=== PATIENT | female | born 1945 | race Caucasian/White ===

== ENCOUNTER → 2016-05-15 | Outpatient (CLI) | payer BC ==
[~2016-05-15] MED LIST: ATEN50TA8 PO; FLNIN NAE; HYDC25 PO; LISI5TAB3 PO; PRLSR20 PO
[2016-05-15 13:08] LABS: BLOOD UREA NITROGEN 19 mg/dl (7-18); BUN/CREATININE RATIO 26.8 (10-20); CARBON DIOXIDE 34 mmol/L (21-32); CHLORIDE 105 mmol/L (98-107); CREATININE 0.71 mg/dl (0.60-1.20); GLUCOSE 94 mg/dl (70-99); POTASSIUM 3.7 mmol/L (3.5-5.1); SODIUM 143 mmol/L (136-145)
[2016-05-15 13:12] LABS: CHOLESTEROL 188 mg/dl (0-200); CHOLESTEROL/HDL RATIO 2.8; HDL CHOLESTEROL 66 mg/dl; LDL CHOLESTEROL CALCULATED 89 mg/dl; TRIGLYCERIDES 166 mg/dl (0-150); VERY LOW DENSITY LIPOPROT CALC 33 mg/dl
== END | disposition home or self-care (01) ==
LOC: C.LABPVFM 08:06
PROVIDERS: ATTEND Nurse Practitioner
DX: E78.5 Hyperlipidemia, unspecified (principal); I10 Essential (primary) hypertension

== ENCOUNTER → 2016-09-22 | Outpatient (CLI) | payer BC ==
[2016-09-22 13:50] LABS: BLOOD UREA NITROGEN 15 mg/dl (7-18); BUN/CREATININE RATIO 21.6 (10-20); CALCIUM 9.3 mg/dl (8.5-10.1); CARBON DIOXIDE 31 mmol/L (21-32); CHLORIDE 103 mmol/L (98-107); CHOLESTEROL 188 mg/dl (0-200); CREATININE 0.69 mg/dl (0.60-1.20); GLUCOSE 103 mg/dl (70-99); POTASSIUM 3.6 mmol/L (3.5-5.1); SODIUM 139 mmol/L (136-145); TRIGLYCERIDES 134 mg/dl (0-150); VERY LOW DENSITY LIPOPROT CALC 27 mg/dl
[2016-09-22 13:53] LABS: CHOLESTEROL/HDL RATIO 2.9; HDL CHOLESTEROL 64 mg/dl; LDL CHOLESTEROL CALCULATED 97 mg/dl
== END | disposition home or self-care (01) ==
LOC: C.LABPVFM 08:32
PROVIDERS: ATTEND Nurse Practitioner
DX: E78.5 Hyperlipidemia, unspecified (principal); I10 Essential (primary) hypertension

== ENCOUNTER → 2016-12-28 | Outpatient (CLI) | payer BC ==
--- NOTE | 2016-12-29 15:36 | MAMMOGRAPHY REPORT ---
BILATERAL DIGITAL SCREENING MAMMOGRAM WITH CAD: 12/28/2016 CLINICAL HISTORY: Routine screening. TECHNIQUE: Current study was also evaluated with a Computer Aided Detection (CAD) system. Bilateral CC and MLO views were obtained. COMPARISON: Comparison is made to exams dated: 11/04/2015 mammogram, 10/22/2014 mammogram, 11/08/2012 m ammogram, 08/26/2009 mammogram, 12/21/2010 mammogram - [facility], and 08/25/2008. BREAST COMPOSITION: There are scattered areas of fibroglandular density in both breasts. FINDINGS: There is a small cluster of calcifications within the left upper outer quadrant, for which spot magnification views are recommended for further evaluation. The remainder of both breasts are stable compared to prior exams, without suspicious masses, calcific ations, or areas of architectural distortion noted. Other scattered bilateral benign-appearing calci fications are not significantly changed. Lobulated 7 mm mass within the left medial breast is stable dating back to at least the 2007 exam. IMPRESSION: ACR BI-RADS CATEGORY 0: INCOMPLETE EVALUATION: NEED ADDITIONAL IMAGING EVALUATION Left upper outer quadrant calcifications, for which additional imaging evaluation is recommended. Th e patient will be called to schedule an appointment. Approximately 10% of breast cancers are not detected with mammography. A negative mammographic report should not delay biopsy if a clinically suggestive mass is present. Milagros Conte M.D. ah/:12/28/2016 16:15:29 Book Retailer: Leia BLUM(R)(M), [facility] letter sent: Addl Imaging 0 BI-RADS Code: ACR BI-RADS Category 0: Incomplete Evaluation: Need Additional Imaging Evaluation
== END | disposition home or self-care (01) ==
LOC: C.MAMM 11:37
PROVIDERS: ATTEND Nurse Practitioner
DX: Z12.31 Encounter for screening mammogram for malignant neoplasm of breast (principal); R92.0 Mammographic microcalcification found on diagnostic imaging of breast

== ENCOUNTER → 2017-01-10 | Outpatient (CLI) | payer BC ==
--- NOTE | 2017-01-10 13:44 | MAMMOGRAPHY REPORT ---
UNILATERAL LEFT DIGITAL DIAGNOSTIC MAMMOGRAM: 01/10/2017 CLINICAL HISTORY: Left calcifications. TECHNIQUE: Spot magnification left CC and ML views were obtained. COMPARISON: Comparison is made to exams dated: 12/28/2016 mammogram, 11/04/2015 mammogram, 10/22/2014 mammogram, 11/08/2012 mammogram, 12/21/2010 mammogram, and 08/26/2009 mammogram - [facility]. BREAST COMPOSITION: There are scattered areas of fibroglandular density in the left breast. FINDINGS: Spot magnification views of the left breast demonstrate a 5.5 mm nodular asymmetry with as sociated coarse heterogeneous microcalcifications in the upper outer posterior left breast. There ar e approximately 5-6 microcalcifications in the grouping that differ in size and shape. Although this could represent a degenerating fibroadenoma, DCIS cannot be completely excluded. Definitive charact erization with a stereotactic guided biopsy is recommended. IMPRESSION: ACR BI-RADS CATEGORY 4: SUSPICIOUS 1. A left breast stereotactic guided biopsy is recommended for a 5 mm grouping of coarse heterogeneo us microcalcifications and associated nodular asymmetry in the upper outer posterior left breast. These results and recommendations were discussed with the patient at the time of the exam. She reluc tantly agreed to the biopsy and tentatively scheduled prior to leaving our department. Approximately 10% of breast cancers are not detected with mammography. A negative mammographic report should not delay biopsy if a clinically suggestive mass is present. Amita Turner M.D. ay/:01/10/2017 09:16:57 Sheeter Operator: Juju BLUM(Alli)(Ted), [facility] letter sent: Abnormal 4/5 BI-RADS Code: ACR BI-RADS Category 4: Suspicious
== END | disposition home or self-care (01) ==
LOC: C.MAMM 08:35
PROVIDERS: ATTEND Nurse Practitioner
DX: R92.0 Mammographic microcalcification found on diagnostic imaging of breast (principal); N64.89 Other specified disorders of breast

== ENCOUNTER → 2017-01-17 | Outpatient (CLI) | payer BC ==
--- NOTE | 2017-01-17 13:25 | Discharge Instructions ---
Discharge Instructions Procedure Procedure Date: Jan 17, 2017. Reason for visit: Left Calcifications. Discharge Discharge Date: Jan 17, 2017. Discharge Diagnosis: post left breast stereotactic guided biopsy Instructions Activity Recommendations: Additional Limitations (see below) Return to School/Work: no limitations Recommended Home Diet: No Limitations Provider Instructions: ACTIVITY RECOMMENDATIONS: * No lifting, pushing, pulling or exercising the affected side for three days. RETURN TO SCHOOL/WORK: * You may return to work/school after the procedure, but do not perform any strenuous activities for 24 to 48 hours. MEDICATIONS: * Tylenol (two 325 mg) every four to six hours if needed for mild pain (if not allergic to Tylenol). DIET: * Resume previous diet. SPECIAL CARE INSTRUCTIONS: * Keep biopsy site dry for 24 hours. May shower after 24 hours, but do not soak (bathe) incision. * May remove Tegaderm (plastic patch) tomorrow AFTER showering. * Leave the steri-strips on for one week. Allow the steri-strips to fall off by themselves. If not off after one week, you may remove them. You may place a Bandaid crosswise over the strips, if desired. * Apply ice 10 minutes on and 10 minutes off as needed. * Wear a bra at bedtime to sleep more comfortably for 2-3 days. * Your referring physician should have the results after approximately 5 to 7 business days. * Call for unusual bleeding, fever, drainage, etc or if you have any questions call [phone] during normal business hours or after hours call Dr Turner, . FOLLOW UP VISIT: Follow-up with Referring Physician as scheduled. Allergies Coded Allergies: No Known Allergies (Unverified , NONE, 05/29/08) Uncoded Allergies: NKDA (Allergy, Mild, 12/05/05) Thomas Juares Recommendations: Call your doctor if: * Temperature above 101 degrees * Pain not relieved by pain medicine ordered * There is increased drainage or redness from any incision * You have any unanswered questions or concerns. Your Doctors Instructions noted above were prepared by provider Amita Turner. Patient Signature Section: Patient Instructions Signature Page Elsie Ace Patient (or Guardian) Signature/Date: I have read and understand the instructions given to me by my caregivers. Caregiver/RN/Doctor Signature/Date: The above-named patient and/or guardian has received patient instructions on this date. + Original Patient Signature Page (only) stays with chart. Please make copy for patient.
--- NOTE | 2017-01-17 15:18 | MAMMOGRAPHY REPORT ---
UNILATERAL LEFT DIGITAL DIAGNOSTIC MAMMOGRAM: 01/17/2017 CLINICAL HISTORY: Status post stereotactic biopsy of a grouping of calcifications and associated nodu lar asymmetry in the lateral left breast. Please refer to report from left breast stereotactic biopsy performed at the same time for full detai l. IMPRESSION: POST PROCEDURE IMAGING FOR MARKER PLACEMENT Please refer to report from left breast stereotactic biopsy performed at the same time for full detai l. Approximately 10% of breast cancers are not detected with mammography. A negative mammographic report should not delay biopsy if a clinically suggestive mass is present. Amita Turner M.D. ay/:01/17/2017 13:32:51 Director Of Home Health Services: iGa BLUM(R)(M), [facility] BI-RADS Code: Post Procedure Imaging For Marker Placement
--- NOTE | 2017-01-18 07:53 | MAMMOGRAPHY REPORT ---
STEREOTACTIC GUIDED BIOPSY LEFT BREAST: 01/17/2017 CLINICAL HISTORY: 71-year-old woman presents for biopsy of a 5.5 mm nodular asymmetry with associated coarse heterogeneous calcification in the approximate 3:00 posterior left breast. COMPARISON: Comparison is made to exams dated: 01/10/2017 mammogram, 12/28/2016 mammogram, 11/04/2015 mammogram, 10/22/2014 mammogram, and 11/08/2012 mammogram - [facility]. PATIENT CONSENT: After explaining the risks, benefits and alternatives of the procedure to the patien t, informed consent was obtained both verbally and in writing. Specific risks include: Bleeding, inf ection, puncture of adjacent structure, pain, nontarget biopsy, sampling error, metal allergy and med ication reaction. PROCEDURE DESCRIPTION: A time-out was performed and the left breast was confirmed as the site of biop sy. The patient was placed prone on the stereotactic biopsy table and the breast was placed in latera lmedial compression. A ehr trainer image was obtained that demonstrated the clustered microcalcifications in question. They are amenable to sterotactic biopsy. Then +15 and -15 stereo pair images were obt ained. The calcifications were targeted utilizing the coordinates obtained by the computer. The skin was prepped with Betadine. 1% Lidocaine with and without epinipherine was administered as local anes thesia. A small skin incision was made. Through the incision, the needle was inserted to the depth d etermined by the computer. 12 samples were obtained using a ioBridgeiva 9-gauge vacuum-assisted biops y device. The specimen radiograph demonstrated several agency service representative microcalcifications, therefore, a metallic marker was placed at the biopsy site. There was no immediate complication. Hemostasis was achieved after several minutes of manual compression. The samples were sent to pathology in an appr opriately labeled container. Postprocedure CC and ML views of the left breast were obtained. A new dumbbell-shaped biopsy marker clip is seen in the 3:00 posterior left breast at the site of the biopsied nodular asymmetry with as sociated coarse heterogeneous calcification. Possible minimal 8mm hematoma at biopsy site. IMPRESSION: STEREOTACTIC GUIDED BIOPSY Status post left breast stereotactic biopsy of a 5.5 mm nodular asymmetry with associated coarse hete rogeneous calcification in the 3:00 posterior left breast, with biopsy marker placed at the site. The patient will receive notification of the biopsy results from her referring physician. Amita Turner M.D. ay/:01/17/2017 16:35:46 Hospital Aide: Gia VERA)(Ted), [facility]
== END | disposition home or self-care (01) ==
LOC: C.MAMM 12:27
PROVIDERS: ATTEND Nurse Practitioner
DX: D24.2 Benign neoplasm of left breast (principal); R92.0 Mammographic microcalcification found on diagnostic imaging of breast

== ENCOUNTER → 2017-09-17 | Outpatient (CLI) | payer BC ==
[2017-09-17 13:57] LABS: BLOOD UREA NITROGEN 13 mg/dl (7-18); CALCIUM 9.5 mg/dl (8.5-10.1); CARBON DIOXIDE 31 mmol/L (21-32); CHOLESTEROL 218 mg/dl (0-200); CREATININE 0.68 mg/dl (0.60-1.20); GLUCOSE 99 mg/dl (70-99); LDL CHOLESTEROL CALCULATED 127 mg/dl; POTASSIUM 4.1 mmol/L (3.5-5.1); SODIUM 139 mmol/L (136-145)
== END | disposition home or self-care (01) ==
LOC: C.LABPVFM 10:08
PROVIDERS: ATTEND Nurse Practitioner
DX: E78.5 Hyperlipidemia, unspecified (principal); I10 Essential (primary) hypertension

== ENCOUNTER 2023-05-04 23:15 | Observation (INO) ==
[2023-05-04] MEDS: dilTIAZem HCl 5 MG/ML 5 ML VIAL IV ONE (23:40)
[2023-05-04] MEDS: ADENOSINE IV SOLN 3 MG/ML 2 ML VIAL IV ONE (23:41)
[2023-05-04] MEDS: dilTIAZem HCl 5 MG/ML 5 ML VIAL IV STA (23:47)
--- NOTE | 2023-05-04 23:53 | Emergency Department Note ---
Impression & Plan Supraventricular tachycardia, Hypomagnesemia, Hypokalemia, Right-sided chest pain Admit to the [facility] ED Provider Note NAME: SOM HURTADO AGE: 77 SEX: Female INFORMANT: Patient ED PROVIDER(S): Mariya Condon DO CHIEF COMPLAINT: Chest pain PLAN: Disposition: Admit to the [facility] MEDICAL DECISION MAKING: This is a 77-year-old female patient underwent double mastectomy 5 days ago and was recovering at home. Today she described increasing chest pain throughout the day till tonight EMS was called and found that she was significantly tachycardic with a heart rate of 180. EMS administered adenosine up to 18 mg with no improvement in her situation. Care/management discussed with: hotel assistant manager, [facility]ist, the patient's family and the patient Triage Nursing notes: Reviewed and agree with them. Vital Signs: reviewed and remarkable for tachycardia and hypertension Additional History obtained from: EMS and her family Differential Diagnosis: Electrolyte abnormality, dehydration, cardiac dysrhythmia, cardiac ischemia Diagnostics, independently interpreted by me: ECG: SVT at a rate of 183 ST segment depression inferiorly and laterally. Repeat ECG: Atrial fibrillation at a rate of 76 ST segment depression laterally concerning for ischemia Repeat ECG: Normal sinus rhythm at a rate of 84 with immature supraventricular complexes. No signs of ischemia. Cardiac Monitoring: A-fib at a rate of 73 Imaging studies: Portable chest x-ray: As per my independent interpretation-no evidence of pulmonary infiltrates or consolidation HPI: 77 year old Female arrives for evaluation of chest pain. Patient describes worsening chest discomfort throughout the day today. She originally thought it was because of the chest sleeve/bra that she is wearing secondary to her recent mastectomy. She admits that she has not eaten much throughout the day today because she just does not feel like it. She does not cook for herself as a result of her 's recently. PAST MEDICAL HISTORY: See Below, PAST SURGICAL HISTORY: See Below, SOCIAL HISTORY: See Below, HOME MEDICATIONS: See list ALLERGIES: See list VITALS: See Below PHYSICAL EXAMINATION: HEENT: Head - normocephalic and atraumatic. Pupils are equal, round, and reactive to light. Extraocular eye muscles are intact, and sclera are anicteric. Nose - moist nasal mucosa without discharge. Mouth - moist buccal mucosa. Oropharynx is nonerythematous and there is no tonsillar exudate or edema noted. Neck: Supple; no JVD, nuchal rigidity, cervical lymphadenopathy, or auscultated bruits. Heart: Tachycardic rate and regular rhythm there is a normal S1 and S2 with no murmurs, clicks, or gallops appreciated. Lungs: Clear to auscultation bilaterally with no wheezes, rales, or rhonchi. Abdomen: Soft, completely nontender, nondistended, with good bowel sounds. There are no palpable pulsatile masses or hepatosplenomegaly. There is no guarding, rigidity, or rebound noted. Extremities: No evidence of cyanosis, clubbing, or edema. There are easily palpable peripheral pulses. Skin: warm and extremely dry with poor turgor and no rashes. Emergency department treatment: monitoring coordinator, IV adenosine, IV Cardizem, IV normal saline bolus, IV potassium, IV magnesium Emergency department course: The patient was evaluated in room B1. An order was placed for continuous cardiac monitoring. The patient was in SVT at a rate of 187. Twelve-lead EKG was obtained. Second IV lock was initiated. The patient was given 12 mg of IV adenosine which slowed the rhythm enough for me to see there was normal sinus rhythm underneath. Patient had laboratory studies drawn. She was bolused with an additional 500 cc of normal saline solution. She was given 20 mg of IV Cardizem. Laboratory studies revealed a low potassium and low magnesium. She was started with replacement of an IV K rider and IV magnesium. Portable chest x-ray was performed and was unremarkable. I kept the patient and her family abreast of the situation. I discussed the case with the [facility] Hospitalist. I have personally spent greater than 75 minutes of critical care time in the direct management of this patient. This includes bedside care, interpretation of diagnostic studies, and testing, discussion with consultants, patient, and family members, and other required patient management activities. This 75 minutes is in excess of all separately billable procedures. Past Med/Surg History Medical History (Updated 05/05/23 @ 08:00 by Mariya Condon DO) Active Meniere's disease, cochlear Allergic rhinitis Hyperlipidemia Hypertension Surgical History (Updated 05/05/23 @ 03:37 by Adelia Moses DO) S/P bilateral mastectomy History of dental surgery [place] teeth removal/another procedure to remove a piece of wisdom tooth Hx of cholecystectomy Family History Mother Hypertension Myocardial infarction Denies family history of Ovarian cancer Prostate cancer Diabetes Breast cancer Colorectal cancer Social History Smoking Status: Former smoker Tobacco Type: Cigarettes Smoking End Date: 1998; Second Hand Exposure: Yes; Do You Dip or Chew Tobacco: No; Tobacco Cessation Education Requested by Patient: No Hx Alcohol Use: No Hx Substance Use: No Preferred Language: Palauan Communication Ability: Effective Visual Impairment: Limited Hearing Ability: Normal Foster Winder Required: No Beliefs That Will Affect Care: None marital status: / Current Living Situation: Alone current occupational status: retired How many Children do You have: 3 How many Children do You have Comment: 1 child . Feels Safe at Home: Yes Safety Concerns: Feels Safe At This Time Childhood Exposure to Second-Hand Smoke: Yes Diet: regular caffeine: Yes (coffee) during the past year weight has: remained stable Dental Care, Regularly: Yes Physical Activity Frequency: Does not Exercise Seatbelt Use: always Sunscreen Use: No Do you think of yourself as: straight/heterosexual Gender Identity: Female Assistive Devices: None Allergies Allergies Allergy/AdvReac Type Severity Reaction Status Date / Time atorvastatin [From Lipitor] AdvReac Intermediate hairloss Verified 05/05/23 01:02 simvastatin [From Zocor] AdvReac Intermediate hairloss Verified 05/05/23 01:02 Home Meds Home Medications Medication Instructions Recorded Confirmed cholecalciferol (vitamin D3) 25 2,000 unit PO DAILY 10/16/19 05/05/23 mcg (1,000 unit) capsule rdfqvile-[id number]-fbyh 8 mg-folic 400 1 tab PO DAILY 05/16/22 05/05/23 mcg-K 50 mcg-lutein 300 mcg tablet (Centrum Silver Women) azelastine 137 mcg (0.1 %) nasal 1 spray intranasal DAILY 05/05/23 05/05/23 spray aerosol hydrochlorothiazide 25 mg tablet 25 mg PO DAILY 05/05/23 05/05/23 lisinopril 5 mg tablet 5 mg PO DAILY 05/05/23 05/05/23 meloxicam 15 mg tablet 15 mg PO DAILY PRN Pain 05/05/23 05/05/23 Previous Rx's Medication Instructions Recorded montelukast 10 mg tablet 10 mg PO HS #90 tabs 09/07/22 fluticasone propionate 50 2 spray intranasal DAILY #48 grams 03/08/23 mcg/actuation nasal spray,suspension albuterol sulfate 90 mcg/actuation 2 puff inhalation QID PRN 03/29/23 aerosol inhaler shortness of breath or wheezing #6.7 grams loratadine 10 mg tablet 10 mg PO DAILY allergy symptoms 03/29/23 #90 tabs atenolol 50 mg tablet 50 mg PO DAILY #90 tabs 05/04/23 Results & Data (ED) Vital Signs Vital Signs - 24 hr 05/04/23 23:21 05/04/23 23:21 05/04/23 23:23 Temperature 37.0 C Temperature Source Oral Pulse Rate 188 H 185 H 185 H Pulse Rate from SpO2 Sensor Respiratory Rate 20 17 Respiratory Effort / Characteristics Non-Labored Spontaneous Respiratory Depth Normal Respiratory Pattern Regular Blood Pressure 148/102 H 130/103 H Blood Pressure Mean 117 112 Blood Pressure Position Lying Pulse Oximetry 97 Oxygen Delivery Method Room Air Sepsis Recent Fever Within 48 Hours No Sepsis New/Unexplained Change in Mental Status N/A Sepsis Action Taken by Nursing No Action Required 05/04/23 23:30 05/04/23 23:37 05/04/23 23:37 Temperature Temperature Source Pulse Rate 187 H 183 H 38 L Pulse Rate from SpO2 Sensor 187 H Respiratory Rate 23 Respiratory Effort / Characteristics Respiratory Depth Respiratory Pattern Blood Pressure 148/102 H Blood Pressure Mean 117 Blood Pressure Position Pulse Oximetry 98 Oxygen Delivery Method Room Air Sepsis Recent Fever Within 48 Hours Sepsis New/Unexplained Change in Mental Status Sepsis Action Taken by Nursing 05/04/23 23:38 05/04/23 23:38 05/04/23 23:40 Temperature Temperature Source Pulse Rate 203 H 203 H 182 H Pulse Rate from SpO2 Sensor 183 H 179 H Respiratory Rate 21 19 Respiratory Effort / Characteristics Respiratory Depth Respiratory Pattern Blood Pressure 129/85 126/83 Blood Pressure Mean 99 97 Blood Pressure Position Pulse Oximetry 95 98 Oxygen Delivery Method Room Air Room Air Sepsis Recent Fever Within 48 Hours Sepsis New/Unexplained Change in Mental Status Sepsis Action Taken by Nursing 05/04/23 23:41 05/04/23 23:52 05/04/23 23:52 Temperature Temperature Source Pulse Rate 121 H 82 Pulse Rate from SpO2 Sensor Respiratory Rate 20 Respiratory Effort / Characteristics Respiratory Depth Respiratory Pattern Blood Pressure Blood Pressure Mean Blood Pressure Position Pulse Oximetry 97 96 Oxygen Delivery Method Room Air Room Air Sepsis Recent Fever Within 48 Hours Sepsis New/Unexplained Change in Mental Status Sepsis Action Taken by Nursing 05/04/23 23:52 05/04/23 23:55 05/04/23 23:55 Temperature Temperature Source Pulse Rate 85 90 74 Pulse Rate from SpO2 Sensor 83 79 Respiratory Rate 18 22 Respiratory Effort / Characteristics Respiratory Depth Respiratory Pattern Blood Pressure 83/50 L 98/63 L Blood Pressure Mean 61 74 Blood Pressure Position Pulse Oximetry 95 97 Oxygen Delivery Method Room Air Room Air Sepsis Recent Fever Within 48 Hours Sepsis New/Unexplained Change in Mental Status Sepsis Action Taken by Nursing 05/05/23 00:00 05/05/23 00:10 05/05/23 00:15 Temperature Temperature Source Pulse Rate 74 89 77 Pulse Rate from SpO2 Sensor 76 92 H 80 Respiratory Rate 22 20 20 Respiratory Effort / Characteristics Respiratory Depth Respiratory Pattern Blood Pressure 105/55 L 96/63 L 105/50 L Blood Pressure Mean 71 74 68 Blood Pressure Position Pulse Oximetry 97 96 96 Oxygen Delivery Method Room Air Room Air Room Air Sepsis Recent Fever Within 48 Hours Sepsis New/Unexplained Change in Mental Status Sepsis Action Taken by Nursing 05/05/23 00:30 05/05/23 00:45 05/05/23 01:15 Temperature Temperature Source Pulse Rate 74 76 70 Pulse Rate from SpO2 Sensor 73 72 70 Respiratory Rate 16 19 22 Respiratory Effort / Characteristics Respiratory Depth Respiratory Pattern Blood Pressure 95/58 L 108/58 L 110/61 Blood Pressure Mean 70 74 77 Blood Pressure Position Pulse Oximetry 96 96 97 Oxygen Delivery Method Room Air Sepsis Recent Fever Within 48 Hours Sepsis New/Unexplained Change in Mental Status Sepsis Action Taken by Nursing 05/05/23 01:38 05/05/23 02:00 05/05/23 02:30 Temperature Temperature Source Pulse Rate 68 67 70 Pulse Rate from SpO2 Sensor 66 67 67 Respiratory Rate 18 16 23 Respiratory Effort / Characteristics Respiratory Depth Respiratory Pattern Blood Pressure Blood Pressure Mean Blood Pressure Position Pulse Oximetry 97 99 96 Oxygen Delivery Method Sepsis Recent Fever Within 48 Hours Sepsis New/Unexplained Change in Mental Status Sepsis Action Taken by Nursing Laboratory Data 05/05/23 04:39 05/05/23 04:39 Lab Results 05/04/23 Range/Units 23:20 WBC 21.33 H (4.8-10.8) K/ul RBC 4.81 (4.20-5.40) M/uL Hgb 15.2 (12.0-16.0) g/dl Hct 44.7 (37.0-47.0) % MCV 92.9 (80.0-100.0) fL MCH 31.6 (25.0-34.0) pg MCHC 34.0 (32.0-36.0) g/dL RDW Std Deviation 44.3 (36.4-46.3) fL RDW Coeff of Areli 13.0 (11.5-14.5) % Plt Count 291 (130-400) K/uL MPV 11.7 (9.4-12.4) fL Immature Gran % (Auto) 0.7 % Neut % (Auto) 83.8 % Lymph % (Auto) 8.0 % [place] % (Auto) 6.9 % Eos % (Auto) 0.1 % Baso % (Auto) 0.5 % Neut # (Auto) 17.89 H (1.40-6.50) K/uL Lymph # (Auto) 1.70 (1.20-3.40) K/uL [place] # (Auto) 1.48 H (0.11-0.59) K/uL Eos # (Auto) 0.02 (0.00-0.50) K/uL Baso # (Auto) 0.10 (0.00-0.20) K/uL Immature Gran # (Auto) 0.14 (0.01-0.20) K/uL Sodium 136 (136-145) mmol/L Potassium 3.2 L (3.5-5.1) mmol/L Chloride 99 (98-107) mmol/L Carbon Dioxide 26 (21-32) mmol/L Anion Gap 11 (3-11) BUN 17 (6-23) mg/dl Creatinine 0.83 (0.6-1.2) mg/dl Est Cr Clr Drug Dosing 56.8 ml/min Est GFR ( Amer) 77.7 ml/min Est GFR (Non-Af Amer) 67.1 ml/min BUN/Creatinine Ratio 20.5 H (10-20) Glucose 179 H (70-99(Fasting)) mg/dl Calcium 9.4 (8.6-10.3) mg/dl Magnesium 1.6 L (1.7-2.4) mg/dl Total Bilirubin 0.6 (0.2-1.0) mg/dl AST 13 (13-39) U/L ALT 8 (7-52) U/L Alkaline Phosphatase 72 (34-104) U/L Troponin I High Sens 12.3 (0-14) pg/ml Total Protein 7.3 (6.0-8.3) gm/dl Albumin 4.2 (3.4-5.0) gm/dl Globulin 3.1 (2.5-4.0) gm/dl Albumin/Globulin Ratio 1.4 (0.9-2) Lipase 42 (11-82) U/L Administered Medications Lactated Ringer's (Lr) 1,000 mls @ 100 mls/hr IV .Q10H TOM Stop: 05/05/23 22:59 Last Admin: 05/05/23 03:26 Dose: 100 mls/hr Documented By: LUZ Discontinued Medications Adenosine (Adenosine Iv Soln 3 Mg/Ml 2 Ml Vial) Confirm Administered Dose 6 mg IV .STK-MED ONE Stop: 05/04/23 23:35 Last Admin: 05/04/23 23:41 Dose: 12 mg Documented By: Adenosine (Adenosine Iv Soln 3 Mg/Ml 2 Ml Vial) 12 mg IV NOW STA Stop: 05/05/23 00:27 Last Admin: 05/05/23 00:28 Dose: Not Given Documented By: Diltiazem HCl (Diltiazem Hcl 5 Mg/Ml 5 Ml Vial) Confirm Administered Dose 25 mg IV .STK-MED ONE Stop: 05/04/23 23:40 Last Increment: 05/04/23 23:40 Dose: 20 mg Documented By: Co-signed By: PRINCESS Diltiazem HCl (Diltiazem Hcl 5 Mg/Ml 5 Ml Vial) 20 mg IV NOW STA Stop: 05/04/23 23:41 Last Admin: 05/04/23 23:47 Dose: Not Given Documented By: Sodium Chloride (Nss) 500 mls @ 999 mls/hr IV .Q31M ONE Stop: 05/05/23 00:56 Last Infusion: 05/05/23 01:12 Dose: Infused Documented By: Admin: 05/05/23 00:30 Dose: 999 mls/hr Documented By: Potassium Chloride (K Luis Alberto / Wtr) 10 meq in 100 mls @ 100 mls/hr IV ONE ONE Stop: 05/05/23 01:25 Last Infusion: 05/05/23 01:32 Dose: Infused Documented By: Admin: 05/05/23 00:30 Dose: 100 mls/hr Documented By: Magnesium Sulfate/Dextrose (Magnesium Sulfate / D5w) 1 gm in 100 mls @ 100 mls/hr IV NOW STA Stop: 05/05/23 01:25 Last Infusion: 05/05/23 01:31 Dose: Infused Documented By: Admin: 05/05/23 00:30 Dose: 100 mls/hr Documented By: Imaging Data Radiologist's Impression: Chest X-Ray 05/04/23 23:40 XR chest 1V portable CLINICAL HISTORY: Chest pain, nonspecific COMPARISON STUDY: Chest radiograph June 25, 2010. FINDINGS: Surgical drains project over the lower chest. There is no pneumothorax or pleural effusion. Patient is mildly rotated. There is no consolidation or evidence for pulmonary edema. Cardiomediastinal silhouette is stable. Skin folds project over the chest. IMPRESSION: No acute cardiopulmonary findings. ACT 112: Negative or not required by law. Electronically signed by: Alonzo Gallegos M.D. 05/05/2023 7:41 AM Discharge Plan Visit Data Chief Complaint: Tachycardia Stated Complaint: SVT ED Provider: Mariya Condon Discharge Problem: Supraventricular tachycardia, Hypomagnesemia, Hypokalemia, Right-sided chest pain Patient Disposition: Admitted As Inpatient Discharge Instructions Interventions: ED Discharge Assessment Last Done: 05/05/23 04:37
[2023-05-04 23:59] LABS: Basophils % (auto) 0.5 %; Eosinophils # (auto) 0.02 K/uL (0.00-0.50); Eosinophils % (auto) 0.1 %; Hematocrit (blood only) 44.7 % (37.0-47.0); Hemoglobin 15.2 g/dl (12.0-16.0); Immature Granulocytes # (auto) 0.14 K/uL (0.01-0.20); Immature Granulocytes % (auto) 0.7 %; Mean Corpuscular Hemoglobin 31.6 pg (25.0-34.0); Mean Corpuscular Volume 92.9 fL (80.0-100.0); Mean Platelet Volume 11.7 fL (9.4-12.4); Monocytes # (auto) 1.48 K/uL (0.11-0.59); Monocytes % (auto) 6.9 %; Neutrophils # (auto) 17.89 K/uL (1.40-6.50); Neutrophils % (auto) 83.8 %; Platelet Count 291 K/uL (130-400); RDW Standard Deviation 44.3 fL (36.4-46.3); Red Blood Count 4.81 M/uL (4.20-5.40); White Blood Count 21.33 K/ul (4.8-10.8)
[2023-05-05 00:05] LABS: Albumin Globulin Ratio 1.4 (0.9-2); Albumin Level 4.2 gm/dl (3.4-5.0); BUN Creatinine Ratio 20.5 (10-20); Bilirubin,Total 0.6 mg/dl (0.2-1.0); Calcium 9.4 mg/dl (8.6-10.3); Creatinine Clr Calc Pharmacy 56.8 ml/min; Est GFR (African American) 77.7 ml/min; Est GFR (Non-African American) 67.1 ml/min; Globulin 3.1 gm/dl (2.5-4.0); Magnesium 1.6 mg/dl (1.7-2.4); Potassium 3.2 mmol/L (3.5-5.1); Total Protein 7.3 gm/dl (6.0-8.3)
[2023-05-05 00:12] LABS: Troponin I High Sensitivity 12.3 pg/ml (0-14)
[2023-05-05] MEDS: ADENOSINE IV SOLN 3 MG/ML 2 ML VIAL IV STA (00:28)
[2023-05-05] MEDS: SODIUM CHLORIDE 0.9% 500 ML IV ONE (00:30)
[2023-05-05] MEDS: MAGNESIUM SULFATE / D5W 1 GM/100 ML BAG IV STA (00:30)
[2023-05-05] MEDS: POTASSIUM CHLORIDE / WTR 10 MEQ/100 ML PLCT IV ONE (00:30)
--- NOTE | 2023-05-05 02:13 | History & Physical Report ---
"Date of Service May 05, 2023 Assessment & Plan (1) Bilateral breast cancer: (2) S/P bilateral mastectomy: (3) SVT (supraventricular tachycardia): (4) Hypertension: Plan Supraventricular Tachycardia | Electrolyte Abnormalities -New onset of SVT, required adenosine pre-hospital and additional adenosine plus Cardizem in ED -HR currently ranging 70-80s after above regimen -Will continue home atenolol and add additional Lopressor 5mg IV q4h for HR >110 -No prior episodes atrial fibrillation/SVT/or arrhythmias -Found to have K of 3.2 and Mag of 1.6, repletion received in ED. -Repeat BMP, mag levels ordered for a.m. Goal of K=4 and Mag=2 -Received 500mL NSS bolus in ED. Will continue with IV hydration. -Suspect that electrolyte abnormalities and poor PO intake contributed to her presentation. Will hold HCTZ. -Cardiology consulted, will defer anticoagulation until cardiology assessment later this morning -Monitor on telemetry Leukocytosis -WBC 22 on arrival -Patient has been afebrile, no urinary or GI infectious symptoms. Incisions from mastectomy do not appear infected. -Suspect white count could be falsely elevated due to hemoconcentration -Will hold antibiotics at this time, repeat CBC ordered for a.m. S/P Bilateral Mastectomy -Incisions appear to be healing appropriately with two drains in place -No obvious sign of infection at this time Admit to PCU VTE Prophylaxis: Will await discussion with cardiology Diet: Heart Healthy Code Status: Full Code History of Present Illness Primary Care Provider: TIANA Giles Elsie Ace is a 77 year-old female with a past medical history of HTN, HLD, vertigo who is s/p bilateral mastectomy (04/27/23) who presented to the ED via ambulance after chest pain. She was found to be in SVT by EMS and was given adenosine. Patient states that she had a double mastectomy two weeks ago, has been feeling sore but otherwise has been recovering well. She noticed some increased pain around her chest/incisions today and did not quite feel like her self/was nauseated prior to EMS arriving. She notes that she has not had much to eat, does not have much of an appetite but this is a longstanding issue as she does not cook much since she became a several years ago. She notes that on Sunday she had only eaten 2 pieces of toast that day. Notes she had two if her drains removed earlier this week and has had continued output in her remaining two drains. Denies shortness of breath, abdominal pain/diarrhea/constipation, dizziness/lightheadedness, fever or urinary frequency or dysuria. ED Course: -500mL NSS bolus -Received adenosine, cardizem and mag sulfate/potassium repletion Allergies Allergy/AdvReac Type Severity Reaction Status Date / Time atorvastatin [From Lipitor] AdvReac Intermediate hairloss Verified 05/05/23 01:02 simvastatin [From Zocor] AdvReac Intermediate hairloss Verified 05/05/23 01:02 Home Medications Medication Instructions Recorded Confirmed Type cholecalciferol (vitamin D3) 25 2,000 unit PO DAILY 10/16/19 05/05/23 History mcg (1,000 unit) capsule snkfusyl-pmiw-ywby 8 mg-folic 400 1 tab PO DAILY 05/16/22 05/05/23 History mcg-K 50 mcg-lutein 300 mcg tablet (Centrum Silver Women) montelukast 10 mg tablet 10 mg PO HS #90 tabs 09/07/22 05/05/23 Rx fluticasone propionate 50 2 spray intranasal DAILY #48 grams 03/08/23 05/05/23 Rx mcg/actuation nasal spray,suspension albuterol sulfate 90 mcg/actuation 2 puff inhalation QID PRN 03/29/23 05/05/23 Rx aerosol inhaler shortness of breath or wheezing #6.7 grams loratadine 10 mg tablet 10 mg PO DAILY allergy symptoms 03/29/23 05/05/23 Rx #90 tabs atenolol 25 mg tablet 25 mg PO BID #60 tabs 05/05/23 Rx azelastine 137 mcg (0.1 %) nasal 1 spray intranasal DAILY 05/05/23 05/05/23 History spray aerosol lisinopril 5 mg tablet 5 mg PO DAILY 05/05/23 05/05/23 History meloxicam 15 mg tablet 15 mg PO DAILY PRN Pain 05/05/23 05/05/23 History potassium chloride 20 mEq 20 meq PO DAILY #30 tabs 05/05/23 Rx tablet,extended release (K-Tab) Past Med/Surg History Medical History Active Meniere's disease, cochlear Allergic rhinitis Hyperlipidemia Hypertension Surgical History S/P bilateral mastectomy History of dental surgery [place] teeth removal/another procedure to remove a piece of wisdom tooth Hx of cholecystectomy Family History Mother Hypertension Myocardial infarction Denies family history of Ovarian cancer Prostate cancer Diabetes Breast cancer Colorectal cancer Social History Smoking Status: Former smoker Tobacco Type: Cigarettes Second Hand Exposure: Yes; Do You Dip or Chew Tobacco: No; Hx Alcohol Use: No Hx Substance Use: No Preferred Language: Hungarian Communication Ability: Effective Visual Impairment: Limited Hearing Ability: Normal Wildlife Manager Required: No Beliefs That Will Affect Care: None marital status: / Current Living Situation: Alone current occupational status: retired How many Children do You have: 3 How many Children do You have Comment: 1 child . Feels Safe at Home: Yes Childhood Exposure to Second-Hand Smoke: Yes Diet: regular caffeine: Yes (coffee) during the past year weight has: remained stable Dental Care, Regularly: Yes Physical Activity Frequency: Does not Exercise Seatbelt Use: always Sunscreen Use: No Do you think of yourself as: straight/heterosexual Gender Identity: Female Assistive Devices: None Review of Systems Review of Systems: As per above Physical Exam Constitutional: WD/WN, vitals as above Eyes: + anicteric sclerae; no conjunctival abn ormality Respiratory: normal respiratory effort, lungs clear to auscultation Cardiovascular: Rate/Rhythm: regular rate and regular rhythm Extremities: no edema Chest (Breasts): Additional Comments: Bilateral mastectomy incisions, healing appropriately without discharge or erythema. Two drains in place with serosanguineous fluid. Gastrointestinal (Abdomen): normal bowel sounds, soft, nontender, no hepatosplenomegaly Musculoskeletal: Moves limbs independently Neurologic: no focal motor deficits Psychiatric: A+Ox3, euthymic affect Results & Data Results & Data Vital Signs (Past 12 Hours) Vital Signs Temp Pulse Resp BP Pulse Ox O2 Del Method 05/05/23 01:15 70 22 110/61 97 05/05/23 00:45 76 19 108/58 L 96 05/05/23 00:30 74 16 95/58 L 96 Room Air 05/05/23 00:15 77 20 105/50 L 96 Room Air 05/05/23 00:10 89 20 96/63 L 96 Room Air 05/05/23 00:00 74 22 105/55 L 97 Room Air 05/04/23 23:55 74 05/04/23 23:55 90 22 98/63 L 97 Room Air 05/04/23 23:52 85 18 83/50 L 95 Room Air 05/04/23 23:52 82 20 96 Room Air 05/04/23 23:52 97 Room Air 05/04/23 23:41 121 H 05/04/23 23:40 182 H 19 126/83 98 Room Air 05/04/23 23:38 203 H 05/04/23 23:38 203 H 21 129/85 95 Room Air 05/04/23 23:37 38 L 05/04/23 23:37 183 H 05/04/23 23:30 187 H 23 148/102 H 98 Room Air 05/04/23 23:23 185 H 17 130/103 H 05/04/23 23:21 185 H 05/04/23 23:21 37.0 C 188 H 20 148/102 H 97 Room Air Supervising Physician Co-Signing Physician Notes Attending addendum: I have physically seen this patient, have supervised the medical residents activities, and agree with the H&P unless as otherwise noted. Assessment and Plan: Supraventricular tachycardia/atrial fibrillation with RVR- Received multiple doses of adenosine in the prehospital and ED setting Also received diltiazem 20 mg IV, normal saline 500 mL, potassium chloride 10 mEq IV and magnesium sulfate 1 mg IV from the ED Heart rate presently in the low 80s and sinus rhythm The patient will be admitted to telemetry for serial cardiac enzymes, serial EKG's, cardiac rhythm monitoring and a 2-D echocardiogram with Dopplers. Potassium of 3.2 and magnesium of 1.6 will be optimized with IV replacement and recheck laboratories in a.m. Continue IV fluids as noted Stop HCTZ for now, in particular until patient's diet can improve Change atenolol from 50 mg every morning to 25 mg p.o. twice daily Lopressor 5 mg IV every 4 hours as needed for heart rate greater than 110 Consult cardiology, and they will decide regarding indications for anticoagulation versus aspirin Status post bilateral mastectomy- Surgery 5 days ago with drains remaining in place Mild leukocytosis may be more related to hemoconcentration, as patient does not look ill Repeat laboratories in a.m. and follow clinical examination Asthma- Continue usual inhalers Resident Activity Tracking Resident Involvement: Resident Care Provided Care Provided: Adult [facility] Medicine"
[2023-05-05] MEDS: LACTATED RINGER'S 1,000 ML IV SCH (03:26)
[2023-05-05] MEDS ORDERED: ACETAMINOPHEN 325 MG TAB PO PRN (04:29)
[2023-05-05] MEDS ORDERED: POLYETHYLENE (MIRALAX) 17 GM PACK PO PRN (04:29)
[2023-05-05] MEDS ORDERED: METOPROLOL TARTRATE 1 MG/ML VIAL IV PRN (04:29)
[2023-05-05 04:58] LABS: Basophils # (auto) 0.04 K/uL (0.00-0.20); Basophils % (auto) 0.2 %; Hematocrit (blood only) 36.5 % (37.0-47.0); Hemoglobin 12.6 g/dl (12.0-16.0); Immature Granulocytes % (auto) 0.6 %; Lymphocytes # (auto) 1.23 K/uL (1.20-3.40); Lymphocytes % (auto) 7.2 %; Mean Corpuscular Hemoglobin 31.6 pg (25.0-34.0); Mean Corpuscular Hgb Conc 34.5 g/dL (32.0-36.0); Mean Corpuscular Volume 91.5 fL (80.0-100.0); Mean Platelet Volume 11.3 fL (9.4-12.4); Monocytes # (auto) 0.81 K/uL (0.11-0.59); Monocytes % (auto) 4.8 %; Neutrophils # (auto) 14.84 K/uL (1.40-6.50); Neutrophils % (auto) 87.2 %; Platelet Count 182 K/uL (130-400); RDW Coefficient of Variation 12.9 % (11.5-14.5); RDW Standard Deviation 42.8 fL (36.4-46.3); Red Blood Count 3.99 M/uL (4.20-5.40); White Blood Count 17.02 K/ul (4.8-10.8)
[2023-05-05 05:17] LABS: BUN Creatinine Ratio 23.7 (10-20); Calcium 8.2 mg/dl (8.6-10.3); Creatinine Clr Calc Pharmacy 72.4 ml/min; Est GFR (Non-African American) 87.2 ml/min; Magnesium 1.9 mg/dl (1.7-2.4); Potassium 3.3 mmol/L (3.5-5.1)
--- NOTE | 2023-05-05 07:42 | XRay Report ---
XR chest 1V portable CLINICAL HISTORY: Chest pain, nonspecific COMPARISON STUDY: Chest radiograph June 25, 2010. FINDINGS: Surgical drains project over the lower chest. There is no pneumothorax or pleural effusion. Patient is mildly rotated. There is no consolidation or evidence for pulmonary edema. Cardiomediasti nal silhouette is stable. Skin folds project over the chest. IMPRESSION: No acute cardiopulmonary findings. ACT 112: Negative or not required by law. Electronically signed by: Alonzo Gallegos M.D. 05/05/2023 7:41 AM
[2023-05-05] MEDS: ATENOLOL 50 MG TABLET PO SCH (08:05)
[2023-05-05] MEDS: lisinopril 5 MG TAB PO SCH (08:06)
--- NOTE | 2023-05-05 08:55 | Electrocardiogram Report ---
Test Reason : Blood Pressure : / mmHG Vent. Rate : 185 BPM Atrial Rate : 185 BPM P-R Int : 124 ms QRS Dur : 078 ms QT Int : 268 ms P-R-T Axes : 024 005 216 degrees QTc Int : 470 ms Supraventricular tachycardia Marked ST abnormality, possible inferior subendocardial injury Marked ST abnormality, possible anterolateral subendocardial injury Abnormal ECG When compared with ECG of 29-MAY-2008 13:39, Supraventricular tachycardia now present HR has increased by [address] depression in multiple leads now present Confirmed by Chapo Damon ([id number]) on 05/05/2023 8:55:02 AM Referred By: REFERRED SELF Confirmed By:Chapo Damon
--- NOTE | 2023-05-05 08:58 | Electrocardiogram Report ---
Test Reason : Blood Pressure : / mmHG Vent. Rate : 076 BPM Atrial Rate : 000 BPM P-R Int : 000 ms QRS Dur : 086 ms QT Int : 408 ms P-R-T Axes : 000 006 107 degrees QTc Int : 459 ms Sinus rhythm with frequent Premature atrial complexes and 3-beat atrial run (mid-tracing) Minimal voltage criteria for LVH, may be normal variant ( Doole product ) ST depression in Anterolateral leads , consider ischemia Abnormal ECG When compared with ECG of 04-MAY-2023 23:21, Supraventricular tachycardia no longer present HR has decreased by 109 bpm Premature atrial complexes now present Confirmed by Chapo Damon ([id number]) on 05/05/2023 8:58:10 AM Referred By: REFERRED SELF Confirmed By:Chapo Damon
--- NOTE | 2023-05-05 08:59 | Electrocardiogram Report ---
Test Reason : Blood Pressure : / mmHG Vent. Rate : 084 BPM Atrial Rate : 084 BPM P-R Int : 168 ms QRS Dur : 084 ms QT Int : 398 ms P-R-T Axes : 076 003 080 degrees QTc Int : 470 ms Sinus rhythm with Premature supraventricular complexes and 3-beat atrial run Left ventricular hypertrophy with repolarization abnormality ( Gomez product ) Nonspecific ST abnormality Anterolateral leads Abnormal ECG When compared with ECG of 04-MAY-2023 23:46, ST depression in Anterolateral leads less pronounced Otherwise no significant change Confirmed by Chapo Damon ([id number]) on 05/05/2023 8:59:14 AM Referred By: REFERRED SELF Confirmed By:Chapo Damon
--- NOTE | 2023-05-05 12:03 | Cardiology Consultation ---
Date of Consultation May 05, 2023 Assessment & Plan (1) SVT (supraventricular tachycardia): (2) Hypomagnesemia: (3) Hypokalemia: (4) Vertigo: (5) Hypertension: Plan 77-year-old woman with no significant prior cardiac history on chronic diuretic (HCTZ) for hypertension, presented with supraventricular tachycardia in the context of hypomagnesemia/hypokalemia. She did not convey any anginal type chest pain symptoms during her tachycardia and troponin was completely normal. ST changes are likely secondary to underlying left ventricular hypertrophy with rate related exaggeration due to extreme tachycardia. Therefore, no further ischemic workup necessary presently. Of note, as long ago as 2005 she had a tendency to atrial ectopy and atrial runs noted at the time of the stress echocardiogram. Suspect that she would be fairly unlikely to develop recurrent SVT in the absence of electrolyte abnormalities. Recommend that she remain off hydrochlorothiazide with monitoring of blood pressure, could increase lisinopril if BP elevated as outpatient, if necessary to add back a diuretic could use triamterene/HCTZ combination a few times a week (rather than daily). Could consider increasing atenolol, but her resting heart rate is in the 60-70 bpm range and she could become bradycardic. Since her SVT is fairly unlikely to recur if her electrolytes remain normal, recommend changing atenolol dosing to 25 mg twice daily rather than 50 mg daily (although traditionally a once a day drug, the 6 to 9-hour half-life of atenolol is such that there can be a breakthrough dysrhythmia during the gabriela prior to the next dose when it is taken only once a day). Also, recommended that she take an additional half of an atenolol dose should she note onset of tachypalpitations. Recommend MCOT monitor upon discharge, I will arrange for this. Since she is still mildly hypokalemic, would discharge on a temporary potassium supplement until she is seen in follow-up. She is asymptomatic and hemodynamically stable with no further recurrence of SVT overnight. If she ambulates without symptoms, could be discharged home later today with medication changes as noted above. I would be glad to see her in outpatient follow-up at [facility] in 1 to 2 months (I will arrange follow-up) History of Present Illness Reason for Consultation: New episode of SVT Requesting Physician: Dayna Jovel DO Attending Physician: Dayna Jovel DO History of Present Illness 68-year-old woman with no cardiac history status post recent bilateral mastectomy (04/27/2023) admitted overnight with tachypalpitations, found to have supraventricular tachycardia at 185 bpm. At recent baseline, patient notes that she has had reduced oral intake, but she denies any prior tachypalpitations and notes no dyspnea exertion, chest pain, or other cardiopulmonary symptoms. No orthostatic lightheadedness, presyncope, or syncope, although she does have a sense of disequilibrium when walking. She received adenosine in the ambulance without change in her SVT. She received additional adenosine in the ER, rhythm appeared more consistent with SVT than atrial fibrillation during transient heart rate slowing (per ER physician). She subsequently received diltiazem and in less than an hour her rhythm returned to sinus. Additional evaluation evaluation notable for hypomagnesemia, hypokalemia, normal troponin. She had an uneventful night with no recurrence of her SVT. Rhythm was sinus with frequent atrial ectopy and short (3 beat) atrial runs which appear asymptomatic. She felt well this morning and was anxious to return home. Allergies Allergy/AdvReac Type Severity Reaction Status Date / Time atorvastatin [From Lipitor] AdvReac Intermediate hairloss Verified 05/05/23 01:02 simvastatin [From Zocor] AdvReac Intermediate hairloss Verified 05/05/23 01:02 Home Medications Medication Instructions Recorded Confirmed Type cholecalciferol (vitamin D3) 25 2,000 unit PO DAILY 10/16/19 05/05/23 History mcg (1,000 unit) capsule [id number] 8 mg-folic 400 1 tab PO DAILY 05/16/22 05/05/23 History mcg-K 50 mcg-lutein 300 mcg tablet ([facility]) montelukast 10 mg tablet 10 mg PO HS #90 tabs 09/07/22 05/05/23 Rx fluticasone propionate 50 2 spray intranasal DAILY #48 grams 03/08/23 05/05/23 Rx mcg/actuation nasal spray,suspension albuterol sulfate 90 mcg/actuation 2 puff inhalation QID PRN 03/29/23 05/05/23 Rx aerosol inhaler shortness of breath or wheezing #6.7 grams loratadine 10 mg tablet 10 mg PO DAILY allergy symptoms 03/29/23 05/05/23 Rx #90 tabs atenolol 50 mg tablet 50 mg PO DAILY #90 tabs 05/04/23 05/05/23 Rx azelastine 137 mcg (0.1 %) nasal 1 spray intranasal DAILY 05/05/23 05/05/23 History spray aerosol hydrochlorothiazide 25 mg tablet 25 mg PO DAILY 05/05/23 05/05/23 History lisinopril 5 mg tablet 5 mg PO DAILY 05/05/23 05/05/23 History meloxicam 15 mg tablet 15 mg PO DAILY PRN Pain 05/05/23 05/05/23 History Patient History Medical History Active Meniere's disease, cochlear Allergic rhinitis Hyperlipidemia Hypertension Surgical History S/P bilateral mastectomy History of dental surgery [place] teeth removal/another procedure to remove a piece of wisdom tooth Hx of cholecystectomy Family History Mother Hypertension Myocardial infarction Denies family history of Ovarian cancer Prostate cancer Diabetes Breast cancer Colorectal cancer Social History Smoking Status: Former smoker Tobacco Type: Cigarettes Smoking End Date: 1998; Second Hand Exposure: Yes; Do You Dip or Chew Tobacco: No; Tobacco Cessation Education Requested by Patient: No Hx Alcohol Use: No Hx Substance Use: No Preferred Language: Bengali Communication Ability: Effective Visual Impairment: Limited Hearing Ability: Normal Pneumatic Systems Operator Required: No Beliefs That Will Affect Care: None marital status: / Current Living Situation: Alone current occupational status: retired How many Children do You have: 3 How many Children do You have Comment: 1 child . Feels Safe at Home: Yes Safety Concerns: Feels Safe At This Time Childhood Exposure to Second-Hand Smoke: Yes Diet: regular caffeine: Yes (coffee) during the past year weight has: remained stable Dental Care, Regularly: Yes Physical Activity Frequency: Does not Exercise Seatbelt Use: always Sunscreen Use: No Do you think of yourself as: straight/heterosexual Gender Identity: Female Assistive Devices: None Physical Exam Physical Exam: Elderly white female in no distress. Normal BMI. Normotensive BP. Pulse 74 bpm and regular with ectopy. Respirations 18 and unlabored. Skin: no ecchymoses or generalized lesions. HEENT: unremarkable. Neck: JVP at the clavicle at 90 degrees, no carotid bruits. Lungs: clear bilaterally. Cardiac: regular rhythm with sporadic ectopy, normal S1-2, 2/6 apical holosystolic murmur rating to the axilla, no diastolic murmur. Abdomen: benign. Extremities: no edema, pulses intact. Neurologic: normal affect and conversation, nonfocal. Results & Data Laboratory Results Troponin 12.3 on admission. WBC 21.33 yesterday, 17.02 today. Normal hemoglobin and platelet count. Potassium 3.2 yesterday 3.3 today. BUN 14, creatinine 0.59. Magnesium 1.6 yesterday 1.9 today. Diagnostic Findings Initial ECG with supraventricular tachycardia 185 bpm with diffuse significant ST depression. Compared to 2008 ECG, SVT now present and heart rate increased by 118 bpm, ST depression now present. Subsequent ECG shows sinus rhythm with frequent PACs and short (3 beat) atrial runs. Chest x-ray unremarkable. Stress echocardiogram 2005 showed normal LV systolic function, mild left ventricular hypertrophy, mild to moderate mitral regurgitation and moderate pulmonary hypertension, no ischemia at 99% maximum predicted heart rate. Of note, patient had frequent atrial ectopy and short atrial runs during her stress test. PG Care Time/CCT Total # of Minutes Spent Total Time Spent with Patient: Total time spent is greater than 50% in coordination of care (as documented) at patient's floor/unit and/or counseling patient: Coding Level of Care Code 88241 INT INP/OBS CARE 3/75MIN Diagnoses SVT (supraventricular tachycardia) I47.10 Hypomagnesemia E83.42 Hypokalemia E87.6 Vertigo R42 Hypertension I10
--- OUTSIDE RECORDS SUMMARY | 2023-05-05 12:07 | External Medical Summary | Summary of Care ---
Author Name Unknown Organization [facility] Address [address] [facility] [place] [address] Phone [phone] Care Team Providers Care Wine Pasteurizer Name Role Phone Hetal Jovel Primary Care Provide r Reason for Visit * Reason Onset Date Comments Information 05/03/2023 Encounter Details Date Type Department Care Team (Late st Contact Info) Description 05/03/2023 Telephone General Surgery, [facility] [address] [place] [address] Micheline Juarez MD [address] [place] [id number] Information Allergies Active Allergy Reactions Criticality Noted Date Comments Atorvastatin Other (Please comment) 02/01/2016 Hair loss; ? Just at higher doses documented as of this encounter (statuses as of 05/03/2023) Medications Medication Sig Dispensed Refills Start Date End Date Status atorvaSTATin (LIPITOR) 10 MG Tablet 1 pill every other day 0 01/17/2016 Active atenolol (TENORMIN) 50 MG Tablet daily 0 01/17/2016 Active lisinopril (PRINIVIL) 5 MG Tablet daily 0 01/17/2016 Active hydrochlorothiazide (HYDRODIURIL) 25 MG Tablet daily 0 01/17/2016 Active Cholecalciferol (VITAMIN D) 2000 UNITS Tablet Take 2,000 Units by mouth daily. 0 Active Meloxicam 15 MG Tablet Take 1 Tablet by mouth daily as needed for Pain. 0 Active Psyllium (METAMUCIL) 28.3 % POWD Take by mouth. 1 spoonful daily in juice 0 Active fluticasone (FLONASE ALLERGY RELIEF) 50 MCG/ACT nasal spray Administer 2 Sprays into nostril 2 times a day. 16 g 11 02/01/2016 Active albuterol (PROAIR HFA) 108 (90 BASE) MCG/ACT inhaler Inhale 2 Puffs by mouth every 4 hours as needed for Cough, Shortness of Breath or Wheezing. 1 Inhaler 3 02/01/2016 Active Ipratropium [place] (ATROVENT) 0.03 % nasal spray Administer 2 Sprays into nostril 3 times a day as needed (runny nose). 30 mL 6 06/05/2016 Active Additional Information Patient not taking.Reported on 04/10/2023 PredniSONE (DELTASONE) 10 MG Tablet Take 1 Tab by mouth daily. 25 Tab 0 07/27/2016 Active Additional Information Patient not taking.Reported on 04/10/2023 Loratadine (CLARITIN) 10 MG Cap Take 1 Capsule by mouth in the morning. 0 Active Azelastine HCl 0.1 % nasal spray SPRAY 2 SPRAYS INTO EACH NOSTRIL TWICE A DAY. 30 mL 2 07/02/2018 Active Multivitamin Adult Oral Tablet Take by mouth. 0 Active Vitamin C 500 MG Oral Tablet Chewable Take 1 Tablet by mouth in the morning. 0 Active HYDROcodone-Acetami nophen 5-325 MG Oral Tablet Take 1 Tablet by mouth every 6 hours as needed for Pain, Moderate. 10 Tablet 0 04/25/2023 Active documented as of this encounter (statuses as of 05/03/2023) Active Problems Problem Noted Date Diagnosed Date Bilateral malignant neoplasm of breast in female, estrogen receptor positive 04/10/2023 Intermittent asthma without complication 017 Meniere disease 12/05/2016 Cough 02/01/2016 Rhinitis, nonallergic 02/01/2016 Hypertension Hyperlipidemia Collagenous colitis Osteoarthrosis History of tobacco use documented as of this encounter (statuses as of 05/03/2023) Immunizations Name Administration Dates Next Due Pneumococcal Conjugate Vacc, 13 Valent (Prevnar) 02/12/2014 Pneumococcal Polysaccharide PPV23 (Pneumovax) Seasonal Influenza, PF, 6 M & above, IM , (FluLaval or Fluzone) 12/05/2016 Seasonal Influenza, Quadrivalent, No Preserve, I M 02/01/2016 documented as of this encounter Social History Tobacco Use Types Packs/Day Years Used Date Smoking Tobacco: Former Cigarettes 0.5 20 0 02/12/1993 - 02/12/2013 Smokeless Tobacco: Never Comments:intermittent smoker "on and off" for many years/no passive smoke Alcohol Use Standard Drinks/Week Comments Yes 0 (1 standard drink = 0.6 oz pur e alcohol) rare Sex and Gender Information Value Date Recorded Sex Assigned at Female 04/11/2023 3:10 PM EST Gender Identity Female 04/11/2023 3:10 PM EST Sexual Orientation Straight 04/11/2023 3: 10 PM EST Job Start Date Occupation Industry Not on file Not on file Not on file documented as of this encounter Miscellaneous Notes * Telephone Encounter - Isabel Carrasco OSA - 05/03/2023 11:15 AM EDT Patient requested records from Dr Micheline Juarez be faxed to Hetal Jovel for her records. Records were faxed and received. documented in this encounter Plan of Treatment Upcoming Encounters Date Type Department Care Team (Late st Contact Info) Description 05/08/2023 10:45 AM EDT Office Visit General Surgery, [facility] [address] [place] [phone] Micheline Juarez MD [address] [place] [id number] 06/01/2023 3:15 PM EDT Office [facility] [place] [address] [facility] [place] [phone] Alex Shelby MD [address] [facility] [place] [address] Health Maintenance Due Date Last Done Comments DXA Scan 1945 Depression Screening 1955 Albumin/Creatinine Ratio 10/26/1961 Hepatitis C Screening 10/26/1961 Zoster Vaccines (1 of 2) 10/26/1993 DTaP,Tdap,and Td Vaccines (2 - Tdap) 02/15/2009 02/15/1999 COVID-19 Vaccine (1 - 2022-24 season) 2022 Influenza Vaccine (FLU shot) (#1) 2022 11/20/2018, 12/06/2017, 12/27/2016, Additional history exists GFR 04/16/2024 04/17/2023 Pneumococcal Vaccine: 65+ Years Completed 02/12/2014, 03/22/2010 GARDASIL-HPV IMMUNIZATION SERIES Aged Out No longer eligible based on patient's age to complete this topic Hepatitis B Aged Out No longer eligi ble based on patient's age to complete this topic MENINGOCOCCAL (MENACTRA/MENVEO) Aged Out No longer eligible based on patient's age to complete this topic documented as of this encounter Medical Devices Not on filedocumented as of this encounter Advance Directives Latest Code Status on File Code Status Date Activated Date Inactivated Comments Full Code 04/25/2023 8:05 AM 04/25/2023 8:42 PM This order reflects the patients wishes and were consensually agreed upon. Question Answer Comments Discussion of Advance Directives occurred with: Patient Care Teams Wine Pasteurizer Relationship Specialty Start Date End Date Hetal Jovel CRNP [address] [place] [phone] PCP - General Nurse Practitioner 12/14/15 documented as of this encounter
--- OUTSIDE RECORDS SUMMARY | 2023-05-05 12:07 | External Medical Summary | Summary of Care ---
Author Name Unknown Organization [facility] Address [address] [facility] [place] [address] Phone [phone] Care Team Providers Care Gas Burner Operator Name Role Phone Hetal Jovel Primary Care Provide r Reason for Visit * Reason Onset Date Comments Advice 04/12/2023 Encounter Details Date Type Department Care Team (Late st Contact Info) Description 04/12/2023 Telephone General Surgery, [facility] [address] [place] [address] Micheline Juarez MD [address] [place] [address] Advice Allergies Active Allergy Reactions Criticality Noted Date Comments Atorvastatin Other (Please comment) 02/01/2016 Hair loss; ? Just at higher doses documented as of this encounter (statuses as of 04/19/2023) Medications Medication Sig Dispensed Refills Start Date [...] Wheezing. 1 Inhaler 3 02/01/2016 Active Ipratropium [place] (ATROVENT) 0.03 % nasal spray Administer 2 [...] A DAY. 30 mL 2 07/02/2018 Active documented as of this encounter (statuses as of 04/19/2023) Active Problems Problem Noted Date Diagnosed Date Bilateral malignant neoplasm of breast in female, estrogen receptor positive 04/10/2023 Intermittent asthma without complication 017 Meniere disease 12/05/2016 Cough 02/01/2016 Rhinitis, nonallergic 02/01/2016 Hypertension Hyperlipidemia Collagenous colitis Osteoarthrosis History of tobacco use documented as of this encounter (statuses as of 04/19/2023) Immunizations Name Administration Dates Next Due Pneumococcal [...] encounter Miscellaneous Notes * Telephone Encounter - Mignon Abreu LPN - 04/17/2023 9:37 AM EST Faxed, will have to wait for after surgery to send notes. * Telephone Encounter - Isabel Carrasco OSA - 04/16/2023 10:11 AM EST [facility] called and is asking for referral, office notes, and surgery notes be faxed after she has her surgery scheduled on 04/25/23. * Telephone Encounter - Mignon Abreu LPN - 04/12/2023 3:25 PM EST Called patients donny, they checked insurance, she can get help, I gave her some lists and Isaid once you choose one let me know and I will send notes and do a referral. * Telephone Encounter - Ayala Brambila OSA - 04/12/2023 2:33 PM EST Patient's grandchild calling to find out how she can get a referral for home care post op for the patient. Please advise. documented in this encounter Plan of Treatment Upcoming Encounters Date Type Department Care Team (Latest Contact Info) Description 04/20/2023 12:15 PM EST Office Visit Hematology/Oncology [facility] [place] [address] [place] [phone] Alex Shelby MD [address] [place] [address] 04/25/2023 8:30 AM EDT [facility] [address] [place] [phone] 04/25/2023 9:29 AM EDT Hospital Encounter [facility], Operating Room [facility] [address] [place] [phone] iMcheline Juarez MD [address] [place] [address] 04/25/2023 9:29 AM EDT - 04/25/2023 1:01 PM EDT Surgery OR [facility], Operating Room [facility] [address] [place] [phone] Micheline Juarez MD [address] [place] [address] BILATERAL MASTECTOMY SIMPLE COMPLETE 05/08/2023 10:45 AM EDT Office Visit General Surgery, [facility] [address] [place] [phone] Micheline Juarez MD [address] [place] [address] Scheduled Procedures Name Priority Associated Diagnoses Date/Ti me MASTECTOMY SIMPLE COMPLETE Bilateral malignant neoplasm of breast in female, estrogen receptor positive, unspecified site of breast (HCC) 04/25/2023 9:29 AM EDT BIOPSY LYMPH NODE DEEP AXILLARY OPEN Bilateral malignant neoplasm of breast in female, estrogen receptor positive, unspecified site of breast (HCC) 04/25/2023 9:29 AM EDT INJECTION PROCEDURE FOR IDENTIFICATION SENTINEL NODE Bilateral malignant neoplasm of breast in female, estrogen receptor positive, unspecified site of breast (HCC) 04/25/2023 9:29 AM EDT Health Maintenance Due Date Last Done Comments [...] Not on filedocumented as of this encounter Care Teams Gas Burner Operator Relationship Specialty Start Date End Date Hetal Jovel CRNP [address] [place] [phone] PCP - General Nurse Practitioner 12/14/15 documented as of this encounter
--- OUTSIDE RECORDS SUMMARY | 2023-05-05 12:07 | External Medical Summary | Summary of Care ---
Author Name Unknown Organization [facility] Address [address] [place] [address] Phone [phone] Care Team Providers Care Retread Builder Name Role Phone Hetal Jovel Primary Care Provide r Reason for Visit * Reason Onset Date Comments Advice 04/28/2023 Encounter Details Date Type Department Care Team (Late st Contact Info) Description 04/28/2023 Telephone General Surgery, [facility] [address] [place] [address] Services, Scheduling [address] [place] [address] Advice Allergies Active Allergy Reactions Criticality Noted Date Comments Atorvastatin Other (Please comment) 02/01/2016 Hair loss; ? Just at higher doses documented as of this encounter (statuses as of 04/30/2023) Medications Medication Sig Dispensed Refills Start Date [...] Wheezing. 1 Inhaler 3 02/01/2016 Active Ipratropium [place] (ATROVENT) 0.03 % nasal spray Administer 2 [...] as of this encounter (statuses as of 04/30/2023) Active Problems Problem Noted Date Diagnosed Date Bilateral malignant neoplasm of breast in female, estrogen receptor positive 04/10/2023 Intermittent asthma without complication 017 Meniere disease 12/05/2016 Cough 02/01/2016 Rhinitis, nonallergic 02/01/2016 Hypertension Hyperlipidemia Collagenous colitis Osteoarthrosis History of tobacco use documented as of this encounter (statuses as of 04/30/2023) Immunizations Name Administration Dates Next Due Pneumococcal [...] Telephone Encounter - Mignon Abreu LPN - 04/30/2023 8:07 AM EDT Called patient and said the drains have to be in at least a week, I said she could get one out in each side and then she will have to wait four days to get the other two out. Transferred her to [facility] to make an appt. * Telephone Encounter - Tung Mullen OSA - 04/28/2023 9:55 AM EDT Patients son called in stating the drainage is under 30 cc it has been at 25cc or less. documented in this encounter Plan of Treatment Upcoming Encounters Date Type Department Care Team (Late st Contact Info) Description 05/03/2023 9:45 AM EDT Nurse Only General [facility] [address] [facility] [place] [address] Nurse Zaki Gen Surg [facility] [address] [facility] [place] [address] 05/08/2023 10:45 AM EDT Office Visit General Surgery, [facility] [address] [place] [address] Micheline Juarez MD [address] [place] [address] 06/01/2023 3:15 PM EDT Office Visit Hematology/Oncology [facility] [address] [facility] [place] [id number] Alex Shelby MD [address] [facility] [place] [address] Health Maintenance Due Date Last Done Comments [...] Advance Directives occurred with: Patient Care Teams Retread Builder Relationship Specialty Start Date End Date Hetal Jovel CRNP [address] [place] [id number] PCP - General Nurse Practitioner 12/14/15 documented as of this encounter
--- OUTSIDE RECORDS SUMMARY | 2023-05-05 12:07 | External Medical Summary | Summary of Care ---
Author Name Unknown Organization [facility] Address [address] [facility] [place] [address] Phone [phone] Care Team Providers Care Director Consumer Affairs Name Role Phone Hetal Jovel Primary Care Provide r Reason for Visit * Auth/Cert Specialty Diagnoses / Procedures Referred By Contac t Referred To Contact Diagnoses Bilateral malignant neoplasm of breast in female, estrogen receptor positive, unspecified site of breast (HCC) Bilateral malignant neoplasm of breast in female, estrogen receptor positive, unspecified site of breast (HCC) [C50.911, Z17.0, C50.912] Procedures MASTECTOMY, SIMPLE, COMPLETE BX LYMPH NODE DEEP AXIL IDENTIFY SENTINEL NODE, RADIOACTIVE TRACER BILATERAL MASTECTOMY SIMPLE COMPLETE BIOPSY LYMPH NODE DEEP AXILLARY OPEN INJECTION PROCEDURE FOR IDENTIFICATION SENTINEL NODE Micheline Juarez MD [address] [place] [id number] [address] [place] [phone] Referral ID Status Reason Start Date Expiration Date Visits Re quested Visits Authorized [id number] Encounter Details Date Type Department Care Team (Latest Contact Info) Description 04/25/2023 7:54 AM EDT - 04/25/2023 4:41 PM EDT Hospital Encounter [facility], Operating [facility] [address] [place] [phone] Micheline Juarez MD [address] [place] [id number] Discharge Disposition: Home - Self Care Allergies Active Allergy Reactions Criticality Noted Date Comments Atorvastatin Other (Please comment) 02/01/2016 Hair loss; ? Just at higher doses documented as of this encounter (statuses as of 04/26/2023) Medications Medication Sig Dispensed Refills Start Date [...] Wheezing. 1 Inhaler 3 02/01/2016 Active Ipratropium [place] (ATROVENT) 0.03 % nasal spray Administer 2 [...] as of this encounter (statuses as of 04/26/2023) Active Problems Problem Noted Date Diagnosed Date Bilateral malignant neoplasm of breast in female, estrogen receptor positive 04/10/2023 Intermittent asthma without complication 017 Meniere disease 12/05/2016 Cough 02/01/2016 Rhinitis, nonallergic 02/01/2016 Hypertension Hyperlipidemia Collagenous colitis Osteoarthrosis History of tobacco use documented as of this encounter (statuses as of 04/26/2023) Immunizations Name Administration Dates Next Due Pneumococcal [...] on file documented as of this encounter Last Filed Vital Signs Vital Sign Reading Time Taken Comments Blood Pressure 122/89 04/25/2023 4:25 PM EDT Pulse 75 04/25/2023 4:25 PM EDT Temperature 36.7 C (98 F) 04/25/2023 3:55 PM EDT Respiratory Rate 19 04/25/2023 4:25 PM EDT Oxygen Saturation 95% 04/25/2023 4:25 PM EDT Inhaled Oxygen Concentration - - Weight 64.4 kg (142 lb) 04/25/2023 8:20 AM EDT Height 168.9 cm (5' 6.5") 04/25/2023 8:20 AM EDT Body Mass Index 22.58 04/25/2023 8:20 AM EDT documented in this encounter Discharge Instructions * Discharge Instr - AVS* Micheline Juarez MD - 04/25/2023 9:22 AM EDT Incision Care: If present, remove any outer dressing(s) in 24 hours. The incision(s) may be sealed with a skin adhesive (Dermabond) or covered with white adhesive tapes known as steri-strips. Either way, there is no need to cover up the incisions again with gauze unless it is more comfortable. The drain sites should be covered again with gauze or bandaids. Shower: You may shower 24 hours after surgery and get the incision(s) or steri-strips wet with soapy water and gently pat them dry. If the steri-strips come off in the shower, do not become concerned. If they are still in place 10 days after surgery, you may remove them. Drain: Place a waterproof bandaid at drain site while in shower. Dry around it and cover with dry bandage daily after shower. It may help to hang the drains on a lanyard while in the shower. DAVID output - keep track over 24 hrs periods. Strip DAVID's daily. Call when drain output is < 30 cc/ 24 hrs for 2 consecutive days. The DAVID drain works under suction (when it is squeezed). As it fills, the suction releases. When this happens, empty the drain and the resqueeze and close to reactivate the suction. Pain Medication: You may be given a prescription for a narcotic pain medication (either Millsap or Percocet). Options for non-constipating pain medications include products that include Ibuprofen or Tylenol. To combat constipation, you may take xiay-ero-oozcuwr laxatives, fiber therapy, or prune juice. Do not use ice. Activity: Rest today. Do not do any heavy lifting (more than 5-10 pounds) or vigorous exercise for 1-2 weeks.After that you may resume normal activities. Do arm exercises (10 reps each time/ a few times per day) as discussed. Diet: You can eat anything you desire. If your throat is sore, try eating soft foods. Physician Appt: If you have not already scheduled your appointment for a post-operative visit, please call [phone] to do so. You may leave a message and we will return your call. Biopsy Results: It normally takes 4-5 working days for the pathology lab to process the biopsy. Call in 1 wk to review biopsy results. documented in this encounter Progress Notes * Micheline Juarez MD - 04/25/2023 3:07 PM EDT [facility] [address] [place] [address] OUTPATIENT SURGERY DISCHARGE SUMMARY NOTE Name: Elsie Ace Location: [facility]/OR Date: 04/25/2023 Time: 3:11 PM Surgery Date: 04/25/2023 Procedure: Procedure(s): BILATERAL MASTECTOMY SIMPLE COMPLETE BIOPSY LYMPH NODE DEEP AXILLARY OPEN INJECTION PROCEDURE FOR IDENTIFICATION SENTINEL NODE Bilateral Bilateral Bilateral Surgeon: Surgeon(s): Micheline Juarez MD Updyke, Jessica Ann, PA-C Discharge Diagnosis: bilateral mastectomies After examination of this patient, I have determined she is ready for discharge to home when the patient meets criteria. Discharge instructions were given to the patient. documented in this encounter H&P Notes * Micheline Juarez MD - 04/25/2023 9:21 AM EDT H&P from 04/25/23 reviewed. No changes to history or physical noted. BP 159/66 | Pulse 55 | Temp 36.1 C (97 F) (Tympanic) | Resp 18 | Ht 1.689 m (5' 6.5") | Wt 64.4 kg (142 lb) | SpO2 99% | BMI 22.58 kg/m | BSA 1.74 m Exam: Cor: S1S2 RRR no murmurs. Lungs: clear bilaterally. For bilateral mastectomies and bilateral sentinel lymph node biopsies today. Consent signed. Postop instructions reviewed with patient. Micheline Juarez M.D. Source Note - Micheline Juarez MD - 04/10/2023 12:49 PM EST [facility] NEW BREAST CANCER CLIN[facility] NOTE Chief Complaint Patient presents with NEW PATIENT B/l breast Ca. REASON FOR CONSULTATION: Bilateral Breast Cancer Clinical Stage 2-3 (T2-T3N0) multicentric right; Stage 1 (T1N0) left HPI: Elsie Ace is a 77 year old female who was referred by TIANA Su for evaluation and discussion of newly diagnosed breast cancer. This was found on self examination when she noticed a sharp pain in the lateral breast. She then noticed the development of a large lump. The lump did decrease in size slightly but a firm area with dimpling persisted. She was seen by her primary care doctor and diagnostic imaging ordered. She has declined mammography in the past. Diagnostic imaging showed: 1) a irregular spiculated 3 cm dominant mass at the site of the palpable lump in the 9:00 right breast with focal area that appeared to extend and involve the skin. There was also segmental dense mammographic asymmetry extending from this mass to the right nipple with a conglomerate measurement of 5.3 cm in the upper outer quadrant. Biopsy returned with an intermediate grade invasive ductal cancer, ER strongly positive, RI 1%, her 2-. 2) there were fine linear and punctate microcalcifications in the upper inner right breast measuring 5.1 cm. Biopsy returned with high-grade ductal carcinoma in situ. Interestingly, this is ER and PRnegative 3) there was no evidence of any right axillary adenopathy 4) the left breast showed a focal asymmetry that corresponded to a 7 mm isoechoic lesion at 10:00. Biopsy returned with a low-grade invasive ductal cancer, ER positive RI negative HER2 negative. She is accompanied by her granddaughter today. Addendum #1 Summary of HER2 FISH: PART A: Results: Negative Interpretation: Average HER2 signals/nucleus: 1.98 Average NIKKY 17 signals/nucleus: 1.64 HER2/NIKKY 17 signal ratio: 1.2 Number of Observers: 1 Results show no evidence of HER2 amplification and a HER2/CEN17 ratio of <2.0 with an average HER2 copy number <4.0 signals per cell. This is a NEGATIVE result. PART B: Results: Negative Interpretation: Average HER2 signals/nucleus: 3.32 Average NIKKY 17 signals/nucleus: 2.52 HER2/NIKKY 17 signal ratio: 1.3 Number of Observers: 1 Results show no evidence of HER2 amplification and a HER2/CEN17 ratio of <2.0 with an average HER2 copy number <4.0 signals per cell. This is a NEGATIVE result. Refer to separate [employer] reports for further details. Addendum at 1115. FINAL DIAGNOSIS A. Breast, left, 10:00, core biopsy: Surgical Pathology Report Page 1 of 4 [facility] Surgical Pathology Report Name: ELSIE ACE : 1945 Case #: [id number] Continued - Invasive ductal carcinoma, grade 1. - Estrogen Receptor: Positive (100%, strong intensity, H score 300). - Progesterone Receptor: Negative (<1% in invasive carcinoma). - HER2/sue Immunohistochemistry: Negative (score 1+). - Ki-67 Proliferation Index: 5% (low). - Maximum linear extent of tumor: 4 mm. 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 - See comment. B. Breast, right, 9:00, core biopsy: - Invasive ductal carcinoma, grade 2. - Estrogen Receptor: Positive (100%, strong intensity, H score 300). - Progesterone Receptor: Positive (1%, weak intensity, H score 1). - HER2/sue Immunohistochemistry: Negative (score 1+). - Ki-67 Proliferation Index: 35% (high). - Maximum linear extent of tumor: 14 mm. - High-grade ductal carcinoma in situ. - See comment. C. Breast, right, upper inner (microcalcifications), core biopsy: - High-grade ductal carcinoma in situ with associated microcalcifications. - Estrogen receptor: Negative (0%, internal controls noted). - Progesterone receptor: Negative (0%, internal controls noted). - Maximum linear extent of DCIS: 3 mm. Comment: Parts A and B will be sent for FISH analysis of HER2/sue. Those results to be documented in an addendum and separate [employer] reports. at 1458. Clinical History 3 image guided core needle biopsies were performed of the breast. 1) left breast ultrasound-guided core needle biopsy was performed of a 7 mm focal non-mass lesion in the 10:00 left breast with possible associated architectural distortion. Rule out fibrocystic change, radial scar, carcinoma. 2) right breast ultrasound-guided core needle biopsy was performed of an irregular heterogenous spiculated 3 cm dominant mass at the site of a palpable lump in the 9:00 right breast. Rule out carcinoma. 3) right breast stereotactic/tomosynthesis guided biopsy was also performed of newly visualized fine linear punctate microcalcifications in the upper inner right breast spanning at least 5.1 x 1.3 x 1.0 cm mammographically. Rule out DCIS, invasive carcinoma. Procedure performed: Ultrasound and stereotactic/tomosynthesis guided breast biopsy x 3. Gross Description A. LEFT 10:00 BREAST BIOPSY Surgical Pathology Report Page 2 of 4 [facility] Surgical Pathology Report Name: ELSIE ACE : 1945 Case #: [id number] Continued The specimen is received in a container labeled 10:00 left breast with the patient name. The specimen consists of multiple pink and yellow cylindrical fragments of soft tissue. The fragments range from 0.1 to 2.4 cm long and average 0.1 cm in diameter. The specimen is submitted entirely in a single cassette as A for levels. B. RIGHT 9:00 BREAST BIOPSY The specimen is received in a container labeled 9:00 right breast with the patient name. The specimen consists of multiple pink, yellow and red cylindrical fragments of soft rubbery tissue. The fragments range from 0.2 to 2.4 cm in length and average 0.1 cm in diameter. The specimen is submitted entirely in a single cassette as B for levels. C. RIGHT BREAST BIOPSY The specimen is received in a container labeled right breast medial calcifications with the patient name. The specimen consists of pink and yellow soft rubbery tissue. In the aggregate this measures 2.5 x 2.0 x 0.7 cm. The specimen is submitted entirely in 2 cassettes C for levels. Specimen B was presumably immediately placed in 10% neutral buffered formalin and fixed for a total of 10 hours. Specimen A was presumably immediately placed in 10% neutral buffered formalin fixed for total of 9-1/2 hours. Specimen C was presumably immediately placed in 10% neutral buffered formalin and fixed for a total of 9 hours. AH Microscopic Description A: Smooth muscle myosin and p40 are negative in the areas of interest supporting invasive carcinoma. Staining around DCIS is noted. B: Smooth muscle myosin and p40 are negative for myoepithelial cells in the areas of interest supporting invasive carcinoma. Some of the smooth muscle myosin staining is compatible with blood vessels. Staining around DCIS is noted. C: Smooth muscle myosin and p40 show myoepithelial cells in the areas of interest confirming DCIS BREAST ROS: No family history of breast or ovarian cancer. Prior to this, had a left US guided breast biopsy which was benign 7 yrs ago. Bumped her breast when moving a TV, felt a sharp pain at the time. Took tylenol for a few days and lump persisted. GYNECOLOGIC HISTORY: LMP: No LMP recorded. Patient is postmenopausal. Menarche at age: 11 Menopause at age: early 38th. Number of children: 3 Patient's age at first live : [age] Did you breast feed any of your children: No Ever take oral contraceptives? Yes, history of use for 15 year(s) Ever take estrogen? No RADIOLOGIC INTERPRETATION: THIS REPORT HAS BEEN AMENDED. SEE BOTTOM OF REPORT FOR ADDENDUM. MULTIPLE ULTRASOUND GUIDED BIOPSIES RIGHT BREAST: 03/28/2023 CLINICAL HISTORY: 77-year-old woman presents for image guided bilateral breast biopsies including ultrasound-guided core needle biopsy of a dominant palpable spiculated 3 cm mass with associated calcification in the 9:00 right breast, ultrasound-guided core needle biopsy of a subtle 7 mm focal non-mass lesion with possible associated architectural distortion in the left 10:00 breast and right breast stereotactic/tomosynthesis guided biopsy of new punctate microcalcifications in a linear distribution in the lower inner right breast. COMPARISON: Comparison is made to exams dated: 03/14/2023 ultrasound, 03/14/2023 mammogram, 01/17/2017stereotactic biopsy, 12/28/2016 mammogram, 11/04/2015 mammogram, and 10/22/2014 mammogram - [facility]. PATIENT CONSENT: The procedures of ultrasound-guided and stereotactic/tomosynthesis guided breast biopsies risks and benefits were discussed with the patient and informed consent was obtained both verbally and in writing. Specific risks include: bleeding, infection, puncture of adjacent structure, nontarget biopsy, sampling error, pain, bruising dizziness, lightheadedness, vasovagal reaction, metal allergy and medication reaction. PROCEDURE DESCRIPTION: A time out was performed both breasts were agreed as the site for biopsy. The ultrasound-guided bilateral breast biopsies were performed first. The skin of the left 10:00 and right 9:00 breast were marked with a marking pen after repeat targeted ultrasound redemonstrated the lesions in question. Samples were first performed of the heterogeneous spiculated vascular mass in the 9:00 right breast, at the site of palpable lump. The skin of the right lateral breast was cleansed with Betadine swabs and sterile drapes were placed. While watching in real-time ultrasound, subcutaneous and intraparenchymal 1% buffered lidocaine, with and without epinephrine, was administered as local anesthesia. Askin incision was made. Through the incision, 5 samples were taken with a 14 gauge Achieve biopsy device. A ribbon shaped metallic marker was placed at the biopsy site. Hemostasis was achieved after manual compression. The patient tolerated the procedure well and there was no immediate complication. The samples were sent to the pathology department in an appropriately labeled container (right 9:00 breast). Then, the small 7.4 mm isoechoic focal non-mass lesion with possible associated architectural distortion in the 10:00 left breast was identified and targeted for biopsy using ultrasound guidance. Theskin of the left breast was cleansed with Betadine swabs and sterile drapes were placed. While watching in real-time ultrasound, subcutaneous and intraparenchymal 1% buffered lidocaine, with and without epinephrine were administered as local anesthesia. Through the incision, 5 samples were taken with a 14 gauge Achieve biopsy device. A ribbon shaped metallic marker was placed at the biopsy site. Hemostasis was achieved after manual compression. The patient tolerated the procedure well and therewas no immediate complication. The samples were sent to the pathology department in an appropriately labeled container (left 10:00 breast). Then, the patient was transferred to the stereotactic biopsy room. She was positioned on the [facility] stereotactic/tomosynthesis biopsy table and the right breast was placed in CC from below positioning. Preliminary tomosynthesis images were performed which ultimately demonstrate the punctate mi crocalcifications in a linear distribution within the targeting window and the calcifications were targeted utilizing computer coordinates. The skin of the inferior right breast was cleansed with Betadine swabs. 1% buffered lidocaine with and without epinephrine was administered as local anesthesia. 8 samples were obtained with a service of the of a 9 gauge vacuum-assisted biopsy device. The specimen radiograph demonstrated numerous punctate microcalcifications scattered throughout the tissue samples which were then placed in formalin and sent to the pathology department in an appropriately labeled container. A Top- Hat shaped metallic biopsy marker was placed at the site of biopsy. The patient tolerated the procedure well and there was no immediate complication. Hemostasis was achieved after a few minutes of manual compression. Steri-Strips and OpSite patches were placed on both breasts. Post procedure CC and ML tomosynthesis images of both breasts were performed. There is a new ribbonshaped metallic biopsy marker and no significant hematoma in the 10:00 middle one third of the leftbreast, aligning with a mammographic focal asymmetry with questionable associated architectural distortion in question. This confirms mammogram-ultrasound correlation of this finding. A new ribbon shaped biopsy marker is seen within a dense spiculated 3 cm mass in the 9:00 posterior right breast. ATop-Hat shaped metallic biopsy marker is seen in the lower inner quadrant of the right breast middle depth at the site of the biopsied calcifications. No right breast postbiopsy hematoma is identified. IMPRESSION: ULTRASOUND GUIDED BIOPSY Status post bilateral breast ultrasound-guided core biopsies and right breast stereotactic/tomosynthesis guided biopsy, as above. Metallic biopsy markers were placed at each site of biopsy in the right 9:00, right 3:00 and left 10:00 breast. The patient will receive notification of the biopsy results from her referring provider. The pathology results will also be available on the [facility] patient portal. Amita Turner M.D. ay/:03/28/2023 15:04:34 Typing Office Worker: RT Stoney(Alli)(Ted), [facility] AMENDMENT: 03/31/2023 Amita Turner M.D. Pathology results from ultrasound-guided core needle biopsy of a 7 mm focal non- mass lesion with associated architectural distortion in the 10:00 left breast yielded: Invasive ductal carcinoma, grade1. Estrogen receptor positive. Progesterone receptor negative. HER2/sue negative. Ki-67 proliferation index: 5% (low). Maximum linear extent of tumor: 4 mm. 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 Pathology results from ultrasound-guided core needle biopsy of an irregular heterogeneous spiculated 3 cm dominant mass at the site of palpable lump in the 9:00 right breast yielded: Invasive ductal carcinoma, grade 2. Estrogen and progesterone receptor positive. HER2/sue negative. Ki-67 proliferation index: 35% (high). Maximum linear extent of tumor: 14 mm. High-grade ductal carcinoma in situ. Pathology results from stereotactic/tomosynthesis guided biopsy of fine linear punctate microcalcifications in the upper inner right breast yielded: High-grade ductal carcinoma in situ with associated microcalcifications. Estrogen and progesterone receptor negative. Maximal linear extent of DCIS: 3mm. The pathology results from each biopsy site are malignant and concordant with the imaging appearance. The biopsies of the right breast prove multicentric disease. Surgical consultation and medical oncology consultation are recommended. Consider whole-body PET/CT given the above results. BILATERAL DIGITAL DIAGNOSTIC MAMMOGRAM TOMOSYNTHESIS WITH SYNTHETIC 2D AND TARGETED BILATERAL ULTRASOUND: 03/14/2023 CLINICAL HISTORY: 77-year-old woman presents for diagnostic evaluation of a palpable right breast lump, pain and skin dimpling. She has a history of recent trauma in which she hit her right breast onthe bed frame which subsequently became very swollen and hurt badly but now there is a persistent lump. Previous benign left breast stereotactic guided biopsy in 2017 and patient discontinued screening mammography after the benign biopsy. TECHNIQUE: Bilateral CC and MLO tomosynthesis images including synthesized 2D images (Intelligent 2D) were obtained. COMPARISON: Comparison is made to exams dated: 01/17/2017 stereotactic biopsy, 01/17/2017 mammogram, 01/10/2017 mammogram, 12/28/2016 mammogram, 11/04/2015 mammogram, and 10/22/2014 mammogram - [facility]. BREAST COMPOSITION: There are scattered areas of fibroglandular density. FINDINGS: A triangular skin sticker denotes the site of palpable lump in the upper outer posterior right breast. At the site of palpable concern in the upper outer posterior right breast approximate 9:00 axis, there is a spiculated and irregular dense mammographic mass with associated calcificationand overlying skin thickening/skin tethering. This dominant mass measures approximately 3.0 x 1.9 x1.8 cm and is suspicious for malignancy. Definitive characterization with ultrasound-guided core needle biopsy is recommended. There is new confluent dense asymmetry in a segmental distribution extending anterior from the spiculated mass to the right nipple and conglomerate measurements are approxim ately 5.3 cm in AP by 1.5 cm in transverse by 1.5 cm in craniocaudal dimension. There are also newly visualized segmental fine linear and punctate microcalcifications in the upper inner right breast anterior through posterior depth, for which additional spot magnification views were performed. Spot magnification right CC and ML views demonstrate fine linear and punctate microcalcifications in a segmental distribution in the upper inner right breast approximate 3:00 axis measuring 5.1 cm inAP by 1.3 cm in transverse by 1.0 cm in craniocaudal dimension. This is suspicious for DCIS and definitive characterization with stereotactic/tomosynthesis guided biopsy of bilingual sales representative fine linearand punctate calcifications is recommended to assess for multicentric disease. There is a 9 mm focal asymmetry with possible associated architectural distortion in the upper inner middle one third of the left breast, for which additional spot compression tomosynthesis views were obtained. A lobulated 15 x 6 mm mass with associated coarse calcification in the lower inner posterior left breast is unchanged on prior mammograms dating back to at least 2014, therefore likely benign given long-term stability. No other left breast mass, suspicious asymmetry, area of architectural distortion or new suspicious microcalcification identified. Stable hourglass shaped metallic biopsy marker in the upper outer posterior left breast denotes the site of previous benign biopsy. Mild arterial calcification is seen in the breast. Spot compression tomosynthesis left CC and MLO views demonstrate a persistent 7 x 7 x 5 mm focal asymmetry with possible very faint microcalcification and associated architectural distortion and further evaluation with ultrasound was performed. Targeted ultrasound was performed in both breasts and the right axilla. First at the site of palpable lump in the 9:00 right breast, 6 cm from the nipple, there is a heterogeneous ill-defined shadowing solid vascular mass measuring approximately 3.3 x 2.0 x 2.8 cm. A portion of this mass extends superficially and likely involves the overlying dermis. The vertical component extending to dermis measures 0.5 x 1.2 x 1.0 cm. There is an ill-defined focal hypoechoic non-mass confluent lesion extending from the mass to the right breast retroareolar region, correlating with the newly visualized segmental confluent dense mammographic asymmetry, possibly representing additional disease. Upon ultrasound of the right axilla, 2 right axillary lymph nodes are identified that maintain normal morphology. Cortical thickness measurements are within the range of normal, less than 3 mm. No right axillary adenopathy identified. Targeted ultrasound of the left breast demonstrates an ill-defined isoechoic focal non-mass lesion in the 10:00 left breast, 5 cm from the nipple, measuring 7 x 4 x 6 mm. This is thought to correlatewith the mammographic focal asymmetry with possible associated architectural distortion and faint microcalcification. Definitive characterization with ultrasound-guided core needle biopsy is recommended. Would recommend biopsying this area and placing a marker clip to ensure mammographic-ultrasoundcorrelation and if the biopsy marker does not align with the mammographic finding, would perform stereotactic/tomosynthesis guided biopsy of the left breast focal asymmetry for definitive characteriza tion. There is a gently lobulated and circumscribed hypoechoic benign-appearing mass in the left 9:00 breast, 7 cm from the nipple, measuring 7 x 2 x 4 mm. 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 IMPRESSION: ACR BI-RADS CATEGORY 5: HIGHLY SUGGESTIVE OF MALIGNANCY, ULTRASOUND ACR BI-RADS CATEGORY 5: HIGHLY SUGGESTIVE OF MALIGNANCY 1. Right breast ultrasound-guided core needle biopsy is recommended for an irregular and spiculated3 cm dominant mass at the site of palpable lump in the 9:00 right breast. 2. A segmental confluent dense mammographic asymmetry extends anteriorly from the mass to the rightnipple, with conglomerate measurements of 5.3 x 1.5 x 1.9 cm in the upper outer quadrant. 3. There are also newly visualized segmental fine linear and punctate microcalcifications in the upper inner right breast measuring 5.1 x 1.3 x 1.0 cm for which right breast stereotactic/tomosynthesis guided biopsy is recommended for definitive characterization of the calcifications, and to assess for the possibility of multicentric disease. 4. Left breast ultrasound-guided core needle biopsy is recommended for a 7 mm focal isoechoic non-mass lesion in the left 10:00 breast on ultrasound, thought to correlate with a mammographic focal asymmetry with possible associated architectural distortion and very faint microcalcification. Correlation with post ultrasound biopsy clip placement is recommended and if the marker does not align withthe mammographic finding, would perform tomosynthesis guided biopsy of this focal asymmetry for definitive characterization. 5. No right axillary adenopathy seen on ultrasound. These results and recommendations were discussed with the patient at the time of the exam. She tentatively scheduled the bilateral breast biopsies prior to leaving the department. I personally viewed and interpreted the mammographic films and concur with the above. FAMILY HISTORY: Family history of breast cancer: None Family history of ovarian cancer: None Family History Problem Relation Age of Onset Allergies Mother chronic rhinitis Asthma Daughter Allergies Daughter multiple medication allergies Asthma Son PAST MEDICAL HISTORY: Past Medical History: Diagnosis Date Chronic rhinitis Collagenous colitis ETD (eustachian tube dysfunction) History of tobacco use Hyperlipidemia Hypertension Osteoarthrosis Active Meniere's disease, cochlear Allergic rhinitis Hyperlipidemia Hypertension PAST SURGICAL HISTORY: Past Surgical History: Procedure Laterality Date DENTAL SURGERY PROCEDURE NEC LAPAROSCOPY; CHOLECYSTECTOMY CURRENT OUTPATIENT PRESCRIPTIONS: Current Outpatient Medications Medication Sig Dispense Refill atenolol (TENORMIN) 50 MG Tablet daily lisinopril (PRINIVIL) 5 MG Tablet daily hydrochlorothiazide (HYDRODIURIL) 25 MG Tablet daily fluticasone (FLONASE ALLERGY RELIEF) 50 MCG/ACT nasal spray Administer 2 Sprays into nostril 2 times a day. 16 g 11 Azelastine HCl 0.1 % nasal spray SPRAY 2 SPRAYS INTO EACH NOSTRIL TWICE A DAY. 30 mL 2 atorvaSTATin (LIPITOR) 10 MG Tablet 1 pill every other day Cholecalciferol (VITAMIN D) 2000 UNITS Tablet Take 2,000 Units by mouth daily. Meloxicam 15 MG Tablet Take 1 Tablet by mouth daily as needed for Pain. Psyllium (METAMUCIL) 28.3 % POWD Take by mouth. 1 spoonful daily in juice (Patient not taking: Reported on 04/10/2023) albuterol (PROAIR HFA) 108 (90 BASE) MCG/ACT inhaler Inhale 2 Puffs by mouth every 4 hours as needed for Cough, Shortness of Breath or Wheezing. 1 Inhaler 3 Ipratropium [place] (ATROVENT) 0.03 % nasal spray Administer 2 Sprays into nostril 3 times a day asneeded (runny nose). (Patient not taking: Reported on 04/10/2023) 30 mL 6 PredniSONE (DELTASONE) 10 MG Tablet Take 1 Tab by mouth daily. (Patient not taking: Reported on 04/10/2023) 25 Tab 0 Loratadine (CLARITIN) 10 MG Cap Take 10 mg by mouth daily. No current facility-administered medications for this visit. ALLERGIES: Allergies as of 04/10/2023 - Reviewed 04/10/2023 Allergen Reaction Noted Lipitor [atorvastatin] Other (Please comment) 02/01/2016 SOCIAL HISTORY: Social History Tobacco Use Smoking status: Former Current packs/day: 0.00 Average packs/day: 0.5 packs/day for 20.0 years (10.0 ttl pk-yrs) Types: Cigarettes Start date: 02/12/1993 Quit date: 02/12/2013 Years since quittin.1 Smokeless tobacco: Never Tobacco comments: intermittent smoker "on and off" for many years/no passive smoke Substance Use Topics Alcohol use: Yes Comment: rare Vaping/E-Cigarette Use Vaping/E-Cigarette Substances Vaping/E-Cigarette Devices REVIEW OF SYSTEMS: ROS: GEN: no weight loss, fever, fatigue HEENT: no changes in vision or hearing, no sinus problems, no sore throat, no hoarseness RESPIRATORY: no cough, wheezing, occasional shortness of breath with activity CARDIOVASCULAR: no exertional chest pain, dyspnea, palpitations GI: no melena, hemetemesis, no vomiting or diarrhea : no dysuria, hematuria, frequency MUSCULOSKELETAL: no change in joint pains, no new arthritis PSYCHIATRIC: no significant anxiety or depression, unchanged sleep pattern HEME: no bleeding tendency, no clotting tendency NEURO: no significant headache, no seizures , no tremors SKIN: no new rashes, no itching PHYSICAL EXAMINATION: Weight 66.1 kg (145 lb 12.8 oz). Constitutional: alert, healthy Head: normocephalic, atraumatic Eyes: conjunctiva non-injected, sclera white Ears: pinna normal shape and color Neck: supple, no adenopathy Lungs: breath sounds are equal and symmetric, wheezes and a few crackles in left lower lobe Heart: regular rate & rhythm and no murmur, gallops or rubs Abdomen: soft, non-tender Back: normal curvature Extremities: no edema Neuro: alert, gait normal, motor normal BREAST EXAMINATION: B/C cup size Right Breast: Right Breast: Masses noted: Yes, large dominant 4 cm mass with tethering of skin / puckering laterally at 10:00 5cm FN. Post XRT edema: No Post XRT erythema: No Other palpable abnormality: No Skin: Skin retraction: Yes, 10:00 5 cm FN Peau d'orange: No Telangectasia: No Scar(s) present: No Other changes: No Right Nipple: Nipple inversion: No Pagets: No Nipple discharge: No Right Lymph Nodes: Arm edema: No Palpable axillary adenopathy: No Palpable supraclavicular adenopathy: No Previous axillary incision: No Left Breast: Left Breast: Masses noted: No Post XRT edema: No Post XRT erythema: No Other palpable abnormality: No Skin: Skin retraction: No Peau d'orange: No Telangectasia: No Scar(s) present: No Other changes: No Left Nipple: Nipple inversion: No Pagets: No Nipple discharge: No Left Lymph Nodes: Arm edema: No Palpable axillary adenopathy: No Palpable supraclavicular adenopathy: No Previous axillary incision: No IMPRESSION: 77-year-old woman with newly diagnosed multicentric right breast cancer and a small stage I left breast cancer. Both tumors are estrogen positive and HER2 negative. The most aggressive of her cancersis in the right lateral breast which measures almost 5.3 cm and has a associated skin retraction. In the inner right breast there is high-grade ductal carcinoma in Situ which is estrogen receptor negative. In the left breast there is a 7 mm low-grade invasive ductal carcinoma. We reviewed genetic counseling and testing and the ramifications this could have for her children as well as on the risk of other malignancies. She is interested in proceeding in a consult was placed. We had a detailed discussion with the patient reviewing her diagnosis and treatment options. She understands that the treatment of breast cancer is a multidisciplinary approach potentially involving surgery, radiation oncology, and medical oncology. We reviewed surgical options for her breast, including breast conservation and mastectomy. We discussed that breast conservation requires both removal of the cancer to a negative margin and treatment with radiotherapy to the remaining breast tissue.We discussed that survival is not improved with more aggressive surgery (i.e. Mastectomy) and that mastectomy also does not eliminate the potential for breast cancer recurrence as a small amount of tissue is left to support the skin. In addition, more aggressive surgery does not eliminate the need for chemotherapy or targeted therapies; the decisions for these treatment choices are based upon thecancer's characteristics. For her right breast, she needs a mastectomy due to the extent of disease. Risks of mastectomy to include bleeding, infection, numbness of the chest wall, wound complicatons with necrosis of the skin, and the need for drain placement were discussed. We reviewed the option of reconstruction and how this effects the operation and recovery. We discussed that there are different choices of reconstruction which can include implants or tissue transfer/ flap procedures. I reviewed that reconstruction is not typically a one stage surgical procedure. Often, a tissue speech and language tutor is placed at the time of mastectomy and then sequentially expanded while the skin is recovering. Following completion of treatment, this speech and language tutor can then be switched to a more permanent reconstruction. She is not interested in reconstruction. For her left side, she is a candidate for either lumpectomy and radiation or mastectomy. Should shechoose breast conservation, I would recommend a preoperative breast MRI in order to ensure that there are no other areas of concern in the left breast. We discussed that radiation therapy would be needed in order to help keep the local recurrence rate low at 10- 15%. We reviewed the use of radiation starting about a month after surgery. We discussed that no drains are placed with a lumpectomy. Wereviewed the use of a JORDAN engineer specialist to help localize the tumor. We also discussed that mastectomy would be an option. This would add about 1- 2 weeks to her recovery. In addition she would then have dennis ns on both sides. We reviewed that the local recurrence rate following mastectomy is less than 5%. At this point she is leaning towards a lumpectomy and radiation on the left breast, but her family would prefer her to have a mastectomy. They are going to discuss this and then will let me know how they would like to proceed. Staging of the axilla with a sentinel node biopsy was reviewed. We discussed identification of the node with both technetium sulfur colloid and blue dye injection. Removal of 1-3 lymph nodes is typical, although there is a potential for removal of greater than 3 nodes also. We discussed there is a small (<5%) chance of a failed sentinel node biopsy where the nodes cannot be found. She would require bilateral sentinel node biopsy. We reviewed that there are instances where radiation therapy is used following mastectomy. Should this be needed, it typically begins 4-6 weeks following surgery or when the speech and language tutor is fully expanded. Lastly, the role of the medical oncologist and possible chemotherapy and/ or adjuvant targeted therapies based on final pathology were reviewed. We discussed the role of gene typing with oncotype DX for risk stratification if she is node negative. Oncology referral was placed. Given the aggressiveness of her right- sided cancer, a PET-CT scan has been recommended by Radiology. This was ordered today. We reviewed how this could change the recommendation for surgery should metastatic disease be found. PLAN: Genetic counseling/testing Right simple mastectomy and sentinel node biopsy Currently she is leaning towards left lumpectomy with JORDAN engineer specialist localization and sentinel node biopsy. She may change her mind to left simple mastectomy and sentinel node biopsy. MRI is only needed if she chooses breast conservation in the left breast JORDAN engineer specialist is only needed if she chooses breast conservation in the left breast PET-CT scan for systemic staging Oncology referral Check EKG, cbc, bmp I spent a total of Greater than 55 mins (exact time 66 mins) on the date of service in preparation,delivery, and documentation of the care provided to Eslie Ace excluding any time spent in the performance of separately billed services. Micheline Juarez M.D. 04/10/2023 12:48 PM documented in this encounter Nursing Notes * Norma Zapata RN - 04/25/2023 4:40 PM EDT Vs stable. Reports pain at 0/10 on pain scale, tolerable. Denies nausea and tolerating PO intake. Dressings and david drains dry and intact. Verbalized understanding of all discharge directions. Patient stable for discharge to home. Transferred via wheelchair to private auto with staff presence to care of courier delivery driver. * Elizabeth Orta RN - 04/25/2023 4:30 PM EDT Visited by Dr Painter. Ok with discharge to home. Will use spirometry at home. SPO2 95% with use. Discharge directions discussed with family bedside including DAVID drain care. * Elizabeth Orta RN - 04/25/2023 4:16 PM EDT Incentive spirometry given and using with good efforts. * Elizabeth Orta RN - 04/25/2023 3:52 PM EDT Patient awake and oriented. Tolerating PO ice chips and coffee without nausea. Denies pain. Vital signs stable. Ready for discharge from PACU 1. * Elizabeth Orta RN - 04/25/2023 2:57 PM EDT Patient received to pacu 1 status post bilateral mastectomy. Patient awake. Denies pain. Denies nausea. Respirations are even and unlabored on simple mask. NSR on monitor. Abdomen soft and non distended. Dressing to bilateral breast is clean, dry and intact Surgical bra in place. 2 DAVID drains to right breast, 2 DAVID drains to left breast. Vital signs stable. * Shilpa Henderson RN - 04/25/2023 8:48 AM EDT [facility]. Dressings dry and intact bilateral breasts. * Shilpa Henderson RN - 04/25/2023 8:28 AM EDT Escorted to [facility] for bilateral sentinel node injections. documented in this encounter OR Notes * OR Surgeon - Micheline Juarez MD - 04/25/2023 2:35 PM EDT [facility] [address] [place] [id number] OPERATIVE REPORT Name: Elsie Ace Date: 04/25/2023 Time: 2:35 PM Location: OR [facility] Service: General Surgery Date of Operation: 04/25/2023 Pre-op Diagnosis: bilateral breast cancer Post-op Diagnosis: same Surgeon: Micheline Juarez MD Assistants: [place] Chawla Anesthesia: General LMA anesthesia Operation: bilateral simple mastectomies and bilateral sentinel lymph node biopsies with injection of lymphazurin blue dye for sln mapping; resection of excess lateral tissue with chilo wing type closure bilaterally Findings: 1) single sln on left side, counts 2069 2) three sentinel nodes on right side - counts 1359, 88, and 290 Case Acuity: Elective Wound Class: Clean Specimen and Disposition: Tissue to Pathology: 1) left breast - short stitch superior, long stitch lateral 2) left sln #1 axillary 3) right breast and excess lateral tissue - short stitch superior, long stitch lateral on breast 4) right sln #1 5) right sln #2 6) right sln #3 Estimated Blood Loss: 20 mL Fluids: 1700 mL Urine Output: 175 mL Drains/Implants: (2 10 flat ) Tacos-Tong drain(s) with closed bulb suction in each side (total 4drains) Complications: none Postoperative Condition: stable Indications and History: 77 yr old woman with large right breast mass. Imaging and biopsy showed large cancer in upper outerright breast, extensive (5.1 cm) of DCIS upper inner right breast, and 7 mm invasive cancer left breast. PET showed no evidence of spread. Consented for bilateral mastectomies and sentinel lymph nodebiopsies. She was noted to have a moderate amount of lateral adiposity and extension of the incision to avoid dog ear was discussed. Description of Operation: Procedure: The patient underwent placement of SCD's and received 2 gm of ancef preoperatively. She also had placement of a villarreal catheter. After the induction of general anesthesia (LMA), her bilateral breasts and axillae were prepped and draped. She had undergone preoperative technetium sulfur colloid injection by radiology into the bilateral periareolar breast. She then underwent injection of lymphazurin blue dye periareolar bilateral (2.5 cc each side) for mapping. Attention was first turnedto the left breast. An elliptical incision encompassing skin, nipple/ areolar complex was made. This was extended in an chilo wing pattern laterally toward the posterior axillary tail. Skin flaps were lifted to the edge of the breast under the clavicle, the medial edge along the sternum, the inframammary crease, and the edge of the breast along the pectoralis muscle. Larger vessels were taken with the ligasure. The breast was then dissected off of the pectoralis, taking fascia. The specimen wasmarked with a short stitch superiorly, long stitch laterally. Flaps were about 3-5 mm in thickness. The axilla was then entered and using both the blue lymphatics and the gamma probe, a hot and blue node was identified. This had counts of 2069. The axilla was further explored and no other areas of radioactivity noted. Background counts were <20. The wound was irrigated and local anesthesia injected in the form of 20 cc of exparel mixed with 20 cc of 0.5% marcaine and 20 cc of injectable saline. A total of 30 cc was used on this side. Two 10 flat JPs were brought through separate stab incisions and laid into the wound. These were secured to the skin with a nylon stitches. The wound was closed with a deep layer of 3-0 vicryl stitches and a running subcuticular 4-0 monocryl suture. Attention was turned to the right breast. An elliptical incision encompassing skin, nipple/ areolarcomplex, the large cancer with lateral puckering and excess tissue in the axilla was made. Skin flaps were lifted to the edge of the breast under the clavicle, the medial edge along the sternum, the inframammary crease, and the edge of the breast along the pectoralis muscle. The breast was then dissected off of the pectoralis, taking fascia.Larger vessels were taken with the ligasure. Flaps were left about 3-5 mm in thickness. The specimen was marked with a short stitch superiorly and a long stitch laterally. The axilla was then entered and using both the blue lymphatics and the gamma probe, a hot and blue node was identified. This had counts of 1359 . The axilla was further explored and two additional smaller nodes identified higher in the axilla. These were both radioactive but not blue. These were excised with the ligasure with counts as above. No further radioactivity was noted and background counts were <10. The wound was irrigated and local anesthesia injected with additional 30 cc of the same mixture. Two 10 flat JPs were brought through separate stab incisions and laid into the wound. These were secured to the skin with nylon stitches. In closing the wound, it was apparent that she would still have a sizable dog ear laterally despite the lateral extent of the incision. Additional tissue was resected here to include excess skin and subcutaneous tissue and this was placed into the specimen container. The wound was closed with a deep layer of 3-0 vicryl stitches and a running subcuticular 4-0 monocryl suture. Dermabond an sterile dressings were applied. She tolerated the procedure well and was taken to recovery in stable condition. The PA was instrumental in retraction during the procedure and closure of one side while the other was started. She helped with closure of both sides as well as serving as a hotel assistant manager. Operation performed with curative intent: Yes Tracer(s) used to identify sentinel nodes in the upfront surgery (non- neoadjuvant) setting: Dye Radioactive tracer Tracer(s) used to identify sentinel nodes in the neoadjuvant setting: N/A All nodes (colored or non-colored) present at the end of a dye-filled lymphatic channel were removed: Yes All significantly radioactive nodes were removed: Yes All palpably suspicious nodes were removed: N/A Biopsy-proven positive nodes marked with clips prior to chemotherapy were identified and removed: N/A Attestation: I understand that section 1842 (b)(7)(D) of the Social Security Act generally prohibits Medicare physician fee schedule payment for the services of [id number] in teaching hospitals when qualified residents are available to furnish such services. I certify that the services for which payment is claimed were medically necessary, and that no qualified resident was available to perform the services. I further understand that these services are subject to post-payment review by the Medicare carrier. documented in this encounter Plan of Treatment Upcoming Encounters Date Type Department Care Team (Late st Contact Info) Description 04/27/2023 9:30 AM EDT Scheduled Telephone [facility] [place] [id number] [address] [facility] [place] [phone] 05/08/2023 10:45 AM EDT Office Visit General Bob [facility] [place] [id number] Micheline Juarez MD [address] [place] [phone] 06/01/2023 3:15 PM EDT Office Visit [facility]ology[facility] [address] [facility] [place] [id number] Alex Shelby MD [address] [facility] [place] [id number] Pending Results Name Type Priority Associated Diagnoses Date /Time SURGICAL PATHOLOGY Pathology Routine Bilateral malignant neoplasm of breast in female, estrogen receptor positive, unspecified site of breast (HCC) 04/25/2023 11:22 AM EDT Scheduled Orders Name Type Priority Associated Diagnoses Orde r Schedule SURGICAL PATHOLOGY Pathology Routine Bilateral malignant neoplasm of breast in female, estrogen receptor positive, unspecified site of breast (HCC) Release Upon Ordering for 1 Occurrences starting 04/25/2023 GLUCOSE METER, POINT OF CARE (COMMUNICATION ORDER) Point of Care Testing Routine Perform Now for 1 Occurrences starting 04/25/2023 until 04/25/2023 Health Maintenance Due Date Last Done Comments DXA Scan 1945 Depression Screening 1955 Albumin/Creatinine Ratio 10/26/1961 Hepatitis C Screening 10/26/1963 Zoster Vaccines (1 of 2) 10/26/1993 DTaP,Tdap,and Td Vaccines (2 - Tdap) 02/15/2009 02/15/1999 COVID-19 Vaccine ( - 2022-24 season) 2022 Influenza Vaccine (FLU [...] Not on filedocumented as of this encounter Procedures Procedure Name Priority Date/Time Associated Diagnosis Comments GLUCOSE METER, POINT OF CARE RASHID 04/25/2023 11:57 AM EDT documented in this encounter Results * GLUCOSE METER, POINT OF CARE (04/25/2023 11:57 AM EDT) Glucose Meter 120 70 - 120 mg/dL 04/25/2023 12:13 PM EDT [facility] Blood Whole blood specimen / Unknown 04/25/2023 11:57 AM EDT 04/25/2023 12:13 PM EDT Micheline Juarez MD LAB POINT OF CARE T EST DOCKED DEVICE UNSOLICITED RESULTS [facility] [place] [address] [place] [address] documented in this encounter Visit Diagnoses Diagnosis Bilateral malignant neoplasm of breast in female, estrogen receptor positive, unspecified site of breast (HCC) documented in this encounter Administered Medications Inactive Administered Medications - up to 3 most recent administrations Medication Order MAR Action Action Date Dose Rate Site Acetaminophen (Tylenol) tab 975 mg 975 mg, Oral, PREOP, First dose on Sun04/25/23 at 0845, Last dose on Sun04/25/23 at 0845, For 1 dose, Maximum 4 g acetaminophen/day. Avoid in patients with severe hepatic impairment or severe active liver disease. Administer 60 minutes prior to OR., Pre-Op Given 04/25/2023 8:16 AM EDT 975 mg ceFAZolin in dextrose (Ancef) ivpb 2 g 2 g, IV Piggyback, PREOP, 1 dose, First dose on Sun04/25/23 at 0845, Administer 60 minutes prior to skin incision, Pre-Op New Bag 04/25/2023 9:43 AM EDT 2 g 100 mL/hr dexAMETHasone Sodium Phosphate (Decadron) 4 MG/ML inj 4 mg 4 mg, IV Push, PRN Nausea, Starting on Sun04/25/23 at 1506, Until Sun04/25/23 at 204, For 1 dose, PROTECT FROM LIGHT, PACU fentaNYL (PF) inj 25 mcg 25 mcg, IV Push, PRN Pain, Severe, Starting on Sun04/25/23 at 1506, Until Sun04/25/23 at 2041, For 6 doses, When given IV Push its recommended that the dose be given over 3 to 5 minutes., PACU isolyte-S pH 7.4 infusion Intravenous, Plasma-LYTE 148, isolyte-S, and isolyte-S pH 7.4 are considered equivalent - including for MAR barcode scanning., CONTINUOUS, Starting on Sun04/25/23 at 0845, Until Sun04/25/23 at 2041, Pre-Op Continue from Pre-Op 04/25/2023 9:45 AM EDT 100 mL/hr New Bag 04/25/2023 9:04 AM EDT 1,000 mL 100 mL/hr Lidocaine-Prilocaine (Emla) 2.5-2.5 % topical cream Topical, ONCE, On Sun04/25/23 at 0915, For 1 dose, See nursing care plan, Pre-Op Given 04/25/2023 8:15 AM EDT 5 g ondansetron (Zofran) inj 4 mg 4 mg, IV Push, PRN Nausea, Starting on Sun04/25/23 at 1506, Until Sun04/25/23 at 2041, For 1 dose, PACU oxygen GAS Inhalation, OXYGEN, First dose on Sun04/25/23 at 1600, Until Discontinued, Device/Managed by: Low Flow Device, Goal SPO2 (%): 94 or greater, Starting Device: Simple Mask, Initial Flow Rate (LPM): 6, Lowest Support: Nasal Cannula: Flow 0-6 LPM. Titrate up/down by 1 LPM., Titration Interval: Q2 minutes and as needed., Notify Provider: For sudden DECREASE in resting SPO2 to less than 85% and when escalating delivery device., PACU I - Oxygen for saturation below 95% as indicated per anesthesia. PACU I - Discontinue oxygen when patient is responsive and oxygen saturation is maintained above 94% on room air or same as preanesthetic level. documented in this encounter Active and Recently Administered Medications Times are shown in EDT. Scheduled Medication Order 04/23/2023 04/24/2023 04/25/2023 Acetaminophen (Tylenol) tab 975 mg (COMPLETED) 975 mg, Oral, PREOP, First dose on Sun04/25/23 at 0845, Last dose on Sun04/25/23 at 0845, For 1 dose, Maximum 4 g acetaminophen/day. Avoid in patients with severe hepatic impairment or severe active liver disease. Administer 60 minutes prior to OR., Pre-Op 0816 (Given - Provid er: Shilpa Henderson RN) ceFAZolin in dextrose (Ancef) ivpb 2 g (COMPLETED) 2 g, IV Piggyback, PREOP, 1 dose, First dose on Sun04/25/23 at 0845, Administer 60 minutes prior to skin incision, Pre-Op 0943 (New Bag - Prov ider: Shilpa Henderson RN) Lidocaine-Prilocaine (Emla) 2.5-2.5 % topical cream (COMPLETED) Topical, ONCE, On Sun04/25/23 at 0915, For 1 dose, See nursing care plan, Pre-Op 0815 (Given - Provid er: Shilpa Henderson RN - Comment: bilateral breasts)0915 (Due) oxygen GAS Inhalation, OXYGEN, First dose on Sun04/25/23 at 1600, Until Discontinued, Device/Managed by: Low Flow Device, Goal SPO2 (%): 94 or greater, Starting Device: Simple Mask, Initial Flow Rate (LPM): 6, Lowest Support: Nasal Cannula: Flow 0-6 LPM. Titrate up/down by 1 LPM., Titration Interval: Q2 minutes and as needed., Notify Provider: For sudden DECREASE in resting SPO2 to less than 85% and when escalating delivery device., PACU I - Oxygen for saturation below 95% as indicated per anesthesia. PACU I - Discontinue oxygen when patient is responsive and oxygen saturation is maintained above 94% on room air or same as preanesthetic level. 1600 (Due) Continuous Medication Order 04/23/2023 04/24/2023 04/25/2023 isolyte-S pH 7.4 infusion Intravenous, Plasma-LYTE 148, isolyte-S, and isolyte-S pH 7.4 are considered equivalent - including for MAR barcode scanning., CONTINUOUS, Starting on Sun04/25/23 at 0845, Until Sun04/25/23 at 2042, Pre-Op 0904 (New Bag - Prov ider: Shilpa Henderson RN)0945 (Continue from Pre-Op - Provider: Gregory Cobos CRNA)1433 (Anes Intra-Op Fluid - Provider: Gregory Cobos CRNA) PRN Medication Order 04/23/2023 04/24/2023 04/25/2023 bupivacaine 20 mL, bupivacaine Liposome 20 mL in sodium chloride 0.9 % 20 mL inj (CANCELED) ONCE PRN INTRA PROCEDURE, Starting on Sun04/25/23 at 1033, Until Sun04/25/23 at 1440, Intra-Op 1136 (Given - Provid er: Micheline Juarez MD - Comment: 30ml left chest & 30ml right chest) bupivacaine HCl (Sensorcaine) 0.5 % (PF) inj (CANCELED) ONCE PRN INTRA PROCEDURE, Starting on Sun04/25/23 at 1352, Until Sun04/25/23 at 1440, Intra-Op 1352 (Given - Provid er: Micheline Juarez MD) dexAMETHasone Sodium Phosphate (Decadron) 4 MG/ML inj 4 mg 4 mg, IV Push, PRN Nausea, Starting on Sun04/25/23 at 1506, Until Sun04/25/23 at 2042, For 1 dose, PROTECT FROM LIGHT, PACU fentaNYL (PF) inj 25 mcg 25 mcg, IV Push, PRN Pain, Severe, Starting on Sun04/25/23 at 1506, Until Sun04/25/23 at 2042, For 6 doses, When given IV Push its recommended that the dose be given over 3 to 5 minutes., PACU Isosulfan Blue (Lymphazurin) 1 % inj (CANCELED) ONCE PRN INTRA PROCEDURE, Starting on Sun04/25/23 at 1032, Until Sun04/25/23 at 1440, Intra-Op 1032 (Given - Provid er: Micheline Juarez MD - Comment: 2.5ml left breast & 2.5ml right breast) ondansetron (Zofran) inj 4 mg 4 mg, IV Push, PRN Nausea, Starting on Sun04/25/23 at 1506, Until Sun04/25/23 at 2042, For 1 dose, PACU sodium chloride IR 0.9 % irrigation (CANCELED) ONCE PRN INTRA PROCEDURE, Starting on Sun04/25/23 at 1032, Until Sun04/25/23 at 1440, Intra-Op 1032 (Given - Provid er: Micheline Juarez MD - Comment: qs - bilateral chest areas) documented in this encounter Advance Directives Latest Code Status on File Code Status Date Activated Date Inactivated Comments Full Code 04/25/2023 8:05 AM 04/25/2023 8:42 PM This order reflects the patients wishes and were consensually agreed upon. Question Answer Comments Discussion of Advance Directives occurred with: Patient Care Teams Director Consumer Affairs Relationship Specialty Start Date End Date Hetal Jovel CRNP [address] [place] [id number] PCP - General Nurse Practitioner 12/14/15 documented as of this encounter
--- OUTSIDE RECORDS SUMMARY | 2023-05-05 12:07 | External Medical Summary | Summary of Care ---
Author Name Unknown Organization [facility] Address [address] [facility] [place] [address] Phone [phone] Care Team Providers Care Robot Programmer Name Role Phone Hetal Jovel Primary Care Provide r Encounter Details Date Type Department Care Team (Late st Contact Info) Description 05/03/2023 9:45 AM EDT Nurse Only General Surgery, [facility] [address] [facility] [place] [address] [place], Nurse [facility] [address] [facility] [place] [address] Allergies Active Allergy Reactions Criticality Noted Date [...] Wheezing. 1 Inhaler 3 02/01/2016 Active Ipratropium [place] (ATROVENT) 0.03 % nasal spray Administer 2 [...] on file documented as of this encounter Nursing Notes * Mignon Abreu LPN - 05/03/2023 10:10 AM EDT Removed drain three on left side 2 on right tolerated well. documented in this encounter Plan of Treatment Upcoming Encounters Date Type Department Care Team (Late st Contact Info) Description 05/08/2023 10:45 AM EDT Office Visit General Surgery, [facility] [address] [place] [address] Micheline Juarez MD [address] [place] [id number] 06/01/2023 3:15 PM EDT Office Visit Hematology/Oncology [facility] [place] [address] [place] [phone] Alex Shelby MD [address] [place] [address] Health Maintenance Due Date Last Done Comments [...] Advance Directives occurred with: Patient Care Teams Robot Programmer Relationship Specialty Start Date End Date Hetal Jovel CRNP [address] [place] [phone] PCP - General Nurse Practitioner 12/14/15 documented as of this encounter
--- OUTSIDE RECORDS SUMMARY | 2023-05-05 12:07 | External Medical Summary | Summary of Care ---
Author Name Unknown Organization [facility] Address [address] [facility] [place] [address] Phone [phone] Care Team Providers Care Grinding Wheel Facer Name Role Phone Hetal Jovel Primary Care Provide r Reason for Visit * Reason Onset Date Comments Referral 04/20/2023 Encounter Details Date Type Department Care Team (Late st Contact Info) Description 04/20/2023 Telephone General Surgery, [facility] [address] [place] [address] Micheline Juarez MD [address] [place] [address] Referral Allergies Active Allergy Reactions Criticality Noted Date Comments Atorvastatin Other (Please comment) 02/01/2016 Hair loss; ? Just at higher doses documented as of this encounter (statuses as of 04/20/2023) Medications Medication Sig Dispensed Refills Start Date [...] Wheezing. 1 Inhaler 3 02/01/2016 Active Ipratropium [place] (ATROVENT) 0.03 % nasal spray Administer 2 [...] by mouth in the morning. 0 Active documented as of this encounter (statuses as of 04/20/2023) Active Problems Problem Noted Date Diagnosed Date Bilateral malignant neoplasm of breast in female, estrogen receptor positive 04/10/2023 Intermittent asthma without complication 017 Meniere disease 12/05/2016 Cough 02/01/2016 Rhinitis, nonallergic 02/01/2016 Hypertension Hyperlipidemia Collagenous colitis Osteoarthrosis History of tobacco use documented as of this encounter (statuses as of 04/20/2023) Immunizations Name Administration Dates Next Due Pneumococcal [...] encounter Miscellaneous Notes * Telephone Encounter - Ayala Brambila OSA - 04/20/2023 9:03 AM EST Has the patient been seen for this problem? (Y/N)?: Y If No, an appt needs to be scheduled before a referral will be placed (exception: proceed with referral request if referral request is for a yearly routine appointment with speciality) Patient Name: Elsie Ace Patient Primary care provider: TIANA Ac Does this need to be an insurance referral (Y/N)?: unknown If Yes, does the insurance referral need to be placed into the [employer] system? Name of preferred specialist: [facility] Type of specialist: home health Location of specialist: [facility] Phone #: [phone] Specialist's Fax #: [phone] Reason for visit: post surgery Date of visit: Previous referral was denied due to staffing at agency. documented in this encounter Plan of Treatment Upcoming Encounters Date Type Department Care Team (Latest Contact Info) Description 04/25/2023 8:30 AM EDT Imaging [facility] 2nd Floor Cardiology, [address] [place] [address] 04/25/2023 9:29 AM EDT Hospital Encounter OR [facility], Operating Room [facility] [address] [place] [phone] Micheline Juarez MD [address] [place] [address] 04/25/2023 9:29 AM EDT - 04/25/2023 1:01 PM EDT Surgery OR [facility], Operating Room [facility] [address] [place] [phone] Micheline Juarez MD [address] [place] [address] BILATERAL MASTECTOMY SIMPLE COMPLETE 05/08/2023 10:45 AM EDT Office Visit General Surgery, [facility] [address] [place] [address] Micheline Juarez MD [address] [place] [address] 06/01/2023 3:15 PM EDT Office Visit Hematology/Oncology [facility] [address] [facility] [place] [phone] Alex Shelby MD [address] [place] [address] Scheduled Procedures Name Priority Associated Diagnoses Date/Ti [...] filedocumented as of this encounter Care Teams Grinding Wheel Facer Relationship Specialty Start Date End Date Hetal Jovel CRNP [address] [place] [id number] PCP - General Nurse Practitioner 12/14/15 documented as of this encounter
--- OUTSIDE RECORDS SUMMARY | 2023-05-05 12:07 | External Medical Summary | Summary of Care ---
Author Name Unknown Organization [facility] Address [address] [place] [address] Phone [phone] Care Team Providers Care Reefer Truck Driver Name Role Phone Hetal Jovel Primary Care Provide r Reason for Visit * Reason Comments Consultation Consultation - Anamaria denton neoplasm of the breast * Evaluate & Treat - Unlimited Visits (Within 10 days (routine)) - Pending Review Specialty Diagnoses / Procedures Referred By Kamilla chavez Referred To Contact Hematology/Oncology / Hematology Oncology Diagnoses Bilateral malignant neoplasm of breast in female, estrogen receptor positive, unspecified site of breast (HCC) Micheline Juarez MD [address] [place] [address] Referral ID Status Reason Start Date Expiration Date Visits Requested Visits Authorized [id number] Pending Review Specialty Services Required 04/10/[phone] Encounter Details Date Type Department Care Team (Late st Contact Info) Description 04/20/2023 12:15 PM EST Office Visit Hematology/Oncology [facility] [address] [place] [address] Alex Shelby MD [address] [place] [phone] 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 1 Inhaler 3 02/01/2016 Active Ipratropium [place] (ATROVENT) 0.03 % nasal spray Administer 2 [...] 0 02/12/1993 - 02/12/2013 Smokeless Tobacco: Never Tobacco Cessation:Counseling Given: Not Answered Comments:intermittent smoker "on and off" for many [...] Sign Reading Time Taken Comments Blood Pressure 159/81 04/20/2023 11:56 AM EST Pulse 69 04/20/2023 11:56 AM EST Temperature 36.8 C (98.2 F) 04/20/2023 11:[address] Respiratory Rate 16 04/20/2023 11:56 AM EST Oxygen Saturation 96% 04/20/2023 11:56 AM EST Inhaled Oxygen Concentration - - Weight 64.9 kg (143 lb) 04/20/2023 11:56 AM EST Height 168.9 cm (5' 6.5") 04/20/2023 11:56 AM ES T Body Mass Index 22.74 04/20/2023 11:56 AM EST documented in this encounter Progress Notes * Alex Shelby MD - 04/20/2023 12:15 PM EST Hematology/Oncology Outpatient Consult Note [facility] [address] [facility] [place] [address] ELSIE ACE MR # [id number] :1945 77-year-old female, REASON FOR CONSULTATION: Consultation for Elsie Ace requested by Dr. Micheline Juarez for evaluation and discussion of treatment options for bilateral breast cancer. Date of consultation:04/20/2023 DIAGNOSIS: Bilateral breast cancer. CURRENT TREATMENT: She is having bilateral mastectomies by Dr. Juarez on 04/25/2023. DIAGNOSTIC WORKUP: She would injury to the right breast and since then she started having pain and swelling/lump in the right breast of about 1 month duration. Bilateral breast mammogram and sonogram on 03/14/2023 at [facility]: 1. Right breast ultrasound-guided core needle biopsy [...] No right axillary adenopathy seen on ultrasound. Left breast 10 o'clock core needle biopsy -invasive ductal carcinoma grade 1, ER strongly positive in 100% malignamt cells, AL negative, [id number] negative by IHC, Ki-67 5%. 4 mm in size. HER2 Dilia negative by FISH. -intermediate grade DCIS with comedonecrosis present Right breast 9 o'clock core needle biopsy: -invasive ductal carcinoma grade 2, ER strongly positive in 100% malignant cells, AL weakly positive in 1% malignant cells, her 2 Dilia negative by IHC, Ki- 67 35%, 1.4 mm, high-grade DCIS present. [id number] by FISH. Right breast upper inner microcalcification core needle biopsy: -high-grade DCIS with microcalcifications, ER negative, AL negative, DCIS is about 3 mm. OTHER IMPORTANT HISTORY: - Hyperlipidemia -hypertension. -DJD, occasionally she takes meloxicam for the symptomatic treatment. -varicose veins. -no previous history of thrombotic complications -S/P cholecystectomy 35 years back -no oophorectomy or hysterectomy in the past INTERVAL HISTORY: She has come the clinic for the follow-up, she says that she is otherwise doing well, no persistentpain at any site, she is varicose veins but no previous history of DVT, no new GI symptoms, intermittent right-sided breast pain, she takes meloxicam for the underlying DJD on p.r.n. basis, no new cardiac or pulmonary symptoms, ambulates well, she lives by herself. REVIEW OF SYSTEMS: GENERAL: No change in weight, no weakness, no fatigue, no fever, sweats or chills. Current weight is around 143 lb. SKIN: No skin rash, no bruising. HEAD: No new headache, no dizziness. EYES: No recent change in the vision, no diplopia, EARS: No earache no tinnitus, NOSE: No epistaxis, No nasal discharge or stuffiness, MOUTH: No sores, no dysphagia, no hoarseness of voice, NECK: No lumps, No swelling in thyroid area. No stiffness. PULMONARY: No cough, No shortness of breath, no hemoptysis, no chest pain, No wheezing. CARDIOVASCULAR: No anginal chest pain, no PND, no orthopnea. No palpitation, no leg edema. No syncope. GASTROINTESTINAL: No abdominal pain, no nausea or vomiting. No diarrhea, No constipation. No blood in stool or black tarry stools. No abdominal distention. UROLOGIC: No burning urination. No hematuria. MUSCULOSKELETAL: Joint pain related underlying DJD but very mild pain HEMATOLOGIC: No anemia, no bleeding disorder, No bruising. NEUROLOGIC: No seizures, no focal weakness, no speech difficulty, No memory disturbances. No tingling or numbness of the extremities. PSYCHIATRIC: No depression. No anxiety. No psychosis. Past Medical History: Diagnosis Date Chronic rhinitis Collagenous colitis ETD (eustachian tube dysfunction) History of tobacco use Hyperlipidemia Hypertension Osteoarthrosis Past Surgical History: Procedure Laterality Date DENTAL SURGERY PROCEDURE NEC LAPAROSCOPY; CHOLECYSTECTOMY Current Outpatient Medications Medication Sig Dispense Refill atorvaSTATin (LIPITOR) 10 MG Tablet 1 pill every other day (Patient not taking: Reported on 04/16/2023) atenolol (TENORMIN) 50 MG Tablet daily lisinopril (PRINIVIL) 5 MG Tablet daily hydrochlorothiazide (HYDRODIURIL) 25 MG Tablet daily Cholecalciferol (VITAMIN D) 2000 UNITS Tablet Take 2,000 Units by mouth daily. Meloxicam 15 MG Tablet Take 1 Tablet by mouth daily as needed for Pain. Psyllium (METAMUCIL) 28.3 % POWD Take by mouth. 1 spoonful daily in juice (Patient not taking: Reported on 04/10/2023) fluticasone (FLONASE ALLERGY RELIEF) 50 MCG/ACT nasal spray Administer 2 Sprays into nostril 2 times a day. 16 g 11 albuterol (PROAIR HFA) 108 (90 BASE) MCG/ACT inhaler Inhale 2 Puffs by mouth every 4 hours as needed for Cough, Shortness of Breath or Wheezing. 1 Inhaler 3 Ipratropium [place] (ATROVENT) 0.03 % nasal spray Administer 2 Sprays into nostril 3 times a day asneeded (runny nose). (Patient not taking: Reported on 04/10/2023) 30 mL 6 PredniSONE (DELTASONE) 10 MG Tablet Take 1 Tab by mouth daily. (Patient not taking: Reported on 04/10/2023) 25 Tab 0 Loratadine (CLARITIN) 10 MG Cap Take 1 Capsule by mouth in the morning. Azelastine HCl 0.1 % nasal spray SPRAY 2 SPRAYS INTO EACH NOSTRIL TWICE A DAY. 30 mL 2 Multivitamin Adult Oral Tablet Take by mouth. Vitamin C 500 MG Oral Tablet Chewable Take 1 Tablet by mouth in the morning. No current facility-administered medications for this visit. Family History Problem Relation Age of Onset Allergies Mother chronic rhinitis Asthma Daughter Allergies Daughter multiple medication allergies Asthma Son Sarcoma Other 2 ALK variant on tumor testing and BRIP1 variant on germline Positive Genetic Testing Other BRIP1 Social History Socioeconomic History Marital status: Spouse name: Not on file Number of children: Not on file Years of education: Not on file Highest education level: Not on file Occupational History Not on file Tobacco Use Smoking status: Former Current packs/day: 0.00 Average packs/day: 0.5 packs/day for 20.0 years (10.0 ttl pk-yrs) Types: Cigarettes Start date: 02/12/1993 Quit date: 02/12/2013 Years since quittin.1 Smokeless tobacco: Never Tobacco comments: intermittent smoker "on and off" for many years/no passive smoke Substance and Sexual Activity Alcohol use: Yes Comment: rare Drug use: No Sexual activity: Not on file Other Topics Concern Not on file Social History Narrative Not on file Social Determinants of Health Financial Resource Strain: Not on file Food Insecurity: Not on file Transportation Needs: Not on file Physical Activity: Not on file Stress: Not on file Social Connections: Not on file Intimate Partner Violence: Not on file Housing Stability: Not on file On Exam: BP 159/81 (BP Site: Left Arm, BP Position: Sitting, BP Cuff Size: Regular) | Pulse 69 | Temp 36.8 C (98.2 F) (Tympanic) | Resp 16 | Ht 1.689 m (5' 6.5") | Wt 64.9 kg (143 lb) | SpO2 96% | BMI 22.74 kg/m | BSA 1.74 m Constitutional: Patient is alert, cooperative and oriented x 3. Well built female, Patient is in noacute distress. HEENT: No icterus, no pallor, Throat and pharynx normal. Sinuses are non-tender. Neck: Supple and without lymphadenopathy or masses. No JVD. No Palpable supraclavicular lymph nodes. Lungs: Clear to auscultation. Bilateral symmetric air entry. No wheezing or rhonchi. Cardiovascular: Normal heart sounds, no murmurs.Regular rate and rhythm. Abdomen: Soft, nontender, no hepatomegaly, no splenomegaly. Bowel sounds are normal. Neurological: No gross focal neurological deficit; walks with a normal gait. Extremities: No finger clubbing, No cyanosis. No leg edema. Skin:: No skin rash. SPINE: No spinal or paraspinal tenderness. LABS: Blood workup done on 04/17/2023: -BUN/Creat: 17/0.7, Calcium 10.0 -WBC 9100, H&H of 13.8/42, Platelet count of [id number] IMAGING: PET-CT scan done on 04/19/2023 at [facility]: -2.9 cm FDG avid right breast mass, no FDG avid right axillary, internal mammary lymphadenopathy -no suspicious FDG uptake noted in the left breast, no FDG avid left axilla lymphadenopathy -no metabolically active disease noted anywhere else in the neck, chest, abdomen or pelvis. ASSESSMENT AND PLAN: 77-year-old female, A case of bilateral breast cancer, Left sided breast cancer is grade 1 hormonal positive, small tumor on the biopsy 4 mm. 7 mm on the imaging study, HER2 Dilia negative Right-sided tumor is larger 1 on the imaging studies, hormonal positive, HER2 Dilia negative, PET-CT scan negative for distant metastatic disease She is having bilateral mastectomies by Dr. Juarez on 04/25/2023. She will also have bilateral sentinel lymph rick biopsy. We talked about role of hormonal treatment that can be considered in her case once the surgery is done Also talked to her about role of radiation treatment that can be considered if she has larger tumor, close margin. Also talked to them about the role of Oncotype DX that can be considered. That can be decided afterreviewing the pathological report. I will be away in 2 weeks of May, planning to see her back in the clinic when I come back. Thanks for the consultation. Dr. Alex Shelby Hem/Onc (This note was completed using the dictation program Fluency Direct. As such, there may be misspellings word substitutions, or other variations that should not change the essence of the clinical content of this encounter note. If there is need for further clarification, please direct questions to the provider listed above.) documented in this encounter Nursing Notes * Noelle Lagos LPN - 04/20/2023 11:56 AM EST Patient identifed by name and birthdate Do you have any concerns about pain management for today's visit? No Living Will or Advance Directive for Health Care as noted on the problem list. [facility] [employer] is a way you can talk to your provider on line through e-mail. Would you like to sign up? I can activate it for you? ALREADY ACTIVE Filed Vitals: 04/20/23 1156 BP: 159/81 Pulse: 69 Resp: 16 Temp: 36.8 C (98.2 F) TempSrc: Tympanic SpO2: 96% Weight: 64.9 kg (143 lb) Height: 1.689 m (5' 6.5") Patient was instructed to not get up on the exam table/exam chair until directed and assisted by their provider; patient is to remain seated in the chair/ wheelchair/ exam table/ exam chair for fall prevention and safety reasons. Patient is aware to have assistance to step down off exam table/exam chair with personnel. Patient voiced full comprehension of instructions. documented in this encounter Plan of Treatment Upcoming Encounters Date Type Department Care Team (Latest Contact Info) Description 04/25/2023 8:30 AM EDT Imaging [facility] 2nd Floor Cardiology, [address] [place] [address] 04/25/2023 9:29 AM EDT Hospital Encounter OR OSS, Operating Room [facility] [address] [place] [address] Micheline Juarez MD [address] [place] [address] 04/25/2023 9:29 AM EDT - 04/25/2023 1:01 PM EDT Surgery OR OSS, Operating Room [facility] [address] [place] [address] Micheline Juarez MD [address] [place] [address] BILATERAL MASTECTOMY SIMPLE COMPLETE 05/08/2023 10:45 AM EDT Office Visit General Surgery, [facility] [address] [place] [address] Micheline Juarez MD [address] [place] [address] 06/01/2023 3:15 PM EDT Office Visit Hematology/Oncology [facility] [address] [facility] [place] [phone] Alex Shelby MD 200 [facility] [place] [address] Scheduled Procedures Name Priority Associated Diagnoses Date/Ti [...] Procedure Name Priority Date/Time Associated Diagnosis Comments PET CT SKULL BASE TO MID-THIGH Routine 04/19/2023 documented in this encounter Results * PET CT SKULL BASE TO MID-THIGH FDG (04/19/2023) Anatomical Region Laterality Modality Body, Chest, Abdomen, Pelvis Oth er Micheline Juarez MD [facility] NUCLEAR MED documented in this encounter Visit Diagnoses Diagnosis 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
--- OUTSIDE RECORDS SUMMARY | 2023-05-05 12:07 | External Medical Summary ---
Author Name Unknown Address Unknown Organization : Laboratory Report Ordering Provider Test Date Status LOIDA GUNN 04/25/2023 11:57:47 Final Observation Date Value Abnormality Reference (Units ) Status Glucose Point of Care 04/25/2023 11:57:47 120 70-120 (mg/dL) Final Performing Location
--- OUTSIDE RECORDS SUMMARY | 2023-05-05 12:07 | External Medical Summary | Summary of Care ---
Author Name Unknown Organization [facility] Address [address] [facility] [place] [address] Phone [phone] Care Team Providers Care Head Teller Name Role Phone Hetal Jovel Primary Care Provide r Reason for Visit * Reason Onset Date Comments Follow Up 04/27/2023 Post op call Encounter Details Date Type Department Care Team (Late st Contact Info) Description 04/27/2023 9:30 AM EDT Scheduled Telephone General Surgery, [facility] 132 [facility] [place] [address] [place], Nurse Gen Surg [facility] 132 [facility] [place] [address] Arrived Allergies Active Allergy Reactions Criticality Noted Date Comments Atorvastatin Other (Please comment) 02/01/2016 Hair loss; ? Just at higher doses documented as of this encounter (statuses as of 04/27/2023) Medications Medication Sig Dispensed Refills Start Date [...] Wheezing. 1 Inhaler 3 02/01/2016 Active Ipratropium [place] (ATROVENT) 0.03 % nasal spray Administer 2 [...] as of this encounter (statuses as of 04/27/2023) Active Problems Problem Noted Date Diagnosed Date Bilateral malignant neoplasm of breast in female, estrogen receptor positive 04/10/2023 Intermittent asthma without complication 017 Meniere disease 12/05/2016 Cough 02/01/2016 Rhinitis, nonallergic 02/01/2016 Hypertension Hyperlipidemia Collagenous colitis Osteoarthrosis History of tobacco use documented as of this encounter (statuses as of 04/27/2023) Immunizations Name Administration Dates Next Due Pneumococcal [...] encounter Miscellaneous Notes * Telephone Encounter - Yesenia Roy MED ASSIST - 04/27/2023 8:47 AM EDT PATIENT IS S/p bilateral simple mastectomies and bilateral sentinel lymph node biopsies with injection of lymphazurin blue dye for sln mapping; resection of excess lateral tissue with chilo wing typeclosure bilaterally on 04/25/[address] Micheline Juarez Pain Level- 1-2 Meds being taken for pain- tylenol Are pain meds effective- helping Incision sites- good Does the patient have a drain- 4 Does the patient have dressings? Are they aware of dressing instructions- yes Appetite- fine Nausea/vomiting- no Bowel movement- ok Activity- walking Complying with activity restrictions- yes Coughing and deep breathing- suggested Questions or concerns- no Post operative follow up scheduled for 05/08/2023 documented in this encounter Plan of Treatment Upcoming Encounters Date Type Department Care Team (Late st Contact Info) Description 05/08/2023 10:45 AM EDT Office Visit General Surgery, [address] [place] [address] Micheline Juarez MD [address] [place] [address] 06/01/2023 3:15 PM EDT Office Visit Hematology/Oncology [facility] 200 [facility] [place] [phone] Alex Shelby MD [address] [facility] [place] [address] Health Maintenance Due Date Last Done Comments [...] Advance Directives occurred with: Patient Care Teams Head Teller Relationship Specialty Start Date End Date Hetal Jovel CRNP [address] [place] [address] 1 [place] [address] PCP - General Nurse Practitioner 12/14/15 documented as of this encounter
--- OUTSIDE RECORDS SUMMARY | 2023-05-05 12:07 | External Medical Summary ---
Author Name Unknown Address Unknown Organization : Laboratory Report Ordering Provider Test Date Status LOIDA GUNN 04/25/2023 15:01:09 Final Observation Date Value Abnormality Reference (Units ) Status Glucose Point of Care 04/25/2023 15:01:09 140 Above high normal 70-120 (mg/dL) Final Performing Location
--- OUTSIDE RECORDS SUMMARY | 2023-05-05 12:08 | External Medical Summary ---
Author Name Unknown Address Unknown Organization K09:[facility] [place] [address] Laboratory Report Ordering Provider Test Date Status LOIDA GUNN 04/17/2023 15:31:22 Final Observation Date Value Abnormality Reference (Units ) Status WBC, Total 04/17/2023 15:31:22 9.15 4.00-10.8 0 (K/uL) Final RBC 04/17/2023 15:31:22 4.39 3.85-5.15 (M/uL) Final Hemoglobin 04/17/2023 15:31:22 13.8 12.0-15.3 (g/dL) Final HCT 04/17/2023 15:31:22 41.9 36.0-45.2 (%) Final MCV 04/17/2023 15:31:22 95.4 81.5-97.5 (fL) Final MCH 04/17/2023 15:31:22 31.4 27.0-34.0 (pg) Final MCHC 04/17/2023 15:31:22 32.9 32.0-36.0 (g/dL) Final RDW 04/17/2023 15:31:22 13.6 11.5-15.5 (%) Final Platelets 04/17/2023 15:31:22 214 140-400 (K /uL) Final MPV 04/17/2023 15:31:22 10.9 6.6-11.1 ( fL) Final Performing Location [facility] [place] [address]
--- OUTSIDE RECORDS SUMMARY | 2023-05-05 12:08 | External Medical Summary | Summary of Care ---
Author Name Unknown Organization [facility] Address [address] [place] [address] Phone [phone] Care Team Providers Care Assistant Professor Surgical Technology Name Role Phone Hetal Jovel Primary Care Provide r Encounter Details Date Type Department Care Team (Late st Contact Info) Description 04/11/2023 Orders Only PATIENT PORTAL DO NOT DELETE THIS DEPT USED BY [place] [id number] Allergies Active Allergy Reactions Criticality Noted Date Comments Atorvastatin Other (Please comment) 02/01/2016 Hair loss; ? Just at higher doses documented as of this encounter (statuses as of 04/11/2023) Medications Medication Sig Dispensed Refills Start Date [...] Wheezing. 1 Inhaler 3 02/01/2016 Active Ipratropium [place] (ATROVENT) 0.03 % nasal spray Administer 2 Sprays into nostril 3 times a day as needed (runny nose). 30 mL 6 06/05/2016 Active Additional Information Patient not taking.Reported on 04/10/2023 PredniSONE (DELTASONE) 10 MG Tablet Take 1 Tab by mouth daily. 25 Tab 0 07/27/2016 Active Additional Information Patient not taking.Reported on 04/10/2023 Loratadine (CLARITIN) 10 MG Cap Take 10 mg by mouth daily. 0 Active Azelastine HCl 0.1 % nasal spray SPRAY 2 SPRAYS INTO EACH NOSTRIL TWICE A DAY. 30 mL 2 07/02/2018 Active documented as of this encounter (statuses as of 04/11/2023) Active Problems Problem Noted Date Diagnosed Date Bilateral malignant neoplasm of breast in female, estrogen receptor positive 04/10/2023 Intermittent asthma without complication 017 Meniere disease 12/05/2016 Cough 02/01/2016 Rhinitis, nonallergic 02/01/2016 Hypertension Hyperlipidemia Collagenous colitis Osteoarthrosis History of tobacco use documented as of this encounter (statuses as of 04/11/2023) Immunizations Name Administration Dates Next Due Pneumococcal [...] Information Value Date Recorded Sex Assigned at Not on file Gender Identity Not on file Sexual Orientation Not on file Job Start Date Occupation Industry Not on file Not on file Not on file documented as of this encounter Plan of Treatment Upcoming Encounters Date Type Department Care Team (Late st Contact Info) Description 04/20/2023 12:15 PM EST Office Visit Hematology/Oncology [employer] [address] [facility] [place] [address] Alex Shelby MD [address] [facility] [place] [address] Scheduled Procedures Name Priority Associated Diagnoses Date/Ti me BIOPSY LYMPH NODE DEEP AXILL NICKO OPEN Bilateral malignant neoplasm of breast in female, estrogen receptor positive, unspecified site of breast (HCC) INJECTION PROCEDURE FOR IDENTIFICATION SENTINEL NODE Bilateral malignant neoplasm of breast in female, estrogen receptor positive, unspecified site of breast (HCC) MASTECTOMY PARTIAL Bilateral malignant neoplasm of breast in female, estrogen receptor positive, unspecified site of breast (HCC) EXCISION OF BREAST LESION RADIOLOGICAL MARKER Bilateral malignant neoplasm of breast in female, estrogen receptor positive, unspecified site of breast (HCC) MASTECTOMY SIMPLE COMPLETE Bilateral malignant neoplasm of breast in female, estrogen receptor positive, unspecified site of breast (HCC) Health Maintenance Due Date Last Done Comments DXA Scan 1945 GFR 1945 Depression Screening 1955 Albumin/Creatinine Ratio 10/26/1961 Hepatitis C Screening 10/26/1961 Zoster Vaccines (1 of 2) 10/26/1993 DTaP,Tdap,and Td Vaccines (2 - Tdap) 02/15/2009 02/15/1999 COVID-19 Vaccine (1 - 2022- season) 2022 Influenza Vaccine (FLU shot) (#1) 2022 11/20/2018, 12/06/2017, 12/27/2016, Additional history exists Pneumococcal Vaccine: 65+ Years Completed 02/12/2014, 03/22/2010 [...] filedocumented as of this encounter Care Teams Assistant Professor Surgical Technology Relationship Specialty Start Date End Date Hetal Jovel CRNP [address] [place] [address] 1 [place], [place] [phone] PCP - General Nurse Practitioner 12/14/15 documented as of this encounter
--- OUTSIDE RECORDS SUMMARY | 2023-05-05 12:08 | External Medical Summary | Summary of Care ---
Author Name Unknown Organization [facility] Address [address] [place] [address] Phone [phone] Care Team Providers Care Airport Ramp Supervisor Name Role Phone Hetal Jovel Primary Care Provide r Reason for Visit * Reason Onset Date Comments Advice 04/17/2023 Encounter Details Date Type Department Care Team (Late st Contact Info) Description 04/17/2023 Telephone General Surgery, [facility] [address] [facility] [place] [address] Services, Scheduling [address] [place] [address] Advice Allergies Active Allergy Reactions Criticality Noted Date Comments Atorvastatin Other (Please comment) 02/01/2016 Hair loss; ? Just at higher doses documented as of this encounter (statuses as of 04/17/2023) Medications Medication Sig Dispensed Refills Start Date [...] Wheezing. 1 Inhaler 3 02/01/2016 Active Ipratropium Sanders (ATROVENT) 0.03 % nasal spray Administer 2 [...] as of this encounter (statuses as of 04/17/2023) Active Problems Problem Noted Date Diagnosed Date Bilateral malignant neoplasm of breast in female, estrogen receptor positive 04/10/2023 Intermittent asthma without complication 017 Meniere disease 12/05/2016 Cough 02/01/2016 Rhinitis, nonallergic 02/01/2016 Hypertension Hyperlipidemia Collagenous colitis Osteoarthrosis History of tobacco use documented as of this encounter (statuses as of 04/17/2023) Immunizations Name Administration Dates Next Due Pneumococcal [...] encounter Miscellaneous Notes * Telephone Encounter - Lorri Ortega OSA - 04/17/2023 3:01 PM EST Pt has surgery with Dr. Juarez on 04/24 and was to have a PET scan completed today at [facility] as [facility] did not have any available prior to surgery, but it was never put on [facility] schedule so pt was unable to get scan. They are very concerned because pt has to have this PET scan prior to surgery and now dont know what to do and state this surgery can not get pushed. Please contact pt donny Sutton at [phone] documented in this encounter Plan of Treatment Upcoming Encounters Date Type Department Care Team (Latest Contact Info) Description 04/20/2023 12:15 PM EST Office Visit Hematology/Oncology [facility] [place] [address] [place] [phone] Alex Shelby MD [address] [place] [address] 04/25/2023 8:30 AM EDT Imaging [facility] 2nd Floor Cardiology, [place] [address] [address] 04/25/2023 9:29 AM EDT Hospital Encounter [facility], Operating Room [facility] [address] [phone] Micheline Juarez MD [address] [place] [address] 04/25/2023 9:29 AM EDT - 04/25/2023 1:01 PM EDT Surgery OR [facility], Operating Room [facility] [address] [place] [phone] Micheline Juarez MD [address] [place] [address] BILATERAL MASTECTOMY SIMPLE COMPLETE 05/08/2023 10:45 AM EDT Office Visit General Surgery, [facility] [address] [place] [address] Micheline Juarez MD [address] [place] [address] Scheduled Procedures Name Priority Associated Diagnoses Date/Ti [...] filedocumented as of this encounter Care Teams Airport Ramp Supervisor Relationship Specialty Start Date End Date Hetal Jovel CRNP [address] [place] [phone] PCP - General Nurse Practitioner 12/14/15 documented as of this encounter
--- OUTSIDE RECORDS SUMMARY | 2023-05-05 12:08 | External Medical Summary | Summary of Care ---
Author Name Unknown Organization [facility] Address [address] [place] [address] Phone [phone] Care Team Providers Care Machining Associate Name Role Phone Hetal Jovel Primary Care Provide r Reason for Visit * Reason Onset Date Comments Genetic Counseling 04/11/2023 Referral Encounter Details Date Type Department Care Team (Late st Contact Info) Description 04/11/2023 Telephone Genetics Hem[facility], [facility] [address] [place] [address] Mirtha Maldonado CHRA Genetic Counseling (Referral) Allergies Active Allergy Reactions Criticality Noted Date Comments Atorvastatin Other (Please comment) 02/01/2016 Hair loss; ? Just at higher doses documented as of this encounter (statuses as of 04/13/2023) Medications Medication Sig Dispensed Refills Start Date [...] Wheezing. 1 Inhaler 3 02/01/2016 Active Ipratropium [place] (ATROVENT) 0.03 % nasal spray Administer 2 [...] as of this encounter (statuses as of 04/13/2023) Active Problems Problem Noted Date Diagnosed Date Bilateral malignant neoplasm of breast in female, estrogen receptor positive 04/10/2023 Intermittent asthma without complication 017 Meniere disease 12/05/2016 Cough 02/01/2016 Rhinitis, nonallergic 02/01/2016 Hypertension Hyperlipidemia Collagenous colitis Osteoarthrosis History of tobacco use documented as of this encounter (statuses as of 04/13/2023) Immunizations Name Administration Dates Next Due Pneumococcal [...] encounter Miscellaneous Notes * Telephone Encounter - Mirtha Maldonado CHRA - 04/13/2023 3:08 PM EST Images from the original note were not included. Family history documented according to patient's cWyzeG message. SUZANNE Clark 04/13/2023 3:08 PM documented in this encounter Plan of Treatment Upcoming Encounters Date Type Department Care Team (Latest Contact Info) Description 04/20/2023 12:15 PM EST Office Visit Hematology/Oncology [facility] [place] [address] [place] [phone] Alex Shelby MD [address] [place] [address] 04/25/2023 8:30 AM EDT [facility] [address] [address] 04/25/2023 9:29 AM EDT Hospital Encounter [facility], Operating Room [facility] [address] [phone] Micheline Juarez MD [address] [address] 04/25/2023 9:29 AM EDT - 04/25/2023 1:01 PM EDT Surgery OR [facility], Operating Room [facility] [address] [phone] Micheline Juarez MD [address] [place] [address] BILATERAL MASTECTOMY SIMPLE COMPLETE 05/08/2023 10:45 AM EDT Office Visit General Surgery, [facility] [address] [place] [address] Micheline Juarez MD [address] [place] [address] Scheduled Procedures Name Priority Associated Diagnoses Date/Ti [...] Tdap) 02/15/2009 02/15/1999 COVID-19 Vaccine ( - season) 2022 Influenza Vaccine (FLU shot) (#1) [...] filedocumented as of this encounter Care Teams Machining Associate Relationship Specialty Start Date End Date Hetal Jovel CRNP [address] [place] [id number] PCP - General Nurse Practitioner 12/14/15 documented as of this encounter
--- OUTSIDE RECORDS SUMMARY | 2023-05-05 12:08 | External Medical Summary | Summary of Care ---
Author Name Unknown Organization [facility] Address [address] [place] [address] Phone [phone] Care Team Providers Care Cross Tie Maker Name Role Phone Hetal Jovel Primary Care Provide r Reason for Referral * Precert (Within 10 days (routine)) - Pending Review Specialty Diagnoses / Procedures Referred By Kamilla t Referred To Contact Radiology Diagnoses Bilateral malignant neoplasm of breast in female, estrogen receptor positive, unspecified site of breast (HCC) Procedures NM BREAST LYMPH GLAND RADIOLOGIST INJECTION Micheline Juarez MD [address] [place] [address] Referral ID Status Reason Start Date Expiration Date V isits Requested Visits Authorized [id number] Pending Review 04/17/2023 999 999 * Evaluate & Treat - Unlimited Visits (Within 10 days (routine)) - Pending Review Specialty Diagnoses / Procedures Referred By Kamilla chavez Referred To Contact Hematology/Oncology / Hematology Oncology Diagnoses Bilateral malignant neoplasm of breast in female, estrogen receptor positive, unspecified site of breast (HCC) Micheline Juarez MD [address] [place] [address] Referral ID Status Reason Start Date Expiration Date Visits Requested Visits Authorized [id number] Pending Review Specialty Services Required 04/10/2023 999 999 Question Answer Referral Priority Within 10 days (routine) Where should this appointment be scheduled? [facility] Reason for Referral Malignant Oncology (Solid Organ Cancer) Comments Bilateral breast cancer * Precert (Within 10 days (routine)) - Pending Review Specialty Diagnoses / Procedures [facility] Referred To Contact Radiology Diagnoses Bilateral malignant neoplasm of breast in female, estrogen receptor positive, unspecified site of breast (HCC) Malignant neoplasm of overlapping sites of right breast in female, estrogen receptor positive (HCC) Procedures PET CT SKULL BASE TO MID-THIGH FDG Micheline Juarez MD [address] [place] [address] Referral ID Status Reason Start Date Expiration Date V isits Requested Visits Authorized [id number] Pending Review 04/17/2023 999 999 * Precert (Within 10 days (routine)) - Pending Review Specialty Diagnoses / Procedures [facility] Referred To Contact Radiology Diagnoses Bilateral malignant neoplasm of breast in female, estrogen receptor positive, unspecified site of breast (HCC) Procedures MRI BREAST BILATERAL W WO CONTRAST Micheline Juarez MD [address] [place] [address] Referral ID Status Reason Start Date Expiration Date V isits Requested Visits Authorized [id number] Pending Review 04/17/2023 999 999 * Evaluate & Treat - Unlimited Visits (Within 10 days (routine)) - Pending Review Specialty Diagnoses / Procedures [facility] Referred To Contact Medical Genetics / Hematology Oncology Diagnoses Bilateral malignant neoplasm of breast in female, estrogen receptor positive, unspecified site of breast (HCC) Micheline Juarez MD [address] [place] [address] Referral ID Status Reason Start Date Expiration Date Visits Requested Visits Authorized [id number] Pending Review Specialty Services Required 04/10/2023 999 999 Question Answer Referral Priority Within 10 days (routine) Where should this appointment be scheduled? [facility] Is this referral request related to one of the following genetics sub-specialties? If unsure of category, use Medical Genetics Ask-A-Doc. Cancer Personal history of cancer? Yes Type of cancer and age at diagnosis: bilateral breast cancer age 77 Family history of cancer? Yes Describe family history of cancer: grandson with BRIP mutation and sarcoma Has patient OR family member had genetic testing previously? Family Member If yes, describe results: BRIP positive Reason for Visit * Reason Comments NEW PATIENT B/l breast Ca. * Evaluate & Treat - Unlimited Visits (Within 10 days (routine)) - Pending Review Specialty Diagnoses / Procedures Referred By Contdes t Referred To Contact General Surgery Diagnoses Malignant neoplasm of unspecified site of right female breast (HCC) Malignant neoplasm of unspecified site of left female breast (HCC) Hetal Jovel CRNP [address] [place] [address] Referral ID Status Reason Start Date Expiration Date Visits Requested Visits Authorized [id number] Pending Review Specialty Services Required 03/30/2023 999 999 Encounter Details Date Type Department Care Team (Latest Contact Info) Description 04/10/2023 8:30 AM EST Office Visit General Surgery, [facility] [address] [place] [address] Micheline Juarez MD [address] [place] [address] Bilateral malignant neoplasm of breast in female, estrogen receptor positive, unspecified site of breast (HCC)*; Preoperative examination; Preoperative cardiovascular examination; Malignant neoplasm of overlapping sites of right breast in female, estrogen receptor positive (HCC) Allergies Active Allergy Reactions Criticality Noted Date [...] Wheezing. 1 Inhaler 3 02/01/2016 Active Ipratropium [place] (ATROVENT) 0.03 % nasal spray Administer 2 [...] Sign Reading Time Taken Comments Blood Pressure - - Pulse - - Temperature - - Respiratory Rate - - Oxygen Saturation - - Inhaled Oxygen Concentration - - Weight 66.1 kg (145 lb 12.8 oz) 04/10/2023 8:24 AM EST Height - - Body Mass Index 23.18 12/05/2016 10:46 AM EDT documented in this encounter Progress Notes * Micheline Juarez MD - 04/10/2023 8:28 AM EST [facility] GENERAL SURGERY NEW BREAST CANCER CLINIC NOTE Chief [...] is a NEGATIVE result. Refer to separate [employer] reports for further details. Addendum at 5787. FINAL DIAGNOSIS A. Breast, left, 10:00, core biopsy: Surgical Pathology Report Page 1 of 4 [facility] Surgical Pathology Report Name: ELSIE ACE : [...] be documented in an addendum and separate [employer] reports. at 7505. Clinical History 3 image guided core needle [...] Surgical Pathology Report Page 2 of 4 [facility] Surgical Pathology Report Name: ELSIE ACE : [...] mammogram, 11/04/2015 mammogram, and 10/22/2014 mammogram - [facility]. PATIENT CONSENT: The procedures of ultrasound-guided and [...] biopsy room. She was positioned on the [facility] stereotactic/tomosynthesis biopsy table and the right breast [...] results will also be available on the [facility] patient portal. Amita Turner M.D. ay/:03/28/2023 15:04:34 Obstetrics Gyn: CHUY Lua)(Ted), [facility] AMENDMENT: 03/31/2023 Amita Turner M.D. Pathology results [...] mammogram, 11/04/2015 mammogram, and 10/22/2014 mammogram - [facility]. BREAST COMPOSITION: There are scattered areas of [...] definitive characterization with stereotactic/tomosynthesis guided biopsy of human resources hr representative fine linearand punctate calcifications is recommended [...] Breath or Wheezing. 1 Inhaler 3 Ipratropium [place] (ATROVENT) 0.03 % nasal spray Administer 2 [...] one stage surgical procedure. Often, a tissue front end java developer is placed at the time of mastectomy and then sequentially expanded while the skin is recovering. Following completion of treatment, this front end java developer can then be switched to a more [...] lumpectomy. Wereviewed the use of a JORDAN digital content marketing manager to help localize the tumor. We also discussed that mastectomy would be an option. This would add about 1- 2 weeks to her recovery. In addition she would then have dennis fish on both sides. We reviewed that the [...] 4-6 weeks following surgery or when the front end java developer is fully expanded. Lastly, the role of [...] is leaning towards left lumpectomy with JORDAN digital content marketing manager localization and sentinel node biopsy. She may change her mind to left simple mastectomy and sentinel node biopsy. MRI is only needed if she chooses breast conservation in the left breast JORDAN digital content marketing manager is only needed if she chooses breast conservation in the left breast PET-CT scan for systemic staging Oncology referral Check EKG, cbc, bmp I spent a total of Greater than 55 mins (exact time 66 mins) on the date of service in preparation,delivery, and documentation of the care provided to Elsie Ace excluding any time spent in the performance of separately billed services. Micheline Juarez M.D. 04/10/2023 12:48 PM documented in this encounter H&P Notes * Micheline Juarez MD - 04/10/2023 12:49 PM EST [facility] NEW BREAST CANCER CLINIC NOTE Chief Complaint [...] is a NEGATIVE result. Refer to separate [employer] reports for further details. Addendum at 1458. FINAL DIAGNOSIS A. Breast, left, 10:00, core biopsy: Surgical Pathology Report Page 1 of [facility] Surgical Pathology Report Name: ELSIE ACE Salvatore : 1945 Case #: [id number] Continued - [...] be documented in an addendum and separate [employer] reports. at 3088. Clinical History 3 image guided core needle [...] Surgical Pathology Report Page 2 of 4 [facility] Surgical Pathology Report Name: ELSIE ACE : [...] to exams dated: 03/14/2023 ultrasound, 03/14/2023 mammogram, 01/17/2017 stereotactic biopsy, 12/28/2016 mammogram, 11/04/2015 mammogram, and 10/22/2014 mammogram - [facility]. PATIENT CONSENT: The procedures of ultrasound-guided and [...] biopsy room. She was positioned on the [facility] stereotactic/tomosynthesis biopsy table and the right breast [...] results will also be available on the [facility] patient portal. Amita Turner M.D. ay/:03/28/2023 15:04:34 Obstetrics Gyn: CHUY Lua)(Ted), [facility] AMENDMENT: 03/31/2023 Amita Turner M.D. Pathology results [...] mammogram, 11/04/2015 mammogram, and 10/22/2014 mammogram - [facility]. BREAST COMPOSITION: There are scattered areas of [...] definitive characterization with stereotactic/tomosynthesis guided biopsy of human resources hr representative fine linearand punctate calcifications is recommended [...] Breath or Wheezing. 1 Inhaler 3 Ipratropium [place] (ATROVENT) 0.03 % nasal spray Administer 2 [...] one stage surgical procedure. Often, a tissue front end java developer is placed at the time of mastectomy and then sequentially expanded while the skin is recovering. Following completion of treatment, this front end java developer can then be switched to a more [...] lumpectomy. Wereviewed the use of a JORDAN digital content marketing manager to help localize the tumor. We also [...] 4-6 weeks following surgery or when the front end java developer is fully expanded. Lastly, the role of [...] is leaning towards left lumpectomy with JORDAN digital content marketing manager localization and sentinel node biopsy. She may change her mind to left simple mastectomy and sentinel node biopsy. MRI is only needed if she chooses breast conservation in the left breast JORDAN digital content marketing manager is only needed if she chooses breast conservation in the left breast PET-CT scan for systemic staging Oncology referral Check EKG, cbc, bmp I spent a total of Greater than 55 mins (exact time 66 mins) on the date of service in preparation,delivery, and documentation of the care provided to Elsie Ace excluding any time spent in the performance of separately billed services. Micheline Juarez M.D. 04/10/2023 12:48 PM documented in this encounter Procedure Notes * Heriberto Chicas DO - 04/10/2023 9:38 AM ESTAssociated Order(s): EKG REASON FOR STUDY: preop;preop CONCLUSIONS: Sinus bradycardia Otherwise normal ECG No previous ECGs available Ventricular Rate: 58 Atrial Rate: 58 RI Interval: 156 QRS Duration: 84 QT/QTc: 460/451 ms P-R-T [place]: 74 : 48 : 79 degrees documented in this encounter Nursing Notes * Mignon Abreu LPN - 04/10/2023 9:51 AM EST Patient scheduled at [facility] for possible mastectomy and lumpectomy with Dr Micheline Juarez. Date of Test: TBS Medications reviewed. EKG obtained Labs: obtained Permit signed. Patient verbalizes understanding of pre- and post op instructions. Written instructions given for review at later date. Mignon Abreu LPN 04/10/2023 * Yesenia Roy MED ASSIST - 04/10/2023 8:28 AM EST Chief Complaint Patient presents with NEW PATIENT B/l breast Ca. Patient presents today for evaluation of B/l breast Ca.. Patient had mammogram done at [facility] on 03/28/2023. BREAST HISTORY: Mass: No Breast Pain: no Nipple discharge: No Previous problems/surgeries: core biopsy, left ultrasound guided 7 years ago. Breast Cancer: no Other Cancers: no GYNECOLOGIC HISTORY: LMP: No LMP recorded. Patient is postmenopausal. Menarche at age: 11 Menopause at age: early 38th. Number of children: 3 Patient's age at first live : 21-24 Did you breast feed any of your children: No Ever take oral contraceptives? Yes, history of use for 15 year(s) Ever take estrogen? No Family History of Breast Cancer: No documented in this encounter Plan of Treatment Upcoming Encounters Date Type Department Care Team (Late st Contact Info) Description 04/20/2023 12:15 PM EST Office Visit Hematology/Oncology [facility] [address] [facility] [address] [place] [phone] Alex Shelby MD [address] [facility] [place] [address] 04/25/2023 Hospital Encounter OR [facility], Operating Room [facility] [address] [place] [address] Micheline Juarez MD [address] [place] [address] 04/25/2023 11:00 AM EDT Imaging [facility] 2nd Floor Cardiology, [place] [address] [place] [address] 05/08/2023 10:45 AM EDT Office Visit General Surgery, [facility] [address] [place] [address] Micheline Juarez MD [address] [place] [address] Scheduled Orders Name Type Priority Associated Diagnoses Order Schedule MRI BREAST BILATERAL W WO CONTRAST Medical Imaging Routine Bilateral malignant neoplasm of breast in female, estrogen receptor positive, unspecified site of breast (HCC) Expected: 04/17/2023 (Approximate), Expires: 05/08/[address] SKULL BASE TO MID-THIGH FDG Medical Imaging Routine Bilateral malignant neoplasm of breast in female, estrogen receptor positive, unspecified site of breast (HCC) Malignant neoplasm of overlapping sites of right breast in female, estrogen receptor positive (HCC) Expected: 04/17/2023 (Approximate), Expires: 05/08/2024 NM BREAST LYMPH GLAND RADIOLOGIST INJECTION Medical Imaging Routine Bilateral malignant neoplasm of breast in female, estrogen receptor positive, unspecified site of breast (HCC) Expected: 04/17/2023, Expires: 05/08/2024 CBC Lab Pre-operative Bilateral malignant neoplasm of breast in female, estrogen receptor positive, unspecified site of breast (HCC) Expected: 04/11/2023 (Approximate), Expires: 06/09/2023 BASIC METABOLIC PANEL Lab Pre-operative Bilateral malignant neoplasm of breast in female, estrogen receptor positive, unspecified site of breast (HCC) Expected: 04/11/2023 (Approximate), Expires: 06/09/2023 US BREAST NEEDLE LOCALIZATION LEFT Medical Imaging Routine Bilateral malignant neoplasm of breast in female, estrogen receptor positive, unspecified site of breast (HCC) Expected: 04/17/2023 (Approximate), Expires: 05/08/2024 Scheduled Procedures Name Priority Associated Diagnoses Date/Ti me MASTECTOMY SIMPLE COMPLETE Bilateral malignant neoplasm of breast in female, estrogen receptor positive, unspecified site of breast (HCC) BIOPSY LYMPH NODE DEEP AXILL NICKO OPEN Bilateral malignant neoplasm of breast in female, estrogen receptor positive, unspecified site of breast (HCC) INJECTION PROCEDURE FOR IDENTIFICATION SENTINEL NODE Bilateral malignant neoplasm of breast in female, estrogen receptor positive, unspecified site of breast (HCC) Scheduled Referrals Name Type Priority Associated Diagnoses Orde r Schedule GENETICS REFERRAL OP Referral Within 10 days (routine) Bilateral malignant neoplasm of breast in female, estrogen receptor positive, unspecified site of breast (HCC) Ordered: 04/10/2023 HEMATOLOGY/ONCOLOGY REFERRAL OP Referral Within 10 days (routine) Bilateral malignant neoplasm of breast in female, estrogen receptor positive, unspecified site of breast (HCC) Ordered: 04/10/2023 Health Maintenance Due Date Last Done Comments DXA Scan 1945 GFR 1945 Depression Screening 1955 Albumin/Creatinine Ratio 10/26/1961 Hepatitis C Screening 10/26/1961 Zoster Vaccines (1 of 2) 10/26/1993 DTaP,Tdap,and Td Vaccines (2 - Tdap) 02/15/2009 02/15/1999 COVID-19 Vaccine (1 - season) 2022 Influenza Vaccine (FLU shot) [...] Procedure Name Priority Date/Time Associated Diagnosis Comments RI ECG ROUTINE ECG W/LEAST 12 LDS I&R ONLY Routine 04/10/2023 9:38 AM EST Preoperative cardiovascular examination documented in this encounter Results * EKG (04/10/2023 9:38 AM EST) 04/10/2023 9:38 AM EST Narrative Procedure Note Heriberto Chicas DO - 04/10/2023 9:38 AM EST REASON FOR STUDY: preop;preop CONCLUSIONS: Sinus bradycardia Otherwise normal ECG No previous ECGs available Ventricular Rate: 58 Atrial Rate: 58 RI Interval: 156 QRS Duration: 84 QT/QTc: 460/451 ms P-R-T [place]: 74 : 48 : 79 degrees Micheline Juarez MD EKG [facility] documented in this encounter Visit Diagnoses Diagnosis Bilateral malignant neoplasm of breast in female, estrogen receptor positive, unspecified site of breast (HCC)- Primary Preoperative examination Preoperative examination, unspecified Preoperative cardiovascular examination Pre-operative cardiovascular examination Malignant neoplasm of overlapping sites of right breast in female, estrogen receptor positive (HCC) documented in this encounter Care Teams Cross Tie Maker Relationship Specialty Start Date End Date Hetal Jovel CRNP [address] [place] [address] PCP - General Nurse Practitioner 12/14/15 documented as of this encounter
--- OUTSIDE RECORDS SUMMARY | 2023-05-05 12:08 | External Medical Summary | Summary of Care ---
Author Name Unknown Organization [facility] Address [address] [place] [address] Phone [phone] Care Team Providers Care Vice President Of Development Name Role Phone Hetal Jovel Primary Care Provide r Reason for Visit * Reason Onset Date Comments Surgery 04/10/2023 Encounter Details Date Type Department Care Team (Late st Contact Info) Description 04/10/2023 Telephone General Surgery, [facility] [address] [place] [address] Services, Scheduling [address] [place] [address] Surgery Allergies Active Allergy Reactions Criticality Noted Date Comments Atorvastatin Other (Please comment) 02/01/2016 Hair loss; ? Just at higher doses documented as of this encounter (statuses as of 04/10/2023) Medications Medication Sig Dispensed Refills Start Date [...] Wheezing. 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 * Telephone Encounter - Mirtha Asencio OSA - 04/10/2023 12:13 PM EST Pt wants to Schedule surgery, pet scan and MRI. Please contact pt to schedule. Pt wants to go wherever is [facility] and [facility]. Pt would like to go to [facility] for this. Ph. [phone] documented in this encounter Plan of Treatment Scheduled Procedures Name Priority Associated Diagnoses Date/Ti [...] filedocumented as of this encounter Care Teams Vice President Of Development Relationship Specialty Start Date End Date Hetal Jovel CRNP [address] [place] [address] PCP - General Nurse Practitioner 12/14/15 documented as of this encounter
--- OUTSIDE RECORDS SUMMARY | 2023-05-05 12:08 | External Medical Summary | Summary of Care ---
Author Name Unknown Organization [facility] Address [address] [facility] [place] [address] Phone [phone] Care Team Providers Care Sessions Clerk Name Role Phone Hetal Jovel Primary Care Provide r Reason for Visit * Reason Onset Date Comments Advice 04/12/2023 Encounter Details Date Type Department Care Team (Late st Contact Info) Description 04/12/2023 Telephone General Surgery, [facility] [address] [place] [address] Micheline Juarez MD [address] [place] [address] Advice Allergies Active Allergy Reactions Criticality Noted Date Comments Atorvastatin Other (Please comment) 02/01/2016 Hair loss; ? Just at higher doses documented as of this encounter (statuses as of 04/16/2023) Medications Medication Sig Dispensed Refills Start Date [...] Wheezing. 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, estrogen receptor positive 04/10/2023 Intermittent asthma without complication 017 Meniere disease 12/05/2016 Cough 02/01/2016 Rhinitis, nonallergic 02/01/2016 Hypertension Hyperlipidemia Collagenous colitis Osteoarthrosis History of tobacco use documented as of this encounter (statuses as of 04/16/2023) Immunizations Name Administration Dates Next Due Pneumococcal [...] Carrasco OSA - 04/16/2023 10:11 AM EST [facility] Home Health called and is asking for referral, office [...] PM EST Office Visit Hematology/Oncology [facility] [place] [address] [place] [address] Alex Shelby MD [address] [place] [address] 04/25/2023 8:30 AM EDT Imaging [facility] [address] [place] [address] 04/25/2023 9:29 AM EDT Hospital Encounter OR [facility], Operating Room [facility] [address] [place] [address] Micheline Juarez MD [address] [place] [address] 04/25/2023 9:29 AM EDT - 04/25/2023 1:01 PM EDT Surgery OR [facility], Operating Room [facility] [address] [place] [phone] Micheline Juarez MD [address] [place] [address] BILATERAL MASTECTOMY SIMPLE COMPLETE 05/08/2023 10:45 AM EDT Office Visit General Surgery, [facility] [address] [place] [address] Micheline Juarez MD [address] [place] [address] Scheduled Procedures Name Priority Associated Diagnoses Date/Ti [...] filedocumented as of this encounter Care Teams Sessions Clerk Relationship Specialty Start Date End Date Hetal Jovel CRNP [address] [place] [address] PCP - General Nurse Practitioner 12/14/15 documented as of this encounter
--- OUTSIDE RECORDS SUMMARY | 2023-05-05 12:08 | External Medical Summary | Summary of Care ---
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 1 Inhaler 3 02/01/2016 Active Ipratropium [place] (ATROVENT) 0.03 % nasal spray Administer 2 [...] 04/20/2023 12:15 PM EST Office Visit Hematology/Oncology [facility] [address] [facility] [place] [phone] Alex Shelby MD 200 [facility] [place] [address] 04/25/2023 8:30 AM EDT [facility] [address] [place] [address] 04/25/2023 9:29 AM EDT Hospital Encounter OR [facility], Operating Room [facility] [address] [place] [phone] Micheline Juarez MD [address] [place] [address] 04/25/2023 9:29 AM EDT - 04/25/2023 1:01 PM EDT Surgery OR [facility], Operating Room [facility] [address] [place] [phone] Micheline Juarez MD [address] [place] [address] BILATERAL MASTECTOMY SIMPLE COMPLETE 05/08/2023 10:45 AM EDT Office Visit General Surgery, [facility] [address] [place] [address] Micheline Juarez MD [address] [place] [address] Pending Results Name Type Priority Associated Diagnoses Date /Time BASIC METABOLIC PANEL Lab Pre-operative Bilateral malignant neoplasm of breast in female, estrogen receptor positive, unspecified site of breast (HCC) 04/17/2023 3:31 PM EST Scheduled Procedures Name Priority Associated Diagnoses Date/Ti [...] Procedure Name Priority Date/Time Associated Diagnosis Comments CBC Pre-operative 04/17/2023 3:31 PM EST Bilateral malignant neoplasm of breast in female, estrogen receptor positive, unspecified site of breast (HCC) documented in this encounter Results * CBC (04/17/2023 3:31 PM EST) WBC 9.15 4.00 - 10.80 K/uL 04/17/2023 3:39 PM EST [facility] 56 RBC 4.39 3.85 - 5.15 M/uL 04/17/2023 3:39 PM EST [facility] 56 HGB 13.8 12.0 - 15.3 g/dL 04/17/2023 3:39 PM EST [facility] 56 HCT 41.9 36.0 - 45.2 % 04/17/2023 3:39 PM EST [facility] 56 MCV 95.4 81.5 - 97.5 fL 04/17/2023 3:39 PM EST [facility] 56 MCH 31.4 27.0 - 34.0 pg 04/17/2023 3:39 PM EST [facility] 56 MCHC 32.9 32.0 - 36.0 g/dL 04/17/2023 3:39 PM EST [facility] 56 RDW 13.6 11.5 - 15.5 % 04/17/2023 3:39 PM EST [facility] 56 PLT 214 140 - 400 K/uL 04/17/2023 3:39 PM [facility] 56 MPV 10.9 6.6 - 11.1 fL 04/17/2023 3:39 PM EST [facility] 56-02 Blood Venous blood specimen / Unknown Venipuncture / Unknown 04/17/2023 3:31 PM EST 04/17/2023 3:31 PM EST Micheline Juarez MD LAB BLOOD ORDERABLE S [facility] [address] [place] [address] documented in this encounter Visit Diagnoses Diagnosis Bilateral malignant neoplasm of breast in female, estrogen receptor positive, unspecified site of breast (HCC) Bilateral malignant neoplasm of breast in female, estrogen receptor positive, unspecified site of breast (HCC) documented in this encounter Care Teams Legal Service Specialist Relationship Specialty Start Date End Date Hetal Jovel CRNP [address] [address] PCP - General Nurse Practitioner 12/14/15 documented as of this encounter
--- OUTSIDE RECORDS SUMMARY | 2023-05-05 12:08 | External Medical Summary | Summary of Care ---
Author Name Unknown Organization [facility] Address [address] [place] [address] Phone [phone] Care Team Providers Care Animal Groomer Name Role Phone Hetal Jovel Primary Care Provide r Reason for Referral * Precert (Within 10 days (routine)) - Pending Review Specialty Diagnoses / Procedures Referred By Kamilla t Referred To Contact Radiology Diagnoses Bilateral malignant neoplasm of breast in female, estrogen receptor positive, unspecified site of breast (HCC) Procedures NM BREAST LYMPH GLAND RADIOLOGIST INJECTION Micheline Juarez MD [address] [place] [address] Referral ID Status Reason Start Date Expiration Date V isits Requested Visits Authorized [id number] Pending Review 04/17/2023 999 999 * Evaluate & Treat - Unlimited Visits (Within 10 days (routine)) - Pending Review Specialty Diagnoses / Procedures Referred By Kamilla chavez Referred To Contact Hematology/Oncology / Hematology Oncology Diagnoses Bilateral malignant neoplasm of breast in female, estrogen receptor positive, unspecified site of breast (HCC) Micheline Juarez MD [address] [place] [address] Referral ID Status Reason Start Date Expiration Date Visits Requested Visits Authorized [id number] Pending Review Specialty Services Required 04/10/2023 999 999 Question Answer Referral Priority Within 10 days (routine) Where should this appointment be scheduled? 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 breast in female, estrogen receptor positive (HCC) Procedures PET CT SKULL BASE TO MID-THIGH FDG Micheline Juarez MD [address] [place] [address] Referral ID Status Reason Start Date Expiration Date V isits Requested Visits Authorized [id number] Pending Review 04/17/2023 999 999 * Precert (Within 10 days (routine)) - Pending Review Specialty Diagnoses / Procedures [facility] Referred To Contact Radiology Diagnoses Bilateral malignant neoplasm of breast in female, estrogen receptor positive, unspecified site of breast (HCC) Procedures MRI BREAST BILATERAL W WO CONTRAST Micheline Juarez MD [address] [place] [address] Referral ID Status Reason Start Date Expiration Date V isits Requested Visits Authorized [id number] Pending Review 04/17/2023 999 999 * Evaluate & Treat - Unlimited Visits (Within 10 days (routine)) - Pending Review Specialty Diagnoses / Procedures [facility] Referred To Contact Medical Genetics / Hematology Oncology Diagnoses Bilateral malignant neoplasm of breast in female, estrogen receptor positive, unspecified site of breast (HCC) Micheline Juarez MD [address] [place] [address] Referral ID Status Reason Start Date Expiration Date Visits Requested Visits Authorized [id number] Pending Review Specialty Services Required 04/10/2023 999 [...] left female breast (HCC) Hetal Jovel CRNP [address] [place] [address] Referral ID Status Reason Start Date Expiration Date Visits Requested Visits Authorized [id number] Pending Review Specialty Services Required 03/30/2023 999 999 Encounter Details Date Type Department Care Team (Latest Contact Info) Description 04/10/2023 8:30 AM EST Office Visit General Surgery, [facility] [address] [place] [address] Micheline Juarez MD [address] [place] [address] Bilateral malignant neoplasm of breast in female, [...] Wheezing. 1 Inhaler 3 02/01/2016 Active Ipratropium [place] (ATROVENT) 0.03 % nasal spray Administer 2 [...] Juarez MD - 04/10/2023 8:28 AM EST [facility] NOTE [...] grade invasive ductal cancer, ER strongly positive, ME 1%, her 2-. 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 She is accompanied by [...] is a NEGATIVE result. Refer to separate [employer] reports for further details. Addendum at 2814. FINAL DIAGNOSIS A. Breast, left, 10:00, core biopsy: Surgical Pathology Report Page 1 of 4 [facility] Surgical Pathology Report Name: ELSIE ACE : [...] be documented in an addendum and separate [employer] reports. at 0711. Clinical History 3 image guided core needle [...] Surgical Pathology Report Page 2 of 4 [facility] Surgical Pathology Report Name: ELSIE ACE : [...] mammogram, 11/04/2015 mammogram, and 10/22/2014 mammogram - [facility]. PATIENT CONSENT: The procedures of ultrasound-guided and [...] biopsy room. She was positioned on the [facility] stereotactic/tomosynthesis biopsy table and the right [...] results will also be available on the [facility] patient portal. Amita Turner M.D. ay/:03/28/2023 15:04:34 Floorperson: CHUY Lua)(Ted), [facility] AMENDMENT: 03/31/2023 Amita Turner M.D. Pathology results [...] mammogram, 11/04/2015 mammogram, and 10/22/2014 mammogram - [facility]. BREAST COMPOSITION: There are scattered areas of [...] definitive characterization with stereotactic/tomosynthesis guided biopsy of technology sales representative fine linearand punctate calcifications is [...] Breath or Wheezing. 1 Inhaler 3 Ipratropium [place] (ATROVENT) 0.03 % nasal spray Administer 2 [...] one stage surgical procedure. Often, a tissue furnace cleaner is placed at the time of mastectomy and then sequentially expanded while the skin is recovering. Following completion of treatment, this furnace cleaner can then be switched to a more [...] lumpectomy. Wereviewed the use of a JORDAN oil scout to help localize the tumor. We also [...] 4-6 weeks following surgery or when the furnace cleaner is fully expanded. Lastly, the role of [...] is leaning towards left lumpectomy with JORDAN oil scout localization and sentinel node biopsy. She may change her mind to left simple mastectomy and sentinel node biopsy. MRI is only needed if she chooses breast conservation in the left breast JORDAN oil scout is only needed if she chooses breast [...] Juarez MD - 04/10/2023 12:49 PM EST [facility] NOTE Chief Complaint [...] grade invasive ductal cancer, ER strongly positive, ME 1%, her 2-. 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 She is accompanied by [...] is a NEGATIVE result. Refer to separate [employer] reports for further details. Addendum at 1458. FINAL DIAGNOSIS A. Breast, left, 10:00, core biopsy: Surgical Pathology Report Page 1 of [facility] Surgical Pathology Report Name: ELSIE ACE Salvatore [...] an addendum and separate [employer] reports. at 6360. Clinical History 3 image guided core needle [...] Surgical Pathology Report Page 2 of 4 [facility] Surgical Pathology Report Name: ELSIE ACE : [...] mammogram, 11/04/2015 mammogram, and 10/22/2014 mammogram - [facility]. PATIENT CONSENT: The procedures of ultrasound-guided and [...] biopsy room. She was positioned on the [facility] stereotactic/tomosynthesis biopsy table and the right [...] results will also be available on the [facility] patient portal. Amita Turner M.D. ay/:03/28/2023 15:04:34 Floorperson: CHUY Lua)(M), [facility] AMENDMENT: 03/31/2023 Amita Turner M.D. Pathology results [...] mammogram, 11/04/2015 mammogram, and 10/22/2014 mammogram - [facility]. BREAST COMPOSITION: There are scattered areas of [...] definitive characterization with stereotactic/tomosynthesis guided biopsy of technology sales representative fine linearand punctate calcifications is [...] Breath or Wheezing. 1 Inhaler 3 Ipratropium [place] (ATROVENT) 0.03 % nasal spray Administer 2 [...] one stage surgical procedure. Often, a tissue furnace cleaner is placed at the time of mastectomy and then sequentially expanded while the skin is recovering. Following completion of treatment, this furnace cleaner can then be switched to a more [...] lumpectomy. Wereviewed the use of a JORDAN oil scout to help localize the tumor. We also discussed that mastectomy would be an option. This would add about 1- 2 weeks to her recovery. In addition she would then have drai ns on both sides. We reviewed that [...] 4-6 weeks following surgery or when the furnace cleaner is fully expanded. Lastly, the role of [...] is leaning towards left lumpectomy with JORDAN oil scout localization and sentinel node biopsy. She may change her mind to left simple mastectomy and sentinel node biopsy. MRI is only needed if she chooses breast conservation in the left breast JORDAN oil scout is only needed if she chooses breast [...] available Ventricular Rate: 58 Atrial Rate: 58 ME Interval: 156 QRS Duration: 84 QT/QTc: 460/451 ms P-R-T [place]: 74 : 48 : 79 degrees documented in this encounter Nursing Notes * Mignon Abreu LPN - 04/10/2023 9:51 AM EST Patient scheduled at [facility] for possible mastectomy and lumpectomy with Dr [...] breast Ca.. Patient had mammogram done at [facility] on 03/28/2023. BREAST [...] in this encounter Plan of Treatment Scheduled Orders Name Type Priority Associated Diagnoses [...] Procedure Name Priority Date/Time Associated Diagnosis Comments ME ECG ROUTINE ECG W/LEAST 12 LDS I&R ONLY Routine 04/10/2023 9:38 AM EST Preoperative cardiovascular examination documented in this encounter Results * EKG (04/10/2023 9:38 AM EST) 04/10/2023 9:38 AM EST Narrative Procedure Note Heriberto Chicas DO - 04/10/2023 9:38 AM EST REASON FOR STUDY: preop;preop CONCLUSIONS: Sinus bradycardia Otherwise normal ECG No previous ECGs available Ventricular Rate: 58 Atrial Rate: 58 ME Interval: 156 QRS Duration: 84 QT/QTc: 460/451 ms P-R-T [place]: 74 : 48 : 79 degrees Micheline Juarez MD EKG [facility] CARDIOLOGY documented in this encounter Visit Diagnoses Diagnosis Bilateral malignant neoplasm of breast in female, estrogen receptor positive, unspecified site of breast (HCC)- Primary Preoperative examination Preoperative examination, unspecified Preoperative cardiovascular examination Pre-operative cardiovascular examination Malignant neoplasm of overlapping sites of right breast in female, estrogen receptor positive (HCC) documented in this encounter Care Teams Animal Groomer Relationship Specialty Start Date End Date Hetal Jovel CRNP [address] [place] [address] PCP - General Nurse Practitioner 12/14/15 documented as of this encounter
--- OUTSIDE RECORDS SUMMARY | 2023-05-05 12:08 | External Medical Summary | Summary of Care ---
Author Name Unknown Organization [facility] Address [address] [place] [address] Phone [phone] Care Team Providers Care Metal Trimmer Name Role Phone Hetal Jovel Primary Care Provide r Reason for Visit * Reason Onset Date Comments Genetic Counseling 04/11/2023 Referral Encounter Details Date Type Department Care Team (Late st Contact Info) Description 04/11/2023 Telephone Genetics [facility], [facility] [address] [place] [address] Mirtha Maldonado CHRA Genetic Counseling [...] Wheezing. 1 Inhaler 3 02/01/2016 Active Ipratropium [place] (ATROVENT) 0.03 % nasal spray Administer 2 [...] PM EST Office Visit Hematology/Oncology [facility] [place] [place] [address] [facility] [place] [phone] Alex Shelby MD [address] [facility] [place] [address] Scheduled Procedures Name Priority Associated Diagnoses Date/Ti [...] filedocumented as of this encounter Care Teams Metal Trimmer Relationship Specialty Start Date End Date Hetal Jovel CRNP [address] [place] [address] PCP - General Nurse Practitioner 12/14/15 documented as of this encounter
--- OUTSIDE RECORDS SUMMARY | 2023-05-05 12:08 | External Medical Summary | Summary of Care ---
Author Name Unknown Organization [facility] Address [address] [facility] [place] [address] Phone [phone] Care Team Providers Care Track Subway Repair Supervisor Name Role Phone Hetal Jovel Primary Care Provide r Reason for Visit * Reason Onset Date Comments Advice 04/18/2023 Encounter Details Date Type Department Care Team (Late st Contact Info) Description 04/18/2023 Telephone General Surgery, [facility] [address] [place] [phone] Micheline Juarez MD [address] [place] [address] Advice Allergies Active Allergy Reactions Criticality Noted Date Comments Atorvastatin Other (Please comment) 02/01/2016 Hair loss; ? Just at higher doses documented as of this encounter (statuses as of 04/18/2023) Medications Medication Sig Dispensed Refills Start Date [...] Wheezing. 1 Inhaler 3 02/01/2016 Active Ipratropium [place] (ATROVENT) 0.03 % nasal spray Administer 2 [...] as of this encounter (statuses as of 04/18/2023) Active Problems Problem Noted Date Diagnosed Date Bilateral malignant neoplasm of breast in female, estrogen receptor positive 04/10/2023 Intermittent asthma without complication 017 Meniere disease 12/05/2016 Cough 02/01/2016 Rhinitis, nonallergic 02/01/2016 Hypertension Hyperlipidemia Collagenous colitis Osteoarthrosis History of tobacco use documented as of this encounter (statuses as of 04/18/2023) Immunizations Name Administration Dates Next Due Pneumococcal [...] Telephone Encounter - Isabel Carrasco OSA - 04/18/2023 1:13 PM EST Authorization obtained and given to granddaughter. * Telephone Encounter - Ayala Brambila OSA - 04/18/2023 9:46 AM EST Patient wants to schedule a PET scan for tomorrow and granddaughter needs to speak to someone RASHID regarding authorization for it. documented in this encounter Plan of Treatment Upcoming Encounters Date Type Department Care Team (Latest Contact Info) Description 04/20/2023 12:15 PM EST Office Visit Hematology/Oncology [facility] [place] [place] [address] [place] [phone] Alex Shelby MD [address] [place] [address] 04/25/2023 8:30 AM EDT Imaging [facility] 2nd Floor Cardiology, [place] 132 [facility] [place] [address] 04/25/2023 9:29 AM EDT Hospital Encounter OR [facility], Operating Room [facility] [address] [place] [phone] Micheline Juarez MD [address] [place] [address] 04/25/2023 9:29 AM EDT - 04/25/2023 1:01 PM EDT Surgery OR [facility], Operating Room [facility] [address] [place] [phone] Micheline Juarez MD [address] [place] [address] BILATERAL MASTECTOMY SIMPLE COMPLETE 05/08/2023 10:45 AM EDT Office Visit General Surgery, [facility] [address] [place] [address] Micheline Juarez MD [address] [place] [address] Scheduled Procedures Name Priority Associated Diagnoses Date/Ti [...] (2 - Tdap) 02/15/2009 02/15/1999 COVID-19 Vaccine (2022-24 season) 2022 Influenza Vaccine (FLU shot) (#1) [...] filedocumented as of this encounter Care Teams Track Subway Repair Supervisor Relationship Specialty Start Date End Date Hetal Jovel CRNP [address] [place] [address] PCP - General Nurse Practitioner 12/14/15 documented as of this encounter
--- OUTSIDE RECORDS SUMMARY | 2023-05-05 12:08 | External Medical Summary | Summary of Care ---
Author Name Unknown Organization [facility] Address [address] [facility] [place] [address] Phone [phone] Care Team Providers Care Rn Case Manager Name Role Phone Hetal Jovel Primary Care Provide r Reason for Visit * Reason Onset Date Comments Advice 04/12/2023 Encounter Details Date Type Department Care Team (Late st Contact Info) Description 04/12/2023 Telephone General Surgery, [facility] [address] [place] [address] Micheline Juarez MD [address] [place] [address] Advice Allergies Active Allergy Reactions Criticality Noted [...] Wheezing. 1 Inhaler 3 02/01/2016 Active Ipratropium [place] (ATROVENT) 0.03 % nasal spray Administer 2 [...] Carrasco OSA - 04/16/2023 10:11 AM EST [facility] called and is asking for referral, office notes, and surgery notes be faxed after she has her surgery scheduled on 04/25/23. * Telephone Encounter - Mignon Abreu LPN - 04/12/2023 3:25 PM EST [facility], they checked insurance, she can get help, [...] 04/20/2023 12:15 PM EST Office Visit Hematology/Oncology [facility] 200 [facility] [place] [phone] Alex Shelby MD 200 [facility] [place] [address] 04/25/2023 8:30 AM EDT Imaging [facility] [address] [place] [address] 04/25/2023 9:29 AM EDT Hospital Encounter OR [facility], Operating Room [facility] [address] [place] [phone] Micheline Juarez MD [address] [place] [address] 04/25/2023 9:29 AM EDT - 04/25/2023 1:01 PM EDT Surgery OR [facility], Operating Room [facility] [address] [place] [phone] Micheline Juarez MD [address] [place] [address] BILATERAL MASTECTOMY SIMPLE COMPLETE 05/08/2023 10:45 AM EDT Office Visit General Surgery, [facility] [address] [place] [address] Micheline Juarez MD [address] [place] [address] Scheduled Procedures Name Priority Associated Diagnoses Date/Ti [...] filedocumented as of this encounter Care Teams Rn Case Manager Relationship Specialty Start Date End Date Hetal Jovel CRNP [address] [place] [address] PCP - General Nurse Practitioner 12/14/15 documented as of this encounter
--- OUTSIDE RECORDS SUMMARY | 2023-05-05 12:08 | External Medical Summary | Summary of Care ---
Author Name Unknown Organization [facility] Address [address] [place] [address] Phone [phone] Care Team Providers Care Vice President [employer] Name Role Phone Hetal Jovel Primary Care Provide r Reason for Referral * Evaluate & Treat - Unlimited Visits (Within 10 days (routine)) - Pending Review Specialty Diagnoses / Procedures Referred By Kamilla chavez Referred To Contact General Surgery Diagnoses Malignant neoplasm of unspecified site of right female breast (HCC) Malignant neoplasm of unspecified site of left female breast (HCC) Hetal Jovel CRNP [address] [place] [address] Referral ID Status Reason Start Date Expiration Date Visits Requested Visits Authorized [id number] Pending Review Specialty Services Required 03/30/2023 999 999 Question Answer Referral Priority Within 10 days (routine) Where should this appointment be scheduled? [facility] What condition is the patient being seen for? General Surgery Conditions What condition is the patient being seen for? All other conditions Comments Malignant neoplasm of both breast Encounter Details Date Type Department Care Team (Late st Contact Info) Description 03/30/2023 Orders Only [facility] [place] [address] [place] [address] Ext *DO NOT REMOVE THIS DEPARTMENT* [place] [id number] Request, External Referral Malignant neoplasm of unspecified site of right female breast (HCC)*; Malignant neoplasm of unspecified site of left female breast (HCC) Allergies Active Allergy Reactions Criticality Noted Date Comments Atorvastatin Other (Please comment) 02/01/2016 Hair loss; ? Just at higher doses documented as of this encounter (statuses as of 03/30/2023) Medications Medication Sig Dispensed Refills Start Date [...] 0 Active Meloxicam 15 MG Tablet Take 15 mg by mouth daily as needed for Pain. [...] Wheezing. 1 Inhaler 3 02/01/2016 Active Ipratropium [place] (ATROVENT) 0.03 % nasal spray Administer 2 Sprays into nostril 3 times a day as needed (runny nose). 30 mL 6 06/05/2016 Active PredniSONE (DELTASONE) 10 MG Tablet Take 1 Tab by mouth daily. 25 Tab 0 07/27/2016 Active Loratadine (CLARITIN) 10 MG Cap Take 10 mg by mouth daily. 0 Active Azelastine HCl 0.1 % nasal spray SPRAY 2 SPRAYS INTO EACH NOSTRIL TWICE A DAY. 30 mL 2 07/02/2018 Active documented as of this encounter (statuses as of 03/30/2023) Active Problems Problem Noted Date Diagnosed Date Intermittent asthma without complication 017 Meniere disease 12/05/2016 Cough 02/01/2016 Rhinitis, nonallergic 02/01/2016 Hypertension Hyperlipidemia Collagenous colitis Osteoarthrosis History of tobacco use documented as of this encounter (statuses as of 03/30/2023) Immunizations Name Administration Dates Next Due Pneumococcal Conjugate Vacc, 13 Valent (Prevnar) 02/12/2014 Pneumococcal Polysaccharide PPV23 (Pneumovax) Seasonal Influenza, PF, 6 M & above, IM , (FluLaval or Fluzone) 12/05/2016 Seasonal Influenza, Quadrivalent, No Preserve, I M 02/01/2016 documented as of this encounter Social History Tobacco Use Types Packs/Day Years Used Date Smoking Tobacco: Former Cigarettes 0.5 20 Q uit: 02/12/2013 Smokeless Tobacco: Never Comments:intermittent smoker "on and off" for many years/no passive smoke Alcohol Use Standard Drinks/Week Comments Yes 0 (1 standard drink = 0.6 oz pur e alcohol) rare Sex and Gender Information Value Date Recorded Sex Assigned at Not on file Gender Identity Not on file Sexual Orientation Not on file documented as of this encounter Plan of Treatment Scheduled Referrals Name Type Priority Associated Diagnoses Orde r Schedule SURGERY REFERRAL OP Referral Within 10 da ys (routine) Malignant neoplasm of unspecified site of right female breast (HCC) Malignant neoplasm of unspecified site of left female breast (HCC) Ordered: 03/30/2023 Health Maintenance Due Date Last Done Comments DXA Scan 1943 GFR 1943 Depression Screening 1955 Albumin/Creatinine Ratio 10/26/1961 Hepatitis C Screening 10/26/1961 DTaP,Tdap,and Td Vaccines (1 - Tdap) 10/26/1962 Zoster Vaccines (1 of 2) 10/26/1993 COVID-19 Vaccine ( - 2022-2 4 season) 2022 Influenza Vaccine (FLU shot) (#1) 2022 12/05/2016, 02/01/2016 Pneumococcal Vaccine: 65+ Years Completed 02/12/2014, 03/22/2010 GARDASIL-HPV IMMUNIZATION SERIES Aged Out No longer eligible b ased on patient's age to complete this topic Hepatitis B Aged Out No longer eligi ble based on patient's age to complete this topic MENINGOCOCCAL (MENACTRA/MENVEO) Aged Out No longer eligible b ased on patient's age to complete this topic documented as of this encounter Medical Devices Not on filedocumented as of this encounter Visit Diagnoses Diagnosis Malignant neoplasm of unspecified site of right female breast (HCC)- Primary Malignant neoplasm of unspecified site of left female breast (HCC) documented in this encounter Care Teams Vice President [employer] Relationship Specialty Start Date End Date Hetal Jovel CRNP [address] [place] [address] PCP - General Nurse Practitioner 12/14/15 documented as of this encounter
--- OUTSIDE RECORDS SUMMARY | 2023-05-05 12:08 | External Medical Summary ---
Author Name Unknown Address Unknown Organization K09:[facility] [place] [address] Laboratory Report Ordering Provider Test Date Status LOIDA GUNN 04/17/2023 15:31:22 Final Observation Date Value Abnormality Reference (Units ) Status BUN 04/17/2023 15:31:22 17 6-20 (mg/dL) Final Creatinine 04/17/2023 15:31:22 0.7 0.5-1.0 (mg/dL) Final Glomerular filtration rate/1.73 sq M.predicted [Volume Rate/Area] in Serum, Plasma or Blood by Creatinine-based formula (CKD-EPI) 04/17/2023 15:31:22 88 >=60 (mL/min) Final eGFR is calculated based on the CKD-EPI 2020 equation SODIUM 04/17/2023 15:31:22 142 135-146 (m mol/L) Final Potassium 04/17/2023 15:31:22 3.9 3.5-5.1 (m mol/L) Final Cl 04/17/2023 15:31:22 101 98-107 (mm ol/L) Final CO2 04/17/2023 15:31:22 30 22-32 (mmo l/L) Final Anion gap 04/17/2023 15:31:22 11 7-15 (mmol /L) Final Glucose 04/17/2023 15:31:22 99 70-120 (mg /dL) Final Calcium 04/17/2023 15:31:22 10.0 8.4-10.2 ( mg/dL) Final Performing Location [facility] [place] [address]
--- OUTSIDE RECORDS SUMMARY | 2023-05-05 12:08 | External Medical Summary | Summary of Care ---
Author Name Unknown Organization [facility] Address [address] [place] [address] Phone [phone] Care Team Providers Care Novelty Worker Name Role Phone Hetal Jovel Primary Care Provide r Reason for Visit * Reason Onset Date Comments NEW PATIENT 04/11/2023 WILLIAM SEEN SOONER Encounter Details Date Type Department Care Team (Late st Contact Info) Description 04/11/2023 Telephone Hematology/Oncology [facility] [address] [place] [phone] Alex Shelby MD [address] [place] [address] NEW PATIENT (WILLIAM SEEN SOONER) Allergies Active Allergy Reactions Criticality Noted Date [...] Wheezing. 1 Inhaler 3 02/01/2016 Active Ipratropium [place] (ATROVENT) 0.03 % nasal spray Administer 2 [...] encounter Miscellaneous Notes * Telephone Encounter - Noelle Lagos LPN - 04/11/2023 9:57 AM EST Called and spoke with Elsie; agreed for scheduling with Dr. Alex Shelby 04/19 at 12:15pm documented in this encounter Plan of Treatment Upcoming Encounters Date Type Department Care Team (Late st Contact Info) Description 04/20/2023 12:15 PM EST Office Visit Hematology/Oncology [facility] [place] [address] [facility] [place] [phone] Alex Shelby MD [address] [place] [address] Scheduled Procedures Name Priority Associated Diagnoses Date/Ti [...] Tdap) 02/15/2009 02/15/1999 COVID-19 Vaccine (1 - 3-24 season) 2022 Influenza Vaccine (FLU shot) (#1) [...] filedocumented as of this encounter Care Teams Novelty Worker Relationship Specialty Start Date End Date Hetal Jovel CRNP [address] [place] [address] PCP - General Nurse Practitioner 12/14/15 documented as of this encounter
--- OUTSIDE RECORDS SUMMARY | 2023-05-05 12:08 | External Medical Summary | Summary of Care ---
Author Name Unknown Organization [facility] Address [address] [place] [address] Phone [phone] Care Team Providers Care Manager Game Name Role Phone Hetal Jovel Primary Care Provide r Reason for Visit * Reason Onset Date Comments Surgery 04/10/2023 Encounter Details Date Type Department Care Team (Late st Contact Info) Description 04/10/2023 Telephone General Surgery, [facility] [address] [place] [address] Services, Scheduling [address] [place] [address] Surgery Allergies Active Allergy Reactions Criticality Noted [...] Wheezing. 1 Inhaler 3 02/01/2016 Active Ipratropium [place] (ATROVENT) 0.03 % nasal spray Administer 2 [...] Telephone Encounter - Isabel Carrasco OSA - 04/11/2023 12:44 PM EST Scheduled on 04/25/23. * Telephone Encounter - Isabel Carrasco OSA - 04/10/2023 12:38 PM EST Calling patient on for a definite answer on whether its bilateral mastectomies or lumpectomy. * Telephone Encounter - Mirtha Asencio OSA - 04/10/2023 12:13 PM EST Pt wants to Schedule surgery, pet scan and MRI. Please contact pt to schedule. Pt wants to go wherever is sooner [facility] and [facility]. Pt would like to go to [facility] for this. Ph. [phone] documented in this encounter Plan of Treatment Upcoming Encounters Date Type Department Care Team (Late st Contact Info) Description 04/20/2023 12:15 PM EST Office Visit Hematology/Oncology [facility] [place] [address] [facility] [place] [phone] Alex Shelby MD [address] [facility] [place] [address] 04/25/2023 Hospital Encounter OR [facility], Operating Room [facility] [address] [place] [phone] Micheline Juarez MD [address] [place] [address] 04/25/2023 11:00 AM EDT [facility] [address] [place] [address] 05/08/2023 10:45 AM EDT Office Visit General Surgery, [facility] [address] [place] [address] Micheline Juarez MD [address] [facility] [place] [address] Scheduled Procedures Name Priority Associated Diagnoses Date/Ti [...] filedocumented as of this encounter Care Teams Manager Game Relationship Specialty Start Date End Date Hetal Jovel CRNP [address] [place] [address] PCP - General Nurse Practitioner 12/14/15 documented as of this encounter
--- OUTSIDE RECORDS SUMMARY | 2023-05-05 12:08 | External Medical Summary | Summary of Care ---
Author Name Unknown Organization [facility] Address [address] [place] [address] Phone [phone] Care Team Providers Care Apartment Maintenance Name Role Phone Hetal Jovel Primary Care Provide r Encounter Details Date Type Department Care Team (Late st Contact Info) Description 04/10/2023 Telephone General Surgery, [facility] [address] [place] [address] Services, Scheduling [address] [place] [address] Allergies Active Allergy Reactions Criticality Noted Date [...] Wheezing. 1 Inhaler 3 02/01/2016 Active Ipratropium [place] (ATROVENT) 0.03 % nasal spray Administer 2 [...] Encounter - Isabel Carrasco OSA - 04/10/2023 12:22 PM EST Refaxed the order to [facility]. * Telephone Encounter - Mignon Abreu LPN - 04/10/2023 11:20 AM EST Olivia, can you help with this * Telephone Encounter - Mirtha Asencio OSA - 04/10/2023 11:00 AM EST [facility] calling in stating insurance needs a pre auth which they are having that [employer] of, but they need the Pet scan order diagnosis updated. Diagnosis code - C50.811, added to order. Fax number [phone] documented in this encounter Plan of Treatment [...] filedocumented as of this encounter Care Teams Apartment Maintenance Relationship Specialty Start Date End Date Hetal Jovel CRNP [address] [place] [address] PCP - General Nurse Practitioner 12/14/15 documented as of this encounter
--- OUTSIDE RECORDS SUMMARY | 2023-05-05 12:08 | External Medical Summary | Summary of Care ---
Author Name Unknown Organization [facility] Address [address] [place] [address] Phone [phone] Care Team Providers Care Take Up Operator Name Role Phone Hetal Jovel Primary Care Provide r Reason for Visit * Reason Onset Date Comments Advice 04/17/2023 Encounter Details Date Type Department Care Team (Late st Contact Info) Description 04/17/2023 Telephone General Surgery, [facility] [address] [place] [address] Services, Scheduling [address] [place] [address] Advice Allergies Active Allergy Reactions Criticality Noted [...] Wheezing. 1 Inhaler 3 02/01/2016 Active Ipratropium [place] (ATROVENT) 0.03 % nasal spray Administer 2 [...] Encounter - Isabel Carrasco OSA - 04/18/2023 1:14 PM EST PET Scan is scheduled at [facility] on 04/19/2023. Authorization from the insurance was provided to granddaughter. * Telephone Encounter - Lorri Ortega OSA - 04/17/2023 3:01 PM EST Pt has surgery with Dr. Juarez on 04/24 and was to have a PET scan completed today at [facility] as [facility] did not have any available prior to surgery, but it was never put on [facility] schedule so pt was unable to get scan. They are very concerned because pt has to have this PET scan prior to surgery and now dont know what to do and state this surgery can not get pushed. Please contact pt donny Sutton at [phone] documented in this encounter Plan of Treatment Upcoming Encounters Date Type Department Care Team (Latest Contact Info) Description 04/20/2023 12:15 PM EST Office Visit Hematology/Oncology [facility] [address] [place] [phone] Alex Shelby MD 200 [facility] [place] [address] 04/25/2023 8:30 AM EDT Imaging [facility]nd [facility] [address] [place] [address] 04/25/2023 9:29 AM EDT Hospital Encounter OR [facility], Operating Room [facility] [address] [place] [phone] Micheline Juarez MD [address] [place] [address] 04/25/2023 9:29 AM EDT - 04/25/2023 1:01 PM EDT Surgery OR [facility], Operating Room [facility] [address] [place] [phone] Micheline Juarez MD [address] [place] [address] BILATERAL MASTECTOMY SIMPLE COMPLETE 05/08/2023 10:45 AM EDT Office Visit General Surgery, [facility] [address] [place] [address] Micheline Juarez MD [address] [place] [address] Scheduled Procedures Name Priority Associated Diagnoses Date/Ti [...] filedocumented as of this encounter Care Teams Take Up Operator Relationship Specialty Start Date End Date Hetal Jovel CRNP [address] [place] [address] PCP - General Nurse Practitioner 12/14/15 documented as of this encounter
--- OUTSIDE RECORDS SUMMARY | 2023-05-05 12:08 | External Medical Summary | Summary of Care ---
Author Name Unknown Organization [facility] Address [address] [facility] [place] [address] Phone [phone] Care Team Providers Care Control Engineer Name Role Phone Hetal Jovel Primary Care Provide r Reason for Visit * Reason Onset Date Comments Advice 04/12/2023 Encounter Details Date Type Department Care Team (Late st Contact Info) Description 04/12/2023 Telephone General Surgery, [facility] [address] [place] [address] Micheline Juarez MD [address] [place] [address] Advice Allergies Active Allergy Reactions Criticality Noted Date Comments Atorvastatin Other (Please comment) 02/01/2016 Hair loss; ? Just at higher doses documented as of this encounter (statuses as of 04/12/2023) Medications Medication Sig Dispensed Refills Start Date [...] Wheezing. 1 Inhaler 3 02/01/2016 Active Ipratropium [place] (ATROVENT) 0.03 % nasal spray Administer 2 [...] as of this encounter (statuses as of 04/12/2023) Active Problems Problem Noted Date Diagnosed Date Bilateral malignant neoplasm of breast in female, estrogen receptor positive 04/10/2023 Intermittent asthma without complication 017 Meniere disease 12/05/2016 Cough 02/01/2016 Rhinitis, nonallergic 02/01/2016 Hypertension Hyperlipidemia Collagenous colitis Osteoarthrosis History of tobacco use documented as of this encounter (statuses as of 04/12/2023) Immunizations Name Administration Dates Next Due Pneumococcal [...] PM EST Office Visit Hematology/Oncology [facility] [address] [place] [phone] Alex Shelby MD [address] [place] [address] 04/25/2023 8:30 AM EDT Imaging [facility] 132 [facility] [place] [address] 04/25/2023 9:29 AM EDT Hospital Encounter OR [facility], Operating Room [facility] [address] [facility] [place] [phone] Micheline Juarez MD [address] [place] [address] 04/25/2023 9:29 AM EDT - 04/25/2023 1:01 PM EDT Surgery OR [facility], Operating Room [facility] [address] [place] [phone] Micheline Juarez MD [address] [place] [address] BILATERAL MASTECTOMY SIMPLE COMPLETE 05/08/2023 10:45 AM EDT Office Visit General Surgery, [facility] [address] [place] [address] Micheline Juarez MD [address] [place] [address] Scheduled Procedures Name Priority Associated Diagnoses Date/Ti [...] filedocumented as of this encounter Care Teams Control Engineer Relationship Specialty Start Date End Date Hetal Jovel CRNP [address] [place] [address] PCP - General Nurse Practitioner 12/14/15 documented as of this encounter
[2023-05-05] MEDS: POTASSIUM CHLORIDE CRTAB 20 MEQ TABCR PO STA (13:01)
[2023-05-05] MEDS: MAGNESIUM SULFATE / D5W 1 GM/100 ML BAG IV SCH (13:01)
[2023-05-05 16:07] LABS: Albumin Globulin Ratio 1.3 (0.9-2); Albumin Level 3.3 gm/dl (3.4-5.0); BUN Creatinine Ratio 20.8 (10-20); Bilirubin,Total 0.6 mg/dl (0.2-1.0); Calcium 8.2 mg/dl (8.6-10.3); Creatinine Clr Calc Pharmacy 80.6 ml/min; Est GFR (African American) 104.7 ml/min; Est GFR (Non-African American) 90.3 ml/min; Globulin 2.6 gm/dl (2.5-4.0); Potassium 3.7 mmol/L (3.5-5.1); Total Protein 5.9 gm/dl (6.0-8.3)
--- NOTE | 2023-05-05 16:57 | Discharge Summary ---
"Date of Service May 05, 2023 Admission HPI Per Admitting Provider Elsie Ace is a 77 year-old female with a past medical history of HTN, HLD, vertigo who is s/p bilateral mastectomy (04/27/23) who presented to the ED via ambulance after chest pain. She was found to be in SVT by EMS and was given adenosine. Patient states that she had a double mastectomy two weeks ago, has been feeling sore but otherwise has been recovering well. She noticed some increased pain around her chest/incisions today and did not quite feel like her self/was nauseated prior to EMS arriving. She notes that she has not had much to eat, does not have much of an appetite but this is a longstanding issue as she does not cook much since she became a several years ago. She notes that on Sunday she had only eaten 2 pieces of toast that day. Notes she had two if her drains removed earlier this week and has had continued output in her remaining two drains. Denies shortness of breath, abdominal pain/diarrhea/constipation, dizziness/lightheadedness, fever or urinary frequency or dysuria. ED Course: -500mL NSS bolus -Received adenosine, cardizem and mag sulfate/potassium repletion Admission Exam Per Admitting Provider Constitutional: WD/WN, vitals as above Eyes: + anicteric sclerae; no conjunctival abn ormality Respiratory: normal respiratory effort, lungs clear to auscultation Cardiovascular: Rate/Rhythm: regular rate and regular rhythm Extremities: no edema Chest (Breasts): Additional Comments: Bilateral mastectomy incisions, healing appropriately without discharge or erythema. Two drains in place with serosanguineous fluid. Gastrointestinal (Abdomen): normal bowel sounds, soft, nontender, no hepatosplenomegaly Musculoskeletal: Moves limbs independently Neurologic: no focal motor deficits Psychiatric: A+Ox3, euthymic affect Principal Diagnosis SVT Discharge Exam Constitutional: well-appearing, no acute distress HEENT: NCAT, no conjunctival injection CV: regular rhythm, no murmur appreciated, extremities well-perfused, no LE edema Resp: CTABL, no wheezes/rales/rhonchi appreciated, no increased work of breathing GI: soft, nondistended, nontender, BS normoactive MSK: no gross deformities appreciated Skin: warm, dry, no rash appreciated Neuro: alert, oriented, no focal neurologic deficit appreciated Discharge Data Allergies Allergy/AdvReac Type Severity Reaction Status Date / Time atorvastatin [From Lipitor] AdvReac Intermediate hairloss Verified 05/05/23 01:02 simvastatin [From Zocor] AdvReac Intermediate hairloss Verified 05/05/23 01:02 Consultations 05/05/23 02:00 ED Decision to Admit Stat 05/05/23 04:29 Consult Cardiology Routine Hospital Course (1) Bilateral breast cancer: (2) S/P bilateral mastectomy: (3) SVT (supraventricular tachycardia): (4) Hypertension: Plan Supraventricular Tachycardia | Electrolyte Abnormalities -New onset of SVT, required adenosine pre-hospital and additional adenosine plus Cardizem in ED -Remained RRR throughout the day -Remote history of atrial atopy during stress test in 2005 -Found to have K of 3.2 and Mag of 1.6, repletion received in ED. Electrolytes repleted appropriately -Suspect that electrolyte abnormalities and poor PO intake contributed to her presentation. HCTZ held. -Cardiology consulted: recommend atenolol dosing be split to 25mg BID, KCl supplement 20mEq daily, Stop HCTZ, wear youth nutritional monitor (MCOT) - their office will coordinate, follow up with cardiology in ~1 month Leukocytosis -WBC 22 on arrival -Patient has been afebrile, no urinary or GI infectious symptoms. Incisions from mastectomy do not appear infected. -Suspect white count could be falsely elevated due to hemoconcentration -WBC trended downward with IV hydration S/P Bilateral Mastectomy -Incisions appear to be healing appropriately with two drains in place -No obvious sign of infection at this time Total Time Total Time Spent Total Time Spent (In Minutes): see attending documentation Discharge Plan Discharge Items Patient Disposition: Home - Self-Care Reason For Visit: SVT Discharge Diagnosis: SVT Activity: Resume your previous activity Non-emergency contact: Primary Care Provider and Deputy [employer] Of [employer] Call non-emergency contact if: you have any medication questions and your symptoms worsen Follow-up/Referrals: Hetal Jovel CRNP [Primary Care Provider] - Diet: Regular Addtl Attending Provider Instructions: You were admitted to the hospital for supraventricular tachycardia (fast heart rate). You were treated with medications to slow down your heart and to correct yo-ur electrolytes. While you were here you were seen by cardiology who recommended that you wear an outpatient heart monitor. Their office will arrange this for you. Cardiology also recommended some changes to your medications. See below for details. You will also need to obtain blood work early next week to be sure that your electrolytes remain stable. A discharge summary will be sent to your primary care physician to ensure continuity of care. Please bring this discharge summary with you to your next office appointment so that your provider can review it at that time. Follow-up appointments: Make a follow-up appointment with your PCP within the next week. It is very important that you follow up with them shortly after discharge from the hospital) . [facility] will reach out to you to schedule a follow up appointment. If you do not hear from them by the end of next week their office can be reached at . Keep all your follow-up appointments as already scheduled. If you cannot make an appointment, notify your provider. Medications: Your medication list has been reviewed and reconciled upon discharge to ensure accuracy and continuity of care. An updated list of all your medications is included with your hospital discharge paperwork. Please review this list closely, and make note of any changes. You should STOP taking hydrochlorothiazide A new prescription for atenolol was sent to the pharmacy, you will now take 25mg twice daily instead of the 50mg once daily you were on previously We sent a new medication called potassium chloride to your pharmacy. Take potassium chloride (20mEq) one tablet daily. If you have any issues filling these prescriptions, please call [phone] and ask to leave a message for Dr. Zion Knapp. Take your medications as instructed; do not skip a dose of your medicines. Make sure all of your doctors know every medicine you are taking (including [id number] medicines, vitamins, and supplements). Call your primary care provider before taking any new medicines (including [id number] medicines, vitamins, and supplements), because some of these may interact with your current medications, or may make your symptoms worse. Tell your primary care provider if you cannot afford your medications. CONTACT YOUR PRIMARY CARE PROVIDER if you experience any of the following: Palpitations Shortness of breath Difficulty following your treatment plan, or difficulty taking medications CALL 911 OR GO TO THE EMERGENCY DEPARTMENT if you experience any of the following: Sudden, severe abdominal pain or nausea/vomiting Severe chest pain, or chest pain that radiates (moves) to your jaw or arm Sudden, severe shortness of breath or difficulty breathing Thank you for allowing us to participate in your care. Pending Studies at Discharge: No Stand-Alone Forms: My [facility] Medications and DC Order Prescriptions: New potassium chloride [K-Tab] 20 mEq tablet extended release 20 meq PO DAILY Qty: 30 0RF atenolol 25 mg tablet 25 mg PO BID Qty: 60 0RF Continued montelukast 10 mg tablet 10 mg PO HS Qty: 90 3RF loratadine 10 mg tablet 10 mg PO DAILY Qty: 90 3RF albuterol sulfate 90 mcg/actuation HFA aerosol inhaler 2 puff inhalation QID PRN (Reason: shortness of breath or wheezing) Qty: 6.7 4RF Centrum Silver Women 8 mg iron-400 mcg-300 mcg tablet 1 tab PO DAILY cholecalciferol (vitamin D3) 25 mcg (1,000 unit) capsule 2,000 unit PO DAILY fluticasone propionate 50 mcg/actuation spray,suspension 2 spray intranasal DAILY Qty: 48 3RF meloxicam 15 mg tablet 15 mg PO DAILY PRN (Reason: Pain) lisinopril 5 mg tablet 5 mg PO DAILY Rx Instructions: TAKE 1 TABLET DAILY. azelastine 137 mcg (0.1 %) aerosol,spray 1 spray INTNAS DAILY Rx Instructions: administer into each nostril at bedtime Discontinued atenolol 50 mg tablet 50 mg PO DAILY Qty: 90 3RF hydrochlorothiazide 25 mg tablet 25 mg PO DAILY Rx Instructions: TAKE 1 TABLET BY MOUTH ONCE DAILY Discharge Orders: Discharge Order (Routine); Ordered 05/05/23 Ordered By: Zion Knapp Admission Data Admit Date/Time: 05/05/23 02:52 Attending Provider: Dayna Jovel Admit Provider: Adelia Moses Primary Care Provider: Hetal Jovel Other Providers: Vishal Lewis; Chapo Damon Other Interventions: Discharge Summary Assessment (RN) Last Done: 05/05/23 15:34 Supervising Physician Co-Signing Physician Notes I personally examined the patient and verified taylor points of history and exam, discussed case, and agree with decision making and plan documented by Dr. Carvis. Patient with improvement of symptoms, feeling well, interested in discharge today. Patient evaluated by cardiology, recommend discontinuation of HCTZ, patient advised to monitor blood pressures at home. Atenolol dosing was changed, she is recommended to 25 mg twice daily. Patient will take KCl 20 mEq, repeat BMP in 3 days. Patient will follow-up with PCP and cardiology following discharge. Resident Activity Tracking Resident Involvement: Resident Care Provided Care Provided: Adult [facility]"
--- NOTE | 2023-05-05 19:53 | Billing Data ---
Date of Service May 05, 2023 Coding Level of Care Code 66473 INT INP/OBS CARE
[2023-05-05] MEDS ORDERED: MONTELUKAST SODIUM 10 MG TABLET PO SCH (21:00)
== END 2023-05-05 17:30 | disposition home or self-care (01) ==
LOC: ED 23:15 → SUATTDRO 05-05 02:52 → INTOOBSV 05-05 02:52 → 4W 05-05 02:52

== ENCOUNTER 2023-07-30 00:40 | Inpatient (IN) ==
[2023-07-30] MEDS: SODIUM CHLORIDE 0.9% 1,000 ML IV SCH (00:58)
[2023-07-30 01:08] LABS: Basophils # (auto) 0.08 K/uL (0.00-0.20); Basophils % (auto) 0.7 %; Eosinophils # (auto) 0.08 K/uL (0.00-0.50); Eosinophils % (auto) 0.7 %; Hematocrit (blood only) 41.3 % (37.0-47.0); Hemoglobin 13.6 g/dl (12.0-16.0); Immature Granulocytes # (auto) 0.04 K/uL (0.01-0.20); Immature Granulocytes % (auto) 0.4 %; Lymphocytes # (auto) 1.93 K/uL (1.20-3.40); Lymphocytes % (auto) 17.1 %; Mean Corpuscular Hemoglobin 30.8 pg (25.0-34.0); Mean Corpuscular Hgb Conc 32.9 g/dL (32.0-36.0); Mean Corpuscular Volume 93.4 fL (80.0-100.0); Monocytes # (auto) 0.72 K/uL (0.11-0.59); Monocytes % (auto) 6.4 %; Neutrophils # (auto) 8.44 K/uL (1.40-6.50); Neutrophils % (auto) 74.7 %; Platelet Count 205 K/uL (130-400); RDW Coefficient of Variation 12.9 % (11.5-14.5); Red Blood Count 4.42 M/uL (4.20-5.40); White Blood Count 11.29 K/ul (4.8-10.8)
[2023-07-30 01:23] LABS: Albumin Globulin Ratio 1.3 (0.9-2); Albumin Level 4.2 gm/dl (3.4-5.0); BUN Creatinine Ratio 22.4 (10-20); Bilirubin,Total 0.6 mg/dl (0.2-1.0); Calcium 9.5 mg/dl (8.6-10.3); Creatinine Clr Calc Pharmacy 56.2 ml/min; Est GFR (African American) 86.5 ml/min; Est GFR (Non-African American) 74.6 ml/min; Globulin 3.3 gm/dl (2.5-4.0); Magnesium 1.7 mg/dl (1.7-2.4); Potassium 3.5 mmol/L (3.5-5.1); Total Protein 7.5 gm/dl (6.0-8.3)
[2023-07-30 01:29] LABS: Troponin I High Sensitivity 16.7 pg/ml (0-14)
[2023-07-30 01:38] LABS: Thyroid Stimulating Hormone 1.998 uIu/ml (0.300-4.500)
--- NOTE | 2023-07-30 05:27 | Emergency Department Note ---
Impression & Plan Chest pain, Dysrhythmia, SVT (supraventricular tachycardia), Hypoxia ED Provider Note ED Provider Note NAME: SOM HURTADO AGE:77 SEX: Female : 1945 ARRIVES VIA: EMS INFORMANT: Patient ED PROVIDER(s): Som Connelly DO CHIEF COMPLAINT: Chest pain, palpitations HPI: This is a 77-year-old female brought in by EMS due to onset of chest pain and concern for palpitations and recurrent SVT this evening. EMS reports on arrival patient with a heart rate in the 190s. I did attempt to give adenosine 6 mg with brief break to a normal sinus rhythm but resumption of an elevated rate. They then tried adenosine 12 mg with similar result. At that point they contacted medical command. I did advise them to try 50 mg of IV Cardizem. By arrival here patient with a heart rate in the 130s which eventually settled down into the 80s and a normal sinus rhythm. Patient reported feeling improved with no further chest discomfort. She denied any difficulty breathing, nausea or vomiting, dizziness, or fevers. Patient states she did have a similar episode several weeks ago. She has had outpatient follow-up with cardiology stating she saw Dr. Damon in the office. She states she did not have much to eat or drink today as she was very busy. No recent change in caffeine or alcohol consumption. PAST MEDICAL HISTORY:See Below PAST SURGICAL HISTORY:See Below FAMILY HISTORY:See Below SOCIAL HISTORY:See Below HOME MEDICATIONS:See Below ALLERGIES:See Below VITALS:See Below PHYSICAL EXAMINATION: GENERAL: alert, well appearing, well nourished, no distress, non-toxic EYE EXAM: normal conjunctiva, PERRL and EOM's grossly intact OROPHARYNX: no exudate, no erythema, lips, buccal mucosa, and tongue normal and mucous membranes are moist NECK: supple, no nuchal rigidity, no adenopathy, non-tender LUNGS: Clear to auscultation. Normal chest wall mechanics, no w/r/r HEART: no murmurs, S1 normal and S2 normal ABDOMEN: abdomen soft, non-tender, normo-active bowel sounds, no masses, no rebound or guarding. SKIN: no rashes, petechiae, orbruising UPPER EXTREMITIES: upper extremities are grossly normal. FROM, nml pulses b/l. LOWER EXTREMITIES: No pitting edema. FROM, nml pulses b/l. NEURO EXAM: Normal sensorium, cranial nerves II-XII grossly intact, normal speech, no facial droop,nogross weakness of arms, no gross weakness of legs. Gross sensation intact. No ataxia. Vital Signs: reviewed and remarkable Differential Diagnosis: Dysrhythmia, PVCs, PACs, electrolyte abnormality, thyroid storm, ACS, PE, dehydration, anxiety, medication ADR, occult infection, as well as others were considered MEDICAL DECISION MAKING: This is a 77-year-old female presents emergency department via EMS due to concern for chest pain, palpitations, and she was found to be in rapid SVT. After adenosine failed prehospital, she was given Cardizem 15 mg IV bolus after discussion via medical command with myself. Her symptoms had resolved by time of evaluation here. She was otherwise afebrile and hemodynamically stable. Labs drawn and sent, IV established, EKG and chest ray performed bedside interpreted me and patient monitored on telemetry. She was given gentle IV fluid rehydration. Patient monitored for several hours and had no new or evolving symptoms, then patient had recurrence just before 6 AM with 4 number and episodes of SVT with heart rate up into the 190s. She was again given IV Cardizem with improvement and resolution of her symptoms. As a precaution she was sent for CT angiography of the chest due to history of malignancy as well as mild hypoxia noted by staff. Patient is a former smoker although denies any history of COPD. Magnesium low normal and she was given additional IV magnesium. Patient's troponin noted to be elevated although I suspect this is secondary to demand during her SVT. Given recurrence here and unclear etiology, case discussed with hospitalist team for additional evaluation and management. Consultation(s): 0732: Discussed with Dr. Parra, [facility] hospitalist team, for additional evaluation and management. ER Treatment Provided: See below 0559: Patient with recurrent episode of SVT. Vagal maneuvers tried at bedside under my direction without any success. Patient began to try and break on her own but would have recurrent SVT up into the 190s. She complained of feeling chest discomfort again as well as a sense of racing heart and also complained of a headache. After several intermittent episodes of SVT she was given Cardizem IV 15 mg which had helped with her first episode earlier tonight. Patient broke to a heart rate in the 80s. Diagnostics Interpreted By Me: -ECG: Normal sinus at 88, normal axis, normal intervals, PACs noted, no acute ST/T wave changes -Cardiac Monitoring: An order was placed for continuous cardiac monitoring. The monitor shows a rate of 87 with normal sinus rhythm. -Laboratory studies: As stated above and show below. -Imaging studies: X-ray Chest: A single view study of the chest was reviewed and was negative for cardiomegaly, focal infiltrate, effusion, pulmonary edema, or wide mediastinum. Triage Nursing Note Reviewed Prior/Outside Records Reviewed -office visit from Dr. Damon reviewed Past Med/Surg History Problem List Hypoxia (Acute) SVT (supraventricular tachycardia) (Acute) Dysrhythmia (Acute) Chest pain (Acute) Supraventricular tachycardia (04/2023) S/P bilateral mastectomy Bilateral breast cancer Abnormal findings on diagnostic imaging of breast Breast lump on right side at 9 o'clock position Left ankle strain Breast lump in female Left arm pain Dyspnea on exertion Myalgia due to statin Pulmonary nodule Sciatic leg pain Active Meniere's disease, cochlear (Acute) Allergic rhinitis (Chronic) Hyperlipidemia (Chronic) Hypertension (Chronic) Medical History Right-sided chest pain Hypokalemia Hypomagnesemia Vertigo Surgical History History of dental surgery Finley teeth removal/another procedure to remove a piece of wisdom tooth Hx of cholecystectomy Family History Mother Hypertension Myocardial infarction Denies family history of Ovarian cancer Prostate cancer Diabetes Breast cancer Colorectal cancer Social History Smoking Status: Former smoker Tobacco Type: Cigarettes Second Hand Exposure: Yes; Do You Dip or Chew Tobacco: No; Hx Alcohol Use: No Hx Substance Use: No Preferred Language: Belarusian Communication Ability: Effective Visual Impairment: Limited Hearing Ability: Normal Environmental Health And Safety Intern Required: No Beliefs That Will Affect Care: None marital status: / Current Living Situation: Alone current occupational status: retired How many Children do You have: 3 How many Children do You have Comment: 1 child . Feels Safe at Home: Yes Childhood Exposure to Second-Hand Smoke: Yes Diet: regular caffeine: Yes (coffee) during the past year weight has: remained stable Dental Care, Regularly: Yes Physical Activity Frequency: Does not Exercise Seatbelt Use: always Sunscreen Use: No Do you think of yourself as: straight/heterosexual Gender Identity: Female Assistive Devices: None Allergies Allergies Allergy/AdvReac Type Severity Reaction Status Date / Time atorvastatin [From Lipitor] AdvReac Intermediate hairloss Verified 07/25/23 10:23 simvastatin [From Zocor] AdvReac Intermediate hairloss Verified 07/25/23 10:23 Home Meds Home Medications Medication Instructions Recorded Confirmed cholecalciferol (vitamin D3) 25 2,000 unit PO DAILY 10/16/19 07/30/23 mcg (1,000 unit) capsule [id number] 8 mg-folic 400 1 tab PO DAILY 05/16/22 07/30/23 mcg-K 50 mcg-lutein 300 mcg tablet (Centrum Silver Women) azelastine 137 mcg (0.1 %) nasal 1 spray intranasal DAILY 05/05/23 07/30/23 spray aerosol meloxicam 15 mg tablet 15 mg PO DAILY PRN Pain 05/05/23 07/30/23 loratadine 10 mg tablet 10 mg PO DAILY 07/30/23 07/30/23 Previous Rx's Medication Instructions Recorded fluticasone propionate 50 2 spray intranasal DAILY #48 grams 03/08/23 mcg/actuation nasal spray,suspension albuterol sulfate 90 mcg/actuation 2 puff inhalation QID PRN 03/29/23 aerosol inhaler shortness of breath or wheezing #6.7 grams anastrozole 1 mg tablet 1 mg PO DAILY #90 tabs 07/13/23 atenolol 25 mg tablet 25 mg PO BID #180 tabs 07/13/23 lisinopril 5 mg tablet 5 mg PO DAILY #90 tabs 07/13/23 montelukast 10 mg tablet 10 mg PO HS #90 tabs 07/13/23 Results & Data (ED) Vital Signs Vital Signs - 24 hr 07/30/23 00:40 07/30/23 00:40 07/30/23 00:44 Temperature Source Oral Pulse Rate 91 H 101 H Pulse Rate [Apical] Pulse Rate from SpO2 Sensor Respiratory Rate 22 Respiratory Effort / Characteristics Non-Labored Respiratory Depth Normal Respiratory Pattern Regular Blood Pressure 147/63 H Blood Pressure [Right Arm] Blood Pressure Mean 91 Blood Pressure Mean [Right Arm] Pulse Oximetry 94 94 Oxygen Delivery Method Room Air Room Air Oxygen Flow Rate Sepsis Recent Fever Within 48 Hours No Sepsis New/Unexplained Change in Mental Status N/A Sepsis Action Taken by Nursing No Action Required Oxygen Flow Rate - Titration Pulse Oximetry Post Tiitration 07/30/23 01:00 07/30/23 01:10 07/30/23 01:30 Temperature Source Pulse Rate Pulse Rate [Apical] 86 83 Pulse Rate from SpO2 Sensor Respiratory Rate 20 16 Respiratory Effort / Characteristics Non-Labored Non-Labored Respiratory Depth Normal Normal Respiratory Pattern Regular Regular Blood Pressure Blood Pressure [Right Arm] 155/64 H 155/73 H Blood Pressure Mean Blood Pressure Mean [Right Arm] 94 100 Pulse Oximetry 93 88 L 97 Oxygen Delivery Method Room Air Room Air Nasal Cannula Nasal Cannula Oxygen Flow Rate 0 2 Sepsis Recent Fever Within 48 Hours Sepsis New/Unexplained Change in Mental Status Sepsis Action Taken by Nursing Oxygen Flow Rate - Titration 2 Pulse Oximetry Post Tiitration 95 07/30/23 02:00 07/30/23 03:00 07/30/23 04:03 Temperature Source Pulse Rate 83 67 Pulse Rate [Apical] 82 Pulse Rate from SpO2 Sensor Respiratory Rate 18 16 14 Respiratory Effort / Characteristics Non-Labored Respiratory Depth Normal Respiratory Pattern Regular Blood Pressure 158/82 H 169/84 H Blood Pressure [Right Arm] 149/71 H Blood Pressure Mean 107 112 Blood Pressure Mean [Right Arm] 97 Pulse Oximetry 98 92 93 Oxygen Delivery Method Nasal Cannula Oxygen Flow Rate 2 Sepsis Recent Fever Within 48 Hours Sepsis New/Unexplained Change in Mental Status Sepsis Action Taken by Nursing Oxygen Flow Rate - Titration Pulse Oximetry Post Tiitration 07/30/23 04:51 07/30/23 04:53 07/30/23 05:03 Temperature Source Pulse Rate 72 72 72 Pulse Rate [Apical] Pulse Rate from SpO2 Sensor Respiratory Rate 20 18 Respiratory Effort / Characteristics Respiratory Depth Respiratory Pattern Blood Pressure 184/62 H Blood Pressure [Right Arm] Blood Pressure Mean 102 Blood Pressure Mean [Right Arm] Pulse Oximetry 92 93 Oxygen Delivery Method Oxygen Flow Rate Sepsis Recent Fever Within 48 Hours Sepsis New/Unexplained Change in Mental Status Sepsis Action Taken by Nursing Oxygen Flow Rate - Titration Pulse Oximetry Post Tiitration 07/30/23 05:51 07/30/23 06:18 07/30/23 06:30 Temperature Source Pulse Rate 90 92 H 80 Pulse Rate [Apical] Pulse Rate from SpO2 Sensor Respiratory Rate 19 28 H 22 Respiratory Effort / Characteristics Respiratory Depth Respiratory Pattern Blood Pressure 151/71 H 143/94 H Blood Pressure [Right Arm] Blood Pressure Mean 97 110 Blood Pressure Mean [Right Arm] Pulse Oximetry 97 82 L 94 Oxygen Delivery Method Nasal Cannula Oxygen Flow Rate 2 Sepsis Recent Fever Within 48 Hours Sepsis New/Unexplained Change in Mental Status Sepsis Action Taken by Nursing Oxygen Flow Rate - Titration Pulse Oximetry Post Tiitration 07/30/23 07:00 07/30/23 07:18 07/30/23 07:25 Temperature Source Pulse Rate 64 69 Pulse Rate [Apical] Pulse Rate from SpO2 Sensor 63 70 Respiratory Rate 15 18 Respiratory Effort / Characteristics Respiratory Depth Respiratory Pattern Blood Pressure 179/77 H Blood Pressure [Right Arm] Blood Pressure Mean 113 Blood Pressure Mean [Right Arm] Pulse Oximetry 99 100 Oxygen Delivery Method Oxygen Flow Rate Sepsis Recent Fever Within 48 Hours Sepsis New/Unexplained Change in Mental Status Sepsis Action Taken by Nursing Oxygen Flow Rate - Titration Pulse Oximetry Post Tiitration 07/30/23 07:33 07/30/23 07:38 07/30/23 07:39 Temperature Source Pulse Rate 71 Pulse Rate [Apical] Pulse Rate from SpO2 Sensor 68 Respiratory Rate 18 Respiratory Effort / Characteristics Respiratory Depth Respiratory Pattern Blood Pressure Blood Pressure [Right Arm] Blood Pressure Mean Blood Pressure Mean [Right Arm] Pulse Oximetry 92 87 L 95 Oxygen Delivery Method Room Air Room Air Nasal Cannula Oxygen Flow Rate 2 Sepsis Recent Fever Within 48 Hours Sepsis New/Unexplained Change in Mental Status Sepsis Action Taken by Nursing Oxygen Flow Rate - Titration Pulse Oximetry Post Tiitration Laboratory Data 07/30/23 00:45 07/30/23 00:45 Lab Results 07/30/23 07/30/23 07/30/23 Range/Units 00:45 05:40 06:44 WBC 11.29 H (4.8-10.8) K/ul RBC 4.42 (4.20-5.40) M/uL Hgb 13.6 (12.0-16.0) g/dl Hct 41.3 (37.0-47.0) % MCV 93.4 (80.0-100.0) fL MCH 30.8 (25.0-34.0) pg MCHC 32.9 (32.0-36.0) g/dL RDW Std Deviation 44.0 (36.4-46.3) fL RDW Coeff of Areli 12.9 (11.5-14.5) % Plt Count 205 (130-400) K/uL MPV 11.0 (9.4-12.4) fL Immature Gran % (Auto) 0.4 % Neut % (Auto) 74.7 % Lymph % (Auto) 17.1 % Evangeline % (Auto) 6.4 % Eos % (Auto) 0.7 % Baso % (Auto) 0.7 % Neut # (Auto) 8.44 H (1.40-6.50) K/uL Lymph # (Auto) 1.93 (1.20-3.40) K/uL Evangeline # (Auto) 0.72 H (0.11-0.59) K/uL Eos # (Auto) 0.08 (0.00-0.50) K/uL Baso # (Auto) 0.08 (0.00-0.20) K/uL Immature Gran # (Auto) 0.04 (0.01-0.20) K/uL Sodium 142 (136-145) mmol/L Potassium 3.5 (3.5-5.1) mmol/L Chloride 104 (98-107) mmol/L Carbon Dioxide 28 (21-32) mmol/L Anion Gap 10 (3-11) BUN 17 (6-23) mg/dl Creatinine 0.76 (0.6-1.2) mg/dl Est Cr Clr Drug Dosing 56.2 ml/min Est GFR ( Amer) 86.5 ml/min Est GFR (Non-Af Amer) 74.6 ml/min BUN/Creatinine Ratio 22.4 H (10-20) Glucose 205 H (70-99(Fasting)) mg/dl POC Glucose 107 H (70-99) mg/dl Calcium 9.5 (8.6-10.3) mg/dl Magnesium 1.7 (1.7-2.4) mg/dl Total Bilirubin 0.6 (0.2-1.0) mg/dl AST 32 (13-39) U/L ALT 26 (7-52) U/L Alkaline Phosphatase 68 (34-104) U/L Troponin I High Sens 16.7 H 74.4 H* D (0-14) pg/ml Total Protein 7.5 (6.0-8.3) gm/dl Albumin 4.2 (3.4-5.0) gm/dl Globulin 3.3 (2.5-4.0) gm/dl Albumin/Globulin Ratio 1.3 (0.9-2) Lipase 41 (11-82) U/L TSH 1.998 (0.300-4.500) uIu/ml Urine Color Yellow Urine Appearance Clear (Clear) Urine pH 7.5 (4.5-7.5) Ur Specific [place] 1.009 (1.000-1.030) Urine Protein Negative (Negative) Urine Glucose (UA) Negative (Negative) Urine Ketones Negative (Negative) Urine Blood Negative (Negative) Urine Nitrite Negative (Negative) Urine Bilirubin Negative (Negative) Urine Urobilinogen Negative (Negative) Ur Leukocyte Esterase Negative (Negative) Administered Medications Sodium Chloride (Nss) 1,000 mls @ 125 mls/hr IV .Q8H TOM Stop: 08/29/23 00:59 Last Admin: 07/30/23 00:58 Dose: 125 mls/hr Documented By: [place] Discontinued Medications Diltiazem HCl (Diltiazem Hcl 5 Mg/Ml 5 Ml Vial) Confirm Administered Dose 25 mg IV .STK-MED ONE Stop: 07/30/23 05:46 Last Admin: 07/30/23 06:42 Dose: Not Given Documented By: JARRELL Diltiazem HCl (Diltiazem Hcl 5 Mg/Ml 5 Ml Vial) 15 mg IV NOW STA Stop: 07/30/23 06:40 Last Admin: 07/30/23 05:46 Dose: 15 mg Documented By: JARRELL Co-signed By: [place] Magnesium Sulfate/Dextrose (Magnesium Sulfate / D5w) 1 gm in 100 mls @ 100 mls/hr IV NOW STA Stop: 07/30/23 06:27 Last Infusion: 07/30/23 07:35 Dose: Infused Documented By: Admin: 07/30/23 05:50 Dose: 100 mls/hr Documented By: JARRELL Ioversol (Optiray 320 125ml) 125 ml IV ONCE ONE Stop: 07/30/23 06:09 Last Admin: 07/30/23 06:09 Dose: 118 ml Documented By: [facility] Imaging Data Radiologist's Impression: Chest X-Ray 07/30/23 00:54 XR chest 1V portable CLINICAL HISTORY: chest pain TECHNIQUE: Single frontal radiograph of the chest was obtained. Comparison: Comparison is made to chest radiograph 05/05/2023 FINDINGS: No lines and tubes are seen. Calcified aortic knob is seen. Mild bronchial wall thickening is seen. No evidence of pleural effusion or pneumothorax. IMPRESSION: No acute abnormalities. Chronic appearing bronchial wall thickening may reflect infectious/inflammatory airways disease. ACT 112: Negative or not required by law. Electronically signed by: Jose Elias Walker M.D. 07/30/2023 7:06 AM Chest CTA 07/30/23 05:41 CT angio chest PE protocol CLINICAL HISTORY: PE TECHNIQUE: Multidetector row helical CT of the chest was performed with angiographic protocol. Coronal and sagittal reformations were obtained. Coronal and sagittal MIPS were obtained from the axial data set and were submitted for review. Automated dose lowering techniques and/or adjustment according to patient size were utilized for this exam. CT DOSE: 395.58 mGy.cm Comparison: Comparison is made to chest radiograph 07/30/2023 FINDINGS: Lungs and pleura: Emphysema is seen. Bronchial wall thickening with mucous plugging and tree-in-bud nodularity. There is a 9 mm nodule right middle lobe (series 4 image 96). Heart and pericardium: Cardiomegaly is seen with biatrial enlargement. Vessels: No evidence of pulmonary embolism. Mediastinum and eric: Subcentimeter lymph nodes are seen. Chest wall and lower neck: Small thyroid nodules are noted which do not require follow-up by ACR criteria. Abdomen: Right renal cyst is seen. Bones: Degenerative changes in the thoracic spine. IMPRESSION: 1. No pulmonary embolus. 2. Emphysema is seen. Bronchial wall thickening and tree-in-bud nodularity are seen compatible with infectious/inflammatory process. 3. 9 mm nodule in the right middle lobe. According to Fleischner criteria, no follow-up is required in low risk patients, in high-risk patients, a 12 month follow-up CT can be optionally performed. ACT 112: Negative or not required by law. Electronically signed by: Jose Elias Walker M.D. 07/30/2023 6:55 AM Discharge Plan Visit Data Chief Complaint: Chest Pain Stated Complaint: SVT ED Provider: Som Connelly Discharge Problem: Chest pain, Dysrhythmia, SVT (supraventricular tachycardia), Hypoxia Discharge Instructions Interventions: ED Discharge Assessment Last Done: 07/30/23 02:23 Forms Stand Alone Forms: My [facility] Prescriptions Prescriptions: No Action albuterol sulfate 90 mcg/actuation HFA aerosol inhaler 2 puff inhalation QID PRN (Reason: shortness of breath or wheezing) Qty: 6.7 4RF lisinopril 5 mg tablet 5 mg PO DAILY Qty: 90 3RF Rx Instructions: TAKE 1 TABLET DAILY. atenolol 25 mg tablet 25 mg PO BID Qty: 180 3RF montelukast 10 mg tablet 10 mg PO HS Qty: 90 3RF anastrozole 1 mg tablet 1 mg PO DAILY Qty: 90 3RF Centrum Silver Women 8 mg iron-400 mcg-300 mcg tablet 1 tab PO DAILY cholecalciferol (vitamin D3) 25 mcg (1,000 unit) capsule 2,000 unit PO DAILY fluticasone propionate 50 mcg/actuation spray,suspension 2 spray intranasal DAILY Qty: 48 3RF meloxicam 15 mg tablet 15 mg PO DAILY PRN (Reason: Pain) azelastine 137 mcg (0.1 %) aerosol,spray 1 spray INTNAS DAILY Rx Instructions: administer into each nostril at bedtime loratadine 10 mg tablet 10 mg PO DAILY Referrals Referrals: Hetal Jovel CRNP [Primary Care Provider] -
[2023-07-30] MEDS: dilTIAZem HCl 5 MG/ML 5 ML VIAL IV STA (05:46)
[2023-07-30] MEDS: MAGNESIUM SULFATE / D5W 1 GM/100 ML BAG IV STA (05:50)
[2023-07-30 05:54] LABS: Appearance Urine Clear (Clear); Bilirubin Urine Negative (Negative); Blood Urine Negative (Negative); Color Urine Yellow; Glucose Urine UA Negative (Negative); Ketones Urine Negative (Negative); Leukocyte Esterase Urine Negative (Negative); Nitrite Urine Negative (Negative); Protein Urine Negative (Negative); Specific Gravity Urine 1.009 (1.000-1.030); Urobilinogen Urine Negative (Negative); pH Urine 7.5 (4.5-7.5)
[2023-07-30] MEDS: OPTIRAY 320 125ml IV ONE (06:09)
[2023-07-30] MEDS: dilTIAZem HCl 5 MG/ML 5 ML VIAL IV ONE (06:42)
--- NOTE | 2023-07-30 06:56 | CT Scan Report ---
CT angio chest PE protocol CLINICAL HISTORY: PE TECHNIQUE: Multidetector row helical CT of the chest was performed with angiographic protocol. Reilly l and sagittal reformations were obtained. Coronal and sagittal MIPS were obtained from the axial lolis a set and were submitted for review. Automated dose lowering techniques and/or adjustment according to patient size were utilized for this exam. CT DOSE: 395.58 mGy.cm Comparison: Comparison is made to chest radiograph 07/30/2023 FINDINGS: Lungs and pleura: Emphysema is seen. Bronchial wall thickening with mucous plugging and tree-in-bud n odularity. There is a 9 mm nodule right middle lobe (series 4 image 96). Heart and pericardium: Cardiomegaly is seen with biatrial enlargement. Vessels: No evidence of pulmonary embolism. Mediastinum and eric: Subcentimeter lymph nodes are seen. Chest wall and lower neck: Small thyroid nodules are noted which do not require follow-up by CITLALY encarnacion. Abdomen: Right renal cyst is seen. Bones: Degenerative changes in the thoracic spine. IMPRESSION: 1. No pulmonary embolus. 2. Emphysema is seen. Bronchial wall thickening and tree-in-bud nodularity are seen compatible with infectious/inflammatory process. 3. 9 mm nodule in the right middle lobe. According to Fleischner criteria, no follow-up is required in low risk patients, in high-risk patients, a 12 month follow-up CT can be optionally performed. ACT 112: Negative or not required by law. Electronically signed by: Jose Elias Walker M.D. 07/30/2023 6:55 AM
--- NOTE | 2023-07-30 07:07 | XRay Report ---
XR chest 1V portable CLINICAL HISTORY: chest pain TECHNIQUE: Single frontal radiograph of the chest was obtained. Comparison: Comparison is made to chest radiograph 05/05/2023 FINDINGS: No lines and tubes are seen. Calcified aortic knob is seen. Mild bronchial wall thickening is seen. N o evidence of pleural effusion or pneumothorax. IMPRESSION: No acute abnormalities. Chronic appearing bronchial wall thickening may reflect infectious/inflammato ry airways disease. ACT 112: Negative or not required by law. Electronically signed by: Jose Elias Walker M.D. 07/30/2023 7:06 AM
--- NOTE | 2023-07-30 07:49 | History & Physical Report ---
Date of Service July 30, 2023 Assessment & Plan (1) SVT (supraventricular tachycardia): Plan: 77 y/o woman presents with episodes of SVT in 190s-200. had associated chest pain and dyspnea during the SVT which resolved when SVT was terminated. Had some mild hypoxia in the ED which has resolved has history of SVT in the past and on atenolol adenosine was ineffective but rhythm was able to be terminated by diltiazem in ED, had several episodes overnight and early this morning TSH wnl, UA neg EKG tracings reviewed personally 1 - sinus with pac's probable LVH 2 - SVT rate [address] abnormalities 3- sinus with pac's probable LVH, ST changes resolved -start toprol XL at equivalent dose for now -consult cardiology -HS-troponin elevation reflects demand ischemia from the arrhythmia, no evidence of ACS -admit to PCU (2) Chest pain: Plan: mild high-sensitivity troponin related to demand ischemia from SVT, mildly elevated at 74, 83 Chest pain related to the SVT, resolves when not in SVT. dynamic ST changes present during SVT resolved on follow-up EKG unlikely acute coronary syndrome no chest pain currently (3) Pulmonary nodule: Plan: "Emphysema is seen. Bronchial wall thickening with mucous plugging and tree-in-bud nodularity. There is a 9 mm nodule right middle lobe history of smoking and of breast cancer in the past" -follow up CT imaging recommended in 12 mo possible pulmonary infection based on imaging but has no specific symptoms upper respiratory infection. Does have generalized weakness and has been in more SVTs.. Emphysema and mucus plugging -bronchodilators, mucinex -flutter valve -check resp biofire and procal --> These are negative. mild leukocytosis may be reactive. Doubt pneumonia. Ordered a.m. CBC - course of oral doxycycline for possible bronchitis (4) Hypertension: Plan: Home meds atenolol and lisinopril Plan headachehas some migrainous character. Treating with a dose of IV ketorolac and Zofran history of breast cancer and recent bilateral mastectomy, did not require chemo or radiation therapy. continue anastrozole History of Present Illness Chief Complaint: weakness, chest pain, palpitations Primary Care Provider: TIANA Giles 77 y/o woman with history of SVT followed by Dr. Damon came to the ED with weakness, chest pain, palpitations was found to be in SVT with rate 190s- low 200s. Adenosine 6 mg, 12 mg ineffective, terminated after IV diltiazem to rhythm of sinus with pac's. Early this AM was in and out of SVT a few more times, terminated with diltiazem. Chest pain and dyspnea symptoms were reproduced when she was in SVT and resolved when in sinus rhythm. HS-trop trended up to 79 CTA chest - no PE, emphysema, some mucus plugging and tree-in-bud suspicious for infection, small pulmonary nodule which will require CT follow up for me she is a pretty vague historian cannot really tell me much about what specifically brought her in except that she is feeling very poor and weak for a few days. She denies any current chest pain or shortness of breath. She denies cough and URI symptoms. No sick contacts. No fevers. Current issue is she has severe left frontal headache and her neck feels tense she did not get any sleep last night. Later she had some nausea. No abdominal pain vomiting diarrhea. No dysuria urinary urgency or frequency. Hx former smoking and breast cancer Has been on atenolol as an outpatient Allergies Allergy/AdvReac Type Severity Reaction Status Date / Time atorvastatin [From Lipitor] AdvReac Intermediate hairloss Verified 07/25/23 10:23 simvastatin [From Zocor] AdvReac Intermediate hairloss Verified 07/25/23 10:23 Home Medications Medication Instructions Recorded Confirmed Type cholecalciferol (vitamin D3) 25 2,000 unit PO DAILY 10/16/19 07/30/23 History mcg (1,000 unit) capsule [id number] 8 mg-folic 400 1 tab PO DAILY 05/16/22 07/30/23 History mcg-K 50 mcg-lutein 300 mcg tablet (Centrum [place]) fluticasone propionate 50 2 spray intranasal DAILY #48 grams 03/08/23 07/30/23 Rx mcg/actuation nasal spray,suspension albuterol sulfate 90 mcg/actuation 2 puff inhalation QID PRN 03/29/23 07/30/23 Rx aerosol inhaler shortness of breath or wheezing #6.7 grams azelastine 137 mcg (0.1 %) nasal 1 spray intranasal DAILY 05/05/23 07/30/23 History spray aerosol meloxicam 15 mg tablet 15 mg PO DAILY PRN Pain 05/05/23 07/30/23 History anastrozole 1 mg tablet 1 mg PO DAILY #90 tabs 07/13/23 07/30/23 Rx atenolol 25 mg tablet 25 mg PO BID #180 tabs 07/13/23 07/30/23 Rx lisinopril 5 mg tablet 5 mg PO DAILY #90 tabs 07/13/23 07/30/23 Rx montelukast 10 mg tablet 10 mg PO HS #90 tabs 07/13/23 07/30/23 Rx loratadine 10 mg tablet 10 mg PO DAILY 07/30/23 07/30/23 History Past Med/Surg History Problem List Hypoxia (Acute) SVT (supraventricular tachycardia) (Acute) Dysrhythmia (Acute) Chest pain (Acute) Supraventricular tachycardia (04/2023) S/P bilateral mastectomy Bilateral breast cancer Abnormal findings on diagnostic imaging of breast Breast lump on right side at 9 o'clock position Left ankle strain Breast lump in female Left arm pain Dyspnea on exertion Myalgia due to statin Pulmonary nodule Sciatic leg pain Active Meniere's disease, cochlear (Acute) Allergic rhinitis (Chronic) Hyperlipidemia (Chronic) Hypertension (Chronic) Medical History Right-sided chest pain Hypokalemia Hypomagnesemia Vertigo Surgical History History of dental surgery [place] teeth removal/another procedure to remove a piece of wisdom tooth Hx of cholecystectomy Family History Mother Hypertension Myocardial infarction Denies family history of Ovarian cancer Prostate cancer Diabetes Breast cancer Colorectal cancer Social History Smoking Status: Former smoker Tobacco Type: Cigarettes Second Hand Exposure: No; Do You Dip or Chew Tobacco: No; Tobacco Cessation Education Requested by Patient: No Hx Alcohol Use: No Hx Substance Use: No Preferred Language: Icelandic Communication Ability: Effective Visual Impairment: Limited Hearing Ability: Normal Public Speaking Coach Required: No Beliefs That Will Affect Care: None marital status: / Current Living Situation: Alone current occupational status: retired How many Children do You have: 3 How many Children do You have Comment: 1 child . Other Information That Helps Us Care for You: No Feels Safe at Home: Yes Safety Concerns: Feels Safe At This Time Childhood Exposure to Second-Hand Smoke: Yes Diet: regular caffeine: Yes (coffee) during the past year weight has: remained stable Dental Care, Regularly: Yes Physical Activity Frequency: Does not Exercise Seatbelt Use: always Sunscreen Use: No Do you think of yourself as: straight/heterosexual Gender Identity: Female Assistive Devices: Glasses and Hearing Aid - Right Physical Exam Physical Exam: PHYSICAL EXAMINATION Last 24h vital signs reviewed, see documentation in flowsheet General: Sleeping in ED on gurney but aroused easily HEENT: Normocephalic, atraumatic, pupils round and equal, sclerae anicteric, no conjunctival injection, moist mucus membranes Lungs: Normal respiratory effort. Clear to auscultation bilaterally. No RRW Heart: Regular rate and rhythm, no murmurs. No JVD Abdomen: Soft, nontender, nondistended. Bowel sounds present. no suprapubic tenderness Extremities: Warm, dry, well-perfused. No extremity edema. Neuro: Alert and oriented x 4 but vague historian, face symmetric, moves 4 extremities well Psych: Normal affect and behavior Results & Data Results & Data Vital Signs (Past 12 Hours) Vital Signs Pulse Pulse Resp BP BP Pulse Ox O2 Del Method 07/30/23 07:33 71 18 92 Room Air 07/30/23 07:25 179/77 H 07/30/23 07:18 69 18 100 07/30/23 07:00 64 15 99 07/30/23 06:30 80 22 94 Nasal Cannula 07/30/23 06:18 92 H 28 H 143/94 H 82 L 07/30/23 05:51 90 19 151/71 H 97 07/30/23 05:03 72 18 184/62 H 93 07/30/23 04:53 72 07/30/23 04:51 72 20 92 07/30/23 04:03 67 14 169/84 H 93 07/30/23 03:00 83 16 158/82 H 92 07/30/23 02:00 82 18 149/71 H 98 Nasal Cannula 07/30/23 01:30 83 16 155/73 H 97 Nasal Cannula 07/30/23 01:10 88 L Room Air, Nasal Cannula 07/30/23 01:00 86 20 155/64 H 93 Room Air 07/30/23 00:44 101 H 07/30/23 00:40 94 Room Air 07/30/23 00:40 91 H 22 147/63 H 94 Room Air O2 Flow Rate 07/30/23 07:33 07/30/23 07:25 07/30/23 07:18 07/30/23 07:00 07/30/23 06:30 2 07/30/23 06:18 07/30/23 05:51 07/30/23 05:03 07/30/23 04:53 07/30/23 04:51 07/30/23 04:03 07/30/23 03:00 07/30/23 02:00 2 07/30/23 01:30 2 07/30/23 01:10 0 07/30/23 01:00 07/30/23 00:44 07/30/23 00:40 07/30/23 00:40 Laboratory Results 07/30/23 07/30/23 07/30/23 Range/Units 12:05 08:33 06:44 WBC 7.49 (4.8-10.8) K/ul RBC 3.78 L (4.20-5.40) M/uL Hgb 11.5 L (12.0-16.0) g/dl Hct 34.8 L (37.0-47.0) % MCV 92.1 (80.0-100.0) fL MCH 30.4 (25.0-34.0) pg MCHC 33.0 (32.0-36.0) g/dL RDW Std Deviation 43.6 (36.4-46.3) fL RDW Coeff of Areli 13.1 (11.5-14.5) % Plt Count 154 (130-400) K/uL MPV 11.3 (9.4-12.4) fL Immature Gran % (Auto) % Neut % (Auto) % Lymph % (Auto) % Gulf % (Auto) % Eos % (Auto) % Baso % (Auto) % Neut # (Auto) (1.40-6.50) K/uL Lymph # (Auto) (1.20-3.40) K/uL [place] # (Auto) (0.11-0.59) K/uL Eos # (Auto) (0.00-0.50) K/uL Baso # (Auto) (0.00-0.20) K/uL Immature Gran # (Auto) (0.01-0.20) K/uL Sodium 141 (136-145) mmol/L Potassium 3.6 (3.5-5.1) mmol/L Chloride 107 (98-107) mmol/L Carbon Dioxide 30 (21-32) mmol/L Anion Gap 4 (3-11) BUN 11 (6-23) mg/dl Creatinine 0.55 L (0.6-1.2) mg/dl Est Cr Clr Drug Dosing 77.6 ml/min Est GFR ( Amer) 103.4 ml/min Est GFR (Non-Af Amer) 89.2 ml/min BUN/Creatinine Ratio 20.0 (10-20) Glucose 104 H (70-99(Fasting)) mg/dl POC Glucose 107 H (70-99) mg/dl Calcium 8.9 (8.6-10.3) mg/dl Magnesium (1.7-2.4) mg/dl Total Bilirubin (0.2-1.0) mg/dl AST (13-39) U/L ALT (7-52) U/L Alkaline Phosphatase (34-104) U/L Troponin I High Sens 83.2 H* (0-14) pg/ml Total Protein (6.0-8.3) gm/dl Albumin (3.4-5.0) gm/dl Globulin (2.5-4.0) gm/dl Albumin/Globulin Ratio (0.9-2) Lipase (11-82) U/L Procalcitonin < 0.02 (0-0.5) ng/ml TSH (0.300-4.500) uIu/ml Urine Color Urine Appearance (Clear) Urine pH (4.5-7.5) Ur Specific [place] (1.000-1.030) Urine Protein (Negative) Urine Glucose (UA) (Negative) Urine Ketones (Negative) Urine Blood (Negative) Urine Nitrite (Negative) Urine Bilirubin (Negative) Urine Urobilinogen (Negative) Ur Leukocyte Esterase (Negative) Adenovirus (PCR) Not Detected (NotDetected) B. pertussis DNA (PCR) Not Detected (NotDetected) B.parapertussis DNA PCR Not Detected (NotDetected) C. pneumoniae DNA (PCR) Not Detected (NotDetected) Coronavirus OC43 (PCR) Not Detected (NotDetected) Coronavirus HKU1 (PCR) Not Detected (NotDetected) Coronavirus 229E (PCR) Not Detected (NotDetected) SARS-CoV-2 (PCR) Not Detected (NotDetected) Coronavirus NL63 (PCR) Not Detected (NotDetected) Human Metapneumovir PCR Not Detected (NotDetected) Influenza Type A (PCR) Not Detected (NotDetected) Influenza Type B (PCR) Not Detected (NotDetected) M. pneumoniae (PCR) Not Detected (NotDetected) Parainfluenza 1 (PCR) Not Detected (NotDetected) Parainfluenza 2 (PCR) Not Detected (NotDetected) Parainfluenza 3 (PCR) Not Detected (NotDetected) Parainfluenza 4 (PCR) Not Detected (NotDetected) RSV (PCR) Not Detected (NotDetected) Entero/Rhino (PCR) Not Detected (NotDetected) 07/30/23 07/30/23 Range/Units 05:40 00:45 WBC 11.29 H (4.8-10.8) K/ul RBC 4.42 (4.20-5.40) M/uL Hgb 13.6 (12.0-16.0) g/dl Hct 41.3 (37.0-47.0) % MCV 93.4 (80.0-100.0) fL MCH 30.8 (25.0-34.0) pg MCHC 32.9 (32.0-36.0) g/dL RDW Std Deviation 44.0 (36.4-46.3) fL RDW Coeff of Areli 12.9 (11.5-14.5) % Plt Count 205 (130-400) K/uL MPV 11.0 (9.4-12.4) fL Immature Gran % (Auto) 0.4 % Neut % (Auto) 74.7 % Lymph % (Auto) 17.1 % [place] % (Auto) 6.4 % Eos % (Auto) 0.7 % Baso % (Auto) 0.7 % Neut # (Auto) 8.44 H (1.40-6.50) K/uL Lymph # (Auto) 1.93 (1.20-3.40) K/uL [place] # (Auto) 0.72 H (0.11-0.59) K/uL Eos # (Auto) 0.08 (0.00-0.50) K/uL Baso # (Auto) 0.08 (0.00-0.20) K/uL Immature Gran # (Auto) 0.04 (0.01-0.20) K/uL Sodium 142 (136-145) mmol/L Potassium 3.5 (3.5-5.1) mmol/L Chloride 104 (98-107) mmol/L Carbon Dioxide 28 (21-32) mmol/L Anion Gap 10 (3-11) BUN 17 (6-23) mg/dl Creatinine 0.76 (0.6-1.2) mg/dl Est Cr Clr Drug Dosing 56.2 ml/min Est GFR ( Amer) 86.5 ml/min Est GFR (Non-Af Amer) 74.6 ml/min BUN/Creatinine Ratio 22.4 H (10-20) Glucose 205 H (70-99(Fasting)) mg/dl POC Glucose (70-99) mg/dl Calcium 9.5 (8.6-10.3) mg/dl Magnesium 1.7 (1.7-2.4) mg/dl Total Bilirubin 0.6 (0.2-1.0) mg/dl AST 32 (13-39) U/L ALT 26 (7-52) U/L Alkaline Phosphatase 68 (34-104) U/L Troponin I High Sens 74.4 H* D 16.7 H (0-14) pg/ml Total Protein 7.5 (6.0-8.3) gm/dl Albumin 4.2 (3.4-5.0) gm/dl Globulin 3.3 (2.5-4.0) gm/dl Albumin/Globulin Ratio 1.3 (0.9-2) Lipase 41 (11-82) U/L Procalcitonin (0-0.5) ng/ml TSH 1.998 (0.300-4.500) uIu/ml Urine Color Yellow Urine Appearance Clear (Clear) Urine pH 7.5 (4.5-7.5) Ur Specific [place] 1.009 (1.000-1.030) Urine Protein Negative (Negative) Urine Glucose (UA) Negative (Negative) Urine Ketones Negative (Negative) Urine Blood Negative (Negative) Urine Nitrite Negative (Negative) Urine Bilirubin Negative (Negative) Urine Urobilinogen Negative (Negative) Ur Leukocyte Esterase Negative (Negative) Adenovirus (PCR) (NotDetected) B. pertussis DNA (PCR) (NotDetected) B.parapertussis DNA PCR (NotDetected) C. pneumoniae DNA (PCR) (NotDetected) Coronavirus OC43 (PCR) (NotDetected) Coronavirus HKU1 (PCR) (NotDetected) Coronavirus 229E (PCR) (NotDetected) SARS-CoV-2 (PCR) (NotDetected) Coronavirus NL63 (PCR) (NotDetected) Human Metapneumovir PCR (NotDetected) Influenza Type A (PCR) (NotDetected) Influenza Type B (PCR) (NotDetected) M. pneumoniae (PCR) (NotDetected) Parainfluenza 1 (PCR) (NotDetected) Parainfluenza 2 (PCR) (NotDetected) Parainfluenza 3 (PCR) (NotDetected) Parainfluenza 4 (PCR) (NotDetected) RSV (PCR) (NotDetected) Entero/Rhino (PCR) (NotDetected) Diagnostic Findings Chest X-Ray 07/30/23 00:54 XR chest 1V portable CLINICAL HISTORY: chest pain TECHNIQUE: Single frontal radiograph of the chest was obtained. Comparison: Comparison is made to chest radiograph 05/05/2023 FINDINGS: No lines and tubes are seen. Calcified aortic knob is seen. Mild bronchial wall thickening is seen. No evidence of pleural effusion or pneumothorax. IMPRESSION: No acute abnormalities. Chronic appearing bronchial wall thickening may reflect infectious/inflammatory airways disease. ACT 112: Negative or not required by law. Electronically signed by: Jose Elias Walker M.D. 07/30/2023 7:06 AM Chest CTA 07/30/23 05:41 CT angio chest PE protocol CLINICAL HISTORY: PE TECHNIQUE: Multidetector row helical CT of the chest was performed with angiographic protocol. Coronal and sagittal reformations were obtained. Coronal and sagittal MIPS were obtained from the axial data set and were submitted for review. Automated dose lowering techniques and/or adjustment according to patient size were utilized for this exam. CT DOSE: 395.58 mGy.cm Comparison: Comparison is made to chest radiograph 07/30/2023 FINDINGS: Lungs and pleura: Emphysema is seen. Bronchial wall thickening with mucous plugging and tree-in-bud nodularity. There is a 9 mm nodule right middle lobe (series 4 image 96). Heart and pericardium: Cardiomegaly is seen with biatrial enlargement. Vessels: No evidence of pulmonary embolism. Mediastinum and eric: Subcentimeter lymph nodes are seen. Chest wall and lower neck: Small thyroid nodules are noted which do not require follow-up by ACR criteria. Abdomen: Right renal cyst is seen. Bones: Degenerative changes in the thoracic spine. IMPRESSION: 1. No pulmonary embolus. 2. Emphysema is seen. Bronchial wall thickening and tree-in-bud nodularity are seen compatible with infectious/inflammatory process. 3. 9 mm nodule in the right middle lobe. According to Fleischner criteria, no follow-up is required in low risk patients, in high-risk patients, a 12 month follow-up CT can be optionally performed. ACT 112: Negative or not required by law. Electronically signed by: Jose Elias Walker M.D. 07/30/2023 6:55 AM PG Care Time/CCT Total # of Minutes Spent Total Time Spent with Patient: Total time spent is greater than 50% in coordination of care (as documented) at patient's floor/unit and/or counseling patient: Coding Level of Care Code 21105 INT INP/OBS CARE 2/55MIN Diagnoses SVT (supraventricular tachycardia) I47.10 Chest pain R07.9 Pulmonary nodule R91.1 Primary hypertension I10 Hypertension type: primary hypertension (4) Hypertension Hypertension type: primary hypertension Qualified Code(s): I10 - Essential (primary) hypertension
[2023-07-30 09:22] LABS: Hematocrit (blood only) 34.8 % (37.0-47.0); Hemoglobin 11.5 g/dl (12.0-16.0); Mean Corpuscular Hemoglobin 30.4 pg (25.0-34.0); Mean Corpuscular Volume 92.1 fL (80.0-100.0); Mean Platelet Volume 11.3 fL (9.4-12.4); Platelet Count 154 K/uL (130-400); RDW Coefficient of Variation 13.1 % (11.5-14.5); RDW Standard Deviation 43.6 fL (36.4-46.3); Red Blood Count 3.78 M/uL (4.20-5.40); White Blood Count 7.49 K/ul (4.8-10.8)
[2023-07-30 09:39] LABS: Calcium 8.9 mg/dl (8.6-10.3); Creatinine Clr Calc Pharmacy 77.6 ml/min; Est GFR (African American) 103.4 ml/min; Est GFR (Non-African American) 89.2 ml/min; Potassium 3.6 mmol/L (3.5-5.1)
[2023-07-30 09:52] LABS: Troponin I High Sensitivity 83.2 pg/ml (0-14)
[2023-07-30] MEDS ORDERED: ONDANSETRON INJ 2 MG/ML 2 ML VIAL IV PRN ×2 (11:42→14:51)
[2023-07-30] MEDS: KETOROLAC TROMETHAMINE 15 MG/ML VIAL IV ONE (11:43)
[2023-07-30] MEDS: ONDANSETRON INJ 2 MG/ML 2 ML VIAL ONE (11:44)
[2023-07-30] MEDS: ADENOSINE IV SOLN 3 MG/ML 2 ML VIAL IV ONE (11:45)
[2023-07-30] MEDS: ASPIRIN CHEW 324 MG ONE (11:45)
[2023-07-30] MEDS: DOXYCYCLINE HYCLATE 100 MG CAP PO SCH (11:46)
[2023-07-30 13:22] LABS: Adenovirus PCR Not Detected (NotDetected); Bordetella parapertussis PCR Not Detected (NotDetected); Bordetella pertussis PCR Not Detected (NotDetected); Chlamydia pneumoniae PCR Not Detected (NotDetected); Coronavirus 229E PCR Not Detected (NotDetected); Coronavirus CoV-2 (COVID19)PCR Not Detected (NotDetected); Coronavirus HKU1 PCR Not Detected (NotDetected); Coronavirus NL63 PCR Not Detected (NotDetected); Coronavirus OC43PCR Not Detected (NotDetected); Human Metapneumovirus PCR Not Detected (NotDetected); Influenza A PCR Not Detected (NotDetected); Influenza B PCR Not Detected (NotDetected); Mycoplasma pneumoniae PCR Not Detected (NotDetected); Parainfluenza Virus 1 PCR Not Detected (NotDetected); Parainfluenza Virus 2 PCR Not Detected (NotDetected); Parainfluenza Virus 3 PCR Not Detected (NotDetected); Parainfluenza Virus 4 PCR Not Detected (NotDetected); Respiratory Syncytial VirusPCR Not Detected (NotDetected); Rhinovirus/Enterovirus PCR Not Detected (NotDetected)
[2023-07-30] MEDS: ENOXAPARIN INJ 40 MG/0.4 ML SYR SQ SCH (14:21)
[2023-07-30] MEDS ORDERED: ALUMINUM/MAGNESIUM SUSP 30 ML UDC PO PRN (14:51)
[2023-07-30] MEDS ORDERED: POLYETHYLENE (MIRALAX) 17 GM PACK PO PRN (14:51)
[2023-07-30] MEDS ORDERED: MELOXICAM 7.5 MG TAB PO PRN (14:51)
[2023-07-30] MEDS ORDERED: ALBUTEROL HFA 8 GM INHALER INH PRN (14:51)
[2023-07-30] MEDS ORDERED: MAGNESIUM HYDROXIDE SUSP 30 ML UDC PO PRN (14:51)
--- NOTE | 2023-07-30 17:08 | Electrocardiogram Report ---
Test Reason : Blood Pressure : / mmHG Vent. Rate : 098 BPM Atrial Rate : 098 BPM P-R Int : 176 ms QRS Dur : 084 ms QT Int : 384 ms P-R-T Axes : 085 044 106 degrees QTc Int : 490 ms Sinus rhythm with Premature supraventricular complexes Left ventricular hypertrophy with repolarization abnormality Prolonged QT Abnormal ECG When compared with ECG of 04-MAY-2023 23:58, T wave inversion now evident in Lateral leads Confirmed by Gonzalo German ([id number]) on 07/30/2023 5:08:03 PM Referred By: REFERRED SELF Confirmed By:Gonzalo German
--- NOTE | 2023-07-30 17:10 | Electrocardiogram Report ---
Test Reason : Blood Pressure : / mmHG Vent. Rate : 180 BPM Atrial Rate : 192 BPM P-R Int : 136 ms QRS Dur : 072 ms QT Int : 234 ms P-R-T Axes : 075 025 242 degrees QTc Int : 405 ms Supraventricular tachycardia Minimal voltage criteria for LVH, may be normal variant Marked ST abnormality, possible inferior subendocardial injury Marked ST abnormality, possible anterolateral subendocardial injury Abnormal ECG When compared with ECG of 30-JUL-2023 00:44, (unconfirmed) Significant changes have occurred Confirmed by Gonzalo German ([id number]) on 07/30/2023 5:10:15 PM Referred By: REFERRED SELF Confirmed By:Gonzalo German
--- NOTE | 2023-07-30 17:12 | Electrocardiogram Report ---
Test Reason : Blood Pressure : / mmHG Vent. Rate : 088 BPM Atrial Rate : 088 BPM P-R Int : 158 ms QRS Dur : 086 ms QT Int : 330 ms P-R-T Axes : 087 001 094 degrees QTc Int : 399 ms Sinus rhythm with Premature supraventricular complexes Minimal voltage criteria for LVH, may be normal variant ST depression, consider subendocardial injury Nonspecific T wave abnormality Abnormal ECG When compared with ECG of 30-JUL-2023 05:46, (unconfirmed) Significant changes have occurred Confirmed by Gonzalo German ([id number]) on 07/30/2023 5:11:30 PM Referred By: REFERRED SELF Confirmed By:Gonzalo German
[2023-07-30] MEDS: METOPROLOL SUCC 50MG EXT REL TAB PO SCH (17:31)
[2023-07-30] MEDS: ACETAMINOPHEN 325 MG TAB PO PRN (17:31)
[2023-07-30] MEDS: FLUTICASONE PROPIONATE NA SPR 16 GM BTL SCH (17:32)
[2023-07-30] MEDS: LORATADINE 10 MG TAB PO SCH (17:32)
[2023-07-30] MEDS: AZELASTINE HCL 0.1% NASAL 200 SPRAYS/27,400 MCG BTL SCH (17:33)
[2023-07-30] MEDS: SUMAtriptan succinate 25 MG TAB PO ONE (18:41)
--- NOTE | 2023-07-30 18:55 | Communication Note ---
Date of Service: July 30, 2023 Son reports she is a little confused which is not her baseline. Still with L frontal headache. Remains awake and Ox4 Reviewed MAR and no sedating meds given by ED or myself (zofran was never given). She was awake all night. No strong evidence of any infection. TSH was wnl. No minicog in clinic notes. TSH was wnl. ordered B12 for AM. AM BMP CBC. treat possible migraine with sumatriptan 25 mg, had some improvement after toradol. Consider neuroimaging if not improved.
[2023-07-30] MEDS ORDERED: MANNITOL 25% 12.5 GM/50 ML VIAL IV STA (20:53)
[2023-07-30] MEDS ORDERED: 1.2 MICRON FILTER 1 EACH IV ONE (20:53)
[2023-07-30] MEDS ORDERED: DEXAMETHASONE SOD INJ 4 MG/ML VIAL IV STA (20:53)
[2023-07-30] MEDS ORDERED: MONTELUKAST SODIUM 10 MG TABLET PO SCH (21:00)
[2023-07-30] MEDS ORDERED: guaiFENesin 600 MG TABCR PO SCH (21:00)
[2023-07-30] MEDS ORDERED: STAT IV/IM STA ×2 (21:05→21:20)
[2023-07-30] MEDS: dexAMETHasone 8 MG in SYRINGE 0 ML IV STA (21:18)
[2023-07-30] MEDS: PROTAMINE SULFATE 25 MG in DEXTROSE 5% 50 ML IV STA (21:22)
--- NOTE | 2023-07-30 21:22 | CT Scan Report ---
Exam(s): CT HEAD Without Contrast EXAM: CT Head Without Intravenous Contrast CLINICAL HISTORY: headache, confusion. TECHNIQUE: Axial computed tomography images of the head/brain without intravenous contrast. CTDI is 35 mGy and DLP is 624 mGy-cm. Automated exposure control was utilized for the study. A dose lowering technique was utilized adhering to the principles of ALARA. COMPARISON: No relevant prior studies available. FINDINGS: Limitations: There is motion artifact, which degrades image quality on multiple image slices. Brain: There is an abnormal intraparenchymal hematoma involving the left temporal lobe, measuring 5.6 x 4 x 2.5 cm 29.3 ml. There is mass effect on the temporal lobe with complete effacement of the regional sulci. Subarachnoid hemorrhage is also noted involving cerebral sulci surrounding the hematoma. No appreciable significant white matter disease. Ventricles: There is intraventricular hemorrhage noted in the posterior horn of the left lateral ventricle. No ventriculomegaly. Bones/joints: Unremarkable. No acute fracture. Soft tissues: Unremarkable. Sinuses: Unremarkable as visualized. No acute sinusitis. Mastoid air cells: Unremarkable as visualized. No mastoid effusion. IMPRESSION: 1. There is an abnormal intraparenchymal hematoma involving the left temporal lobe, measuring 5.6 x 4 x 2.5 cm (volume 29.3 ml). There is mass effect on the temporal lobe with complete effacement of the regional sulci. 2. There is intraventricular hemorrhage noted in the posterior horn of the left lateral ventricle. No ventriculomegaly. No midline shift. Subtle subarachnoid hemorrhage is also identified in the right temporal region. Communications: Call Doctor Intracranial Hemorrhage Electronically signed by: Regino Hobbs MD 07/30/23 21:21 PM
[2023-07-30] MEDS: LABETALOL HCL IV 5 MG/ML 20ML IV STA ×2 (21:29→21:34)
[2023-07-30] MEDS: SODIUM CHLORIDE 3 % 50 ML IV ONE (21:29)
[2023-07-30] MEDS: SODIUM CHLORIDE 3% 500 ML BAG IV ONE (21:30)
[2023-07-30] MEDS: LABETALOL HCL IV 5 MG/ML 20ML IV ONE (21:30)
[2023-07-30] MEDS ORDERED: STAT IV Infusion **Titration per Protocol STA (21:39)
--- NOTE | 2023-07-30 21:52 | Communication Note ---
Date of Service: July 30, 2023 Patient complaining of a left frontal COOK, some somnolence and confusion noted by family at bedside. Patient did receive Lovenox 40mg SQ at 14:[address] of the Head ordered: 1. There is an abnormal intraparenchymal hematoma involving the left temporal lobe, measuring 5.6 x 4 x 2.5 cm (volume 29.3 ml). There is mass effect on the temporal lobe with complete effacement of the regional sulci. 2. There is intraventricular hemorrhage noted in the posterior horn of the left lateral ventricle. No ventriculomegaly. No midline shift. Subtle subarachnoid hemorrhage is also identified in the right temporal region. Patient was made aware of the findings. Discussed transfer to tertiary care facility with Neurosurgical capabilities and Neuro ICU. Patient is in agreement with transfer if necessary. Confirmed Code Status as FULL. Discussed need for possible intubation for airway protection or in the event of decompensation prior to transfer. Patient is in agreement with intubation if necessary. Neurologic exam thus far with PERRL, MS 5/5 in UE/LE, no facial droop, speech clear, mild dysmetria noted on left. Patient's son, Karan Ace ([phone]) updated on change of status Left message with patient's daughter - Chelsea Carlson ([phone]) Patient transferred to MICU. Thus far has been given: Dexamethasone 8mg IV Protamine 25mg IV Labetalol 10mg IV x 2 doses 3% Saline at 50mL Nicardipine drip Patient to be transferred to [facility] service of Dr. Erickson. Transfer via [facility] Patient's son at bedside prior to transfer
[2023-07-30] MEDS: niCARdipine 25 MG in SODIUM CHLORIDE 0.9% 240 ML IV SCH (21:53)
--- NOTE | 2023-07-30 21:57 | Critical Care Consultation ---
Date of Consultation July 30, 2023 Assessment & Plan (1) Intraparenchymal hematoma of brain: 77-year-old female with past medical history of SVT, who was admitted with SVT which was converted with diltiazem. She was admitted to PCU earlier today and began to have complaints of headache earlier this evening. She underwent CT head which showed an intraparenchymal hematoma, subtle subarachnoid hemorrhage, and intraventricular hemorrhage with no midline shift. She was emergently transferred to the ICU for further management and has been accepted to [facility] with neurosurgical services. CT imaging does show mass effect of the temporal lobe and she was given 8 mg dexamethasone, and hypertonic saline 3% bolus. She received Lovenox at 1400, and was given protamine for reversal. Patient also noted to be hypertensive throughout the day and currently with systolic blood pressure in the 190s which she received 20 mg of labetalol, and is now requiring nicardipine drip. Hemodynamically she is stable, and is currently sinus rhythm on monitor without recent episode of SVT. Will proceed with close monitoring and further medical management in the ICU while awaiting transfer to tertiary center. CRITICAL CARE TIME - I have personally spent 63 minutes of critical care time in the direct dionicio gement of this patient. This is a life/limb threatening event. This includes time spent evaluating patient, direct bedside care, chart review, placing orders, interpretation of diagnostic studies, discussion with consultants, patient, and family members, as well as other required patient management activities. This time is exclusive of all separately billable procedures, and teaching time and separate from and in addition to any other critical care service time. (2) Intraventricular hemorrhage: (3) SVT (supraventricular tachycardia): (4) Hyperlipidemia: (5) Hypertension: Supervising Physician Co-Signing Physician Notes I was made aware this patient via telephone. Actively working on emergent transfer to tertiary care center and blood pressure control. History of Present Illness Attending Physician: Elvis Delgado MD History of Present Illness Patient is a 77-year-old female with past medical history of SVT who presented to the emergency department earlier today with SVT heart rate in the low 190s, and received adenosine which was ineffective. Ultimately converted on diltiazem, and underwent CTA chest which was negative for PE, did show emphysema and mucous plugging suspicious for infection. Patient reported feeling weak over the past few days. She was admitted to PCU for further management. This evening patient began to have headache, and was taken for CT head which revealed Intraparenchymal hematoma involving left temporal lobe, 5.6 x 4 x 2.5 cm with mass effect on the temporal lobe and complete effacement of the regional sulcus I. Intraventricular hemorrhage noted in the posterior horn of the left lateral ventricle, no midline shift, subtle subarachnoid hemorrhage. Patient now transferred to ICU for continued medical management pending transfer to [facility] for neurosurgical services. Upon evaluation the patient is showing some mild expressive aphasia and confusion. She currently denies any headache, dizziness, changes in vision, weakness or numbness. She is currently sitting up in bed at 30 degree angle. She does not appear to have any dysarthria, facial droop, or asymmetrical movements. Pupils are equal and reactive. She denies recent illness or fevers, cough or congestion, chest pain or palpitations, shortness of breath, abdominal pain, nausea or vomiting or diarrhea, swelling in hands or feet, changes in gait. Patient does report a fall about a week ago. She denies hitting her head at that time. Allergies Allergy/AdvReac Type Severity Reaction Status Date / Time atorvastatin [From Lipitor] AdvReac Intermediate hairloss Verified 07/25/23 10:23 simvastatin [From Zocor] AdvReac Intermediate hairloss Verified 07/25/23 10:23 Home Medications Medication Instructions Recorded Confirmed Type cholecalciferol (vitamin D3) 25 2,000 unit PO DAILY 10/16/19 07/30/23 History mcg (1,000 unit) capsule [id number] 8 mg-folic 400 1 tab PO DAILY 05/16/22 07/30/23 History mcg-K 50 mcg-lutein [facility] fluticasone propionate 50 2 spray intranasal DAILY #48 grams 03/08/23 07/30/23 Rx mcg/actuation nasal spray,suspension albuterol sulfate 90 mcg/actuation 2 puff inhalation QID PRN 03/29/23 07/30/23 Rx aerosol inhaler shortness of breath or wheezing #6.7 grams azelastine 137 mcg (0.1 %) nasal 1 spray intranasal DAILY 05/05/23 07/30/23 History spray aerosol meloxicam 15 mg tablet 15 mg PO DAILY PRN Pain 05/05/23 07/30/23 History anastrozole 1 mg tablet 1 mg PO DAILY #90 tabs 07/13/23 07/30/23 Rx atenolol 25 mg tablet 25 mg PO BID #180 tabs 07/13/23 07/30/23 Rx lisinopril 5 mg tablet 5 mg PO DAILY #90 tabs 07/13/23 07/30/23 Rx montelukast 10 mg tablet 10 mg PO HS #90 tabs 07/13/23 07/30/23 Rx loratadine 10 mg tablet 10 mg PO DAILY 07/30/23 07/30/23 History Patient History Medical History Right-sided chest pain Hypokalemia Hypomagnesemia Vertigo Surgical History History of dental surgery [place] teeth removal/another procedure to remove a piece of wisdom tooth Hx of cholecystectomy Family History Mother Hypertension Myocardial infarction Denies family history of Ovarian cancer Prostate cancer Diabetes Breast cancer Colorectal cancer Social History Smoking Status: Former smoker Tobacco Type: Cigarettes Second Hand Exposure: No; Do You Dip or Chew Tobacco: No; Tobacco Cessation Education Requested by Patient: No Hx Alcohol Use: No Hx Substance Use: No Preferred Language: Moroccan Communication Ability: Effective Visual Impairment: Limited Hearing Ability: Normal Study Lead Required: No Beliefs That Will Affect Care: None marital status: / Current Living Situation: Alone current occupational status: retired How many Children do You have: 3 How many Children do You have Comment: 1 child . Other Information That Helps Us Care for You: No Feels Safe at Home: Yes Safety Concerns: Feels Safe At This Time Childhood Exposure to Second-Hand Smoke: Yes Diet: regular caffeine: Yes (coffee) during the past year weight has: remained stable Dental Care, Regularly: Yes Physical Activity Frequency: Does not Exercise Seatbelt Use: always Sunscreen Use: No Do you think of yourself as: straight/heterosexual Gender Identity: Female Assistive Devices: Glasses and Hearing Aid - Right Review of Systems Review of Systems: All systems reviewed & are unremarkable except as noted in HPI & below Physical Exam Constitutional: cooperative and comfortable Eyes: PERRL, conjunctivae normal, anicteric sclerae Neck: trachea midline, no thyromegaly Respiratory: normal respiratory effort, lungs clear to auscultation Cardiovascular: RRR, no murmur, no edema Heart Sounds: normal S1 and normal S2; no murmur Gastrointestinal (Abdomen): normal bowel sounds, soft, nontender, no hepatospl enomegaly Musculoskeletal: no cyanosis or clubbing, extremities motor strength 5/5 Skin: no rashes, warm and dry Neurologic: PERRL, EOMI, accommodation nl, no face palsy, no dysarthria Appears to have mild expressive aphasia with some words upon conversation Psychiatric: Orientation: oriented to person, oriented to time and cooperative; + not oriented to place Results & Data Results & Data Vital Signs (Past 12 Hours) Vital Signs Temp Pulse Pulse Pulse Resp BP BP 07/30/23 21:34 83 182/82 H 07/30/23 21:29 191/75 H 07/30/23 19:24 36.5 C 80 18 191/75 H 07/30/23 17:01 81 07/30/23 15:30 36.8 C 82 16 171/74 H 07/30/23 15:00 78 07/30/23 14:23 76 20 186/96 H 07/30/23 11:26 184/83 H 07/30/23 11:12 72 18 07/30/23 11:00 76 20 07/30/23 10:42 80 24 07/30/23 10:12 75 19 07/30/23 10:12 85 18 184/96 H 07/30/23 10:11 80 184/83 H 07/30/23 10:00 77 19 Pulse Ox O2 Del Method 07/30/23 21:34 07/30/23 21:29 07/30/23 19:24 95 Room Air 07/30/23 17:01 07/30/23 15:30 92 Room Air 07/30/23 15:00 07/30/23 14:23 92 Room Air 07/30/23 11:26 07/30/23 11:12 07/30/23 11:00 07/30/23 10:42 07/30/23 10:12 07/30/23 10:12 92 Room Air 07/30/23 10:11 07/30/23 10:00 Coding Level of Care Code 88160 CRITICAL CARE 1ST 30-74M Diagnoses Intraparenchymal hematoma of brain S06.33AA Intraventricular hemorrhage I61.5 SVT (supraventricular tachycardia) I47.10 Hyperlipidemia E78.5 Primary hypertension I10 Hypertension type: primary hypertension (5) Hypertension Hypertension type: primary hypertension Qualified Code(s): I10 - Essential (primary) hypertension
[2023-07-30] MEDS ORDERED: LABETALOL HCL IV 5 MG/ML 20ML IV PRN (21:58)
[2023-07-30] MEDS ORDERED: LORazepam 1 MG in SYRINGE 0.5 ML IV PRN (21:58)
[2023-07-31] MEDS ORDERED: ICU Protocol for HYPERglycemia SCH
== END 2023-07-30 23:59 | disposition short-term general hospital (02) | DRG 308 ==
LOC: EDINP 00:40 → ED 00:40 → SUATTDRO 11:43 → 2S 15:13 → 1E 21:13

== ENCOUNTER 2024-02-13 04:37 | Observation (INO) ==
[2024-02-13 05:49] LABS: Basophils # (auto) 0.05 K/uL (0.00-0.20); Basophils % (auto) 0.5 %; Eosinophils # (auto) 0.04 K/uL (0.00-0.50); Eosinophils % (auto) 0.4 %; Hematocrit (blood only) 42.4 % (37.0-47.0); Hemoglobin 14.3 g/dl (12.0-16.0); Immature Granulocytes # (auto) 0.03 K/uL (0.01-0.20); Immature Granulocytes % (auto) 0.3 %; Lymphocytes # (auto) 1.28 K/uL (1.20-3.40); Mean Corpuscular Hemoglobin 30.8 pg (25.0-34.0); Mean Corpuscular Hgb Conc 33.7 g/dL (32.0-36.0); Mean Corpuscular Volume 91.2 fL (80.0-100.0); Monocytes # (auto) 1.05 K/uL (0.11-0.59); Monocytes % (auto) 10.7 %; Neutrophils # (auto) 7.39 K/uL (1.40-6.50); Neutrophils % (auto) 75.1 %; Platelet Count 191 K/uL (130-400); RDW Coefficient of Variation 12.7 % (11.5-14.5); RDW Standard Deviation 42.3 fL (36.4-46.3); Red Blood Count 4.65 M/uL (4.20-5.40); White Blood Count 9.84 K/ul (4.8-10.8)
[2024-02-13 05:54] LABS: Albumin Globulin Ratio 1.2 (0.9-2); Albumin Level 4.1 gm/dl (3.4-5.0); BUN Creatinine Ratio 27.3 (10-20); Bilirubin,Total 0.8 mg/dl (0.2-1.0); Calcium 9.1 mg/dl (8.6-10.3); Creatinine Clr Calc Pharmacy 67.6 ml/min; Globulin 3.4 gm/dl (2.5-4.0); Potassium 3.8 mmol/L (3.5-5.1); Total Protein 7.5 gm/dl (6.0-8.3)
[2024-02-13 06:00] LABS: Troponin I High Sensitivity 16.2 pg/ml (0-14)
[2024-02-13 06:05] LABS: Magnesium 1.7 mg/dl (1.7-2.4); Phosphorus 3.6 mg/dl (2.5-4.9)
[2024-02-13 06:21] LABS: Thyroid Stimulating Hormone 1.531 uIu/ml (0.300-4.500)
--- NOTE | 2024-02-13 06:30 | Emergency Department Note ---
Impression & Plan Chest pain, Atrial fibrillation with rapid ventricular response, Acute dyspnea admit to the [facility] ED Provider Note NAME: SOM HURTADO AGE: 78 SEX: Female INFORMANT: Patient ED PROVIDER(S): Mariya Condon DO CHIEF COMPLAINT: shortness of breath PLAN: Disposition: admitted to the [facility] MEDICAL DECISION MAKING: This is an 78-year-old female patient who presents to the emergency department with shortness of breath and weakness. While she was being assessed by nursing staff, she had an episode of significant chest pain and A-fib with RVR with rates in the 160-170s. Her original EKG was normal sinus rhythm. Patient does have an elevated troponin. Other laboratory studies revealed no leukocytosis or anemia. Glucose was 117. Magnesium and phosphorus were normal. D-dimer was negative. TSH was normal. Chest x-ray was unremarkable. I discussed the case with the [facility] and they will evaluate for further inpatient care. Care/management discussed with: nursing program manager and [facility] Triage Nursing notes: reviewed and agree with them. Vital Signs: reviewed and unremarkable Chronic Medical/Social Conditions affecting care: Intracranial hemorrhage-summer 2023; previous episodes of SVT Prior/ Outside/ External records reviewed: Previous inpatient visit 2023 Differential Diagnosis: Cardiac dysrhythmia, cardiac ischemia, electrolyte abnormality Diagnostics, independently interpreted by me: ECG: normal sinus rhythm at a rate of [address] segment elevation or signs of ischemia. There is no ectopy. Repeat ECG: A-fib with RVR at a rate of 106. There is no ST segment elevation or signs of ischemia. There is no ectopy. Cardiac Monitoring: Normal sinus rhythm at a rate of 78 Imaging studies: portable chest x-ray: No acute pulmonary infiltrates or consolidation. HPI: 78 year old Female arrives for evaluation of Shortness of breath. Patient states she was feeling in her usual state of health but awoke from sleep with generalized weakness and developed shortness of breath. She describes a general sense of feeling unwell. She states that she knew she needed to seek care. PAST MEDICAL HISTORY: See Below, PAST SURGICAL HISTORY: See Below, SOCIAL HISTORY: Patient lives with her son, HOME MEDICATIONS: See list ALLERGIES: See list VITALS: See Below PHYSICAL EXAMINATION: HEENT: Head - normocephalic and atraumatic. Pupils are equal, round, and reactive to light. Extraocular eye muscles are intact, and sclera are anicteric. Nose - moist nasal mucosa without discharge. Mouth - moist buccal mucosa. Oropharynx is nonerythematous and there is no tonsillar exudate or edema noted. Neck: Supple; no JVD, nuchal rigidity, cervical lymphadenopathy, or auscultated bruits. Heart: Tachycardic rate and irregularly irregular rhythm Lungs: Clear to auscultation bilaterally with no wheezes, rales, or rhonchi. Abdomen: Soft, completely nontender, nondistended, with good bowel sounds. There are no palpable pulsatile masses or hepatosplenomegaly. There is no guarding, rigidity, or rebound noted. Extremities: No evidence of cyanosis, clubbing, or edema. There are easily palpable peripheral pulses. Skin: warm and dry with good turgor and no rashes. Emergency Department course: The patient was evaluated in room B-9. A complete history and physical was performed. Nursing staff had already obtained an EKG and initiated an IV lock and drawn labs. As I was entering the room, the patient was complaining of chest pain and was in atrial fibrillation with a rapid ventricular response. Nursing staff were obtaining a second EKG. An order was placed for continuous cardiac monitoring. Her A-fib with RVR broke into a normal sinus rhythm at a rate of 78. Portable chest x-ray was performed. This was unremarkable. Patient's chest pain has subsided. I discussed the case with the [facility] Hospitalist and they will evaluate for further inpatient care. 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 Hypoxia (Acute) SVT (supraventricular tachycardia) (Acute) Dysrhythmia (Acute) Chest pain (Acute) Supraventricular tachycardia (04/2023) S/P bilateral mastectomy Bilateral breast cancer Abnormal findings on diagnostic imaging of breast Breast lump on right side at 9 o'clock position Left ankle strain Breast lump in female Left arm pain Dyspnea on exertion Myalgia due to statin Pulmonary nodule Sciatic leg pain Active Meniere's disease, cochlear (Acute) Allergic rhinitis (Chronic) Hyperlipidemia (Chronic) Hypertension (Chronic) Medical History Right-sided chest pain Hypokalemia Hypomagnesemia Vertigo Surgical History History of dental surgery Hx of cholecystectomy Family History Mother Hypertension Myocardial infarction Denies family history of Ovarian cancer Prostate cancer Diabetes Breast cancer Colorectal cancer Social History Smoking Status: Former smoker Tobacco Type: Cigarettes Age Started Using Tobacco: 18; Age Quit Using Tobacco: 28; packs per day: 0.25; Second Hand Exposure: No; Do You Dip or Chew Tobacco: No; Hx Alcohol Use: No Hx Substance Use: No Preferred Language: Chinese Communication Ability: Effective Visual Impairment: Limited Hearing Ability: Normal [employer] Required: No Beliefs That Will Affect Care: None marital status: / Current Living Situation: Family current occupational status: retired How many Children do You have: 3 How many Children do You have Comment: 1 child . Feels Safe at Home: Yes Childhood Exposure to Second-Hand Smoke: Yes Diet: regular caffeine: Yes (coffee) during the past year weight has: remained stable Dental Care, Regularly: Yes Physical Activity Frequency: Does not Exercise Seatbelt Use: always Sunscreen Use: No Do you think of yourself as: straight/heterosexual Gender Identity: Female Assistive Devices: Glasses Allergies Allergies Allergy/AdvReac Type Severity Reaction Status Date / Time atorvastatin [From Lipitor] AdvReac Intermediate hairloss Verified 02/11/24 11:16 simvastatin [From Zocor] AdvReac Intermediate hairloss Verified 02/11/24 11:16 Home Meds Previous Rx's Medication Instructions Recorded albuterol sulfate 90 mcg/actuation 2 puff inhalation QID PRN 03/29/23 aerosol inhaler shortness of breath or wheezing #6.7 grams anastrozole 1 mg tablet 1 mg PO DAILY #30 tabs 09/14/23 atenolol 25 mg tablet 25 mg PO BID #60 tabs 09/14/23 cholecalciferol (vitamin D3) 25 2,000 unit PO DAILY #30 caps 09/14/23 mcg (1,000 unit) capsule lisinopril 5 mg tablet 5 mg PO DAILY #30 tabs 09/14/23 montelukast 10 mg tablet 10 mg PO HS #30 tabs 09/14/23 [id number] 8 mg-folic 400 1 tab PO DAILY #30 tabs 09/14/23 mcg-K 50 mcg-lutein 300 mcg tablet (Centrum Silver Women) azelastine 137 mcg (0.1 %) nasal 1 spray intranasal DAILY #30 mL 12/14/23 spray fluticasone propionate 50 2 spray intranasal DAILY PRN nasal 12/14/23 mcg/actuation nasal congestion #16 grams spray,suspension amlodipine 5 mg tablet 5 mg PO DAILY #30 tabs 01/28/24 loratadine 10 mg tablet 10 mg PO DAILY #30 tabs 01/28/24 meloxicam 15 mg tablet 15 mg PO DAILY PRN Pain #30 tabs 01/28/24 Results & Data (ED) Vital Signs Vital Signs - 24 hr 02/13/24 04:39 02/13/24 04:47 02/13/24 04:53 Temperature 36.8 C Temperature Source Oral Pulse Rate 92 H 94 H Pulse Rate from SpO2 Sensor Respiratory Rate 20 Respiratory Effort / Characteristics Non-Labored Spontaneous Respiratory Depth Normal Respiratory Pattern Blood Pressure 154/74 H Blood Pressure Mean 100 Pulse Oximetry 91 91 Oxygen Delivery Method Room Air Room Air Oxygen Flow Rate Sepsis Recent Fever Within 48 Hours No Sepsis New/Unexplained Change in Mental Status N/A Sepsis Action Taken by Nursing No Action Required Oxygen Flow Rate - Titration Pulse Oximetry Post Tiitration 02/13/24 05:20 02/13/24 05:24 02/13/24 05:25 Temperature Temperature Source Pulse Rate 174 H Pulse Rate from SpO2 Sensor Respiratory Rate Respiratory Effort / Characteristics Respiratory Depth Respiratory Pattern Blood Pressure Blood Pressure Mean Pulse Oximetry 84 L 86 L Oxygen Delivery Method Room Air Room Air Oxygen Flow Rate Sepsis Recent Fever Within 48 Hours Sepsis New/Unexplained Change in Mental Status Sepsis Action Taken by Nursing Oxygen Flow Rate - Titration 2 Pulse Oximetry Post Tiitration 99 02/13/24 05:26 02/13/24 05:30 02/13/24 05:47 Temperature Temperature Source Pulse Rate 105 H 91 H Pulse Rate from SpO2 Sensor Respiratory Rate 21 Respiratory Effort / Characteristics Respiratory Depth Respiratory Pattern Blood Pressure 151/91 H Blood Pressure Mean 114 Pulse Oximetry 97 99 Oxygen Delivery Method Nasal Cannula Nasal Cannula Oxygen Flow Rate 2 2 Sepsis Recent Fever Within 48 Hours Sepsis New/Unexplained Change in Mental Status Sepsis Action Taken by Nursing Oxygen Flow Rate - Titration Pulse Oximetry Post Tiitration 02/13/24 06:06 02/13/24 06:12 02/13/24 06:21 Temperature Temperature Source Pulse Rate 87 86 85 Pulse Rate from SpO2 Sensor 85 85 85 Respiratory Rate 24 12 Respiratory Effort / Characteristics Respiratory Depth Respiratory Pattern Blood Pressure Blood Pressure Mean Pulse Oximetry 100 99 100 Oxygen Delivery Method Oxygen Flow Rate Sepsis Recent Fever Within 48 Hours Sepsis New/Unexplained Change in Mental Status Sepsis Action Taken by Nursing Oxygen Flow Rate - Titration Pulse Oximetry Post Tiitration 02/13/24 06:33 02/13/24 07:06 02/13/24 07:12 Temperature Temperature Source Pulse Rate 86 85 82 Pulse Rate from SpO2 Sensor 90 84 85 Respiratory Rate 20 17 Respiratory Effort / Characteristics Respiratory Depth Respiratory Pattern Blood Pressure Blood Pressure Mean Pulse Oximetry 98 99 98 Oxygen Delivery Method Oxygen Flow Rate Sepsis Recent Fever Within 48 Hours Sepsis New/Unexplained Change in Mental Status Sepsis Action Taken by Nursing Oxygen Flow Rate - Titration Pulse Oximetry Post Tiitration 02/13/24 07:24 02/13/24 07:30 02/13/24 07:42 Temperature Temperature Source Pulse Rate 87 80 87 Pulse Rate from SpO2 Sensor 87 81 81 Respiratory Rate 21 Respiratory Effort / Characteristics Respiratory Depth Respiratory Pattern Blood Pressure Blood Pressure Mean Pulse Oximetry 98 97 98 Oxygen Delivery Method Oxygen Flow Rate Sepsis Recent Fever Within 48 Hours Sepsis New/Unexplained Change in Mental Status Sepsis Action Taken by Nursing Oxygen Flow Rate - Titration Pulse Oximetry Post Tiitration 02/13/24 07:51 02/13/24 07:57 02/13/24 08:03 Temperature Temperature Source Pulse Rate 83 81 Pulse Rate from SpO2 Sensor 83 81 Respiratory Rate 17 15 20 Respiratory Effort / Characteristics Non-Labored Respiratory Depth Normal Respiratory Pattern Regular Blood Pressure Blood Pressure Mean Pulse Oximetry 98 98 Oxygen Delivery Method Oxygen Flow Rate Sepsis Recent Fever Within 48 Hours Sepsis New/Unexplained Change in Mental Status Sepsis Action Taken by Nursing Oxygen Flow Rate - Titration Pulse Oximetry Post Tiitration Laboratory Data 02/13/24 04:42 02/13/24 04:42 Lab Results 02/13/24 02/13/24 Range/Units 04:42 05:39 WBC 9.84 (4.8-10.8) K/ul RBC 4.65 (4.20-5.40) M/uL Hgb 14.3 (12.0-16.0) g/dl Hct 42.4 (37.0-47.0) % MCV 91.2 (80.0-100.0) fL MCH 30.8 (25.0-34.0) pg MCHC 33.7 (32.0-36.0) g/dL RDW Std Deviation 42.3 (36.4-46.3) fL RDW Coeff of Areli 12.7 (11.5-14.5) % Plt Count 191 (130-400) K/uL MPV 12.0 (9.4-12.4) fL Immature Gran % (Auto) 0.3 % Neut % (Auto) 75.1 % Lymph % (Auto) 13.0 % Pine % (Auto) 10.7 % Eos % (Auto) 0.4 % Baso % (Auto) 0.5 % Neut # (Auto) 7.39 H (1.40-6.50) K/uL Lymph # (Auto) 1.28 (1.20-3.40) K/uL Pine # (Auto) 1.05 H (0.11-0.59) K/uL Eos # (Auto) 0.04 (0.00-0.50) K/uL Baso # (Auto) 0.05 (0.00-0.20) K/uL Immature Gran # (Auto) 0.03 (0.01-0.20) K/uL D-Dimer 460 (0-500) ug/L FEU Sodium 139 (136-145) mmol/L Potassium 3.8 (3.5-5.1) mmol/L Chloride 102 (98-107) mmol/L Carbon Dioxide 29 (21-32) mmol/L Anion Gap 8 (3-11) BUN 15 (6-23) mg/dl Creatinine 0.55 L (0.6-1.2) mg/dl Est Cr Clr Drug Dosing 67.6 ml/min eGFR 92.60 BUN/Creatinine Ratio 27.3 H (10-20) Glucose 117 H (70-99(Fasting)) mg/dl Calcium 9.1 (8.6-10.3) mg/dl Phosphorus 3.6 (2.5-4.9) mg/dl Magnesium 1.7 (1.7-2.4) mg/dl Total Bilirubin 0.8 (0.2-1.0) mg/dl AST 12 L (13-39) U/L ALT 13 (7-52) U/L Alkaline Phosphatase 66 (34-104) U/L Troponin I High Sens 16.2 H (0-14) pg/ml Total Protein 7.5 (6.0-8.3) gm/dl Albumin 4.1 (3.4-5.0) gm/dl Globulin 3.4 (2.5-4.0) gm/dl Albumin/Globulin Ratio 1.2 (0.9-2) Lipase 19 (11-82) U/L TSH 1.531 (0.300-4.500) uIu/ml Administered Medications Anastrozole (Anastrozole 1 Mg Tab) 1 mg PO DAILY TOM Stop: 03/14/24 10:27 Last Admin: 02/13/24 13:36 Dose: 1 mg Documented By: ALEKSANDER Co-signed By: KATHI Atenolol (Atenolol 25 Mg Tablet) 25 mg PO BID [facility] Stop: 03/14/24 10:27 Last Admin: 02/13/24 12:26 Dose: 25 mg Documented By: ALEKSANDER Azelastine HCl (Azelastine Hcl 0.1% Nasal 200 Sprays/27,400 Mcg Btl) 1 sprays JESSICA DAILY TOM Stop: 03/14/24 10:27 Last Admin: 02/13/24 12:25 Dose: Not Given Documented By: ALEKSANDER Diltiazem HCl (Diltiazem Hcl 30 Mg Tab) 30 mg PO Q6H TOM Stop: 03/14/24 10:29 Last Admin: 02/13/24 16:14 Dose: 30 mg Documented By: Admin: 02/13/24 12:25 Dose: 30 mg Documented By: ALEKSANDER Enoxaparin Sodium (Enoxaparin Inj 60 Mg/0.6 Ml Syr) 50 mg SQ Q12 TOM Stop: 03/14/24 10:44 Last Admin: 02/13/24 12:25 Dose: 50 mg Documented By: ALEKSANDER Loratadine (Loratadine 10 Mg Tab) 10 mg PO DAILY [facility] Stop: 03/14/24 10:27 Last Admin: 02/13/24 12:25 Dose: 10 mg Documented By: ALEKSANDER Multivitamins/Minerals (Cerovite Adv Formula Tab) 1 tab PO DAILY TOM Stop: 03/14/24 10:27 Last Admin: 02/13/24 12:26 Dose: 1 tab Documented By: ALEKSANDER Vitamin D (Cholecalciferol 25 Mcg (1000 Units) Tab) 50 mcg PO DAILY TOM Stop: 03/14/24 10:27 Last Admin: 02/13/24 12:25 Dose: 50 mcg Documented By: ALEKSANDER Imaging Data Radiologist's Impression: Chest X-Ray 02/13/24 05:33 EXAM: XR chest 1V portable CLINICAL HISTORY: SOB, cough and congestion, tachycardia. TECHNIQUE: An X-ray image of the chest was obtained in 1 view: AP projection. COMPARISON: X-ray dated 07/30/2023. FINDINGS: Pulmonary Parenchyma: Bilateral prominent broncho vascular markings and interstitial linings. No evidence of consolidation, collapse, or focal opacities. No pulmonary nodules are identified. No evidence of pleural effusion or pleural thickening. Heart and Mediastinum: Heart size and shape are normal. No mediastinal widening or masses. No hilar or mediastinal lymphadenopathy. Bony Thorax: Bony thorax appears intact without fractures or deformities. Soft Tissues: Soft tissues overlying the chest wall are unremarkable. IMPRESSION: 1. Bilateral prominent broncho vascular markings and interstitial linings. 2. Findings are unchanged since the prior study dated 07/30/2023. 3. No acute cardiopulmonary abnormalities are identified. Electronically signed by Jeanne Mendes 02-13-2024 06:56 AM Discharge Plan Visit Data Chief Complaint: Shortness of Breath/Dyspnea Stated Complaint: SHORTNESS OF BREATH, CONGESTION ED Provider: Mariya Condon Discharge Problem: Chest pain, Atrial fibrillation with rapid ventricular response, Acute dyspnea Patient Disposition: Admitted As Inpatient Discharge Instructions Interventions: ED Discharge Assessment Last Done: 02/13/24 10:28 Discharge Problem: Chest pain Qualifiers: Chest pain type: unspecified Qualified Code(s): R07.9 - Chest pain, unspecified
--- NOTE | 2024-02-13 06:57 | XRay Report ---
EXAM: XR chest 1V portable CLINICAL HISTORY: SOB, cough and congestion, tachycardia. TECHNIQUE: An X-ray image of the chest was obtained in 1 view: AP projection. COMPARISON: X-ray dated 07/30/2023. FINDINGS: Pulmonary Parenchyma: Bilateral prominent broncho vascular markings and interstitial linings. No evidence of consolidation, collapse, or focal opacities. No pulmonary nodules are identified. No evidence of pleural effusion or pleural thickening. Heart and Mediastinum: Heart size and shape are normal. No mediastinal widening or masses. No hilar or mediastinal lymphadenopathy. Bony Thorax: Bony thorax appears intact without fractures or deformities. Soft Tissues: Soft tissues overlying the chest wall are unremarkable. IMPRESSION: 1. Bilateral prominent broncho vascular markings and interstitial linings. 2. Findings are unchanged since the prior study dated 07/30/2023. 3. No acute cardiopulmonary abnormalities are identified. Electronically signed by Jeanne Mendes 02-13-2024 06:56 AM
[2024-02-13 06:58] LABS: D Dimer 460 ug/L FEU (0-500)
--- NOTE | 2024-02-13 08:21 | History & Physical Report ---
Date of Service February 13, 2024 Assessment & Plan (1) Atrial fibrillation with rapid ventricular response: Plan: Currently in normal sinus rhythm with PACs. Will continue a atenolol and switch the amlodipine to diltiazem. Telemetry. Cardiac echo pending. Check free T3 and free T4 levels (2) Chest pain: Plan: Chest discomfort occurs with palpitations. Currently she is pain-free. Telemetry. Troponin is minimally elevated. No acute ST segment changes to suggest acute coronary syndrome. 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 Fortunately no significant residual deficits. Will give Lovenox for now but I believe ongoing systemic anticoagulation risks outweigh any benefits long-term (4) SVT (supraventricular tachycardia): Plan: History of SVT in the past. She takes a atenolol chronically Plan Telemetry. Switch amlodipine to diltiazem. Continue atenolol for now. Lovenox subcu every 12 hours while hospitalized. Await cardiac echo results. Hopefully home within the next day or 2 History of Present Illness Chief Complaint: Palpitations, chest discomfort Primary Care Provider: TIANA Giles 78-year-old white female who noticed palpitations, shortness of breath, and chest discomfort today. She had no diaphoresis back pain or arm pain. She came to the ED for evaluation. She has normal sinus rhythm but episodes of what appears to be atrial fibrillation with rapid ventricular rate. Previous EKGs reveal premature atrial contractions. She is currently asymptomatic at the time of my examination. She denies any evidence of DVT or previous PE. She did however have a [employer] hemorrhagic stroke earlier this year fortunately with very little residual. Troponin is minimally elevated. EKG reveals no acute ST segment elevation to suggest acute coronary syndrome. She is admitted for further evaluation and treatment Allergies Allergy/AdvReac Type Severity Reaction Status Date / Time atorvastatin [From Lipitor] AdvReac Intermediate hairloss Verified 02/11/24 11:16 simvastatin [From Zocor] AdvReac Intermediate hairloss Verified 02/11/24 11:16 Home Medications Medication Instructions Recorded Confirmed Type albuterol sulfate 90 mcg/actuation 2 puff inhalation QID PRN 03/29/23 02/11/24 Rx aerosol inhaler shortness of breath or wheezing #6.7 grams anastrozole 1 mg tablet 1 mg PO DAILY #30 tabs 08/02/24 12/30/24 Rx atenolol 25 mg tablet 25 mg PO BID #60 tabs 09/14/23 02/11/24 Rx cholecalciferol (vitamin D3) 25 2,000 unit PO DAILY #30 caps 09/14/23 02/11/24 Rx mcg (1,000 unit) capsule lisinopril 5 mg tablet 5 mg PO DAILY #30 tabs 09/14/23 02/11/24 Rx montelukast 10 mg tablet 10 mg PO HS #30 tabs 09/14/23 02/11/24 Rx pechsudl-ggsx-jtag 8 mg-folic 400 1 tab PO DAILY #30 tabs 09/14/23 02/11/24 Rx mcg-K 50 mcg-lutein 300 mcg tablet (Centrum Silver Women) azelastine 137 mcg (0.1 %) nasal 1 spray intranasal DAILY #30 mL 12/14/23 02/11/24 Rx spray fluticasone propionate 50 2 spray intranasal DAILY PRN nasal 12/14/23 02/11/24 Rx mcg/actuation nasal congestion #16 grams spray,suspension amlodipine 5 mg tablet 5 mg PO DAILY #30 tabs 01/28/24 02/11/24 Rx loratadine 10 mg tablet 10 mg PO DAILY #30 tabs 01/28/24 02/11/24 Rx meloxicam 15 mg tablet 15 mg PO DAILY PRN Pain #30 tabs 01/28/24 02/11/24 Rx benzonatate 200 mg capsule 200 mg PO TID PRN cough #30 caps 02/11/24 02/11/24 Rx 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 Hypoxia (Acute) SVT (supraventricular tachycardia) (Acute) Dysrhythmia (Acute) Chest pain (Acute) Supraventricular tachycardia (04/2023) S/P bilateral mastectomy Bilateral breast cancer Abnormal findings on diagnostic imaging of breast Breast lump on right side at 9 o'clock position Left ankle strain Breast lump in female Left arm pain Dyspnea on exertion Myalgia due to statin Pulmonary nodule Sciatic leg pain Active Meniere's disease, cochlear (Acute) Allergic rhinitis (Chronic) Hyperlipidemia (Chronic) Hypertension (Chronic) Medical History Right-sided chest pain Hypokalemia Hypomagnesemia Vertigo Surgical History History of dental surgery Hx of cholecystectomy Family History Mother Hypertension Myocardial infarction Denies family history of Ovarian cancer Prostate cancer Diabetes Breast cancer Colorectal cancer Social History Smoking Status: Former smoker Tobacco Type: Cigarettes Age Started Using Tobacco: 18; Age Quit Using Tobacco: 28; packs per day: 0.25; Second Hand Exposure: No; Do You Dip or Chew Tobacco: No; Hx Alcohol Use: No Hx Substance Use: No Preferred Language: Vietnamese Communication Ability: Effective Visual Impairment: Limited Hearing Ability: Normal Clinical Data Abstractor Required: No Beliefs That Will Affect Care: None marital status: / Current Living Situation: Alone current occupational status: retired How many Children do You have: 3 How many Children do You have Comment: 1 child . Feels Safe at Home: Yes Childhood Exposure to Second-Hand Smoke: Yes Diet: regular caffeine: Yes (coffee) during the past year weight has: remained stable Dental Care, Regularly: Yes Physical Activity Frequency: Does not Exercise Seatbelt Use: always Sunscreen Use: No Do you think of yourself as: straight/heterosexual Gender Identity: Female Assistive Devices: Glasses and Hearing Aid - Right Review of Systems 2 Review of Systems: Constitutionalno fever or chills ENTno blurred vision, no double vision, no epistaxis, no sore throat Respiratoryno cough, no wheezing, no shortness of breath Cardiacno syncope. She does have palpitations and chest discomfort when she has rapid heartbeat Sandy nausea, vomiting, diarrhea, melena, hematochezia GUno urinary retention, no urinary incontinence, no dysuria, no hematuria Musculoskeletalno joint pain, no muscle tenderness Skinno bruising, no rashes, no pruritus Neurono isolated weakness, no paresthesia, no weakness Psychno depression, no anxiety Physical Exam 2 Physical Exam: General-alert and oriented x3, no fever, no chills HEENT-head atraumatic and normocephalic, pupils equal and reactive to light, extraocular muscles intact Neck-no lymphadenopathy or thyromegaly, trachea midline Chest-clear to auscultation. No rales, wheezing or rhonchi Cardiac-mildly tachycardic irregular rate and rhythm. Normal S1 and S2 Abdomen-normal bowel sounds, no hepatosplenomegaly Extremities-no cyanosis, clubbing, or edema Neuro-cranial nerves II through XII intact, motor and sensory function within normal limits, strength symmetrical, no focal deficits Psych-normal affect, normal mood Results & Data Results & Data Vital Signs (Past 12 Hours) Vital Signs Temp Pulse Resp BP Pulse Ox O2 Del Method O2 Flow Rate 02/13/24 07:57 15 02/13/24 05:47 99 Nasal Cannula 2 02/13/24 05:30 91 H 21 151/91 H 97 Nasal Cannula 2 02/13/24 05:26 105 H 02/13/24 05:25 86 L Room Air 02/13/24 05:24 174 H 02/13/24 05:20 84 L Room Air 02/13/24 04:53 94 H 02/13/24 04:47 91 Room Air 02/13/24 04:39 36.8 C 92 H 20 154/74 H 91 Room Air Laboratory Results 02/13/24 04:42 02/13/24 04:42 Code Status & VTE Plan Code Status Full code PG Care Time/CCT Total # of Minutes Spent Total Time Spent with Patient: Total time spent is greater than 50% in coordination of care (as documented) at patient's floor/unit and/or counseling patient: Coding Level of Care Code 58038 INT INP/OBS CARE 3/75MIN Diagnoses Atrial fibrillation with rapid ventricular response I48.91 Chest pain R07.9 Chest pain type: unspecified Left temporal lobe hemorrhage I61.1 SVT (supraventricular tachycardia) I47.10 (2) Chest pain Chest pain type: unspecified Qualified Code(s): R07.9 - Chest pain, unspecified
[2024-02-13] MEDS ORDERED: ACETAMINOPHEN 325 MG TAB PO PRN (10:28)
[2024-02-13] MEDS ORDERED: ENOXAPARIN 1 MG/KG SC SCH (10:28)
[2024-02-13] MEDS ORDERED: ONDANSETRON INJ 2 MG/ML 2 ML VIAL IV PRN (10:28)
[2024-02-13] MEDS: AZELASTINE HCL 0.1% NASAL 200 SPRAYS/27,400 MCG BTL NAE SCH (12:25)
[2024-02-13] MEDS: dilTIAZem HCL 30 MG TAB PO SCH (12:25)
[2024-02-13] MEDS: LORATADINE 10 MG TAB PO SCH (12:25)
[2024-02-13] MEDS: CHOLECALCIFEROL 25 MCG (1000 UNITS) TAB PO SCH (12:25)
[2024-02-13] MEDS: ENOXAPARIN INJ 60 MG/0.6 ML SYR SQ SCH (12:25)
[2024-02-13] MEDS: ATENOLOL 25 MG TABLET PO SCH (12:26)
[2024-02-13] MEDS: CEROVITE ADV FORMULA TAB PO SCH (12:26)
[2024-02-13] MEDS: ANASTROZOLE 1 MG TAB PO SCH (13:36)
[2024-02-13] MEDS: guaiFENesin/CODEINE 100MG/10MG 5ML UDC PO PRN (16:56)
[2024-02-13] MEDS: MONTELUKAST SODIUM 10 MG TABLET PO SCH (21:30)
--- NOTE | 2024-02-13 22:59 | Electrocardiogram Report ---
Test Reason : Blood Pressure : */* mmHG Vent. Rate : 94 BPM Atrial Rate : 94 BPM P-R Int : 138 ms QRS Dur : 80 ms QT Int : 388 ms P-R-T Axes : 86 44 72 degrees QTcB Int : 485 ms Sinus rhythm with PACs Minimal voltage criteria for LVH, may be normal variant Nonspecific T wave abnormality Prolonged QT When compared with ECG of 30-Jul-2023 05:47, QT has lengthened Confirmed by El Gee ([id number]) on 02/13/2024 10:59:14 PM Referred By: REFERRED SELF Confirmed By: El Gee
--- NOTE | 2024-02-14 09:29 | XCELERA ---
[id number]
--- NOTE | 2024-02-14 12:36 | Electrocardiogram Report ---
Test Reason : Blood Pressure : */* mmHG Vent. Rate : 106 BPM Atrial Rate : * BPM P-R Int : * ms QRS Dur : 80 ms QT Int : 366 ms P-R-T Axes : * 31 38 degrees QTcB Int : 486 ms Sinus tachycardia with frequent Premature atrial complexes Minimal voltage criteria for LVH, may be normal variant Nonspecific ST and T wave abnormality Abnormal ECG When compared with ECG of 13-Feb-2024 04:52, No significant change Confirmed by Gonzalo German ([id number]) on 02/14/2024 12:36:20 PM Referred By: REFERRED SELF Confirmed By: Gonzalo German
--- NOTE | 2024-02-14 13:16 | Hospitalist Progress Note ---
Date of Service February 14, 2024 Assessment & Plan (1) Acute bronchitis: Plan: patient with ongoing hypoxia & O2 requirement today repeat cxr without obvious infiltrates she has cough/congestion and wheezes on examination clinical picture most c/w acute bronchitis surprisingly, despite known sick contacts, her COVID/flu/RSV yesterday was negative, and a repeat full [employer] this afternoon was fully negative either way will Rx for bronchitis with dexamethasone, bronchodilators, mucinex, and will also give small dose of lasix re-eval tomorrow consider chest CT if no improvement with the above (2) Atrial fibrillation with rapid ventricular response: Plan: at time of ER presentation was felt to be in rapid a.fib however, all EKGs obtained since admission have shown NSR with considerable PACs did have a very brief episode of SVT -- has had such in the past (well- documented in her record) cont telemetry can stop diltiazem continue atenolol 25mg BID (3) Chest pain: Plan: suspect 2nd to #1 can't rule out SVT giving her palpitations no evidence of ACS can stop lovenox injections (4) Left temporal lobe hemorrhage: Plan: 07/2023 required hospitalization at [facility] but did NOT require surgical intervention no aneurysm found on CTA head/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) MRI brain from 12/2023 showed continued evolution of the left temporal lobe d/c lovenox that was ordered at time of admission (5) SVT (supraventricular tachycardia): Plan: History of SVT - 04/2023 Likely had self-terminating brief episode last night NO a.fib or flutter seen cont atenolol 25mg BID stop lovenox stop diltiazem Plan prior h/o breast cancer HTN - cont atenolol, stop the diltiazem; add back amlodipine if BP control still needed left message for daughter, Chelsea Ba, 02/14/24 on her voicemail will need PT eval Admission and Anticipated Discharge Date Admission Date: February 13, 2024 Subjective tele since admission - 1 episode of SVT, NO a.fib or a.flutter patient requiring NC O2 since admission I attempted to remove her O2 during my visit - sats promptly dropped to <88% in room air patient was coughing during my visit she reports poor appetite for a couple of days she reports cough for about a day but worse this afternoon states several family members were sick with URIs (grandchildren) over the holiday denies any recent edema of legs Review of Systems Review of Systems: gen - no fevers or chills cv - no chest pain today pulm - cough, sputum production Physical Exam Physical Exam: gen - coughing, but no distress neck - mild JVD mouth - MMM heart - RRR, extra beats, s1 s2, no murmur lungs - decreased BS bases, mild crackles bases, mild exp wheezes b/l abd - soft NT ND BS+ ext - no edema, pulses 2+ b/l Results & Data Results & Data Vital Signs (Past 12 Hours) Vital Signs Temp Pulse Pulse Resp BP Pulse Ox O2 Del Method 02/14/24 11:31 36.8 C 61 19 148/51 H 95 Nasal Cannula 02/14/24 08:34 Nasal Cannula 02/14/24 07:27 81 02/14/24 07:24 36.7 C 96 H 19 148/65 H 94 Nasal Cannula 02/14/24 04:30 37.0 C 73 18 147/77 H 94 Nasal Cannula O2 Flow Rate 02/14/24 11:31 2 02/14/24 08:34 2 02/14/24 07:27 02/14/24 07:24 2 02/14/24 04:30 2 Laboratory Results Laboratory Results - last 24 hr 02/14/24 13:35 Adenovirus (PCR) Not Detected B. pertussis DNA (PCR) Not Detected B.parapertussis DNA PCR Not Detected C. pneumoniae DNA (PCR) Not Detected Coronavirus OC43 (PCR) Not Detected Coronavirus HKU1 (PCR) Not Detected Coronavirus 229E (PCR) Not Detected SARS-CoV-2 (PCR) Not Detected Coronavirus NL63 (PCR) Not Detected Human Metapneumovir PCR Not Detected Influenza Type A (PCR) Not Detected Influenza Type B (PCR) Not Detected M. pneumoniae (PCR) Not Detected Parainfluenza 1 (PCR) Not Detected Parainfluenza 2 (PCR) Not Detected Parainfluenza 3 (PCR) Not Detected Parainfluenza 4 (PCR) Not Detected RSV (PCR) Not Detected Entero/Rhino (PCR) Not Detected Diagnostic Findings Chest X-Ray 02/14/24 13:15 XR chest 2V PA/lateral CLINICAL HISTORY: b/l rales, resp illness; ?pneumonia TECHNIQUE: 2 views of the chest were obtained. Comparison: Comparison is made to chest radiograph 02/13/2024 FINDINGS: No lines and tubes are seen. The cardiomediastinal silhouette is normal. The lungs are clear. No evidence of pleural effusion or pneumothorax. IMPRESSION: No acute abnormalities and in particular no radiographic evidence of pneumonia. ACT 112: Negative or not required by law. Electronically signed by: Jose Elias Walker M.D. 02/14/2024 2:55 PM PG Care Time/CCT Total # of Minutes Spent Total Time Spent with Patient: Total time spent is greater than 50% in coordination of care (as documented) at patient's floor/unit and/or counseling patient: Coding Level of Care Code 71425 SUB INP/OBS CARE 2/35MIN Diagnoses Acute bronchitis J20.9 Atrial fibrillation with rapid ventricular response I48.91 Chest pain R07.9 Chest pain type: unspecified Left temporal lobe hemorrhage I61.1 SVT (supraventricular tachycardia) I47.10 (3) Chest pain Chest pain type: unspecified Qualified Code(s): R07.9 - Chest pain, unspecified
[2024-02-14] MEDS: guaiFENesin 600 MG TABCR PO SCH (13:33)
[2024-02-14] MEDS: ALBUTEROL HFA 8 GM INHALER INH SCH (14:09)
--- NOTE | 2024-02-14 14:10 | Electrocardiogram Report ---
Test Reason : Blood Pressure : */* mmHG Vent. Rate : 78 BPM Atrial Rate : 78 BPM P-R Int : 152 ms QRS Dur : 84 ms QT Int : 406 ms P-R-T Axes : 81 -11 82 degrees QTcB Int : 462 ms Sinus rhythm with Premature atrial complexes Nonspecific T wave abnormality Prolonged QT Abnormal ECG When compared with ECG of 13-Feb-2024 05:26, (unconfirmed) Sinus rhythm has replaced Atrial fibrillation ST no longer depressed in Inferior leads Confirmed by Gonzalo German ([id number]) on 02/14/2024 2:09:34 PM Referred By: REFERRED SELF Confirmed By: Gonzalo German
[2024-02-14 14:42] LABS: Adenovirus PCR Not Detected (NotDetected); Bordetella parapertussis PCR Not Detected (NotDetected); Bordetella pertussis PCR Not Detected (NotDetected); Chlamydia pneumoniae PCR Not Detected (NotDetected); Coronavirus 229E PCR Not Detected (NotDetected); Coronavirus CoV-2 (COVID19)PCR Not Detected (NotDetected); Coronavirus HKU1 PCR Not Detected (NotDetected); Coronavirus NL63 PCR Not Detected (NotDetected); Coronavirus OC43PCR Not Detected (NotDetected); Human Metapneumovirus PCR Not Detected (NotDetected); Influenza A PCR Not Detected (NotDetected); Influenza B PCR Not Detected (NotDetected); Mycoplasma pneumoniae PCR Not Detected (NotDetected); Parainfluenza Virus 1 PCR Not Detected (NotDetected); Parainfluenza Virus 2 PCR Not Detected (NotDetected); Parainfluenza Virus 3 PCR Not Detected (NotDetected); Parainfluenza Virus 4 PCR Not Detected (NotDetected); Respiratory Syncytial VirusPCR Not Detected (NotDetected); Rhinovirus/Enterovirus PCR Not Detected (NotDetected)
--- NOTE | 2024-02-14 14:57 | XRay Report ---
XR chest 2V PA/lateral CLINICAL HISTORY: b/l rales, resp illness; ?pneumonia TECHNIQUE: 2 views of the chest were obtained. Comparison: Comparison is made to chest radiograph 02/13/2024 FINDINGS: No lines and tubes are seen. The cardiomediastinal silhouette is normal. The lungs are clear. No evid ence of pleural effusion or pneumothorax. IMPRESSION: No acute abnormalities and in particular no radiographic evidence of pneumonia. ACT 112: Negative or not required by law. Electronically signed by: Jose Elias Walker M.D. 02/14/2024 2:55 PM
[2024-02-14] MEDS: FUROSEMIDE 20 MG TAB PO ONE (16:30)
[2024-02-14] MEDS: dexAMETHasone 6 MG in SYRINGE 0 ML IV SCH (16:31)
[2024-02-15 07:52] LABS: BUN Creatinine Ratio 47.9 (10-20); C Reactive Protein 14.92 mg/dl (0-0.5); Calcium 8.7 mg/dl (8.6-10.3); Creatinine Clr Calc Pharmacy 81.8 ml/min; Potassium 4.5 mmol/L (3.5-5.1)
[2024-02-15] MEDS: FUROSEMIDE 20 MG TAB PO ONE (08:47)
--- NOTE | 2024-02-15 15:30 | CT Scan Report ---
CT OF THE CHEST WITHOUT IV CONTRAST CLINICAL HISTORY: b/l basilar rales, coughing; ?Pneumonia vs other? COMPARISON STUDY: Chest CT July 20, 2023. Chest radiograph February 14, 2024. CT DOSE: 227.88 mGy.cm TECHNIQUE: Axial images of the chest were obtained without IV contrast. Images were reviewed in the axial, sagittal, and coronal planes. IV contrast was not administered for this examination. Automat ed exposure control was utilized for the study. A dose lowering technique was utilized adhering to t he principles of ALARA. FINDINGS: No enlarged axillary, mediastinal or hilar lymph nodes are present. Size of the heart is n ormal. There is moderate coronary artery calcification. No pericardial effusion is present. There is no pneumothorax or pleural effusion. Moderate emphysema is noted. Diffuse bronchial wall thickening w ith multifocal mucus plugging is present. Multifocal tree-in-bud nodules within the lungs have mildly progressed when compared to prior CT. Several well-defined nodules within the lungs are similar to p rior CT. The largest is a right middle lobe nodule on image 150 measuring 9 mm. A 1.6 cm airspace opa city within the anterior segment of the right upper lobe on image 131 has developed since prior CT. N o cavitary lesions are present. Water attenuation bilateral renal lesions favor cysts. Biliary ductal dilatation is partially imaged. This was shown on prior CT. IMPRESSION: 1. Diffuse bronchial wall thickening with multifocal mucus plugging and tree-in-bud nodules which hav e increased since prior exam. The findings favor an infectious process. An atypical mycobacterial inf ection is within the differential. 2. 1.6 cm airspace opacity within the right upper lobe which has developed since prior exam. This fav ors a small focus of pneumonia. A chest CT in 3 months months to ensure resolution is recommended. 3. Multiple well-defined solid-appearing pulmonary nodules measuring up to 9 mm which are similar to prior CT. These should be assessed on follow-up exams to ensure continued stability. 4. Emphysema. ACT 112: Negative or not required by law. Electronically signed by: Alonzo Gallegos M.D. 02/15/2024 3:28 PM
[2024-02-15] MEDS: levoFLOXacin 750 MG TAB PO SCH (17:04)
[2024-02-15] MEDS: SODIUM CHLOR 7% 4 ML NEB NEB SCH (19:24)
--- NOTE | 2024-02-15 21:12 | Hospitalist Progress Note ---
Date of Service February 15, 2024 Assessment & Plan (1) Pneumonia: Plan: RUL opacity on CT chest today tree-in-bud opacities seen b/l as well all concerning for some form of infectious process resp BioFire negative radiology commented that atypical mycobacterial process (e.g. IRINA) is possible send bacterial sputum cx send AFB sputum cx add levaquin 750mg daily cont steroids cont bronchodilators will ask pulmonary to see in consult tomorrow for any additional recs of note - aspiration is in differential given the tree-in-bud opacities but she has had no swallowing issues while here (2) Mucus plugging of bronchi: Plan: change albuterol MDI to xopenex nebs add saline nebs BID cont mucinex cont flutter valve consider chest physiotherapy (3) Acute bronchitis: Plan: cough/congestion/wheezes since admission CT chest with diffuse bronchial inflammation - this is c/w bronchitis surprisingly, despite known sick contacts, her COVID/flu/RSV yesterday was negative, and a repeat full BioFire was also fully negative either way will Rx for bronchitis with dexamethasone, bronchodilators, mucinex, and will also give small dose of lasix again today (did such yesterday) - although decompensated CHF unlikely changing her albuterol MDI to xopenex nebs with saline nebs pulm consul tomorrow - see #1 above (4) Atrial fibrillation with rapid ventricular response: Plan: at time of ER presentation was felt to be in rapid a.fib however, all EKGs obtained since admission have shown NSR with considerable PACs did have a very brief episode of SVT AM of hospital day #1 -- has had such in the past (well-documented in her record) cont telemetry continue atenolol 25mg BID (5) Chest pain: Plan: suspect 2nd to #1, #2, #3 can't rule out SVT giving her palpitations no evidence of ACS (6) Left temporal lobe hemorrhage: Plan: 07/2023 required hospitalization at [facility] but did NOT require surgical interven tion no aneurysm found on CTA head/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) MRI brain from 12/2023 showed continued evolution of the left temporal lobe (7) SVT (supraventricular tachycardia): Plan: History of SVT - 04/2023 Likely had self-terminating brief episode of SVT hospital day #1 NO a.fib or flutter seen since admission cont atenolol 25mg BID prior lovenox and diltiazem stopped Plan prior h/o breast cancer HTN - cont atenolol; add back amlodipine if BP control still needed left message for daughter, Chelsea Ba, 02/14/24 on her voicemail updated pt's significant other at bedside today will ask PT to see to ensure patient is fit for d/c home Admission and Anticipated Discharge Date Admission Date: February 13, 2024 Subjective no SVT or afib seen on tele overnight patient continues with cough, but she feels better, and o2 has been weaned off stable sats today in room air asks when she can go home appetite a little better saw her a 2nd time today - this was late in the day after CT chest was done discussed CT in detail with her her significant other was present during the 2nd visit Review of Systems Review of Systems: gen - no fevers or chills cv - no chest pain or chest tightness pulm - no sputum GI - no N/V Physical Exam Physical Exam: gen - coughing, but looks better overall today, no distress neck - JVD resolved mouth - MMM heart - RRR, extra beats, s1 s2, no murmur lungs - decreased BS bases, mild crackles bases, mild exp wheezes b/l have improved from prior abd - soft NT ND BS+ ext - no edema, pulses 2+ b/l psych - a/o, but slightly confused at times Results & Data Results & Data Vital Signs (Past 12 Hours) Vital Signs Temp Pulse Pulse Resp BP BP Pulse Ox 02/15/24 19:40 36.5 C 78 18 128/73 94 02/15/24 19:24 86 19 90 02/15/24 15:41 36.3 C L 88 19 137/71 81 L 02/15/24 15:16 69 18 92 02/15/24 12:13 36.6 C 80 16 113/67 91 02/15/24 10:33 80 18 96 02/15/24 09:42 O2 Del Method O2 Flow Rate 02/15/24 19:40 Room Air 02/15/24 19:24 Room Air 02/15/24 15:41 Room Air 02/15/24 15:16 Nasal Cannula 02/15/24 12:13 Nasal Cannula 2 02/15/24 10:33 Nasal Cannula 2 02/15/24 09:42 Room Air Laboratory Results Laboratory Results - last 24 hr 02/15/24 06:50 Sodium 139 Potassium 4.5 Chloride 101 Carbon Dioxide 34 H Anion Gap 4 BUN 23 Creatinine 0.48 L Est Cr Clr Drug Dosing 81.8 eGFR 95.69 BUN/Creatinine Ratio 47.9 H Glucose 135 H Calcium 8.7 C-Reactive Protein 14.92 H Diagnostic Findings Chest CT 02/15/24 12:49 CT OF THE CHEST WITHOUT IV CONTRAST CLINICAL HISTORY: b/l basilar rales, coughing; ?Pneumonia vs other? COMPARISON STUDY: Chest CT July 20, 2023. Chest radiograph February 14, 2024. CT DOSE: 227.88 mGy.cm TECHNIQUE: Axial images of the chest were obtained without IV contrast. Images were reviewed in the axial, sagittal, and coronal planes. IV contrast was not administered for this examination. Automated exposure control was utilized for the study. A dose lowering technique was utilized adhering to the principles of ALARA. FINDINGS: No enlarged axillary, mediastinal or hilar lymph nodes are present. Size of the heart is normal. There is moderate coronary artery calcification. No pericardial effusion is present. There is no pneumothorax or pleural effusion. Moderate emphysema is noted. Diffuse bronchial wall thickening with multifocal mucus plugging is present. Multifocal tree-in-bud nodules within the lungs have mildly progressed when compared to prior CT. Several well-defined nodules within the lungs are similar to prior CT. The largest is a right middle lobe nodule on image 150 measuring 9 mm. A 1.6 cm airspace opacity within the anterior segment of the right upper lobe on image 131 has developed since prior CT. No cavitary lesions are present. Water attenuation bilateral renal lesions favor cysts. Biliary ductal dilatation is partially imaged. This was shown on prior CT. IMPRESSION: 1. Diffuse bronchial wall thickening with multifocal mucus plugging and tree-in-bud nodules which have increased since prior exam. The findings favor an infectious process. An atypical mycobacterial infection is within the differential. 2. 1.6 cm airspace opacity within the right upper lobe which has developed since prior exam. This favors a small focus of pneumonia. A chest CT in 3 months months to ensure resolution is recommended. 3. Multiple well-defined solid-appearing pulmonary nodules measuring up to 9 mm which are similar to prior CT. These should be assessed on follow-up exams to ensure continued stability. 4. Emphysema. ACT 112: Negative or not required by law. Electronically signed by: Alonzo Gallegos M.D. 02/15/2024 3:28 PM PG Care Time/CCT Total # of Minutes Spent Total Time Spent with Patient: Total time spent is greater than 50% in coordination of care (as documented) at patient's floor/unit and/or counseling patient: Coding Level of Care Code 78687 SUB INP/OBS CARE 3/50MIN Diagnoses Pneumonia J18.9 Mucus plugging of bronchi T17.500A Acute bronchitis J20.9 Atrial fibrillation with rapid ventricular response I48.91 Chest pain R07.9 Chest pain type: unspecified Left temporal lobe hemorrhage I61.1 SVT (supraventricular tachycardia) I47.10 (5) Chest pain Chest pain type: unspecified Qualified Code(s): R07.9 - Chest pain, unspecified
[2024-02-15] MEDS: LEVALBUTEROL 1.25 MG/3 ML NEB NEB SCH (23:41)
[2024-02-16 08:21] LABS: BUN Creatinine Ratio 44.3 (10-20); C Reactive Protein 5.81 mg/dl (0-0.5); Calcium 9.3 mg/dl (8.6-10.3); Creatinine Clr Calc Pharmacy 63.2 ml/min; Potassium 4.3 mmol/L (3.5-5.1)
[2024-02-16 10:52] VITALS: TEMP 98.1
--- NOTE | 2024-02-16 11:03 | Pulmonary Consultation ---
Date of Consultation February 16, 2024 Assessment & Plan (1) Multifocal pneumonia: (2) Abnormal chest CT: (3) Multiple pulmonary nodules: (4) Acute bronchitis: (5) COPD with emphysema: Plan CT chest 02/15/2024 personally reviewed: Centrilobular emphysema appreciated bilaterally Right upper lobe anterior segment 1.6 cm nodularity, 9 mm right middle lobe lateral segment pulmonary nodule (unchanged 08/05) Tree-in-bud opacities appreciated bilaterally No significant mediastinal lymphadenopathy -- Multilobar pneumonia Respiratory BioFire negative for everything on 02/14/2024 -- COPD with emphysema and bronchitis Not on any maintenance inhaler at home Recommend Stiolto or Anoro on discharge -- Pulmonary nodules Right middle lobe 9 mm Unchanged 08/05 --Current smoker Advised to quit Plan: Nebulized Brovana and budesonide while in the hospital, on discharge recommend Anoro or Stiolto Recommend to continue with antibiotics I think the tree-in-bud opacities are likely secondary to bronchitis and infection Continue with Mucinex and flutter valve Follow-up AFB Would recommend to have repeat CAT scan of the chest in 8-12 weeks to follow-up on the right upper lobe opacity which I think is likely consolidative process, if it is persistent on the repeat CAT scan of the chest then bronchoscopy will be thought of Case was discussed with primary team Please note the above document was generated using voice recognition software. It may contain grammatical, syntax or spelling errors.Any formal questions or concerns about the content, text or information contained within the body of this dictation should be directly addressed to the provider for clarification. History of Present Illness Attending Physician: Elvis Delgado MD History of Present Illness 78-year-old female was admitted to the hospital for chest discomfort and palpitation Past medical history: SVT, left temporal hemorrhage 07/2023, history of breast cancer Pulmonary consulted for abnormal chest CT At the time of examination patient was saturating 93-94% on room air She was not any respiratory distress. Heart rate was in the 60s. She says that she has cough and is able to bring up the phlegm without any issues Denies any hemoptysis At her baseline she is able to do her day-to-day activities without any significant shortness of breath On moderate-severe exertion when she gets short of breath mostly huffing and puffing. Denies any personal or family history of any autoimmune disease like lupus, sarcoid, Sjogren's, rheumatoid No Raynaud's. No hot tubs at home Does not have any attic at home Social history: Approximately 85-ycjf-arfy smoking history currently smokes couple of cigarettes on a social basis Allergies Allergy/AdvReac Type Severity Reaction Status Date / Time atorvastatin [From Lipitor] AdvReac Intermediate hairloss Verified 02/11/24 11:16 simvastatin [From Zocor] AdvReac Intermediate hairloss Verified 02/11/24 11:16 Home Medications Medication Instructions Recorded Confirmed Type albuterol sulfate 90 mcg/actuation 2 puff inhalation QID PRN 03/29/23 02/13/24 Rx aerosol inhaler shortness of breath or wheezing #6.7 grams anastrozole 1 mg tablet 1 mg PO DAILY #30 tabs 09/14/23 02/13/24 Rx atenolol 25 mg tablet 25 mg PO BID #60 tabs 09/14/23 02/13/24 Rx cholecalciferol (vitamin D3) 25 2,000 unit PO DAILY #30 caps 09/14/23 02/13/24 Rx mcg (1,000 unit) capsule lisinopril 5 mg tablet 5 mg PO DAILY #30 tabs 09/14/23 02/13/24 Rx montelukast 10 mg tablet 10 mg PO HS #30 tabs 09/14/23 02/13/24 Rx cbgikful-yqiq-ghnh 8 mg-folic 400 1 tab PO DAILY #30 tabs 09/14/23 02/13/24 Rx mcg-K 50 mcg-lutein 300 mcg tablet (Centrum [place] [facility]) azelastine 137 mcg (0.1 %) nasal 1 spray intranasal DAILY #30 mL 12/14/23 02/13/24 Rx spray fluticasone propionate 50 2 spray intranasal DAILY PRN nasal 12/14/23 02/13/24 Rx mcg/actuation nasal congestion #16 grams spray,suspension amlodipine 5 mg tablet 5 mg PO DAILY #30 tabs 01/28/24 02/13/24 Rx loratadine 10 mg tablet 10 mg PO DAILY #30 tabs 01/28/24 02/13/24 Rx meloxicam 15 mg tablet 15 mg PO DAILY PRN Pain #30 tabs 01/28/24 02/13/24 Rx Patient History Medical History Right-sided chest pain Hypokalemia Hypomagnesemia Vertigo Surgical History History of dental surgery Hx of cholecystectomy Family History Mother Hypertension Myocardial infarction Denies family history of Ovarian cancer Prostate cancer Diabetes Breast cancer Colorectal cancer Social History Smoking Status: Former smoker Tobacco Type: Cigarettes Age Started Using Tobacco: 18; Age Quit Using Tobacco: 28; packs per day: 0.25; Second Hand Exposure: No; Do You Dip or Chew Tobacco: No; Hx Alcohol Use: No Hx Substance Use: No Preferred Language: Bhutanese Communication Ability: Effective Visual Impairment: Limited Hearing Ability: Normal [employer] Required: No Beliefs That Will Affect Care: None marital status: / Current Living Situation: Family current occupational status: retired How many Children do You have: 3 How many Children do You have Comment: 1 child . Feels Safe at Home: Yes Childhood Exposure to Second-Hand Smoke: Yes Diet: regular caffeine: Yes (coffee) during the past year weight has: remained stable Dental Care, Regularly: Yes Physical Activity Frequency: Does not Exercise Seatbelt Use: always Sunscreen Use: No Do you think of yourself as: straight/heterosexual Gender Identity: Female Assistive Devices: None Review of Systems 2 Review of Systems: All systems reviewed & are unremarkable except as noted in HPI & below Physical Exam 2 Physical Exam: Constitutional: No acute distress HEENT: EOMI, PERRLA Respiratory system: Decreased air entry bilaterally, no wheeze, no cough, mild crackles bilateral lower lobes more on the right side CVS: S1-S2 positive, no murmurs or gallops Abdomen: Soft, nontender, nondistended, positive bowel sounds x4 Extremities: +2 pulses bilaterally radialis/ dorsalis pedis, no cyanosis, no edema, no clubbing Neuro: Awake alert oriented x3 Psych: Normal mood and affect G/U: No [place] Skin: no rashes, warm and dry Lymphatic: no cervical or axillary lymphadenopathy Results & Data Results & Data Vital Signs (Past 12 Hours) Vital Signs Temp Pulse Resp BP Pulse Ox O2 Del Method O2 Flow Rate 02/16/24 10:50 36.7 C 79 18 149/68 H 94 Room Air 02/16/24 07:00 36.8 C 76 18 151/74 H 92 Nebulizer 02/16/24 03:30 149/79 H 02/16/24 02:58 36.8 C 78 18 144/88 H 94 Room Air 02/15/24 23:41 77 20 97 Nasal Cannula 2 Laboratory Results 02/13/24 04:42 02/16/24 06:54 PG Care Time/CCT Total # of Minutes Spent Total Time Spent with Patient: Total time spent is greater than 50% in coordination of care (as documented) at patient's floor/unit and/or counseling patient: Coding Level of Care Code 50539 INT INP/OBS CARE 3/75MIN Diagnoses Multifocal pneumonia J18.[address] R93.89 Multiple pulmonary nodules R91.8 Acute bronchitis J20.9 COPD with emphysema J43.9
[2024-02-16 14:40] VITALS: RESP 16
[2024-02-16 14:46] VITALS: O2SAT 91
[2024-02-16 15:49] VITALS: BP 128/73; PULSE 86
--- NOTE | 2024-02-16 15:55 | Discharge Summary ---
Discharge Summary Date of Service date of admission - February 13, 2024 date of discharge - February 16, 2024 Principal Dx & Hospital Course #1 = Principal Diagnosis (1) Pneumonia: patient had multiple pulmonary symptoms including cough, congestion, wheezing, c hest tightness, etc. although chest x-ray was negative for infiltrates, CT chest obtained showed tree-in-bud opacities b/l as well as an infiltrate in the RUL these findings were all concerning for some form of infectious process - probably bacterial Respiratory BioFire panel was negative radiology commented that atypical mycobacterial process (e.g. IRINA) was possible based on the CT findings thus AFB smear/culture was dispatched bacterial sputum cx remained negative while here treated with Levaquin 750mg daily also treated with IV steroids (for bronchitis component) and bronchodilators of note - aspiration is in differential given the tree-in-bud opacities but she had no swallowing issues while here prior to discharge I asked Dr Hemal Kelly from [facility] to see in cons ult he advised - * finish course of Levaquin (will complete 5 more days) * add Anoro Ellipta for probable underlying COPD * repeat CT chest in 2-3 months to ensure radiographic resolution of her infilt rates * finish prednisone course (6 more days at home) * f/u pulmonology for PFTs, etc. (2) Mucus plugging of bronchi: used combination of bronchodilators with saline nebs BID while here added mucinex added flutter valve cough/congestion/wheezing improved with the above sent home on albuterol MDI prn can take OTC mucinex at home if desired (3) Acute bronchitis: patient had cough/congestion/wheezes since admission CT chest with diffuse bronchial inflammation c/w bronchitis also with nodular infiltrates & RUL infiltrate (see above) surprisingly, despite known sick contacts, her COVID/flu/RSV swab was negative, and a repeat full BioFire resp panel was also fully negative Rx her bronchitis with dexamethasone, bronchodilators, mucinex, and small doses of diuretics (although decompensated CHF highly unlikely) seen by Dr Kelly from pulmonology - see #1 above bronchitis improved nicely while here with the above measures O2 was weaned off, and on day of discharge she passed her 2-step ambulatory o2 test (4) Atrial fibrillation with rapid ventricular response: at time of ER presentation was felt to be in rapid a.fib however, all EKGs obtained since admission have shown NSR with considerable PACs (NO Atrial Fib) did have a very brief episode of SVT AM of hospital day #1 -- has had such in the past (well-documented in her record) follows with Dr Ramon Damon - [facility] Card[facility] - for h/o SVT continue atenolol 25mg BID (5) Chest pain: suspect 2nd to #1, #2, #3 can't rule out SVT giving her palpitations no evidence of ACS while here troponin scantly elevated at 16 (normal <14) troponin elevation likely from #1 above (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 required hospitalization at [facility] but did NOT require surgical intervention no aneurysm found on CTA head/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) MRI brain from 12/2023 showed continued evolution of the left temporal lobe since her brain event she has had cognitive impairment (7) SVT (supraventricular tachycardia): History of SVT - 04/2023 Likely had self-terminating brief episode of SVT hospital day #1 NO a.fib or flutter seen since admission cont atenolol 25mg BID Plan prior h/o breast cancer HTN - cont atenolol; cont amlodipine; HOLD lisinopril Notes For Next Care Provider needs repeat CT chest 2-3 months needs f/u [facility] post-discharge Medication Changes From Visit prednisone course levaquin course tessalon prn albuterol prn Anoro Ellipta 1 puff daily HOLD lisinopril Admission HPI Per Admitting Provider 78-year-old white female who noticed palpitations, shortness of breath, and chest discomfort today. She had no diaphoresis back pain or arm pain. She came to the ED for evaluation. She has normal sinus rhythm but episodes of what appears to be atrial fibrillation with rapid ventricular rate. Previous EKGs reveal premature atrial contractions. She is currently asymptomatic at the time of my examination. She denies any evidence of DVT or previous PE. 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 Troponin is minimally elevated. EKG reveals no acute ST segment elevation to suggest acute coronary syndrome. She is admitted for further evaluation and treatment Discharge Exam gen - looks well, no distress neck - no JVD mouth - MMM heart - RRR, extra beats, s1 s2, no murmur lungs - decreased BS bases but improving airation; mild crackles bases, minimal exp wheezes b/l --> improved from prior abd - soft NT ND BS+ ext - no edema, pulses 2+ b/l psych - a/o, but slightly confused at times (baseline) Discharge Plan Discharge Items Patient Disposition: Home - Self-Care Reason For Visit: PALPITATIONS,CHEST PAIN Discharge Diagnosis: 1. acute bronchitis 2. right lung upper lobe pneumonia 3. SVT (supraventricular tachycardia) 4. history of intracerebral hemorrhage 5. history of breast cancer 6. palpitations - likely due to #3 7. shortness of breath - improved; due to #1, #2 8. pulmonary nodules on CT scan; repeat scan recommended in 2-3 months to ensure stability 9. COPD Activity: As commented below Activity Comment: gradually increase activities over the next 5-7 days Non-emergency contact: Primary Care Provider and [employer] Call non-emergency contact if: you have any medication questions, your symptoms worsen and you have a fever Follow-up/Referrals: Hetal Jovel CRNP [Primary Care Provider] - (within 5-7 days ) Hemal Kelly MD, FCCP [Physician] - (4-6 weeks with pulmonology ) Diet: Regular Addtl Attending Provider Instructions: Mrs Ace, Yariel were hospitalized due to bronchitis & pneumonia. We confirmed your infection on CT scan of the lungs. You improved with steroids, breathing treatments, antibiotics, and supportive care. You needed some oxygen early in the stay and this was weaned off on 02/15/24. A walking oxygen test on day of discharge showed that you do not need any oxygen at home. Dr Hemal Kelly from [facility] saw you in consult and agreed with the diagnosis of bronchitis and pneumonia. He recommended a repeat scan of your lungs in 2-3 months, a course of steroids & antibiotics, starting a daily inhaler called "Anoro" for your lungs, and follow-up in the pulmonary clinic. Finally, when you first came to the hospital, there was concern that you were in atrial fibrillation, an irregular heart rhythm. However, we did not see any definitive atrial fibrillation. You did have a brief episode of "SVT" and you have had this rhythm numerous times in the past (you see Dr Damon for this). Recommendations - 1. prednisone course - start this upon return home today. It is a 6-day taper. This is for your bronchitis. 2. antibiotics - levofloxacin 750mg once daily for 5 days, first dose tomorrow on 02/17/24. Most common side effect -- diarrhea. 3. Anoro inhaler - 1 puff daily. You can start this TODAY upon return home. 4. albuterol inhaler - 2 puffs every 4 hours as needed for cough/wheeze/shortness of breath (you should already have this at home). 5. benzonatate 100mg every 8 hours as needed for cough. 6. qidd-ggp-gjbxgev Mucinex up to 1200mg twice daily as needed for cough/congestion. 7. I would try to NOT take any meloxicam (which is used for arthritis pain) while you are finishing your prednisone course. 8. consider an hxex-uiy-[id number] probiotic supplement and take for 1 week. This may help prevent diarrhea from your antibiotics. 9. see [facility] -- we will help set up an appointment for you. 10. see your family doctor within 5-7 days for recheck. Return to [facility] if - * you have worsening shortness of breath * you have chest pains * you develop severe diarrhea (3 or more loose stools in a 24-hour period) * any other concerns It was our pleasure to care for you! -Dr Delgado Pending Studies at Discharge: Yes Studies:: cultures from your sputum Stand-Alone Forms: My [facility], Smoking Cessation Medications and DC Order Prescriptions: New prednisone 10 mg tablet 10 mg PO DIRECTED Qty: 15 0RF Rx Instructions: start 02/16/24, take with food. 4 tabs PO day 1; 3 tabs PO days 2/3; 2 tabs PO days 4/5; 1 tab PO day 6 then stop. Anoro Ellipta 62.5-25 mcg/actuation blister with device 1 inh inhalation DAILY Qty: 60 2RF benzonatate 100 mg capsule 100 mg PO TID PRN (Reason: cough) Qty: 20 0RF Continued albuterol sulfate 90 mcg/actuation HFA aerosol inhaler 2 puff inhalation QID PRN (Reason: shortness of breath or wheezing) Qty: 6.7 4RF anastrozole 1 mg tablet 1 mg PO DAILY Qty: 30 5RF atenolol 25 mg tablet 25 mg PO BID Qty: 60 5RF cholecalciferol (vitamin D3) 25 mcg (1,000 unit) capsule 2,000 unit PO DAILY Qty: 30 5RF montelukast 10 mg tablet 10 mg PO HS Qty: 30 5RF Centrum Silver Women 8 mg iron-400 mcg-50 mcg tablet 1 tab PO DAILY Qty: 30 5RF fluticasone propionate 50 mcg/actuation spray,suspension 2 spray intranasal DAILY PRN (Reason: nasal congestion) Qty: 16 11RF azelastine 137 mcg (0.1 %) spray,non-aerosol 1 spray INTNAS DAILY Qty: 30 7RF Rx Instructions: administer into each nostril at bedtime amlodipine 5 mg tablet 5 mg PO DAILY Qty: 30 11RF loratadine 10 mg tablet 10 mg PO DAILY Qty: 30 11RF meloxicam 15 mg tablet 15 mg PO DAILY PRN (Reason: Pain) Qty: 30 11RF Held lisinopril 5 mg tablet 5 mg PO DAILY Qty: 30 5RF Hold Instructions: hold for now Rx Instructions: TAKE 1 TABLET DAILY. Discharge Orders: Discharge Order (Routine); Ordered 02/16/24 Ordered By: Elvis Delgado Admission Data Admit Date/Time: 02/13/24 08:07 Attending Provider: Elvis Delgado Admit Provider: Mariya Condon Primary Care Provider: Hetal Jovel Other Providers: Hemal Kelly Other Interventions: Discharge Summary Assessment (RN) Last Done: 02/16/24 15:47 Hospital Stay Data Consultations [facility] - Hemal Kelly MD Procedures Performed 2-step O2 test - NO Oxygen needed for home use Echocardiogram - EF 55-60%; normal LV wall motion; mild LVH; mild mitral regurgitation Diagnostic Imagining Performed Chest X-Ray 02/13/24 05:33 EXAM: XR chest 1V portable CLINICAL HISTORY: SOB, cough and congestion, tachycardia. TECHNIQUE: An X-ray image of the chest was obtained in 1 view: AP projection. COMPARISON: X-ray dated 07/30/2023. FINDINGS: Pulmonary Parenchyma: Bilateral prominent broncho vascular markings and interstitial linings. No evidence of consolidation, collapse, or focal opacities. No pulmonary nodules are identified. No evidence of pleural effusion or pleural thickening. Heart and Mediastinum: Heart size and shape are normal. No mediastinal widening or masses. No hilar or mediastinal lymphadenopathy. Bony Thorax: Bony thorax appears intact without fractures or deformities. Soft Tissues: Soft tissues overlying the chest wall are unremarkable. IMPRESSION: 1. Bilateral prominent broncho vascular markings and interstitial linings. 2. Findings are unchanged since the prior study dated 07/30/2023. 3. No acute cardiopulmonary abnormalities are identified. Electronically signed by Jeanne Mendes 02-13-2024 06:56 AM Chest X-Ray 02/14/24 13:15 XR chest 2V PA/lateral CLINICAL HISTORY: b/l rales, resp illness; ?pneumonia TECHNIQUE: 2 views of the chest were obtained. Comparison: Comparison is made to chest radiograph 02/13/2024 FINDINGS: No lines and tubes are seen. The cardiomediastinal silhouette is normal. The lungs are clear. No evidence of pleural effusion or pneumothorax. IMPRESSION: No acute abnormalities and in particular no radiographic evidence of pneumonia. ACT 112: Negative or not required by law. Electronically signed by: Jose Elias Walker M.D. 02/14/2024 2:[address] 02/15/24 12:49 CT OF THE CHEST WITHOUT IV CONTRAST CLINICAL HISTORY: b/l basilar rales, coughing; ?Pneumonia vs other? COMPARISON STUDY: Chest CT July 20, 2023. Chest radiograph February 14, 2024. CT DOSE: 227.88 mGy.cm TECHNIQUE: Axial images of the chest were obtained without IV contrast. Images were reviewed in the axial, sagittal, and coronal planes. IV contrast was not administered for this examination. Automated exposure control was utilized for the study. A dose lowering technique was utilized adhering to the principles of ALARA. FINDINGS: No enlarged axillary, mediastinal or hilar lymph nodes are present. Size of the heart is normal. There is moderate coronary artery calcification. No pericardial effusion is present. There is no pneumothorax or pleural effusion. Moderate emphysema is noted. Diffuse bronchial wall thickening with multifocal mucus plugging is present. Multifocal tree-in-bud nodules within the lungs have mildly progressed when compared to prior CT. Several well-defined nodules within the lungs are similar to prior CT. The largest is a right middle lobe nodule on image 150 measuring 9 mm. A 1.6 cm airspace opacity within the anterior segment of the right upper lobe on image 131 has developed since prior CT. No cavitary lesions are present. Water attenuation bilateral renal lesions favor cysts. Biliary ductal dilatation is partially imaged. This was shown on prior CT. IMPRESSION: 1. Diffuse bronchial wall thickening with multifocal mucus plugging and tree-in-bud nodules which have increased since prior exam. The findings favor an infectious process. An atypical mycobacterial infection is within the differential. 2. 1.6 cm airspace opacity within the right upper lobe which has developed since prior exam. This favors a small focus of pneumonia. A chest CT in 3 months months to ensure resolution is recommended. 3. Multiple well-defined solid-appearing pulmonary nodules measuring up to 9 mm which are similar to prior CT. These should be assessed on follow-up exams to ensure continued stability. 4. Emphysema. ACT 112: Negative or not required by law. Electronically signed by: Alonzo Gallegos M.D. 02/15/2024 3:28 PM Pending Results Patient Have Any Pending Studies at Discharge: Yes Discharge Instructions Given to Patient (Per Discharging Provider) Mrs Ace, Yariel were hospitalized due to bronchitis & pneumonia. We confirmed your infection on CT scan of the lungs. You improved with steroids, breathing treatments, antibiotics, and supportive care. You needed some oxygen early in the stay and this was weaned off on 02/15/24. A walking oxygen test on day of discharge showed that you do not need any oxygen at home. Dr Hemal Kelly from [facility] saw you in consult and agreed with the diagnosis of bronchitis and pneumonia. He recommended a repeat scan of your lungs in 2-3 months, a course of steroids & antibiotics, starting a daily inhaler called "Anoro" for your lungs, and follow-up in the pulmonary clinic. Finally, when you first came to the hospital, there was concern that you were in atrial fibrillation, an irregular heart rhythm. However, we did not see any definitive atrial fibrillation. You did have a brief episode of "SVT" and you have had this rhythm numerous times in the past (you see Dr Damon for this). Recommendations - 1. prednisone course - start this upon return home today. It is a 6-day taper. This is for your bronchitis. 2. antibiotics - levofloxacin 750mg once daily for 5 days, first dose tomorrow on 02/17/24. Most common side effect -- diarrhea. 3. Anoro inhaler - 1 puff daily. You can start this TODAY upon return home. 4. albuterol inhaler - 2 puffs every 4 hours as needed for cough/wheeze/shortness of breath (you should already have this at home). 5. benzonatate 100mg every 8 hours as needed for cough. 6. bztw-pmp-kttirdy Mucinex up to 1200mg twice daily as needed for cough/congestion. 7. I would try to NOT take any meloxicam (which is used for arthritis pain) while you are finishing your prednisone course. 8. consider an [id number]-[id number] probiotic supplement and take for 1 week. This may help prevent diarrhea from your antibiotics. 9. see [facility] -- we will help set up an appointment for you. 10. see your family doctor within 5-7 days for recheck. Return to [facility] if - * you have worsening shortness of breath * you have chest pains * you develop severe diarrhea (3 or more loose stools in a 24-hour period) * any other concerns It was our pleasure to care for you! -Dr Delgado Total Time Total Time Spent Total Time Spent (In Minutes): 50 Coding Level of Care Code 37149 INP/OBS DISCH >30 MIN Diagnoses Pneumonia J18.9 Mucus plugging of bronchi T17.500A Acute bronchitis J20.9 Atrial fibrillation with rapid ventricular response I48.91 Chest pain R07.9 Chest pain type: unspecified Left temporal lobe hemorrhage I61.1 SVT (supraventricular tachycardia) I47.10
[2024-02-16] MEDS ORDERED: BUDESONIDE 0.5 MG/2 ML VIAL (PULMICORT) NEB SCH (19:00)
[2024-02-16] MEDS ORDERED: FORMOTEROL 20 MCG/2 ML VIAL NEB SCH (19:00)
== END 2024-02-16 17:27 | disposition home or self-care (01) | DRG 202 ==
LOC: SUATTDRO → ED 04:37 → EDINP 08:07 → SUATTDRO 08:07 → INTOOBSV 08:07 → 2S 10:28
DX: I10 Essential (primary) hypertension; R06.02 Shortness of breath; J44.0 Chronic obstructive pulmonary disease with (acute) lower respiratory infection; E85.4 Organ-limited amyloidosis; Z87.891 Personal history of nicotine dependence; R00.2 Palpitations; J18.9 Pneumonia, unspecified organism; R91.1 Solitary pulmonary nodule; T17.590A Other foreign object in bronchus causing asphyxiation, initial encounter; Z79.899 Other long term (current) drug therapy; Z85.3 Personal history of malignant neoplasm of breast; I48.91 Unspecified atrial fibrillation; Z88.8 Allergy status to other drugs, medicaments and biological substances; J20.9 Acute bronchitis, unspecified; I68.0 Cerebral amyloid angiopathy; R91.8 Other nonspecific abnormal finding of lung field; Z86.73 Personal history of transient ischemic attack (TIA), and cerebral infarction without residual deficits; I47.10 Supraventricular tachycardia, unspecified

== ENCOUNTER 2024-04-07 08:42 | Inpatient (IN) ==
--- NOTE | 2024-04-07 09:13 | Emergency Department Note ---
Impression & Plan Hypoxia, Influenza A, COPD (chronic obstructive pulmonary disease) ED Provider Note NAME: SOM HURTADO AGE: 78 SEX: F : 1945 ARRIVES VIA: Ambulance INFORMANT: Patient ED PROVIDER(S): Yonatan Conroy MD CHIEF COMPLAINT: shortness of breath PLAN: Disposition: Admit MEDICAL DECISION MAKING: The patient is a pleasant 78-year-old woman with a past medical history of COPD, hypertension, hyperlipidemia, history of breast cancer on anastrozole who presents to the emergency department via EMS for evaluation of shortness of breath with cough and congestion over the past 5 days or so. Patient reports that she coughs forcefully at times bringing up sputum and gagging on this. She denies any vomiting. She denies diarrhea. She denies any fevers. Denies any known sick contacts. She reports she has had poor appetite at baseline which has worsened. On evaluation the patient is no distress, afebrile with heart rate in the 70s and vital signs otherwise stable. She has wheezes and rhonchi of bilateral mid to lower lung lion with normal respiratory effort. O2 saturation was in the mid-low 80s and so placed on 3 L nasal cannula. EKG without overt acute ischemia. CXR negative for acute cardiopulmonary process per my personal preliminary review/interpretation. WBC 4.6K with out neutrophilia or left shift. Lymphopenia is present of 0.47. Chemistry without metabolic acidosis. BUNs/creatinine is 28 consistent with patient's clinically dry appearance. Magnesium 1.6 with IV repletion provided. LFTs unremarkable. High-sensitivity troponin 7.7, within normal limits. Lipase is normal. Procalcitonin is not elevated. Respiratory BioFire was positive for influenza A (H3). Tamiflu ordered. Additional treatment with IV fluid hydration, guaifenesin, Solu-Medrol and DuoNeb provided. Given the patient's hypoxia in the setting of patient's history of COPD and influenza patient agrees with plan for admission for further management. Case was discussed [place]. Thompson, [facility] who will evaluate the patient for admission. Further management per admitting team. Triage Nursing notes reviewed and agree them. Prior/external medical records reviewed Vital Signs: reviewed Differential diagnosis: Reactive airway disease, pneumonia, pneumothorax, COPD, CHF, infections, cardiac ischemia, pulmonary embolism, musculoskeletal, gastrointestinal, as well as other pathologies. ER treatment provided: See below. Diagnostics interpreted by me: ECG: Normal sinus rhythm, 78 bpm, no ectopy, no overt ST elevation or depression, QTc 437, QRS 74. Cardiac Monitoring: An order for continuous cardiac monitoring was placed and demonstrated normal sinus rhythm, 78 bpm, no ectopy. Laboratory studies: See below Imaging studies: See below Consultation(s): Dr. Thompson, [facility] HPI: The patient is a pleasant 78-year-old woman with a past medical history of COPD, hypertension, hyperlipidemia, history of breast cancer on anastrozole who presents to the emergency department via EMS for evaluation of shortness of breath with cough and congestion over the past 5 days or so. Patient reports that she coughs forcefully at times bringing up sputum and gagging on this. She denies any vomiting. She denies diarrhea. She denies any fevers. Denies any known sick contacts. She reports she has had poor appetite and general which has worsened. ROS: See above HPI for pertinent positives & negatives. A total of 10 systems reviewed and were otherwise negative. VITALS:See Below PHYSICAL EXAMINATION: GENERAL: Awake, alert, fatigued-appearing, in no distress HENT: Normocephalic, atraumatic. Oropharynx with dry mucous membranes and otherwise unremarkable. EYES: Normal conjunctiva. Sclera non-icteric. NECK: Supple. No nuchal rigidity. FROM. No JVD. RESPIRATORY: Wheezes of bilateral mid to lower lung lion with normal respiratory effort. CARDIAC: Regular rate, normal rhythm. Extremities warm and well perfused. Pulses equal. ABDOMEN: Soft, non-distended. No tenderness to palpation. No rebound or guarding. No masses. MUSCULOSKELETAL: Chest examination reveals no tenderness. The back is symmetrical on inspection without obvious abnormality. There is no CVA tenderness to palpation. No joint edema. LOWER EXTREMITIES: Calves are equal size bilaterally and non-tender. No edema. No discoloration. NEURO: Normal sensorium. No sensory or motor deficits noted. SKIN: No rash or jaundice noted. Yonatan Conroy MD Past Med/Surg History Problem List (Updated 04/07/24 @ 20:59 by Yonatan Conroy MD) Acute hypoxic respiratory failure COPD exacerbation COPD (chronic obstructive pulmonary disease) (Acute) Influenza A (Acute) Hypoxia (Acute) COPD with emphysema Multiple pulmonary nodules Abnormal chest CT Multifocal pneumonia Atrial fibrillation with rapid ventricular response (Acute) Cognitive communication deficit Anemia Poor appetite Weight loss Intraparenchymal hematoma of brain Dysrhythmia (Acute) Chest pain (Acute) Supraventricular tachycardia (04/2023) S/P bilateral mastectomy Bilateral breast cancer Breast lump on right side at 9 o'clock position Left ankle strain Breast lump in female Dyspnea on exertion Myalgia due to statin Pulmonary nodule Sciatic leg pain Active Meniere's disease, cochlear (Acute) Allergic rhinitis (Chronic) Hyperlipidemia (Chronic) Hypertension (Chronic) Medical History SVT (supraventricular tachycardia) Right-sided chest pain Hypokalemia Hypomagnesemia Vertigo Surgical History History of dental surgery Hx of cholecystectomy Family History Mother Hypertension Myocardial infarction Denies family history of Ovarian cancer Prostate cancer Diabetes Breast cancer Colorectal cancer Social History Smoking Status: Former smoker Tobacco Type: Cigarettes Age Started Using Tobacco: 18; Age Quit Using Tobacco: 28; packs per day: 0.25; Second Hand Exposure: No; Do You Dip or Chew Tobacco: No; Hx Alcohol Use: No Hx Substance Use: No Preferred Language: Belarusian Communication Ability: Effective Visual Impairment: Limited Hearing Ability: Normal Education Analyst Required: No Beliefs That Will Affect Care: None marital status: / Current Living Situation: Family current occupational status: retired How many Children do You have: 3 How many Children do You have Comment: 1 child . Other Information That Helps Us Care for You: No Feels Safe at Home: Yes Safety Concerns: Feels Safe At This Time Childhood Exposure to Second-Hand Smoke: Yes Diet: regular caffeine: Yes (coffee) during the past year weight has: remained stable Dental Care, Regularly: Yes Physical Activity Frequency: Does not Exercise Seatbelt Use: always Sunscreen Use: No Do you think of yourself as: straight/heterosexual Gender Identity: Female Assistive Devices: Glasses Allergies Allergies Allergy/AdvReac Type Severity Reaction Status Date / Time atorvastatin [From Lipitor] AdvReac Intermediate hairloss Verified 04/01/24 10:50 simvastatin [From Zocor] AdvReac Intermediate hairloss Verified 04/01/24 10:50 Home Meds Home Medications Medication Instructions Recorded Confirmed alendronate 70 mg tablet 70 mg PO WK 04/07/24 04/07/24 amlodipine 5 mg tablet 5 mg PO QAM 04/07/24 04/07/24 anastrozole 1 mg tablet 1 mg PO QAM 04/07/24 04/07/24 cholecalciferol (vitamin D3) 50 50 mcg PO HS 04/07/24 04/07/24 mcg (2,000 unit) capsule lisinopril 5 mg tablet 5 mg PO QAM 04/07/24 04/07/24 loratadine 10 mg tablet 10 mg PO QAM 04/07/24 04/07/24 meloxicam 15 mg tablet 15 mg PO QAM Pain 04/07/24 04/07/24 al-pydx-xqmw-iron 8 mg-folic acid 1 tab PO HS 04/07/24 04/07/24 400 mcg-vit K1 50 mcg-lutein tablet ([facility]) Previous Rx's Medication Instructions Recorded albuterol sulfate 90 mcg/actuation 2 puff inhalation QID PRN 03/29/23 aerosol inhaler shortness of breath or wheezing #6.7 grams azelastine 137 mcg (0.1 %) nasal 1 spray intranasal DAILY #30 mL 12/14/23 spray fluticasone propionate 50 2 spray intranasal DAILY PRN nasal 12/14/23 mcg/actuation nasal congestion #16 grams spray,suspension benzonatate 100 mg capsule 100 mg PO TID PRN cough #20 caps 02/16/24 umeclidinium 62.5 mcg-vilanterol 1 inh inhalation DAILY #60 ea 02/16/24 25 mcg/actuation powdr for inhalation (Anoro Ellipta) atenolol 25 mg tablet 25 mg PO BID #60 tabs 02/29/24 montelukast 10 mg tablet 10 mg PO HS #30 tabs 03/24/24 Results & Data (ED) Vital Signs Vital Signs - 24 hr 04/07/24 08:48 04/07/24 08:55 04/07/24 09:04 Temperature Temperature Source Pulse Rate 90 79 Pulse Rate [Apical] Pulse Rate from SpO2 Sensor 72 Pulse Rhythm Pulse Rhythm [Apical] Pulse Strength Pulse Strength [Apical] Respiratory Rate 21 Respiratory Effort / Characteristics Respiratory Depth Respiratory Pattern Blood Pressure 101/53 L 106/52 L Blood Pressure [Left Arm] Blood Pressure Mean 69 84 Blood Pressure Mean [Left Arm] Blood Pressure Position Blood Pressure Position [Left Arm] Pulse Oximetry 81 L Oxygen Delivery Method Room Air Oxygen Flow Rate Sepsis Recent Fever Within 48 Hours Sepsis New/Unexplained Change in Mental Status Sepsis Action Taken by Nursing Oxygen Flow Rate - Titration Pulse Oximetry Post Tiitration 04/07/24 09:15 04/07/24 09:16 04/07/24 09:16 Temperature 36.9 C Temperature Source Oral Pulse Rate 81 88 88 Pulse Rate [Apical] Pulse Rate from SpO2 Sensor 79 Pulse Rhythm Regular Regular Pulse Rhythm [Apical] Pulse Strength Normal Pulse Strength [Apical] Respiratory Rate 26 H 20 20 Respiratory Effort / Characteristics Non-Labored Spontaneous Respiratory Depth Normal Respiratory Pattern Regular Blood Pressure 101/53 L Blood Pressure [Left Arm] Blood Pressure Mean 69 Blood Pressure Mean [Left Arm] Blood Pressure Position Semi-fowlers Blood Pressure Position [Left Arm] Pulse Oximetry 95 93 93 Oxygen Delivery Method Nasal Cannula Nasal Cannula Nasal Cannula Oxygen Flow Rate 3 3 3 Sepsis Recent Fever Within 48 Hours No Sepsis New/Unexplained Change in Mental Status No Sepsis Action Taken by Nursing No Action Required Oxygen Flow Rate - Titration Pulse Oximetry Post Tiitration 04/07/24 09:16 04/07/24 09:16 04/07/24 09:16 Temperature 36.9 C Temperature Source Oral Pulse Rate Pulse Rate [Apical] 88 Pulse Rate from SpO2 Sensor Pulse Rhythm Pulse Rhythm [Apical] Regular Pulse Strength Pulse Strength [Apical] Normal Respiratory Rate 20 Respiratory Effort / Characteristics Non-Labored Spontaneous Non-Labored Spontaneous Respiratory Depth Normal Normal Respiratory Pattern Regular Regular Blood Pressure Blood Pressure [Left Arm] 101/53 L Blood Pressure Mean Blood Pressure Mean [Left Arm] 69 Blood Pressure Position Blood Pressure Position [Left Arm] Semi-fowlers Pulse Oximetry 82 L 93 Oxygen Delivery Method Nasal Cannula Nasal Cannula Nasal Cannula Oxygen Flow Rate 3 0 3 Sepsis Recent Fever Within 48 Hours Sepsis New/Unexplained Change in Mental Status Sepsis Action Taken by Nursing Oxygen Flow Rate - Titration 3 Pulse Oximetry Post Tiitration 93 04/07/24 10:00 Temperature Temperature Source Pulse Rate 87 Pulse Rate [Apical] Pulse Rate from SpO2 Sensor 77 Pulse Rhythm Pulse Rhythm [Apical] Pulse Strength Pulse Strength [Apical] Respiratory Rate 22 Respiratory Effort / Characteristics Respiratory Depth Respiratory Pattern Blood Pressure 119/57 L Blood Pressure [Left Arm] Blood Pressure Mean 77 Blood Pressure Mean [Left Arm] Blood Pressure Position Blood Pressure Position [Left Arm] Pulse Oximetry 96 Oxygen Delivery Method Nasal Cannula Oxygen Flow Rate 3 Sepsis Recent Fever Within 48 Hours Sepsis New/Unexplained Change in Mental Status Sepsis Action Taken by Nursing Oxygen Flow Rate - Titration Pulse Oximetry Post Tiitration Laboratory Data 04/07/24 08:55 04/07/24 08:55 Lab Results 04/07/24 Range/Units 08:55 WBC 4.66 L (4.8-10.8) K/ul RBC 4.19 L (4.20-5.40) M/uL Hgb 12.5 (12.0-16.0) g/dl Hct 37.9 (37.0-47.0) % MCV 90.5 (80.0-100.0) fL MCH 29.8 (25.0-34.0) pg MCHC 33.0 (32.0-36.0) g/dL RDW Std Deviation 47.0 H (36.4-46.3) fL RDW Coeff of Areli 14.1 (11.5-14.5) % Plt Count 143 (130-400) K/uL MPV 11.4 (9.4-12.4) fL Immature Gran % (Auto) 0.4 % Neut % (Auto) 75.4 % Lymph % (Auto) 10.1 % [place] % (Auto) 13.9 % Eos % (Auto) 0.0 % Baso % (Auto) 0.2 % Neut # (Auto) 3.51 (1.40-6.50) K/uL Lymph # (Auto) 0.47 L (1.20-3.40) K/uL [place] # (Auto) 0.65 H (0.11-0.59) K/uL Eos # (Auto) 0.00 (0.00-0.50) K/uL Baso # (Auto) 0.01 (0.00-0.20) K/uL Immature Gran # (Auto) 0.02 (0.01-0.20) K/uL PT 11.6 (9.0-12.0) Seconds INR 1.1 (0.9-1.1) Sodium 136 (136-145) mmol/L Potassium 3.5 (3.5-5.1) mmol/L Chloride 101 (98-107) mmol/L Carbon Dioxide 27 (21-32) mmol/L Anion Gap 8 (3-11) BUN 21 (6-23) mg/dl Creatinine 0.73 (0.6-1.2) mg/dl Est Cr Clr Drug Dosing 54.7 ml/min eGFR 83.08 BUN/Creatinine Ratio 28.8 H (10-20) Glucose 138 H (70-99(Fasting)) mg/dl Calcium 8.8 (8.6-10.3) mg/dl Magnesium 1.6 L (1.7-2.4) mg/dl Total Bilirubin 0.5 (0.2-1.0) mg/dl AST 24 (13-39) U/L ALT 14 (7-52) U/L Alkaline Phosphatase 58 (34-104) U/L Troponin I High Sens 10.7 (0-14) pg/ml Total Protein 6.7 (6.0-8.3) gm/dl Albumin 3.7 (3.4-5.0) gm/dl Globulin 3.0 (2.5-4.0) gm/dl Albumin/Globulin Ratio 1.2 (0.9-2) Lipase 49 (11-82) U/L Procalcitonin 0.10 (0-0.5) ng/ml Adenovirus (PCR) Not Detected (NotDetected) B. pertussis DNA (PCR) Not Detected (NotDetected) B.parapertussis DNA PCR Not Detected (NotDetected) C. pneumoniae DNA (PCR) Not Detected (NotDetected) Coronavirus OC43 (PCR) Not Detected (NotDetected) Coronavirus HKU1 (PCR) Not Detected (NotDetected) Coronavirus 229E (PCR) Not Detected (NotDetected) SARS-CoV-2 (PCR) Not Detected (NotDetected) Coronavirus NL63 (PCR) Not Detected (NotDetected) Human Metapneumovir PCR Not Detected (NotDetected) Influenza A (H3) PCR DETECTED A (NotDetected) Influenza Type B (PCR) Not Detected (NotDetected) M. pneumoniae (PCR) Not Detected (NotDetected) Parainfluenza 1 (PCR) Not Detected (NotDetected) Parainfluenza 2 (PCR) Not Detected (NotDetected) Parainfluenza 3 (PCR) Not Detected (NotDetected) Parainfluenza 4 (PCR) Not Detected (NotDetected) RSV (PCR) Not Detected (NotDetected) Entero/Rhino (PCR) Not Detected (NotDetected) Administered Medications Albuterol (Albut/Ipratrop 3mg/0.5mg Neb 3 Ml Vial) 3 ml INH Q6R TOM Stop: 05/07/24 12:59 Last Admin: 04/07/24 19:40 Dose: 3 ml Documented By: Admin: 04/07/24 13:42 Dose: 3 ml Documented By: SNS Discontinued Medications Albuterol (Albut/Ipratrop 3mg/0.5mg Neb 3 Ml Vial) 3 ml NEB NOW STA; Protocol Stop: 04/07/24 09:06 Last Admin: 04/07/24 09:27 Dose: 3 ml Documented By: Guaifenesin (Guaifenesin 600 Mg Tabcr) 600 mg PO NOW STA Stop: 04/07/24 09:06 Last Admin: 04/07/24 09:28 Dose: 600 mg Documented By: Sodium Chloride (Nss) 1,000 mls @ 999 mls/hr IV .Q1H1M ONE Stop: 04/07/24 10:07 Last Infusion: 04/07/24 12:28 Dose: Infused Documented By: Admin: 04/07/24 09:28 Dose: 999 mls/hr Documented By: Magnesium Sulfate/Dextrose (Magnesium Sulfate / D5w) 1 gm in 100 mls @ 100 mls/hr IV NOW STA Stop: 04/07/24 11:33 Last Infusion: 04/07/24 12:28 Dose: Infused Documented By: Admin: 04/07/24 11:17 Dose: 100 mls/hr Documented By: Methylprednisolone (Methylprednisolone 125 Mg/2 Ml Vial) 125 mg IV NOW STA Stop: 04/07/24 09:06 Last Admin: 04/07/24 09:27 Dose: 125 mg Documented By: Oseltamivir Phosphate (Oseltamivir Phosphate 75 Mg Cap) 75 mg PO NOW STA Stop: 04/07/24 10:34 Last Admin: 04/07/24 11:17 Dose: 75 mg Documented By: MSG Imaging Data Radiologist's Impression: Chest X-Ray 04/07/24 08:47 XR chest 1V portable CLINICAL HISTORY: Chest pain, nonspecific COMPARISON STUDY: 02/13/2024 FINDINGS: Stable mild cardiomegaly without pulmonary vascular congestion. No effusion, consolidation, or pneumothorax. IMPRESSION: No acute findings. ACT 112: Negative or not required by law. Electronically signed by: Tomasz Bernardo M.D. 04/07/2024 10:33 AM Discharge Plan Visit Data Chief Complaint: Shortness of Breath/Dyspnea Stated Complaint: SOB ED Provider: Yonatan Conroy Discharge Problem: Hypoxia, Influenza A, COPD (chronic obstructive pulmonary disease) Patient Disposition: Admitted As Inpatient Discharge Instructions Interventions: ED Discharge Assessment Last Done: 04/07/24 12:41 Discharge Problem: COPD (chronic obstructive pulmonary disease) Qualifiers: COPD type: COPD with acute exacerbation Qualified Code(s): J44.1 - Chronic obstructive pulmonary disease with (acute) exacerbation
[2024-04-07 09:27] LABS: Basophils # (auto) 0.01 K/uL (0.00-0.20); Basophils % (auto) 0.2 %; Hematocrit (blood only) 37.9 % (37.0-47.0); Hemoglobin 12.5 g/dl (12.0-16.0); Immature Granulocytes # (auto) 0.02 K/uL (0.01-0.20); Immature Granulocytes % (auto) 0.4 %; Lymphocytes # (auto) 0.47 K/uL (1.20-3.40); Lymphocytes % (auto) 10.1 %; Mean Corpuscular Hemoglobin 29.8 pg (25.0-34.0); Mean Corpuscular Volume 90.5 fL (80.0-100.0); Mean Platelet Volume 11.4 fL (9.4-12.4); Monocytes # (auto) 0.65 K/uL (0.11-0.59); Monocytes % (auto) 13.9 %; Neutrophils # (auto) 3.51 K/uL (1.40-6.50); Neutrophils % (auto) 75.4 %; Platelet Count 143 K/uL (130-400); RDW Coefficient of Variation 14.1 % (11.5-14.5); Red Blood Count 4.19 M/uL (4.20-5.40); White Blood Count 4.66 K/ul (4.8-10.8)
[2024-04-07] MEDS: methylPREDNISolone 125 MG/2 ML VIAL IV STA (09:27)
[2024-04-07] MEDS: ALBUT/IPRATROP 3MG/0.5MG NEB 3 ML VIAL NEB STA (09:27)
[2024-04-07] MEDS: SODIUM CHLORIDE 0.9% 1,000 ML IV ONE (09:28)
[2024-04-07] MEDS: guaiFENesin 600 MG TABCR PO STA (09:28)
[2024-04-07 09:41] LABS: Albumin Globulin Ratio 1.2 (0.9-2); Albumin Level 3.7 gm/dl (3.4-5.0); BUN Creatinine Ratio 28.8 (10-20); Bilirubin,Total 0.5 mg/dl (0.2-1.0); Calcium 8.8 mg/dl (8.6-10.3); Creatinine Clr Calc Pharmacy 54.7 ml/min; Magnesium 1.6 mg/dl (1.7-2.4); Potassium 3.5 mmol/L (3.5-5.1); Total Protein 6.7 gm/dl (6.0-8.3)
[2024-04-07 09:46] LABS: Troponin I High Sensitivity 10.7 pg/ml (0-14)
[2024-04-07 09:49] LABS: INR 1.1 (0.9-1.1); Prothrombin Time 11.6 Seconds (9.0-12.0)
[2024-04-07 10:29] LABS: Adenovirus PCR Not Detected (NotDetected); Bordetella parapertussis PCR Not Detected (NotDetected); Bordetella pertussis PCR Not Detected (NotDetected); Chlamydia pneumoniae PCR Not Detected (NotDetected); Coronavirus 229E PCR Not Detected (NotDetected); Coronavirus CoV-2 (COVID19)PCR Not Detected (NotDetected); Coronavirus HKU1 PCR Not Detected (NotDetected); Coronavirus NL63 PCR Not Detected (NotDetected); Coronavirus OC43PCR Not Detected (NotDetected); Human Metapneumovirus PCR Not Detected (NotDetected); Influenza A (H3) PCR DETECTED (NotDetected); Influenza B PCR Not Detected (NotDetected); Mycoplasma pneumoniae PCR Not Detected (NotDetected); Parainfluenza Virus 1 PCR Not Detected (NotDetected); Parainfluenza Virus 2 PCR Not Detected (NotDetected); Parainfluenza Virus 3 PCR Not Detected (NotDetected); Parainfluenza Virus 4 PCR Not Detected (NotDetected); Respiratory Syncytial VirusPCR Not Detected (NotDetected); Rhinovirus/Enterovirus PCR Not Detected (NotDetected)
--- NOTE | 2024-04-07 10:34 | XRay Report ---
XR chest 1V portable CLINICAL HISTORY: Chest pain, nonspecific COMPARISON STUDY: 02/13/2024 FINDINGS: Stable mild cardiomegaly without pulmonary vascular congestion. No effusion, consolidation, or pneumothorax. IMPRESSION: No acute findings. ACT 112: Negative or not required by law. Electronically signed by: Tomasz Bernardo M.D. 04/07/2024 10:33 AM
--- NOTE | 2024-04-07 10:48 | History & Physical Report ---
Date of Service April 07, 2024 Assessment & Plan (1) Influenza A: (2) COPD exacerbation: (3) Acute hypoxic respiratory failure: Plan Elsie is an 78-year-old female with PMH of COPD, multifocal pneumonia, atrial fibrillation, HLD, and HTN. She presented on 04/07 for SOB/dyspnea and dry cough that began on the evening of Wednesday 04/05. Patient reports that her cough has been dry, and she has not been coughing anything up. However, she developed SOB at rest on the morning of admission, which was new for her. #Influenza A Influenza A (+) on arrival Droplet isolation precautions Supportive care Tamiflu 75 mg p.o. BID #COPD exacerbation DuoNeb 3 mL Q6R Incentive spirometry, flutter valve Prednisone 40 mg p.o. daily #Acute hypoxic respiratory failure Patient's SpO2 dropping into the 80-89% range on RA Not on supplemental oxygen at baseline Suspect this is secondary to acute influenza; lower suspicion for PE/DVT on arrival Non-tachycardic, patient denies pleuritic CP/hemoptysis, and LEs without signs of erythema/swelling Given clear source (influenza), will defer D-dimer/chest CTA on admission Titrate supplemental oxygen as needed to maintain SpO2 89-92% Continuous pulse oximetry #History of hemorrhagic stroke Intraventricular hemorrhage noted on CT on 07/30/2023 requiring transfer to [facility] Will defer chemical DVT PPx at this time #Former tobacco cigarette smoker Noted; quit 20 years ago Disposition: Admit to [facility] telemetry Full code Regular diet VTE PPx: SCDs; will defer chemical DVT PPx given patient's history of he morrhagic stroke in July History of Present Illness Chief Complaint: SOB/dyspnea, cough Primary Care Provider: TIANA Giles lEsie is an 78-year-old female with PMH of COPD, multifocal pneumonia, atrial fibrillation, HLD, and HTN. She presented on 04/07 for SOB/dyspnea and dry cough that began on the evening of Wednesday 04/05. Patient reports that her cough has been dry, and she has not been coughing anything up. However, she developed SOB at rest on the morning of admission, which was new for her. Patient lives with her son (Karan) who is at the bedside and provides additional history. Patient has had gradual memory decline ever since her hemorrhagic stroke in July 2023; son believes this is the reason that she is not currently on blood thinners. The patient does not use supplemental oxygen at baseline or CPAP at night. She denies any sick contacts. Recent [place] hospitalization in early February for pneumonia. Additionally, son endorses decreased appetite, and she has been having some rib pain due to coughing. She denies prior history of DVT/PE. Patient's son reports that she took all of her regular morning medicines today; no recent change in medications. Patient is a former tobacco cigarette smoker, but quit 20 years ago. She denies any recent falls, injuries to the head or neck, or ambulatory assist devices at home. SpO2 96% on 3L NC on admission; vitals otherwise stable. ED course: Magnesium sulfate 1 g IV Methylprednisolone 125 mg IV DuoNeb 3 mL Guaifenesin 600 mg p.o. NSS 1000 mL IV Tamiflu 75 mg p.o. ROS: Patient endorses cold intolerance, dry cough, and SOB at rest (which is new for her). Patient denies fever, chills, night-sweats, dizziness, lightheadedness, headache, chest pain, chest palpitations, pleuritic CP, productive cough, hemoptysis, abdominal pain, N/V/D, changes in urinary bowel habits, burning with urination, blood in the urine or stool, or numbness or tingling in the legs. Allergies Allergy/AdvReac Type Severity Reaction Status Date / Time atorvastatin [From Lipitor] AdvReac Intermediate hairloss Verified 04/01/24 10:50 simvastatin [From Zocor] AdvReac Intermediate hairloss Verified 04/01/24 10:50 Home Medications Medication Instructions Recorded Confirmed Type albuterol sulfate 90 mcg/actuation 2 puff inhalation QID PRN 03/29/23 04/07/24 Rx aerosol inhaler shortness of breath or wheezing #6.7 grams azelastine 137 mcg (0.1 %) nasal 1 spray intranasal DAILY #30 mL 12/14/23 04/07/24 Rx spray fluticasone propionate 50 2 spray intranasal DAILY PRN nasal 12/14/23 04/07/24 Rx mcg/actuation nasal congestion #16 grams spray,suspension benzonatate 100 mg capsule 100 mg PO TID PRN cough #20 caps 02/16/24 04/07/24 Rx umeclidinium 62.5 mcg-vilanterol 1 inh inhalation DAILY #60 ea 02/16/24 04/07/24 Rx 25 mcg/actuation powdr for inhalation (Anoro Ellipta) atenolol 25 mg tablet 25 mg PO BID #60 tabs 02/29/24 04/07/24 Rx montelukast 10 mg tablet 10 mg PO HS #30 tabs 03/24/24 04/07/24 Rx alendronate 70 mg tablet 70 mg PO WK 04/07/24 04/07/24 History amlodipine 5 mg tablet 5 mg PO QAM 04/07/24 04/07/24 History anastrozole 1 mg tablet 1 mg PO QAM 04/07/24 04/07/24 History cholecalciferol (vitamin D3) 50 50 mcg PO HS 04/07/24 04/07/24 History mcg (2,000 unit) capsule lisinopril 5 mg tablet 5 mg PO QAM 04/07/24 04/07/24 History loratadine 10 mg tablet 10 mg PO QAM 04/07/24 04/07/24 History meloxicam 15 mg tablet 15 mg PO QAM Pain 04/07/24 04/07/24 History ss-sgum-ofgi-iron 8 mg-folic acid 1 tab PO HS 04/07/24 04/07/24 History 400 mcg-vit K1 50 mcg-lutein tablet ([facility]) Past Med/Surg History Problem List (Updated 04/07/24 @ 11:46 by Jefferson Carrero PA-C) Acute hypoxic respiratory failure COPD exacerbation COPD (chronic obstructive pulmonary disease) (Acute) Influenza A (Acute) Hypoxia (Acute) COPD with emphysema Multiple pulmonary nodules Abnormal chest CT Multifocal pneumonia Atrial fibrillation with rapid ventricular response (Acute) Cognitive communication deficit Anemia Poor appetite Weight loss Intraparenchymal hematoma of brain Dysrhythmia (Acute) Chest pain (Acute) Supraventricular tachycardia (04/2023) S/P bilateral mastectomy Bilateral breast cancer Breast lump on right side at 9 o'clock position Left ankle strain Breast lump in female Dyspnea on exertion Myalgia due to statin Pulmonary nodule Sciatic leg pain Active Meniere's disease, cochlear (Acute) Allergic rhinitis (Chronic) Hyperlipidemia (Chronic) Hypertension (Chronic) Medical History SVT (supraventricular tachycardia) Right-sided chest pain Hypokalemia Hypomagnesemia Vertigo Surgical History History of dental surgery Hx of cholecystectomy Family History Mother Hypertension Myocardial infarction Denies family history of Ovarian cancer Prostate cancer Diabetes Breast cancer Colorectal cancer Social History Smoking Status: Former smoker Tobacco Type: Cigarettes Age Started Using Tobacco: 18; Age Quit Using Tobacco: 28; packs per day: 0.25; Second Hand Exposure: No; Do You Dip or Chew Tobacco: No; Hx Alcohol Use: No Hx Substance Use: No Preferred Language: Kazakh Communication Ability: Effective Visual Impairment: Limited Hearing Ability: Normal Family Living Educator Required: No Beliefs That Will Affect Care: None marital status: / Current Living Situation: Family current occupational status: retired How many Children do You have: 3 How many Children do You have Comment: 1 child . Feels Safe at Home: Yes Childhood Exposure to Second-Hand Smoke: Yes Diet: regular caffeine: Yes (coffee) during the past year weight has: remained stable Dental Care, Regularly: Yes Physical Activity Frequency: Does not Exercise Seatbelt Use: always Sunscreen Use: No Do you think of yourself as: straight/heterosexual Gender Identity: Female Assistive Devices: None Review of Systems Review of Systems: See HPI above Physical Exam Physical Exam: General: no acute distress; son at bedside; non-toxic appearing; frail appearing; cooperative; SpO2 96% on 3L NC HEENT: normocephalic, atraumatic; no scleral icterus; PERRLA; vision and hearing intact Neck: supple; no lymphadenopathy; trachea midline Skin: warm, dry without signs of tenting; no cyanosis; no rashes, bruising, lesions, or erythema noted CV: chest wall NTP; RRR; S1/S2 normal; no murmurs/rubs/gallops; pulses intact and symmetric at radial, DP, and PT Lungs: no acute respiratory distress; symmetrical chest wall expansion; bibasilar crackles auscultated in the lower lung lion bilaterally (R > L) ABD: Soft, NTP; BS present; no rebound/guarding; no distention MSK: no tics or fasciculations; no edema noted in the LEs b/l, nonerythematous Neuro: A&Ox3; normal mood and affect; fluent speech; no focal deficits; sensation grossly intact in the LEs b/l Trialed patient on room air, and patient's SpO2 dropped to 88% Results & Data Results & Data Vital Signs (Past 12 Hours) Vital Signs Temp Pulse Pulse Resp BP BP Pulse Ox 04/07/24 10:00 87 22 119/57 L 96 04/07/24 09:16 36.9 C 88 20 101/53 L 93 04/07/24 09:16 82 L 04/07/24 09:16 04/07/24 09:16 88 20 93 04/07/24 09:16 36.9 C 88 20 101/53 L 93 04/07/24 09:15 81 26 H 95 04/07/24 09:04 106/52 L 04/07/24 08:55 79 04/07/24 08:48 90 21 101/53 L 81 L O2 Del Method O2 Flow Rate 04/07/24 10:00 Nasal Cannula 3 04/07/24 09:16 Nasal Cannula 3 04/07/24 09:16 Nasal Cannula 0 04/07/24 09:16 Nasal Cannula 3 04/07/24 09:16 Nasal Cannula 3 04/07/24 09:16 Nasal Cannula 3 04/07/24 09:15 Nasal Cannula 3 04/07/24 09:04 04/07/24 08:55 04/07/24 08:48 Room Air Laboratory Results Abnormal lab results 04/07/24 Range/Units 08:55 WBC 4.66 L (4.8-10.8) K/ul RBC 4.19 L (4.20-5.40) M/uL RDW Std Deviation 47.0 H (36.4-46.3) fL Lymph # (Auto) 0.47 L (1.20-3.40) K/uL Davison # (Auto) 0.65 H (0.11-0.59) K/uL BUN/Creatinine Ratio 28.8 H (10-20) Glucose 138 H (70-99(Fasting)) mg/dl Magnesium 1.6 L (1.7-2.4) mg/dl Influenza A (H3) PCR DETECTED A (NotDetected) Diagnostic Findings Chest X-Ray 04/07/24 08:47 XR chest 1V portable CLINICAL HISTORY: Chest pain, nonspecific COMPARISON STUDY: 02/13/2024 FINDINGS: Stable mild cardiomegaly without pulmonary vascular congestion. No effusion, consolidation, or pneumothorax. IMPRESSION: No acute findings. ACT 112: Negative or not required by law. Electronically signed by: Tomasz Bernardo M.D. 04/07/2024 10:33 AM ECG Additional Comments: ECG revealed NSR at 78 bpm; QTc 437 Code Status & VTE Plan Code Status Full code (discussed with both the patient and patient's son at bedside; patient's daughter is her medical POA/proxy in an emergency situation) Supervising Physician Co-Signing Physician Notes I have personally seen, evaluated and examined the patient. I have also pers onally discussed the management of the patient with the resident physician/SAVANNAH and I agree with the exam findings documented in the history and physical examination and the documented assessment and plan unless otherwise stated below. Brief Exam: In general very pleasant 78-year-old female she is alert and oriented at the time of my exam. Accompanied by her son at the time my exam. She is resting comfortably on 3 L of oxygen nasal cannula. HEENT: Normocephalic atraumatic. Heart: Regular rate at this time no appreciable murmur. Lungs: Coarse bilaterally with bilateral expiratory wheezing. No rales. No rhonchi. Abdomen: Flat soft and nontender positive bowel sounds. Extremities: Intact no clubbing cyanosis or edema. Neurologically: She is alert and oriented with no focal deficit. Assessment/plan: As described above. Pulmonary toilet including corticosteroids, Tamiflu, nebulizers treatments. Droplet isolation. With the hypoxemic respiratory failure we do anticipate at least 2 midnight stays. Please refer to orders for further planning. PG Care Time/CCT Total # of Minutes Spent Total Time Spent with Patient: Total time spent is greater than 50% in coordination of care (as documented) at patient's floor/unit and/or counseling patient: C[place] [address] INT INP/OBS CARE 3/75MIN Patient Type Established Medical Decision Making High Complexity Diagnoses Influenza A J10.1 COPD exacerbation J44.1 Acute hypoxic respiratory failure J96.01
[2024-04-07] MEDS: OSELTAMIVIR PHOSPHATE 75 MG CAP PO STA (11:17)
[2024-04-07] MEDS: MAGNESIUM SULFATE / D5W 1 GM/100 ML BAG IV STA (11:17)
[2024-04-07] MEDS ORDERED: BENZONATATE 100 MG CAPSULE PO PRN (12:40)
[2024-04-07] MEDS ORDERED: FLUTICASONE PROPIONATE NA SPR 16 GM BTL PRN (12:40)
[2024-04-07] MEDS ORDERED: ACETAMINOPHEN 325 MG TAB PO PRN (12:40)
[2024-04-07] MEDS: ALBUT/IPRATROP 3MG/0.5MG NEB 3 ML VIAL INH SCH (13:42)
--- NOTE | 2024-04-07 15:41 | Electrocardiogram Report ---
Test Reason : Blood Pressure : */* mmHG Vent. Rate : 78 BPM Atrial Rate : 78 BPM P-R Int : 148 ms QRS Dur : 74 ms QT Int : 384 ms P-R-T Axes : 91 16 89 degrees QTcB Int : 437 ms Poor data quality, interpretation may be adversely affected Normal sinus rhythm Normal ECG When compared with ECG of 14-Feb-2024 05:27, Premature atrial complexes are no longer Present Nonspecific T wave abnormality, improved in Lateral leads Confirmed by Gonzalo German ([id number]) on 04/07/2024 3:41:13 PM Referred By: Confirmed By: Gonzalo German
[2024-04-07] MEDS: AZELASTINE HCL 0.1% NASAL 200 SPRAYS/27,400 MCG BTL SCH (21:21)
[2024-04-07] MEDS: OSELTAMIVIR PHOSPHATE SUSP 30 MG/5 ML UDP PO SCH (21:30)
[2024-04-07] MEDS: MONTELUKAST SODIUM 10 MG TABLET PO SCH (21:30)
[2024-04-07] MEDS: ATENOLOL 25 MG TABLET PO SCH (21:30)
[2024-04-08 03:48] LABS: Hematocrit (blood only) 33.4 % (37.0-47.0); Hemoglobin 11.2 g/dl (12.0-16.0); Lymphocytes # (auto) 0.37 K/uL (1.20-3.40); Lymphocytes % (auto) 19.1 %; Mean Corpuscular Hemoglobin 29.9 pg (25.0-34.0); Mean Corpuscular Hgb Conc 33.5 g/dL (32.0-36.0); Mean Corpuscular Volume 89.3 fL (80.0-100.0); Monocytes # (auto) 0.33 K/uL (0.11-0.59); Neutrophils # (auto) 1.24 K/uL (1.40-6.50); Neutrophils % (auto) 63.9 %; Platelet Count 123 K/uL (130-400); RDW Coefficient of Variation 13.8 % (11.5-14.5); RDW Standard Deviation 45.1 fL (36.4-46.3); Red Blood Count 3.74 M/uL (4.20-5.40); White Blood Count 1.94 K/ul (4.8-10.8)
[2024-04-08 04:24] LABS: BUN Creatinine Ratio 38.1 (10-20); Calcium 8.1 mg/dl (8.6-10.3); Creatinine Clr Calc Pharmacy 63.4 ml/min; Magnesium 1.9 mg/dl (1.7-2.4); Potassium 4.2 mmol/L (3.5-5.1)
[2024-04-08] MEDS: predniSONE 20 MG TAB PO SCH (08:24)
[2024-04-08] MEDS: amLODIPine BESYLATE 5 MG TAB PO SCH (08:25)
[2024-04-08] MEDS: LORATADINE 10 MG TAB PO SCH (08:27)
[2024-04-08] MEDS: lisinopril 5 MG TAB PO SCH (08:27)
[2024-04-08] MEDS: ANASTROZOLE 1 MG TAB PO SCH (08:34)
[2024-04-08] MEDS: UMECLIDINIUM/VILANTEROL 62.5/25MCG 7 PUFFS/INHALER INH SCH (08:38)
[2024-04-08] MEDS: OSELTAMIVIR PHOSPHATE 75 MG CAP PO SCH (20:15)
--- NOTE | 2024-04-08 21:18 | Hospitalist Progress Note ---
Date of Service April 08, 2024 Assessment & Plan (1) Influenza A: (2) COPD exacerbation: (3) Acute hypoxic respiratory failure: Plan Elsie is an 78-year-old female with PMH of COPD, multifocal pneumonia, atrial fibrillation, HLD, and HTN. She presented on 04/07 for SOB/dyspnea and dry cough that began on the evening of Wednesday 04/05. Patient reports that her cough has been dry, and she has not been coughing anything up. However, she developed SOB at rest on the morning of admission, which was new for her. #Influenza A Influenza A (+) on arrival Continue Tamiflu 75 mg PO BID through 04/12/24 Pancytopenia noted on CBC with neutrophil predominance, suspect secondary to viral infection. Monitor CBC with differential in AM #COPD exacerbation DuoNeb 3 mL Q6R Incentive spirometry, flutter valve Prednisone 40 mg p.o. daily #Acute hypoxic respiratory failure Patient's SpO2 dropping into the mid-80% range on RA. Not on supplemental oxygen at baseline Suspect this is secondary to acute influenza Titrate supplemental oxygen as needed to maintain SpO2 89-92% Continuous pulse oximetry #History of hemorrhagic stroke Intraventricular hemorrhage noted on CT on 07/30/2023 requiring transfer to [facility] Will defer chemical DVT PPx at this time #Former tobacco cigarette smoker Noted; quit 20 years ago VTE PPx: SCDs; will defer chemical DVT PPx given patient's history of hemorrhagic stroke in July Dispo: Continued inpatient stay for medical management, try to wean off O2 Updated son at bedside Admission and Anticipated Discharge Date Admission Date: April 07, 2024 Subjective Patient seen and evaluated at bedside in ED with her son present. She reports feeling better today and is eager to return home. She remains hypoxic when not on supplemental O2 with SpO2 dropping to the 80s. She has an intermittently productive cough. She denies shortness of breath, difficulty breathing, chest pain, body aches, nausea, diarrhea, or urinary symptoms. We discussed further inpatient stay for treatment and to wean off O2 hopefully before discharge, she is understanding and agreeable. No additional complaints or concerns at this time. Physical Exam Physical Exam: General: No acute distress, nondiaphoretic, frail appearing female. Cardiac: Regular rate and rhythm without murmurs gallops or rubs. Pulm: Bibasilar rhonchi with expiratory wheeze noted bilaterally. No respiratory distress. 95% on 2L NC. SpO2 drops to mid-80s on RA. Abdominal: Soft, nontender, nondistended. Bowel sounds present. Neuro: A&O x3 with periods of confusion (baseline per son). No focal neurological deficits. Results & Data Results & Data Vital Signs (Past 12 Hours) Vital Signs Temp Pulse Pulse Resp BP BP Pulse Ox 04/08/24 20:48 98.1 F 72 20 119/63 95 04/08/24 20:32 78 18 96 04/08/24 19:50 72 119/63 04/08/24 18:41 70 04/08/24 18:05 04/08/24 17:45 97.9 F 89 18 113/62 94 04/08/24 17:15 79 21 04/08/24 16:33 91 H 24 04/08/24 16:30 103/65 04/08/24 16:27 85 31 H 94 04/08/24 16:00 128/51 L 04/08/24 16:00 85 25 H 93 04/08/24 15:30 86 21 91 04/08/24 15:03 101 H 20 04/08/24 15:00 120/55 L 04/08/24 14:48 88 24 91 04/08/24 14:30 122/57 L 04/08/24 14:30 122/57 L 04/08/24 14:30 122/57 L 04/08/24 14:30 68 22 98 04/08/24 14:09 118/75 04/08/24 14:09 69 18 96 04/08/24 14:03 68 25 H 95 04/08/24 14:00 04/08/24 13:33 76 20 04/08/24 13:06 66 21 04/08/24 13:00 136/66 04/08/24 12:54 62 24 04/08/24 12:33 59 L 26 H 98 04/08/24 12:31 121/64 04/08/24 12:27 59 L 27 H 97 04/08/24 12:06 63 24 97 04/08/24 12:00 125/62 04/08/24 11:45 65 19 96 04/08/24 11:30 65 24 78 L 04/08/24 11:30 117/58 L 04/08/24 11:30 117/58 L 04/08/24 11:24 65 26 H 04/08/24 11:00 120/65 04/08/24 10:30 113/63 04/08/24 10:21 71 19 04/08/24 10:18 66 20 04/08/24 09:36 68 23 Pulse Ox O2 Del Method O2 Del Method O2 Flow Rate O2 Flow Rate 04/08/24 20:48 Nasal Cannula 2 04/08/24 20:32 Room Air 04/08/24 19:50 04/08/24 18:41 04/08/24 18:05 Nasal Cannula 3 04/08/24 17:45 Nasal Cannula 2 04/08/24 17:15 04/08/24 16:33 04/08/24 16:30 04/08/24 16:27 04/08/24 16:00 04/08/24 16:00 04/08/24 15:30 04/08/24 15:03 04/08/24 15:00 04/08/24 14:48 04/08/24 14:30 04/08/24 14:30 04/08/24 14:30 04/08/24 14:30 04/08/24 14:09 04/08/24 14:09 04/08/24 14:03 04/08/24 14:00 96 Nasal Cannula 2 04/08/24 13:33 04/08/24 13:06 04/08/24 13:00 04/08/24 12:54 04/08/24 12:33 04/08/24 12:31 04/08/24 12:27 04/08/24 12:06 04/08/24 12:00 04/08/24 11:45 04/08/24 11:30 04/08/24 11:30 04/08/24 11:30 04/08/24 11:24 04/08/24 11:00 04/08/24 10:30 04/08/24 10:21 04/08/24 10:18 04/08/24 09:36 Laboratory Results Reviewed CBC with differential Reviewed BMP, mag PG Care Time/CCT Total # of Minutes Spent Total Time Spent with Patient: Total time spent is greater than 50% in coordination of care (as documented) at patient's floor/unit and/or counseling patient: Coding Level of Care Code 09073 SUB INP/OBS CARE MIN Diagnoses Influenza A J10.1 COPD exacerbation J44.1 Acute hypoxic respiratory failure J96.01
[2024-04-09 07:32] LABS: Hematocrit (blood only) 33.4 % (37.0-47.0); Hemoglobin 11.3 g/dl (12.0-16.0); Mean Corpuscular Hgb Conc 33.8 g/dL (32.0-36.0); Mean Corpuscular Volume 91.5 fL (80.0-100.0); Mean Platelet Volume 11.7 fL (9.4-12.4); Platelet Count 143 K/uL (130-400); RDW Coefficient of Variation 13.9 % (11.5-14.5); RDW Standard Deviation 47.1 fL (36.4-46.3); Red Blood Count 3.65 M/uL (4.20-5.40)
[2024-04-09 07:56] VITALS: TEMP 98.1
[2024-04-09 08:01] LABS: Immature Granulocytes # (auto) 0.01 K/uL (0.01-0.20); Immature Granulocytes % (auto) 0.3 %; Lymphocytes # (auto) 1.28 K/uL (1.20-3.40); Lymphocytes % (auto) 34.6 %; Monocytes # (auto) 0.56 K/uL (0.11-0.59); Monocytes % (auto) 15.1 %; Neutrophils # (auto) 1.85 K/uL (1.40-6.50)
[2024-04-09 11:41] VITALS: BP 139/75
[2024-04-09 13:44] VITALS: RESP 20
[2024-04-09 15:58] VITALS: PULSE 63; O2SAT 92
--- NOTE | 2024-04-09 19:32 | Discharge Summary ---
Discharge Summary Date of Service April 09, 2024 Principal Dx & Hospital Course #1 = Principal Diagnosis (1) Influenza A: (2) COPD exacerbation: (3) Acute hypoxic respiratory failure: Plan Elsie is an 78-year-old female with PMH of COPD, multifocal pneumonia, atrial fibrillation, HLD, and HTN. She presented on 04/07 for SOB/dyspnea and dry cough that began on the evening of Wednesday 04/05. Patient reports that her cough has been dry, and she has not been coughing anything up. However, she developed SOB at rest on the morning of admission, which was new for her. She tested positive for Influenza A on admission. #Influenza A Continue Tamiflu 75 mg PO BID through 04/12/24 AM Pancytopenia improved, suspect secondary to viral suppression PT/OT recommended return home #COPD exacerbation Continue prednisone 40 mg p.o. daily x 3 additional days on discharge Continue incentive spirometry #Acute hypoxic respiratory failure Patient's SpO2 dropping into the mid-80% range on RA. Not on supplemental oxygen at baseline Suspect this is secondary to acute influenza 2-step completed prior to discharge and patient needs 2 L at rest and 3 L with ambulation/activity #History of hemorrhagic stroke Intraventricular hemorrhage noted on CT on 07/30/2023 requiring transfer to [facility] Deferred chemical DVT prophylaxis and utilized SCDs #Former tobacco cigarette smoker Noted; quit 20 years ago Dispo: Discharged home 04/09 Notes For Next Care Provider Monitor need for continued supplemental O2 Medication Changes From Visit Tamiflu BID and prednisone 40 mg daily x 3 days Admission HPI Per Admitting Provider Elsie is an 78-year-old female with PMH of COPD, multifocal pneumonia, atrial fibrillation, HLD, and HTN. She presented on 04/07 for SOB/dyspnea and dry cough that began on the evening of Wednesday 04/05. Patient reports that her cough has been dry, and she has not been coughing anything up. However, she developed SOB at rest on the morning of admission, which was new for her. Patient lives with her son (Karan) who is at the bedside and provides additional history. Patient has had gradual memory decline ever since her hemorrhagic stroke in July 2023; son believes this is the reason that she is not currently on blood thinners. The patient does not use supplemental oxygen at baseline or CPAP at night. She denies any sick contacts. Recent [place] hospitalization in early February for pneumonia. Additionally, son endorses decreased appetite, and she has been having some rib pain due to coughing. She denies prior history of DVT/PE. Patient's son reports that she took all of her regular morning medicines today; no recent change in medications. Patient is a former tobacco cigarette smoker, but quit 20 years ago. She denies any recent falls, injuries to the head or neck, or ambulatory assist devices at home. SpO2 96% on 3L NC on admission; vitals otherwise stable. ED course: Magnesium sulfate 1 g IV Methylprednisolone 125 mg IV DuoNeb 3 mL Guaifenesin 600 mg p.o. NSS 1000 mL IV Tamiflu 75 mg p.o. ROS: Patient endorses cold intolerance, dry cough, and SOB at rest (which is new for her). Patient denies fever, chills, night-sweats, dizziness, lightheadedness, headache, chest pain, chest palpitations, pleuritic CP, productive cough, hemoptysis, abdominal pain, N/V/D, changes in urinary bowel habits, burning with urination, blood in the urine or stool, or numbness or tingling in the legs. Discharge Exam General: No acute distress, nondiaphoretic, frail appearing female. Cardiac: Regular rate and rhythm without murmurs gallops or rubs. Pulm: Faint bibasilar rhonchi with mild expiratory wheeze noted bilaterally. No respiratory distress. 94% on 2L NC. SpO2 drops to mid-80s on RA. Abdominal: Soft, nontender, nondistended. Bowel sounds present. Neuro: A&O x3 with periods of confusion (baseline per son). No focal neurological deficits. Discharge Plan Discharge Items Patient Disposition: Home - Self-Care Reason For Visit: INFLUENZA A, HYPOXIA Discharge Diagnosis: Influenza A COPD exacerbation Hypoxia Activity: Per Instructions section Non-emergency contact: Primary Care Provider Call non-emergency contact if: you have any medication questions and your symptoms worsen Follow-up/Referrals: Hetal Jovel CRNP [Primary Care Provider] - 04/17/24 10:30 am Diet: Regular Addtl Attending Provider Instructions: Elsie, You were admitted to the hospital with influenza A ("the flu"), COPD exacerbation, and hypoxia (low oxygen levels). This explains your symptoms of cough and shortness of breath that you experienced before coming to the hospital. You were evaluated by the PT/OT teams who felt that you are safe to return home from the hospital. You were also evaluated by the respiratory therapy team who recommends continued supplemental oxygen at home. Upon discharge from the hospital: * Take Tamiflu twice daily until 04/12/2024 morning's dose. You should take 1 dose tonight (04/09). This is to lessen the severity of your flu symptoms and shorten the duration of your flu symptoms. * Take prednisone (oral steroid) once daily through 04/12/2024. You received your dose today, so start this tomorrow morning, 04/10. * Continue to wear your supplemental oxygen. You should wear 2 L at rest and 3 L with ambulation/activity. * Continue to use the incentive spirometer provided in the hospital. * Continue your other home medications as prescribed. * Follow-up with your PCP. Your appointment is scheduled for 04/17/2024 at 10:30 AM. Please return to the hospital if you experience any of the following: Shortness of breath, difficulty breathing, chest pain, confusion, passing out, or any other symptoms concerning for you. It was a pleasure taking care of you while you were in the hospital! Pending Studies at Discharge: No Stand-Alone Forms: My [facility], Smoking Cessation Medications and DC Order Prescriptions: New prednisone 20 mg Tablet 40 mg PO DAILY Qty: 3 0RF oseltamivir [Tamiflu] 75 mg Capsule 75 mg PO BID Qty: 6 0RF Continued albuterol sulfate 90 mcg/actuation HFA aerosol inhaler 2 puff inhalation QID PRN (Reason: shortness of breath or wheezing) Qty: 6.7 4RF fluticasone propionate 50 mcg/actuation spray,suspension 2 spray intranasal DAILY PRN (Reason: nasal congestion) Qty: 16 11RF azelastine 137 mcg (0.1 %) spray,non-aerosol 1 spray INTNAS DAILY Qty: 30 7RF Rx Instructions: administer into each nostril at bedtime atenolol 25 mg tablet 25 mg PO BID Qty: 60 5RF montelukast 10 mg tablet 10 mg PO HS Qty: 30 11RF Anoro Ellipta 62.5-25 mcg/actuation blister with device 1 inh inhalation DAILY Qty: 60 2RF benzonatate 100 mg capsule 100 mg PO TID PRN (Reason: cough) Qty: 20 0RF alendronate 70 mg tablet 70 mg PO WK Rx Instructions: Sunday cholecalciferol (vitamin D3) 50 mcg (2,000 unit) capsule 50 mcg PO HS ABC Complete Senior Women's 8 mg iron- 400 mcg-50 mcg tablet 1 tab PO HS anastrozole 1 mg tablet 1 mg PO QAM meloxicam 15 mg tablet 15 mg PO QAM amlodipine 5 mg tablet 5 mg PO QAM lisinopril 5 mg tablet 5 mg PO QAM Rx Instructions: TAKE 1 TABLET DAILY. loratadine 10 mg tablet 10 mg PO QAM Discharge Orders: Discharge Order (Routine); Ordered 04/09/24 Ordered By: Ashley Higginbotham Admission Data Admit Date/Time: 04/07/24 11:34 Attending Provider: Henry Ledbetter Admit Provider: Emeterio Thompson Primary Care Provider: Hetal Jovel Other Providers: Emeterio Thompson Other Interventions: Discharge Summary Assessment (RN) Last Done: 04/09/24 15:56 Hospital Stay Data Consultations 04/07/24 10:37 ED Decision to Admit Stat Pending Results Patient Have Any Pending Studies at Discharge: No Discharge Instructions Given to Patient (Per Discharging Provider) Elsie Yariel were admitted to the hospital with influenza A ("the flu"), COPD exacerbation, and hypoxia (low oxygen levels). This explains your symptoms of cough and shortness of breath that you experienced before coming to the hospital. You were evaluated by the PT/OT teams who felt that you are safe to return home from the hospital. You were also evaluated by the respiratory therapy team who recommends continued supplemental oxygen at home. Upon discharge from the hospital: * Take Tamiflu twice daily until 04/12/2024 morning's dose. You should take 1 d ose tonight (04/09). This is to lessen the severity of your flu symptoms and shorten the duration of your flu symptoms. * Take prednisone (oral steroid) once daily through 04/12/2024. You received your dose today, so start this tomorrow morning, 04/10. * Continue to wear your supplemental oxygen. You should wear 2 L at rest and 3 L with ambulation/activity. * Continue to use the incentive spirometer provided in the hospital. * Continue your other home medications as prescribed. * Follow-up with your PCP. Your appointment is scheduled for 04/17/2024 at 10:30 AM. Please return to the hospital if you experience any of the following: Shortness of breath, difficulty breathing, chest pain, confusion, passing out, or any other symptoms concerning for you. It was a pleasure taking care of you while you were in the hospital! Total Time Total Time Spent Total Time Spent (In Minutes): Greater than 30 minutes spent completing this discharge process including direct patient care, medication reconciliation, documentation, review of labs and images, and coordination of care. Coding Level of Care Code 32197 INP/OBS DISCH >30 MIN Diagnoses Influenza A J10.1 COPD exacerbation J44.1 Acute hypoxic respiratory failure J96.01
[2024-04-13] MEDS ORDERED: ALENDRONATE SODIUM 70 MG TAB PO SCH (06:30)
== END 2024-04-09 16:39 | disposition home or self-care (01) | DRG 193 ==
LOC: ED 08:42 → SUATTDRO 11:34 → EDINP 11:34 → 2W 04-08 17:36
DX: Z87.891 Personal history of nicotine dependence; J10.1 Influenza due to other identified influenza virus with other respiratory manifestations; I10 Essential (primary) hypertension; E78.5 Hyperlipidemia, unspecified; Z88.8 Allergy status to other drugs, medicaments and biological substances; I48.91 Unspecified atrial fibrillation; J44.1 Chronic obstructive pulmonary disease with (acute) exacerbation; J96.01 Acute respiratory failure with hypoxia; Z79.899 Other long term (current) drug therapy; Z86.73 Personal history of transient ischemic attack (TIA), and cerebral infarction without residual deficits